=== PATIENT | female | born 1960 | race Two or more races ===

== ENCOUNTER 2018-04-05 12:13 | Inpatient (IN) | payer MEDICAID ==
[2018-04-05] VITALS (14 sets, daily range): BP systolic 141–160; BP diastolic 64–104
[~2018-04-05] VITALS: Ht 162.6 cm; Wt 79.4 kg
[2018-04-05] MEDS ORDERED: ATORVASTATIN CA40 MG ORAL (12:33)
[2018-04-05] MEDS ORDERED: COLACE100 MG ORAL (12:33)
[2018-04-05] MEDS ORDERED: BENADRYL25 MG ORAL (12:33)
[2018-04-05] MEDS ORDERED: ASPIRIN81 MG ORAL (12:33)
[2018-04-05] MEDS ORDERED: LOVENOX10 M4 SUBQ (12:33)
[2018-04-05] MEDS ORDERED: ASCORBIC ACID500 MG ORAL (12:33)
[2018-04-05] MEDS ORDERED: CARVEDILOL25 MG ORAL (12:33)
[2018-04-05] MEDS ORDERED: ACETAMINOPHEN325 M1 ORAL (12:33)
[2018-04-05] MEDS ORDERED: EPOGEN10000 UNIT SUBQ (12:33)
[2018-04-05] MEDS ORDERED: BISACODYL10 M1 RC (12:33)
[2018-04-05] MEDS ORDERED: FERROUS SULFAT325 MG ORAL (12:35)
[2018-04-05] MEDS ORDERED: METRONIDAZOLE500 MG ORAL (12:35)
[2018-04-05] MEDS ORDERED: FLUCONAZOLE100 MG ORAL (12:35)
[2018-04-05] MEDS ORDERED: NORCO 5-325 TA1 EACH ORAL ×2 (12:35→18:07)
[2018-04-05] MEDS ORDERED: NOVOLOG100 UNITS1 (12:36)
[2018-04-05] MEDS ORDERED: SIMETHICONE80 MG ORAL (12:36)
[2018-04-05] MEDS ORDERED: SENNA8.6 M2 PO (12:36)
[2018-04-05] MEDS ORDERED: VITAMIN B COMP1 EAC7 PO (12:36)
[2018-04-05] MEDS ORDERED: ZINC SULFATE220 M1 ORAL (12:36)
[2018-04-05 13:04] LABS: HEMATOCRIT 24.2 % (37.0-47.0); HEMOGLOBIN 7.9 G/DL (12.0-16.0); MEAN CORPUSCULAR VOLUME 86 FL (80-99); PLATELET COUNT 306 K/UL (150-450); RED BLOOD COUNT 2.81 M/UL (4.20-5.40); RED CELL DISTRIBUTION WIDTH 15.1 % (11.6-14.8); WHITE BLOOD COUNT 11.3 K/UL (4.8-10.8)
[2018-04-05 13:06] LABS: APPEARANCE,URINE CLEAR; BILIRUBIN, URINE NEGATIVE (NEGATIVE); GLUCOSE, URINE (UA) NEGATIVE (NEGATIVE); KETONES,URINE NEGATIVE (NEGATIVE); LEUKOCYTE ESTERASE ,URINE 3+ (NEGATIVE); NITRITE,URINE POSITIVE (NEGATIVE); PH,URINE 6.5 (4.5-8.0); PROTEIN,URINE 2+ (NEGATIVE); UROBILINOGEN,URINE NORMAL MG/DL (0.0-1.0)
[2018-04-05 13:13] LABS: ANION GAP 7 mmol/L (5-15); BLOOD UREA NITROGEN 8 mg/dL (7-18); CALCIUM 9.5 MG/DL (8.5-10.1); CARBON DIOXIDE 29 MMOL/L (21-32); CHLORIDE 105 MMOL/L (98-107); CREATININE 0.7 MG/DL (0.55-1.30); POTASSIUM 3.4 MMOL/L (3.5-5.1); SODIUM 141 MMOL/L (136-145)
--- NOTE | 2018-04-05 13:23 | Emergency Room Report ---
History of Present Illness General Chief Complaint: Abnormal Labs Source: Medical Record, EMS Present Illness HPI Patient presents from nursing facility with reports of low blood count Patient herself appears confused and not able to provide full history Unknown regarding previous transfusions There was no reports of any blood in the vomit or stool Patient herself complain of some shortness of breath Also cough denies any focal weakness Allergies: Coded Allergies: MAGNESIUM SULFATE (Verified Allergy, Unknown, 04/05/18) Patient History Limited by: medical condition Past Medical History: see triage record Pertinent Family History: unable to obtain Reviewed Nursing Documentation: PMH: Agreed; PSxH: Agreed Nursing Documentation-PMH Past Medical History: No History, Except For Hx Hypertension: Yes Hx Diabetes: Yes Hx Neurological Problems: Yes - spinal meningitis, Paraplegia, spinal cord infarction Review of Systems All Other Systems: limited - Other than the ones mentioned in the history of present illness all others are reviewed however they do stay limited due to the patient's mental status Physical Exam Vital Signs Date Time Temp Pulse Resp B/P (MAP) Pulse Ox O2 Delivery O2 Flow Rate FiO2 04/05/18 12:14 98.4 77 18 147/78 98 Nasal Cannula 3.0 Sp02 EP Interpretation: reviewed, normal General Appearance: no apparent distress Head: normocephalic, atraumatic Eyes: bilateral eye PERRL ENT: normal pharynx, no angioedema, dry mucus membranes Neck: supple, thyroid normal Respiratory: no respiratory distress, no retraction, crackles Cardiovascular #1: regular rate, rhythm Gastrointestinal: non tender, soft Musculoskeletal: other - Patient appears chronically debilitated moves both upper extremities without focal deficit however Neurologic: responsive - And minimally verbal Skin: normal color, no rash Lymphatic: no adenopathy Procedures Critical Care Time Critical Care Time 40 minutes for multiple re-evaluations initial critical presentation critical findings with opacity of the entire left lung, concerning for cardiopulmonary arrest, not including any procedural time, Medical Decision Making Diagnostic Impression: Primary Impression: Pleural effusion Additional Impressions: UTI (urinary tract infection) Anemia ER Course Patient is a fairly complex patient with multiple differential to consideration including but not limited to cardiac cardiopulmonary and vascular emergencies Patient's x-ray shows a large left sided effusion/atelectasis The etiology of this is not clear potential mucous plug Patient also shows significant UTI Antibodies are initiated patient requires further inpatient evaluation and care Labs Test 04/05/18 12:50 04/05/18 13:15 White Blood Count 11.3 K/UL (4.8-10.8) Red Blood Count 2.81 M/UL (4.20-5.40) Hemoglobin 7.9 G/DL (12.0-16.0) Hematocrit 24.2 % (37.0-47.0) Mean Corpuscular Volume 86 FL (80-99) Mean Corpuscular Hemoglobin 28.1 PG (27.0-31.0) Mean Corpuscular Hemoglobin Concent 32.5 G/DL (32.0-36.0) Red Cell Distribution Width 15.1 % (11.6-14.8) Platelet Count 306 K/UL (150-450) Mean Platelet Volume 8.1 FL (6.5-10.1) Neutrophils (%) (Auto) % (45.0-75.0) Lymphocytes (%) (Auto) % (20.0-45.0) Monocytes (%) (Auto) % (1.0-10.0) Eosinophils (%) (Auto) % (0.0-3.0) Basophils (%) (Auto) % (0.0-2.0) Differential Total Cells Counted 100 Neutrophils % (Manual) 55 % (45-75) Lymphocytes % (Manual) 24 % (20-45) Monocytes % (Manual) 16 % (1-10) Eosinophils % (Manual) 5 % (0-3) Basophils % (Manual) 0 % (0-2) Band Neutrophils 0 % (0-8) Platelet Estimate Adequate Platelet Morphology Normal Polychromasia 1+ Hypochromasia 1+ Anisocytosis 1+ Urine Color Yellow Urine Appearance Clear Urine pH 6.5 (4.5-8.0) Urine Specific [place] 1.005 (1.005-1.035) Urine Protein 2+ (NEGATIVE) Urine Glucose (UA) Negative (NEGATIVE) Urine Ketones Negative (NEGATIVE) Urine Blood 2+ (NEGATIVE) Urine Nitrite Positive (NEGATIVE) Urine Bilirubin Negative (NEGATIVE) Urine Urobilinogen Normal MG/DL (0.0-1.0) Urine Leukocyte Esterase 3+ (NEGATIVE) Urine RBC 2-4 /HPF (0 - 2) Urine WBC 5-10 /HPF (0 - 2) Urine Squamous Epithelial Cells Few /LPF (NONE/OCC) Urine Bacteria Few /HPF (NONE) Urine Mucus Few /LPF (NONE/OCC) Urine Yeast Occasional /HPF (NONE) Sodium Level 141 MMOL/L (136-145) Potassium Level 3.4 MMOL/L (3.5-5.1) Chloride Level 105 MMOL/L (98-107) Carbon Dioxide Level 29 MMOL/L (21-32) Anion Gap 7 mmol/L (5-15) Blood Urea Nitrogen 8 mg/dL (7-18) Creatinine 0.7 MG/DL (0.55-1.30) Estimat Glomerular Filtration Rate > 60 mL/min (>60) Glucose Level 136 MG/DL (74-106) Calcium Level 9.5 MG/DL (8.5-10.1) Total Bilirubin 0.4 MG/DL (0.2-1.0) Aspartate Amino Transf (AST/SGOT) 36 U/L (15-37) Alanine Aminotransferase (ALT/SGPT) 42 U/L (12-78) Alkaline Phosphatase 125 U/L (46-116) Total Creatine Kinase 30 U/L (26-308) Creatine Kinase MB 0.9 NG/ML (0.0-3.6) Creatine Kinase MB Relative Index 3.0 Troponin I 0.085 ng/mL (0.000-0.056) Total Protein 6.7 G/DL (6.4-8.2) Albumin 1.6 G/DL (3.4-5.0) Globulin 5.1 g/dL Albumin/Globulin Ratio 0.3 (1.0-2.7) Lipase 350 U/L (73-393) Prothrombin Time 12.2 SEC (9.30-11.50) Prothromb Time International Ratio 1.2 (0.9-1.1) Activated Partial Thromboplast Time 29 SEC (23-33) Rhythm Strip Diag. Results EP Interpretation: yes Rate: 80 Rhythm: NSR, no PVC's, no ectopy Chest X-Ray Diagnostic Results Chest X-Ray Diagnostic Results : Chest X-Ray Ordered: Yes # of Views/Limited/Complete: 1 View Indication: Chest Pain EP Interpretation: Yes Interpretation: no pneumothorax, other - Large left-sided effusion, no acute bony abnormalities Impression: Other - Large left effusion Electronically Signed by: Margaux Conner DO Last Vital Signs Date Time Temp Pulse Resp B/P (MAP) Pulse Ox O2 Delivery O2 Flow Rate FiO2 04/05/18 12:14 98.4 77 18 147/78 98 Nasal Cannula 3.0 Status: improved Disposition: ADMITTED INPATIENT Condition: Serious Referrals: Abel Black MD (PCP) Margaux Conner DO Apr 05, 2018 13:23
[2018-04-05 13:25] LABS: ALANINE AMINOTRANSFERASE 42 U/L (12-78); ALBUMIN 1.6 G/DL (3.4-5.0); ALBUMIN/GLOBULIN RATIO 0.3 (1.0-2.7); ALKALINE PHOSPHATASE 125 U/L (46-116); ASPARTATE AMINO TRANSFERASE 36 U/L (15-37); BILIRUBIN,TOTAL 0.4 MG/DL (0.2-1.0); CKMB 0.9 NG/ML (0.0-3.6); CREATINE KINASE 30 U/L (26-308)
[2018-04-05 13:26] LABS: COLOR,URINE YELLOW
[2018-04-05 13:39] LABS: INR 1.2 (0.9-1.1)
--- NOTE | 2018-04-05 14:22 | Diagnostic Imaging Report ---
Indication: Chest pain Technique: One view of the chest Comparison: none Findings: There is near complete opacification of the left hemithorax with only a small amount of residual aerated lung, most likely due to a large left pleural effusion. The heart is enlarged. The right lung and pleural space are clear. Impression: Near complete opacification left hemithorax. Most likely due to a large pleural effusion. There may be a significant component of atelectasis as well.
[2018-04-05] MEDS ORDERED: DIFLUCAN200 MG ORAL (18:07)
[2018-04-05] MEDS ORDERED: Docusate 100mg cap ORAL PRN (20:45)
[2018-04-05] MEDS ORDERED: Simethicone 80mg tab ORAL PRN (20:45)
[2018-04-05] MEDS ORDERED: Norco 5mg/325mg tab ORAL PRN (20:45)
[2018-04-05] MEDS: NovoLOG Insulin Flexpen SUBQ SCH (21:00)
[2018-04-05] MEDS: Atorvastatin 20mg tab ORAL SCH (21:47)
[2018-04-05] MEDS: metroNIDAZOLE 500mg tab ORAL SCH (21:47)
[2018-04-05] MEDS: Sennosides 8.6mg tab ORAL SCH (21:47)
[2018-04-05] MEDS: Carvedilol 25mg Tab ORAL SCH (21:47)
[2018-04-06] VITALS: BP 148/91
[2018-04-06 04:00] VITALS: BP 144/91
[2018-04-06] MEDS: metroNIDAZOLE 500mg tab ORAL SCH ×3 (05:49→21:44)
[2018-04-06] MEDS: NovoLOG Insulin Flexpen SUBQ SCH ×4 (05:50→21:42)
[2018-04-06 07:42] LABS: ANION GAP 8 mmol/L (5-15); BLOOD UREA NITROGEN 9 mg/dL (7-18); CALCIUM 9.6 MG/DL (8.5-10.1); CARBON DIOXIDE 29 MMOL/L (21-32); CHLORIDE 106 MMOL/L (98-107); CREATININE 0.7 MG/DL (0.55-1.30); POTASSIUM 3.1 MMOL/L (3.5-5.1); SODIUM 142 MMOL/L (136-145)
[2018-04-06 07:43] LABS: BASOPHILS % (AUTO) 1.5 % (0.0-2.0); EOSINOPHILS % (AUTO) 3.6 % (0.0-3.0); HEMATOCRIT 30.9 % (37.0-47.0); HEMOGLOBIN 10.3 G/DL (12.0-16.0); LYMPHOCYTES % (AUTO) 18.6 % (20.0-45.0); MEAN CORPUSCULAR VOLUME 86 FL (80-99); MONOCYTES % (AUTO) 12.8 % (1.0-10.0); NEUTROPHILS % (AUTO) 63.6 % (45.0-75.0); PLATELET COUNT 308 K/UL (150-450); RED CELL DISTRIBUTION WIDTH 14.2 % (11.6-14.8); WHITE BLOOD COUNT 12.5 K/UL (4.8-10.8)
[2018-04-06 08:00] VITALS: BP 144/90
[2018-04-06] MEDS: Carvedilol 25mg Tab ORAL SCH ×2 (08:18→21:40)
[2018-04-06] MEDS: Aspirin Baby 81mg ORAL SCH (08:21)
[2018-04-06] MEDS: Zinc Sulfate 220mg cap ORAL SCH (08:21)
[2018-04-06] MEDS: Ascorbic Acid 500mg tab ORAL SCH (08:21)
[2018-04-06] MEDS: Norco 5mg/325mg tab ORAL SCH (08:23)
[2018-04-06] MEDS: Enoxaparin 40mg Inj SUBQ SCH (08:24)
[2018-04-06 09:46] LABS: BASOPHILS % (AUTO) 1.5 % (0.0-2.0); EOSINOPHILS % (AUTO) 2.5 % (0.0-3.0); HEMATOCRIT 30.9 % (37.0-47.0); HEMOGLOBIN 10.4 G/DL (12.0-16.0); LYMPHOCYTES % (AUTO) 19.7 % (20.0-45.0); MEAN CORPUSCULAR VOLUME 86 FL (80-99); MONOCYTES % (AUTO) 11.2 % (1.0-10.0); PLATELET COUNT 331 K/UL (150-450); RED BLOOD COUNT 3.58 M/UL (4.20-5.40); RED CELL DISTRIBUTION WIDTH 14.4 % (11.6-14.8); WHITE BLOOD COUNT 12.7 K/UL (4.8-10.8)
[2018-04-06] MEDS: Fluconazole 100mg tab ORAL SCH (11:33)
[2018-04-06 12:00] VITALS: BP 112/72
[2018-04-06] MEDS: Vancomycin 750mg/NS 250ml IVPB SCH ×2 (12:55→22:45)
--- NOTE | 2018-04-06 14:54 | Diagnostic Imaging Report ---
Indication: Shortness of breath Technique: One view of the chest Comparison: 04/05/2018 Findings: Left pleural effusion is again demonstrated. The heart is border line enlarged. Right lung hand pleural space are clear. Impression: Unchanged, over one day, findings as above.
[2018-04-06 16:00] VITALS: BP 137/83
--- NOTE | 2018-04-06 18:30 | History and Physical Report ---
DATE OF ADMISSION: 04/05/2018 REASON FOR ADMISSION: Anemia, fever. HISTORY: This is a 58-year-old female admitted through the emergency room. The patient with noted anemia and also now with fevers. The patient with low blood count. The patient has chronic collapse of the lung. The patient is a fairly debilitated paraplegic and has noted chronic infection. The patient was seen and evaluated, and admitted for ongoing care and management. The patient did undergo transfusion. PAST MEDICAL HISTORY: Reviewed. Spinal meningitis, paraplegia, spinal cord infarction, hypertension, chronic lung collapse, diabetes, chronic fungal infection. MEDICATIONS: Reviewed. ALLERGIES: Reviewed. SOCIAL HISTORY: The patient now in a [facility]. PHYSICAL EXAMINATION: GENERAL: An ill-appearing female. VITAL SIGNS: Blood pressure 144/90, T-max is 102.6, pulse 99, respiratory rate 22, saturations 98%. HEENT: Negative. NECK: Supple. LUNGS: With reduced breath sounds in the left lung. CARDIAC: S1, S2. Regular rate and rhythm. ABDOMEN: Soft. EXTREMITIES: No cyanosis or clubbing. There is some edema. NEUROLOGIC: Paraplegic, overall alert, but overall weak. LABORATORY DATA: Reviewed in detail. IMPRESSION: Leukocytosis, anemia, fever, possible sepsis, status post transfusion, elevated troponin, possible demand ischemia, severe protein-calorie malnutrition. RECOMMENDATIONS: Supportive care. We will attempt to obtain thoracentesis if any. In the past, one had been chronically collapsed. We will follow clinically. The patient has been seen by Thoracic Surgery. No intervention planned. We will continue with empiric antibiotic, artis-culture, and reassess and recommend further for further changes in intervention and ongoing recommendations. Abel Black M.D. DR: Teresa JOB#: [id number] CC:
[2018-04-06 20:00] VITALS: BP 151/91
--- NOTE | 2018-04-06 21:00 | Consultation ---
DATE OF CONSULTATION: 04/06/2018 INFECTIOUS DISEASE CONSULT This consult is for coverage of Dr. Rutledge. CONSULTING PHYSICIAN: Reno Samaniego M.D. PRIMARY ATTENDING PHYSICIAN: Abel Black M.D. REASON FOR CONSULT: UTI and fever. HISTORY OF PRESENT ILLNESS: This is a 58-year-old female, who is a longterm resident admitted yesterday because of anemia. The patient had hemoglobin of 7.9 in hospital. She had blood transfusion last night and started to have fever this morning. The maximum temperature was 102.6 degrees. 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 The patient had a recent hospitalization in [facility] in [place]. ALLERGIES: Allergic to magnesium so far. MEDICATIONS: Vancomycin, cefepime, vitamin C, aspirin, [place], fluconazole, and metronidazole. SOCIAL HISTORY: care home resident. Single. No other history obtainable. PHYSICAL EXAMINATION: VITAL SIGNS: Temperature 99.1 degrees, pulse 83, and blood pressure 112/72. GENERAL APPEARANCE: Seems to be overweight. HEAD AND NECK: Parachute conjunctivae. HEART: Regular. LUNGS: Decreased sound in the left side. ABDOMEN: Soft, nontender, and obese. EXTREMITIES: No edema. LABORATORY AND DIAGNOSTIC DATA: WBC 12.7, hemoglobin 10.4, hematocrit 30.9, and platelets 331,000. Sodium 142, potassium 3.1, chloride 106, bicarbonate 29, BUN 9, creatinine 0.7, and glucose was 114. Urine culture growing gram-negative. There were blood cultures sent today that are pending. Chest x-ray showed near complete opacification of left hemithorax, most likely due to a large pleural effusion. IMPRESSION: Sepsis, systemic inflammatory response syndrome with leukocytosis, and fever. The patient seems to have gram-negative UTI. Left-sided pleural effusion that was present in the previous admission in [facility]. The patient is diabetic, has hypertension, has anemia and develops fever after blood transfusion, and getting high-dose fluconazole for cryptococcal meningitis. RECOMMENDATIONS: We will continue with current antibiotics, cefepime, vancomycin, Flagyl, and fluconazole. We will try to obtain more further information regarding previous history of cryptococcal meningitis. We will follow up the culture at the end of my exam. I thank, Dr. Black, for involving me in the care of this patient. Reno Samaniego M.D. DR: VALENTINE JOB#: [id number] CC:
[2018-04-06] MEDS: Atorvastatin 20mg tab ORAL SCH (21:39)
[2018-04-06] MEDS: Sennosides 8.6mg tab ORAL SCH (21:40)
[2018-04-07] VITALS: BP 146/80
[2018-04-07 04:00] VITALS: BP 127/78
[2018-04-07] MEDS: metroNIDAZOLE 500mg tab ORAL SCH (06:12)
[2018-04-07] MEDS: NovoLOG Insulin Flexpen SUBQ SCH ×4 (06:13→20:25)
[2018-04-07 06:43] LABS: BASOPHILS % (AUTO) 1.2 % (0.0-2.0); EOSINOPHILS % (AUTO) 4.2 % (0.0-3.0); HEMOGLOBIN 9.8 G/DL (12.0-16.0); LYMPHOCYTES % (AUTO) 15.8 % (20.0-45.0); MEAN CORPUSCULAR VOLUME 87 FL (80-99); MONOCYTES % (AUTO) 11.7 % (1.0-10.0); NEUTROPHILS % (AUTO) 67.2 % (45.0-75.0); PLATELET COUNT 312 K/UL (150-450); RED BLOOD COUNT 3.45 M/UL (4.20-5.40); WHITE BLOOD COUNT 13.1 K/UL (4.8-10.8)
[2018-04-07 06:52] LABS: ANION GAP 7 mmol/L (5-15); BLOOD UREA NITROGEN 8 mg/dL (7-18); CALCIUM 9.7 MG/DL (8.5-10.1); CARBON DIOXIDE 27 MMOL/L (21-32); CHLORIDE 107 MMOL/L (98-107); CREATININE 0.7 MG/DL (0.55-1.30); POTASSIUM 3.4 MMOL/L (3.5-5.1); SODIUM 141 MMOL/L (136-145)
[2018-04-07 08:00] VITALS: BP 140/89
[2018-04-07] MEDS: Aspirin Baby 81mg ORAL SCH (08:50)
[2018-04-07] MEDS: Carvedilol 25mg Tab ORAL SCH ×2 (08:50→20:20)
[2018-04-07] MEDS: Zinc Sulfate 220mg cap ORAL SCH (08:50)
[2018-04-07] MEDS: Fluconazole 100mg tab ORAL SCH (08:51)
[2018-04-07] MEDS: Norco 5mg/325mg tab ORAL SCH (08:51)
[2018-04-07] MEDS: Ascorbic Acid 500mg tab ORAL SCH (08:51)
[2018-04-07] MEDS: Enoxaparin 40mg Inj SUBQ SCH (09:00)
--- NOTE | 2018-04-07 09:58 | General Progress Note ---
Assessment/Plan Assessment/Plan IMPRESSION: Leukocytosis, anemia, fever, possible sepsis, status post transfusion, elevated troponin, possible demand ischemia, severe protein-calorie malnutrition. PLAN cipro? dc to snf continue same tap effusion update family Subjective Allergies: Coded Allergies: MAGNESIUM SULFATE (Verified Allergy, Unknown, 04/05/18) Subjective weak in bed Objective Last 24 Hour Vital Signs Date Time Temp Pulse Resp B/P (MAP) Pulse Ox O2 Delivery O2 Flow Rate FiO2 04/07/18 08:50 93 140/89 04/07/18 08:00 99.4 93 19 140/89 (106) 99 04/07/18 04:00 99.5 96 19 127/78 (94) 99 04/07/18 00:00 98.7 88 20 146/80 (102) 98 04/06/18 21:40 78 151/91 04/06/18 21:00 Nasal Cannula 2.0 04/06/18 20:00 97.0 78 20 151/91 (111) 99 04/06/18 16:00 97.7 77 20 137/83 (101) 98 04/06/18 12:00 99.1 83 21 112/72 (85) 98 04/06/18 10:03 98.2 Intake and Output 04/06/18 04/07/18 18:59 06:59 Intake Total 480 ml 533.334 ml Output Total 600 ml 300 ml Balance -120 ml 233.334 ml Intake Oral 480 ml 100 ml IV Total 433.334 ml Output Urine Total 600 ml 300 ml Laboratory Tests 04/07/18 06:10: White Blood Count 13.1H, Red Blood Count 3.45L, Hemoglobin 9.8L, Hematocrit 30.0L, Mean Corpuscular Volume 87, Mean Corpuscular Hemoglobin 28.4, Mean Corpuscular Hemoglobin Concent 32.6, Red Cell Distribution Width 15.0H, Platelet Count 312, Mean Platelet Volume 7.1, Neutrophils (%) (Auto) 67.2, Lymphocytes (%) (Auto) 15.8L, Monocytes (%) (Auto) 11.7H, Eosinophils (%) (Auto ) 4.2H, Basophils (%) (Auto) 1.2, Sodium Level 141, Potassium Level 3.4L, Chloride Level 107, Carbon Dioxide Level 27, Anion Gap 7, Blood Urea Nitrogen 8 , Creatinine 0.7, Estimat Glomerular Filtration Rate > 60, Glucose Level 131H, Calcium Level 9.7 Height (Feet): 5 Height (Inches): 4.00 Weight (Pounds): 175 Objective GENERAL: An ill-appearing female. HEENT: Negative. NECK: Supple. LUNGS: With reduced breath sounds in the left lung. CARDIAC: S1, S2. Regular rate and rhythm. ABDOMEN: Soft. EXTREMITIES: No cyanosis or clubbing. There is some edema. NEUROLOGIC: Paraplegic, overall alert, but overall weak. Abel Black MD Apr 07, 2018 09:58
--- NOTE | 2018-04-07 11:11 | Infectious Diseases Prog Note ---
Assessment/Plan Assessment/Plan antibiotics : vancomycin iv, cefepime, fluconazole, flagyl A 1. pseudomonas UTI 2. cryptococcal meningitis 3. leucocytosis 4. pleural effusion 5. diabetes mellitus 6. hypertension P 1. continue cefepime 2. continue fluconazole 3. d/c iv vancomycin, flagyl 4. will follow up cultures Subjective Constitutional: Denies: fever, chills Respiratory: Reports: shortness of breath, dry cough Gastrointestinal/Abdominal: Denies: nausea, vomiting, diarrhea Musculoskeletal: Denies: pain Allergies: Coded Allergies: MAGNESIUM SULFATE (Verified Allergy, Unknown, 04/05/18) Objective Vital Signs Last 24 Hour Vital Signs Date Time Temp Pulse Resp B/P (MAP) Pulse Ox O2 Delivery O2 Flow Rate FiO2 04/07/18 09:00 Nasal Cannula 2.0 04/07/18 08:50 93 140/89 04/07/18 08:00 99.4 93 19 140/89 (106) 99 04/07/18 04:00 99.5 96 19 127/78 (94) 99 04/07/18 00:00 98.7 88 20 146/80 (102) 98 04/06/18 21:40 78 151/91 04/06/18 21:00 Nasal Cannula 2.0 04/06/18 20:00 97.0 78 20 151/91 (111) 99 04/06/18 16:00 97.7 77 20 137/83 (101) 98 04/06/18 12:00 99.1 83 21 112/72 (85) 98 Height (Feet): 5 Height (Inches): 4.00 Weight (Pounds): 175 Respiratory/Chest: lungs clear Cardiovascular: normal rate, regular rhythm, no gallop/murmur Abdomen: soft, non tender Extremities: other - + edema Microbiology Date/Time Source Procedure Growth Status 04/05/18 17:33 Nasal Nares MRSA Culture - Final Staphylococcus Aureus - Mrsa Complete 04/06/18 15:20 Indwelling Cath Urine Culture - Preliminary NO GROWTH Resulted 04/06/18 09:15 Indwelling Cath Urine Culture - Preliminary NO GROWTH Resulted 04/05/18 12:50 Urine,Clean Catch Urine Culture - Final Pseudomonas Aeruginosa Complete 04/05/18 17:33 Rectum VRE Culture - Final NO VANCOMYCIN RESISTANT ENTEROCOCCUS ... Complete 04/05/18 17:33 Rectum - Final NO CARBAPENEM-RESISTANT ENTEROBACTERI... Complete Laboratory Tests Test 04/07/18 06:10 White Blood Count 13.1 K/UL (4.8-10.8) H Red Blood Count 3.45 M/UL (4.20-5.40) L Hemoglobin 9.8 G/DL (12.0-16.0) L Hematocrit 30.0 % (37.0-47.0) L Mean Corpuscular Volume 87 FL (80-99) Mean Corpuscular Hemoglobin 28.4 PG (27.0-31.0) Mean Corpuscular Hemoglobin Concent 32.6 G/DL (32.0-36.0) Red Cell Distribution Width 15.0 % (11.6-14.8) H Platelet Count 312 K/UL (150-450) Mean Platelet Volume 7.1 FL (6.5-10.1) Neutrophils (%) (Auto) 67.2 % (45.0-75.0) Lymphocytes (%) (Auto) 15.8 % (20.0-45.0) L Monocytes (%) (Auto) 11.7 % (1.0-10.0) H Eosinophils (%) (Auto) 4.2 % (0.0-3.0) H Basophils (%) (Auto) 1.2 % (0.0-2.0) Sodium Level 141 MMOL/L (136-145) Potassium Level 3.4 MMOL/L (3.5-5.1) L Chloride Level 107 MMOL/L (98-107) Carbon Dioxide Level 27 MMOL/L (21-32) Anion Gap 7 mmol/L (5-15) Blood Urea Nitrogen 8 mg/dL (7-18) Creatinine 0.7 MG/DL (0.55-1.30) Estimat Glomerular Filtration Rate > 60 mL/min (>60) Glucose Level 131 MG/DL (74-106) H Calcium Level 9.7 MG/DL (8.5-10.1) Current Medications Medications (Trade) Dose Ordered Sig/Nya Route PRN Reason Start Time Stop Time Status Last Admin Dose Admin Acetaminophen (Tylenol) 650 mg Q6H PRN ORAL Mild Pain/Temp > 100.5 04/05/18 20:45 05/05/18 20:44 04/06/18 08:19 Acetaminophen/ Hydrocodone Bitart ([place] 5/325) 1 tab DAILY ORAL 04/06/18 09:00 04/13/18 08:59 04/07/18 08:51 Acetaminophen/ Hydrocodone Bitart ([place] 5/325) 1 tab Q4H PRN ORAL Severe Pain (Pain Scale 7-10) 04/05/18 20:45 04/12/18 20:44 Ascorbic Acid (Vitamin C) 500 mg DAILY ORAL 04/06/18 09:00 05/06/18 08:59 04/07/18 08:51 Aspirin (ASA) 81 mg DAILY ORAL 04/06/18 09:00 05/06/18 08:59 04/06/18 08:21 Atorvastatin Calcium (Lipitor) 40 mg BEDTIME ORAL 04/05/18 21:00 05/05/18 20:59 04/06/18 21:39 Bisacodyl (Dulcolax) 10 mg DAILYPRN PRN RECTAL Constipation 04/05/18 20:45 05/05/18 20:44 Carvedilol (Coreg) 25 mg EVERY 12 HOURS ORAL 04/05/18 21:00 05/05/18 20:59 04/07/18 08:50 Cefepime HCl 1 gm/ Dextrose 50 ml @ 100 mls/hr Q12H IVPB 04/06/18 10:00 04/13/18 09:59 04/07/18 09:02 Dextrose (Dextrose 50%) 25 ml Q30M PRN IV Hypoglycemia 04/05/18 20:45 05/05/18 20:44 Dextrose (Dextrose 50%) 50 ml Q30M PRN IV Hypoglycemia 04/05/18 20:45 05/05/18 20:44 Diphenhydramine HCl (Benadryl) 25 mg DAILYPRN PRN ORAL Itching 04/05/18 20:45 05/05/18 20:44 Docusate Sodium (Colace) 200 mg TWICE A DAY PRN ORAL Constipation 04/05/18 20:45 05/05/18 20:44 Enoxaparin Sodium (Lovenox) 40 mg DAILY SUBQ 04/06/18 09:00 05/06/18 08:59 04/06/18 08:24 Ferrous Sulfate (Feosol) 325 mg THREE TIMES A DAY ORAL 04/06/18 09:00 05/06/18 08:59 04/07/18 08:50 Fluconazole (Diflucan) 600 mg DAILY ORAL 04/06/18 09:00 04/13/18 08:59 04/07/18 08:51 Insulin Aspart (NovoLOG) BEFORE MEALS AND HS SUBQ 04/05/18 21:00 05/05/18 20:59 04/07/18 06:13 Metronidazole (Flagyl) 500 mg EVERY 8 HOURS ORAL 04/05/18 22:00 04/12/18 21:59 04/07/18 06:12 Potassium Chloride (K-Dur) 40 meq ONCE ORAL 04/07/18 10:30 04/07/18 11:30 04/07/18 10:57 Sennosides (Senokot) 8.6 mg BEDTIME ORAL 04/05/18 21:00 05/05/18 20:59 04/06/18 21:40 Simethicone (Mylicon) 80 mg DAILYPRN PRN ORAL GAS PAIN 04/05/18 20:45 05/05/18 20:44 Vancomycin HCl (Vanco rx to dose) 1 ea DAILY PRN MISC Per rx protocol 04/06/18 08:45 05/06/18 08:44 Vancomycin/Sodium Chloride 250 ml @ 166.667 mls/hr Q12H IVPB 04/06/18 11:00 04/11/18 10:59 04/06/18 22:45 Zinc Sulfate (Zinc Sulfate) 220 mg DAILY ORAL 04/06/18 09:00 05/06/18 08:59 04/07/18 08:50 Blaine Rutledge MD Apr 07, 2018 11:11
[2018-04-07 12:00] VITALS: BP 132/89
--- NOTE | 2018-04-07 13:10 | Consultation ---
History of Present Illness General Date patient seen: Apr 07, 2018 Chief Complaint: Abnormal Labs Reason for Consultation: sacral wound Present Illness HPI 58F with multiple medical comorbidities currently admitted for medical care and management. On admission noted to have sacral decubitus ulcer requiring care. Surgery called to evaluate and assist with management. patient seen, chart reviewed, patient examined. Allergies: Coded Allergies: MAGNESIUM SULFATE (Verified Allergy, Unknown, 04/05/18) Medication History Scheduled Ascorbic Acid* (Ascorbic Acid*), 500 MG ORAL DAILY, (Reported) Aspirin* (Aspirin*), 81 MG ORAL DAILY, (Reported) Atorvastatin Calcium* (Atorvastatin Calcium*), 40 MG ORAL BEDTIME, (Reported) Carvedilol* (Carvedilol*), 25 MG ORAL EVERY 12 HOURS, (Reported) Enoxaparin* (Lovenox*), 40 MG SUBQ DAILY, (Reported) Epoetin Sumeet (Epogen), 10,000 UNIT SUBQ 3XW, (Reported) Ferrous Sulfate* (Ferrous Sulfate*), 325 MG ORAL THREE TIMES A DAY, (Reported) Fluconazole* (Diflucan*), 200 MG ORAL DAILY, (Reported) Hydrocodone Bit/Acetaminophen 5-325* ([place] 5-325*), 1 TAB ORAL DAILY, (Reported ) Metronidazole* (Flagyl*), 500 MG ORAL EVERY 8 HOURS, (Reported) Sennosides (Senna), 8.6 MG PO BEDTIME, (Reported) Vit B Comp/C/Fa/Iron/Vit E (Vitamin B Complex Tablet), 1 EACH PO DAILY, ( Reported) Zinc Sulfate (Zinc Sulfate*), 220 MG ORAL DAILY, (Reported) Scheduled PRN Acetaminophen* (Acetaminophen 325MG Tablet*), 650 MG ORAL Q6H PRN for Mild Pain/ Temp > 100.5, (Reported) Bisacodyl (Bisacodyl), 10 MG RC EVERY 24 HOURS PRN for Constipation, (Reported) Diphenhydramine Hcl* (Benadryl*), 25 MG ORAL DAILY PRN for Itching, (Reported) Docusate Sodium* (Colace*), 200 MG ORAL TWICE A DAY PRN for Constipation, ( Reported) Hydrocodone Bit/Acetaminophen 5-325* ([place] 5-325*), 1 TAB ORAL Q4H PRN for Severe Pain (Pain Scale 7-10), (Reported) Simethicone* (Simethicone*), 80 MG ORAL DAILY PRN for GAS PAIN, (Reported) Miscellaneous Medications Insulin Aspart (Novolog Flexpen), (Reported) Discontinued Medications Fluconazole (Fluconazole), 600 MG ORAL DAILY, (Reported) Discontinued Reason: Prescription changed Patient History Limited by: medical condition History Provided By: Medical Record, PMD Healthcare decision maker Resuscitation status Full Code Advanced Directive on File No Past Medical/Surgical History Past Medical/Surgical History: (1) Anemia (2) Pleural effusion (3) UTI (urinary tract infection) Review of Systems All Other Systems: negative except mentioned in HPI Physical Exam General Appearance: no apparent distress Lines, tubes and drains: other HEENT: mucous membranes moist Neck: normal inspection Respiratory/Chest: normal breath sounds, no respiratory distress, no accessory muscle use Cardiovascular/Chest: regular rhythm Abdomen: soft, no organomegaly, no mass Extremities: other Skin Exam: warm/dry, other Neurologic: alert Last 24 Hour Vital Signs Date Time Temp Pulse Resp B/P (MAP) Pulse Ox O2 Delivery O2 Flow Rate FiO2 04/07/18 12:00 99.0 92 19 132/89 (103) 99 04/07/18 09:00 Nasal Cannula 2.0 04/07/18 08:50 93 140/89 04/07/18 08:00 99.4 93 19 140/89 (106) 99 04/07/18 04:00 99.5 96 19 127/78 (94) 99 04/07/18 00:00 98.7 88 20 146/80 (102) 98 04/06/18 21:40 78 151/91 04/06/18 21:00 Nasal Cannula 2.0 04/06/18 20:00 97.0 78 20 151/91 (111) 99 04/06/18 16:00 97.7 77 20 137/83 (101) 98 Intake and Output 04/06/18 04/07/18 19:00 07:00 Intake Total 480 ml 533.334 ml Output Total 600 ml 300 ml Balance -120 ml 233.334 ml Intake Oral 480 ml 100 ml IV Total 433.334 ml Output Urine Total 600 ml 300 ml Laboratory Tests Test 04/07/18 06:10 White Blood Count 13.1 K/UL (4.8-10.8) H Red Blood Count 3.45 M/UL (4.20-5.40) L Hemoglobin 9.8 G/DL (12.0-16.0) L Hematocrit 30.0 % (37.0-47.0) L Mean Corpuscular Volume 87 FL (80-99) Mean Corpuscular Hemoglobin 28.4 PG (27.0-31.0) Mean Corpuscular Hemoglobin Concent 32.6 G/DL (32.0-36.0) Red Cell Distribution Width 15.0 % (11.6-14.8) H Platelet Count 312 K/UL (150-450) Mean Platelet Volume 7.1 FL (6.5-10.1) Neutrophils (%) (Auto) 67.2 % (45.0-75.0) Lymphocytes (%) (Auto) 15.8 % (20.0-45.0) L Monocytes (%) (Auto) 11.7 % (1.0-10.0) H Eosinophils (%) (Auto) 4.2 % (0.0-3.0) H Basophils (%) (Auto) 1.2 % (0.0-2.0) Sodium Level 141 MMOL/L (136-145) Potassium Level 3.4 MMOL/L (3.5-5.1) L Chloride Level 107 MMOL/L (98-107) Carbon Dioxide Level 27 MMOL/L (21-32) Anion Gap 7 mmol/L (5-15) Blood Urea Nitrogen 8 mg/dL (7-18) Creatinine 0.7 MG/DL (0.55-1.30) Estimat Glomerular Filtration Rate > 60 mL/min (>60) Glucose Level 131 MG/DL (74-106) H Calcium Level 9.7 MG/DL (8.5-10.1) Microbiology Date/Time Source Procedure Growth Status 04/06/18 15:20 Indwelling Cath Urine Culture - Preliminary NO GROWTH Resulted Height (Feet): 5 Height (Inches): 4.00 Weight (Pounds): 175 Medications Current Medications Medications (Trade) Dose Ordered Sig/Nya Route PRN Reason Start Time Stop Time Status Last Admin Dose Admin Acetaminophen (Tylenol) 650 mg Q6H PRN ORAL Mild Pain/Temp > 100.5 04/05/18 20:45 05/05/18 20:44 12/13/18 08:19 Acetaminophen/ Hydrocodone Bitart ([place] 5/325) 1 tab DAILY ORAL 04/06/18 09:00 04/13/18 08:59 04/07/18 08:51 Acetaminophen/ Hydrocodone Bitart ([place] 5/325) 1 tab Q4H PRN ORAL Severe Pain (Pain Scale 7-10) 04/05/18 20:45 04/12/18 20:44 Ascorbic Acid (Vitamin C) 500 mg DAILY ORAL 04/06/18 09:00 05/06/18 08:59 04/07/18 08:51 Aspirin (ASA) 81 mg DAILY ORAL 04/06/18 09:00 05/06/18 08:59 04/06/18 08:21 Atorvastatin Calcium (Lipitor) 40 mg BEDTIME ORAL 04/05/18 21:00 05/05/18 20:59 04/06/18 21:39 Bisacodyl (Dulcolax) 10 mg DAILYPRN PRN RECTAL Constipation 04/05/18 20:45 05/05/18 20:44 Carvedilol (Coreg) 25 mg EVERY 12 HOURS ORAL 04/05/18 21:00 05/05/18 20:59 04/07/18 08:50 Cefepime HCl 1 gm/ Dextrose 50 ml @ 100 mls/hr Q12H IVPB 04/06/18 10:00 04/13/18 09:59 04/07/18 09:02 Dextrose (Dextrose 50%) 25 ml Q30M PRN IV Hypoglycemia 04/05/18 20:45 05/05/18 20:44 Dextrose (Dextrose 50%) 50 ml Q30M PRN IV Hypoglycemia 04/05/18 20:45 05/05/18 20:44 Diphenhydramine HCl (Benadryl) 25 mg DAILYPRN PRN ORAL Itching 04/05/18 20:45 05/05/18 20:44 Docusate Sodium (Colace) 200 mg TWICE A DAY PRN ORAL Constipation 04/05/18 20:45 05/05/18 20:44 Enoxaparin Sodium (Lovenox) 40 mg DAILY SUBQ 04/06/18 09:00 05/06/18 08:59 04/06/18 08:24 Ferrous Sulfate (Feosol) 325 mg THREE TIMES A DAY ORAL 04/06/18 09:00 05/06/18 08:59 04/07/18 08:50 Fluconazole (Diflucan) 600 mg DAILY ORAL 04/06/18 09:00 04/13/18 08:59 04/07/18 08:51 Insulin Aspart (NovoLOG) BEFORE MEALS AND HS SUBQ 04/05/18 21:00 05/05/18 20:59 04/07/18 11:42 Sennosides (Senokot) 8.6 mg BEDTIME ORAL 04/05/18 21:00 05/05/18 20:59 04/06/18 21:40 Simethicone (Mylicon) 80 mg DAILYPRN PRN ORAL GAS PAIN 04/05/18 20:45 05/05/18 20:44 Zinc Sulfate (Zinc Sulfate) 220 mg DAILY ORAL 04/06/18 09:00 05/06/18 08:59 04/07/18 08:50 Assessment/Plan Problem List: (1) Decubitus ulcer of sacral region, stage 3 Assessment & Plan: Pt presents with full thickness pressure injury to sacrum (L )5.7cm x (W)5.5 x(D)0.1cm, 5% slough noted otherwise wound is beefy red and moist. Edges dark but adherent to base of wound. Dark skin tone without induration periwound. Partial thickness pressure injury upper /medial L thigh(L)1.2cm x (W)1cm. Wound bed moist /viable,edges adherent and flat. Periwound without erythema. Both heels boggy but blanchable. All wounds present upon admission and will be cared for during hospital stay Tx.Plan: Cleanse sacral wound with Saline.Apply TheraHoney.Cavilon to borders .Cover with Optifoam drsg daily and prn. Cleanse wound medial L thigh with Saline .Cover with Optifoam drsg .Change every 7 days and prn. Air fluidized mattress. Reposition at least every 2hours or as tolerated. Cavilon to heels daily and off-load with pillows. ICD Codes: L89.153 - Pressure ulcer of sacral region, stage 3 SNOMED: [id number], [id number] [email or web address] Apr 07, 2018 13:10
--- NOTE | 2018-04-07 14:36 | Diagnostic Imaging Report ---
Indication: Status post thoracentesis Comparison: 04/06/2018 A single view chest radiograph was obtained. Findings: No pneumothorax is identified. Abnormal fairly extensive pleural based density on the left presumably pleural effusion noted. Heart is enlarged. IMPRESSION: No pneumothorax following left thoracentesis.
--- NOTE | 2018-04-07 14:40 | Diagnostic Imaging Report ---
Indications: Pleural effusion. Asked to perform thoracentesis Technique: Ultrasound used to localize optimal puncture site. Sterile prepping and draping of the left lower chest performed. Local anesthesia with 1% lidocaine. Dermatotomy made. Puncture of the pleural space using thoracentesis needle. Stylet removed. Fluid aspiration was attempted. Only a small amount of bloody serosanguineous fluid was obtained totaling 10 cc. Patient tolerated procedure well, without immediate complication. Intraprocedural imaging: A thoracentesis catheter was advanced into a large hypoechoic collection collection at the posterior left lung base. Despite most of the catheter being within the collection as clearly evident on sonographic images, only 10 cc of fluid was obtained. Although hypoechoic and appearing fluidlike on ultrasound, the collection is probably solid and not drainable. Small amount of fluid obtained was sent for Gram stain, culture and sensitivities. Followup chest x-ray shows no pneumothorax. Impression: Attempted ultrasound-guided left thoracentesis, yielding 10 cc of fluid. The collection is largely solid or heavily organized and/or loculated and not drainable percutaneously.
[2018-04-07 16:00] VITALS: BP 140/91
[2018-04-07 20:00] VITALS: BP 136/88
[2018-04-07] MEDS: Sennosides 8.6mg tab ORAL SCH (20:19)
[2018-04-07] MEDS: Atorvastatin 20mg tab ORAL SCH (20:20)
[2018-04-08] VITALS: BP 137/84
[2018-04-08 04:00] VITALS: BP 128/81
[2018-04-08] MEDS: NovoLOG Insulin Flexpen SUBQ SCH ×4 (06:30→21:34)
[2018-04-08 08:00] VITALS: BP 125/79
[2018-04-08] MEDS: Zinc Sulfate 220mg cap ORAL SCH (08:57)
[2018-04-08] MEDS: Fluconazole 100mg tab ORAL SCH (08:57)
[2018-04-08] MEDS: Ascorbic Acid 500mg tab ORAL SCH (08:57)
[2018-04-08] MEDS: Carvedilol 25mg Tab ORAL SCH ×2 (08:57→21:21)
[2018-04-08] MEDS: Aspirin Baby 81mg ORAL SCH (08:57)
[2018-04-08] MEDS: Norco 5mg/325mg tab ORAL SCH (09:00)
[2018-04-08] MEDS: Enoxaparin 40mg Inj SUBQ SCH (09:01)
[2018-04-08 12:00] VITALS: BP 137/93
[2018-04-08 16:00] VITALS: BP 145/98
--- NOTE | 2018-04-08 16:23 | Pulmonology Progress Note ---
Assessment/Plan Assessment/Plan Pulmonary Progress Note Assessment/Plan IMPRESSION: Leukocytosis, anemia, fever, possible sepsis, status post transfusion, elevated troponin, possible demand ischemia, severe protein-calorie malnutrition. PLAN cipro dc to snf continue same tap effusion update family Subjective Allergies: Coded Allergies: MAGNESIUM SULFATE (Verified Allergy, Unknown, 04/05/18) Subjective weak in bed Objective Vital Signs Noted Laboratory Tests 04/07/18 06:10: White Blood Count 13.1H, Red Blood Count 3.45L, Hemoglobin 9.8L, Hematocrit 30.0L, Mean Corpuscular Volume 87, Mean Corpuscular Hemoglobin 28.4, Mean Corpuscular Hemoglobin Concent 32.6, Red Cell Distribution Width 15.0H, Platelet Count 312, Mean Platelet Volume 7.1, Neutrophils (%) (Auto) 67.2, Lymphocytes (%) (Auto) 15.8L, Monocytes (%) (Auto) 11.7H, Eosinophils (%) (Auto ) 4.2H, Basophils (%) (Auto) 1.2, Sodium Level 141, Potassium Level 3.4L, Chloride Level 107, Carbon Dioxide Level 27, Anion Gap 7, Blood Urea Nitrogen 8 , Creatinine 0.7, Estimat Glomerular Filtration Rate > 60, Glucose Level 131H, Calcium Level 9.7 Height (Feet): 5 Height (Inches): 4.00 Weight (Pounds): 175 Objective GENERAL: An ill-appearing female. HEENT: Negative. NECK: Supple. LUNGS: With reduced breath sounds in the left lung. CARDIAC: S1, S2. Regular rate and rhythm. ABDOMEN: Soft. EXTREMITIES: No cyanosis or clubbing. There is some edema. NEUROLOGIC: Paraplegic, overall alert, but overall weak. Subjective ROS Limited/Unobtainable: No Allergies: Coded Allergies: MAGNESIUM SULFATE (Verified Allergy, Unknown, 04/05/18) Objective Last 24 Hour Vital Signs Date Time Temp Pulse Resp B/P (MAP) Pulse Ox O2 Delivery O2 Flow Rate FiO2 04/08/18 12:00 99.3 90 19 137/93 (108) 99 04/08/18 09:00 Nasal Cannula 2.0 04/08/18 08:57 82 125/79 04/08/18 08:00 98.1 82 20 125/79 (94) 98 04/08/18 04:00 98.6 87 20 128/81 (97) 99 04/08/18 00:51 98.6 04/08/18 00:00 101.6 91 20 137/84 (101) 99 04/07/18 21:00 Nasal Cannula 2.0 04/07/18 20:20 92 136/88 04/07/18 20:00 99.4 92 20 136/88 (104) 98 Intake and Output 04/07/18 04/08/18 19:00 07:00 Intake Total 480 ml 60 ml Output Total 700 ml 650 ml Balance -220 ml -590 ml Intake Oral 480 ml 10 ml IV Total 50 ml Output Urine Total 700 ml 650 ml # Bowel Movements 1 1 Microbiology Date/Time Source Procedure Growth Status 04/06/18 09:20 Blood Blood Culture - Preliminary Resulted 04/06/18 09:10 Blood Blood Culture - Preliminary NO GROWTH AFTER 24 HOURS Resulted 04/05/18 17:33 Nasal Nares MRSA Culture - Final Staphylococcus Aureus - Mrsa Complete 04/06/18 15:20 Indwelling Cath Urine Culture - Final NO GROWTH AFTER 48 HOURS Complete 04/06/18 09:15 Indwelling Cath Urine Culture - Final NO GROWTH AFTER 48 HOURS Complete 04/05/18 17:33 Rectum VRE Culture - Final NO VANCOMYCIN RESISTANT ENTEROCOCCUS ... Complete 04/05/18 17:33 Rectum - Final NO CARBAPENEM-RESISTANT ENTEROBACTERI... Complete Laboratory Tests 04/07/18 21:30: Vancomycin Level Trough 17.7H Current Medications Medications (Trade) Dose Ordered Sig/Nya Route PRN Reason Start Time Stop Time Status Last Admin Dose Admin Acetaminophen (Tylenol) 650 mg Q6H PRN ORAL Mild Pain/Temp > 100.5 04/05/18 20:45 05/05/18 20:44 04/08/18 00:21 Acetaminophen/ Hydrocodone Bitart ([place] 5/325) 1 tab DAILY ORAL 04/06/18 09:00 04/13/18 08:59 04/07/18 08:51 Acetaminophen/ Hydrocodone Bitart ([place] 5/325) 1 tab Q4H PRN ORAL Severe Pain (Pain Scale 7-10) 04/05/18 20:45 04/12/18 20:44 Ascorbic Acid (Vitamin C) 500 mg DAILY ORAL 04/06/18 09:00 05/06/18 08:59 04/08/18 08:57 Aspirin (ASA) 81 mg DAILY ORAL 04/06/18 09:00 05/06/18 08:59 04/08/18 08:57 Atorvastatin Calcium (Lipitor) 40 mg BEDTIME ORAL 04/05/18 21:00 05/05/18 20:59 04/07/18 20:20 Bisacodyl (Dulcolax) 10 mg DAILYPRN PRN RECTAL Constipation 04/05/18 20:45 05/05/18 20:44 Carvedilol (Coreg) 25 mg EVERY 12 HOURS ORAL 04/05/18 21:00 05/05/18 20:59 04/07/18 20:20 Cefepime HCl 1 gm/ Dextrose 50 ml @ 100 mls/hr Q12H IVPB 04/06/18 10:00 04/13/18 09:59 04/08/18 09:01 Dextrose (Dextrose 50%) 25 ml Q30M PRN IV Hypoglycemia 04/05/18 20:45 05/05/18 20:44 Dextrose (Dextrose 50%) 50 ml Q30M PRN IV Hypoglycemia 04/05/18 20:45 05/05/18 20:44 Diphenhydramine HCl (Benadryl) 25 mg DAILYPRN PRN ORAL Itching 04/05/18 20:45 05/05/18 20:44 Docusate Sodium (Colace) 200 mg TWICE A DAY PRN ORAL Constipation 04/05/18 20:45 05/05/18 20:44 Enoxaparin Sodium (Lovenox) 40 mg DAILY SUBQ 04/06/18 09:00 05/06/18 08:59 04/08/18 09:01 Ferrous Sulfate (Feosol) 325 mg THREE TIMES A DAY ORAL 04/06/18 09:00 05/06/18 08:59 04/08/18 12:14 Fluconazole (Diflucan) 600 mg DAILY ORAL 04/06/18 09:00 04/13/18 08:59 04/08/18 08:57 Insulin Aspart (NovoLOG) BEFORE MEALS AND HS SUBQ 04/05/18 21:00 05/05/18 20:59 04/08/18 12:15 Sennosides (Senokot) 8.6 mg BEDTIME ORAL 04/05/18 21:00 05/05/18 20:59 04/07/18 20:19 Simethicone (Mylicon) 80 mg DAILYPRN PRN ORAL GAS PAIN 04/05/18 20:45 05/05/18 20:44 Zinc Sulfate (Zinc Sulfate) 220 mg DAILY ORAL 04/06/18 09:00 05/06/18 08:59 04/08/18 08:57 Nathen Luo MD Apr 08, 2018 16:23
[2018-04-08 20:00] VITALS: BP 137/83
[2018-04-08] MEDS: Atorvastatin 20mg tab ORAL SCH (21:21)
[2018-04-08] MEDS: Sennosides 8.6mg tab ORAL SCH (21:21)
[2018-04-09] VITALS: BP 123/83
[2018-04-09 04:00] VITALS: BP 130/84
[2018-04-09] MEDS: NovoLOG Insulin Flexpen SUBQ SCH ×4 (06:06→20:40)
[2018-04-09 07:57] LABS: ANION GAP 9 mmol/L (5-15); BLOOD UREA NITROGEN 11 mg/dL (7-18); CALCIUM 9.5 MG/DL (8.5-10.1); CARBON DIOXIDE 26 MMOL/L (21-32); CHLORIDE 106 MMOL/L (98-107); CREATININE 0.7 MG/DL (0.55-1.30); POTASSIUM 3.5 MMOL/L (3.5-5.1); SODIUM 141 MMOL/L (136-145)
[2018-04-09 08:00] VITALS: BP 147/93
[2018-04-09] MEDS: Carvedilol 25mg Tab ORAL SCH ×2 (09:10→20:34)
[2018-04-09] MEDS: Ascorbic Acid 500mg tab ORAL SCH (09:10)
[2018-04-09] MEDS: Zinc Sulfate 220mg cap ORAL SCH (09:10)
[2018-04-09] MEDS: Fluconazole 100mg tab ORAL SCH (09:10)
[2018-04-09] MEDS: Aspirin Baby 81mg ORAL SCH (09:10)
[2018-04-09] MEDS: Norco 5mg/325mg tab ORAL SCH (09:11)
[2018-04-09] MEDS: Enoxaparin 40mg Inj SUBQ SCH (09:13)
--- NOTE | 2018-04-09 10:16 | Infectious Diseases Prog Note ---
Assessment/Plan Assessment/Plan A 1. pseudomonas UTI 2. cryptococcal meningitis 3. leucocytosis 4. pleural effusion, organized 5. diabetes mellitus 6. hypertension P 1. Change cefepime to Cipro 2. continue fluconazole 3. will follow up cultures Subjective ROS Limited/Unobtainable: No Constitutional: Reports: no symptoms Respiratory: Reports: no symptoms Cardiovascular: Reports: no symptoms Gastrointestinal/Abdominal: Reports: no symptoms Genitourinary: Reports: no symptoms Allergies: Coded Allergies: MAGNESIUM SULFATE (Verified Allergy, Unknown, 04/05/18) Objective Vital Signs Last 24 Hour Vital Signs Date Time Temp Pulse Resp B/P (MAP) Pulse Ox O2 Delivery O2 Flow Rate FiO2 04/09/18 09:10 85 147/93 04/09/18 08:00 97.8 85 18 147/93 (111) 100 04/09/18 04:00 98.4 84 18 130/84 (99) 97 04/09/18 00:00 99.7 90 16 123/83 (96) 97 04/08/18 21:21 90 137/83 04/08/18 20:00 98.6 90 16 137/83 (101) 98 04/08/18 19:39 Nasal Cannula 2.0 04/08/18 16:00 99.3 93 18 145/98 (114) 100 04/08/18 12:00 99.3 90 19 137/93 (108) 99 Height (Feet): 5 Height (Inches): 4.00 Weight (Pounds): 175 General Appearance: no acute distress Respiratory/Chest: lungs clear Cardiovascular: normal rate Genitourinary: other - Deleon catheter Extremities: no edema Neurologic/Psychiatric: alert, responsive Microbiology Date/Time Source Procedure Growth Status 04/06/18 15:20 Indwelling Cath Urine Culture - Final NO GROWTH AFTER 48 HOURS Complete Laboratory Tests Test 04/09/18 05:55 Sodium Level 141 MMOL/L (136-145) Potassium Level 3.5 MMOL/L (3.5-5.1) Chloride Level 106 MMOL/L (98-107) Carbon Dioxide Level 26 MMOL/L (21-32) Anion Gap 9 mmol/L (5-15) Blood Urea Nitrogen 11 mg/dL (7-18) Creatinine 0.7 MG/DL (0.55-1.30) Estimat Glomerular Filtration Rate > 60 mL/min (>60) Glucose Level 109 MG/DL (74-106) H Calcium Level 9.5 MG/DL (8.5-10.1) Current Medications Medications (Trade) Dose Ordered Sig/Nya Route PRN Reason Start Time Stop Time Status Last Admin Dose Admin Acetaminophen (Tylenol) 650 mg Q6H PRN ORAL Mild Pain/Temp > 100.5 04/05/18 20:45 05/05/18 20:44 04/08/18 00:21 Acetaminophen/ Hydrocodone Bitart ([place] 5/325) 1 tab DAILY ORAL 04/06/18 09:00 04/13/18 08:59 04/09/18 09:11 Acetaminophen/ Hydrocodone Bitart ([place] 5/325) 1 tab Q4H PRN ORAL Severe Pain (Pain Scale 7-10) 04/05/18 20:45 04/12/18 20:44 Ascorbic Acid (Vitamin C) 500 mg DAILY ORAL 04/06/18 09:00 05/06/18 08:59 04/09/18 09:10 Aspirin (ASA) 81 mg DAILY ORAL 04/06/18 09:00 05/06/18 08:59 04/09/18 09:10 Atorvastatin Calcium (Lipitor) 40 mg BEDTIME ORAL 04/05/18 21:00 05/05/18 20:59 04/08/18 21:21 Bisacodyl (Dulcolax) 10 mg DAILYPRN PRN RECTAL Constipation 04/05/18 20:45 05/05/18 20:44 Carvedilol (Coreg) 25 mg EVERY 12 HOURS ORAL 04/05/18 21:00 05/05/18 20:59 04/09/18 09:10 Cefepime HCl 1 gm/ Dextrose 50 ml @ 100 mls/hr Q12H IVPB 04/06/18 10:00 04/13/18 09:59 04/09/18 09:12 Dextrose (Dextrose 50%) 25 ml Q30M PRN IV Hypoglycemia 04/05/18 20:45 05/05/18 20:44 Dextrose (Dextrose 50%) 50 ml Q30M PRN IV Hypoglycemia 04/05/18 20:45 05/05/18 20:44 Diphenhydramine HCl (Benadryl) 25 mg DAILYPRN PRN ORAL Itching 04/05/18 20:45 05/05/18 20:44 Docusate Sodium (Colace) 200 mg TWICE A DAY PRN ORAL Constipation 04/05/18 20:45 05/05/18 20:44 Enoxaparin Sodium (Lovenox) 40 mg DAILY SUBQ 04/06/18 09:00 05/06/18 08:59 04/09/18 09:13 Ferrous Sulfate (Feosol) 325 mg THREE TIMES A DAY ORAL 04/06/18 09:00 05/06/18 08:59 04/09/18 09:09 Fluconazole (Diflucan) 600 mg DAILY ORAL 04/06/18 09:00 04/13/18 08:59 04/09/18 09:10 Insulin Aspart (NovoLOG) BEFORE MEALS AND HS SUBQ 04/05/18 21:00 05/05/18 20:59 04/09/18 06:06 Ondansetron HCl (Zofran) 4 mg Q6H PRN IVP Nausea & Vomiting 04/08/18 18:00 05/08/18 17:59 04/08/18 18:07 Sennosides (Senokot) 8.6 mg BEDTIME ORAL 04/05/18 21:00 05/05/18 20:59 04/08/18 21:21 Simethicone (Mylicon) 80 mg DAILYPRN PRN ORAL GAS PAIN 04/05/18 20:45 05/05/18 20:44 04/08/18 18:07 Zinc Sulfate (Zinc Sulfate) 220 mg DAILY ORAL 04/06/18 09:00 05/06/18 08:59 04/09/18 09:10 Reno Samaniego MD Apr 09, 2018 10:16
[2018-04-09 12:00] VITALS: BP 140/89
[2018-04-09 16:00] VITALS: BP 140/88
[2018-04-09 20:00] VITALS: BP 151/93
[2018-04-09] MEDS: Sennosides 8.6mg tab ORAL SCH (20:34)
[2018-04-09] MEDS: Ciprofloxacin 500mg tab ORAL SCH (20:34)
[2018-04-09] MEDS: Atorvastatin 20mg tab ORAL SCH (20:35)
--- NOTE | 2018-04-09 21:27 | Pulmonology Progress Note ---
Assessment/Plan Assessment/Plan Pulmonary Progress Note Assessment/Plan IMPRESSION: Leukocytosis, anemia, fever, possible sepsis, status post transfusion, elevated troponin, possible demand ischemia, severe protein-calorie malnutrition. PLAN cipro dc to snf continue same tap effusion update family Subjective Allergies: Coded Allergies: MAGNESIUM SULFATE (Verified Allergy, Unknown, 04/05/18) Subjective weak in bed Objective Vital Signs Noted Laboratory Tests 04/07/18 06:10: White Blood Count 13.1H, Red Blood Count 3.45L, Hemoglobin 9.8L, Hematocrit 30.0L, Mean Corpuscular Volume 87, Mean Corpuscular Hemoglobin 28.4, Mean Corpuscular Hemoglobin Concent 32.6, Red Cell Distribution Width 15.0H, Platelet Count 312, Mean Platelet Volume 7.1, Neutrophils (%) (Auto) 67.2, Lymphocytes (%) (Auto) 15.8L, Monocytes (%) (Auto) 11.7H, Eosinophils (%) (Auto ) 4.2H, Basophils (%) (Auto) 1.2, Sodium Level 141, Potassium Level 3.4L, Chloride Level 107, Carbon Dioxide Level 27, Anion Gap 7, Blood Urea Nitrogen 8 , Creatinine 0.7, Estimat Glomerular Filtration Rate > 60, Glucose Level 131H, Calcium Level 9.7 Height (Feet): 5 Height (Inches): 4.00 Weight (Pounds): 175 Objective GENERAL: An ill-appearing female. HEENT: Negative. NECK: Supple. LUNGS: With reduced breath sounds in the left lung. CARDIAC: S1, S2. Regular rate and rhythm. ABDOMEN: Soft. EXTREMITIES: No cyanosis or clubbing. There is some edema. NEUROLOGIC: Paraplegic, overall alert, but overall weak. Subjective ROS Limited/Unobtainable: No Allergies: Coded Allergies: MAGNESIUM SULFATE (Verified Allergy, Unknown, 04/05/18) Objective Last 24 Hour Vital Signs Date Time Temp Pulse Resp B/P (MAP) Pulse Ox O2 Delivery O2 Flow Rate FiO2 04/09/18 20:34 86 151/93 04/09/18 20:18 Nasal Cannula 2.0 04/09/18 20:00 98.2 86 16 151/93 (112) 97 04/09/18 16:00 98.0 82 19 140/88 (105) 99 04/09/18 12:00 97.4 82 19 140/89 (106) 100 04/09/18 11:42 97.8 04/09/18 09:41 97.8 04/09/18 09:10 85 147/93 04/09/18 09:00 Nasal Cannula 2.0 04/09/18 08:00 97.8 85 18 147/93 (111) 100 04/09/18 04:00 98.4 84 18 130/84 (99) 97 04/09/18 00:00 99.7 90 16 123/83 (96) 97 Intake and Output 04/08/18 04/09/18 19:00 07:00 Intake Total 860 ml 50 ml Output Total 800 ml 650 ml Balance 60 ml -600 ml Intake Oral 810 ml IV Total 50 ml 50 ml Output Urine Total 800 ml 650 ml # Bowel Movements 1 Laboratory Tests 04/09/18 05:55: Sodium Level 141, Potassium Level 3.5, Chloride Level 106, Carbon Dioxide Level 26, Anion Gap 9, Blood Urea Nitrogen 11, Creatinine 0.7, Estimat Glomerular Filtration Rate > 60, Glucose Level 109H, Calcium Level 9.5 Current Medications Medications (Trade) Dose Ordered Sig/Nya Route PRN Reason Start Time Stop Time Status Last Admin Dose Admin Acetaminophen (Tylenol) 650 mg Q6H PRN ORAL Mild Pain/Temp > 100.5 04/05/18 20:45 05/05/18 20:44 04/09/18 11:12 Acetaminophen/ Hydrocodone Bitart ([place] 5/325) 1 tab DAILY ORAL 04/06/18 09:00 04/13/18 08:59 04/09/18 09:11 Acetaminophen/ Hydrocodone Bitart ([place] 5/325) 1 tab Q4H PRN ORAL Severe Pain (Pain Scale 7-10) 04/05/18 20:45 04/12/18 20:44 Ascorbic Acid (Vitamin C) 500 mg DAILY ORAL 04/06/18 09:00 05/06/18 08:59 04/09/18 09:10 Aspirin (ASA) 81 mg DAILY ORAL 04/06/18 09:00 05/06/18 08:59 04/09/18 09:10 Atorvastatin Calcium (Lipitor) 40 mg BEDTIME ORAL 04/05/18 21:00 05/05/18 20:59 04/09/18 20:35 Bisacodyl (Dulcolax) 10 mg DAILYPRN PRN RECTAL Constipation 04/05/18 20:45 05/05/18 20:44 Carvedilol (Coreg) 25 mg EVERY 12 HOURS ORAL 04/05/18 21:00 05/05/18 20:59 04/09/18 20:34 Ciprofloxacin (Cipro 500mg tab) 500 mg EVERY 12 HOURS ORAL 04/09/18 21:00 04/16/18 20:59 04/09/18 20:34 Dextrose (Dextrose 50%) 25 ml Q30M PRN IV Hypoglycemia 04/05/18 20:45 05/05/18 20:44 Dextrose (Dextrose 50%) 50 ml Q30M PRN IV Hypoglycemia 04/05/18 20:45 05/05/18 20:44 Diphenhydramine HCl (Benadryl) 25 mg DAILYPRN PRN ORAL Itching 04/05/18 20:45 05/05/18 20:44 Docusate Sodium (Colace) 200 mg TWICE A DAY PRN ORAL Constipation 04/05/18 20:45 05/05/18 20:44 Enoxaparin Sodium (Lovenox) 40 mg DAILY SUBQ 04/06/18 09:00 05/06/18 08:59 04/09/18 09:13 Ferrous Sulfate (Feosol) 325 mg THREE TIMES A DAY ORAL 04/06/18 09:00 05/06/18 08:59 04/09/18 17:27 Fluconazole (Diflucan) 600 mg DAILY ORAL 04/06/18 09:00 04/13/18 08:59 04/09/18 09:10 Insulin Aspart (NovoLOG) BEFORE MEALS AND HS SUBQ 04/05/18 21:00 05/05/18 20:59 04/09/18 20:40 Ondansetron HCl (Zofran) 4 mg Q6H PRN IVP Nausea & Vomiting 04/08/18 18:00 05/08/18 17:59 04/08/18 18:07 Sennosides (Senokot) 8.6 mg BEDTIME ORAL 04/05/18 21:00 05/05/18 20:59 04/09/18 20:34 Simethicone (Mylicon) 80 mg DAILYPRN PRN ORAL GAS PAIN 04/05/18 20:45 05/05/18 20:44 12/15/18 18:07 Zinc Sulfate (Zinc Sulfate) 220 mg DAILY ORAL 04/06/18 09:00 05/06/18 08:59 04/09/18 09:10 Nathen Luo MD Apr 09, 2018 21:27
[2018-04-10] VITALS: BP 134/89
[2018-04-10 04:00] VITALS: BP 112/89
[2018-04-10] MEDS: NovoLOG Insulin Flexpen SUBQ SCH ×3 (06:30→16:30)
[2018-04-10 08:00] VITALS: BP 140/88
[2018-04-10] MEDS: Aspirin Baby 81mg ORAL SCH (09:09)
[2018-04-10] MEDS: Zinc Sulfate 220mg cap ORAL SCH (09:10)
[2018-04-10] MEDS: Norco 5mg/325mg tab ORAL SCH (09:10)
[2018-04-10] MEDS: Ciprofloxacin 500mg tab ORAL SCH (09:10)
[2018-04-10] MEDS: Ascorbic Acid 500mg tab ORAL SCH (09:10)
[2018-04-10] MEDS: Carvedilol 25mg Tab ORAL SCH (09:10)
[2018-04-10] MEDS: Fluconazole 100mg tab ORAL SCH (09:11)
[2018-04-10] MEDS: Enoxaparin 40mg Inj SUBQ SCH (09:12)
--- NOTE | 2018-04-10 11:05 | General Progress Note ---
Assessment/Plan Assessment/Plan IMPRESSION: Leukocytosis, anemia, fever, negative cultures, status post transfusion, elevated troponin, possible demand ischemia, severe protein-calorie malnutrition. PLAN dc to snf continue same tap effusion not significant impression, plan, and exam edited and reviewed in detail care discussed with RN Subjective Allergies: Coded Allergies: MAGNESIUM SULFATE (Verified Allergy, Unknown, 04/05/18) Subjective weak in bed Objective Last 24 Hour Vital Signs Date Time Temp Pulse Resp B/P (MAP) Pulse Ox O2 Delivery O2 Flow Rate FiO2 04/10/18 09:10 85 140/88 04/10/18 09:00 Nasal Cannula 2.0 04/10/18 08:00 98.4 85 18 140/88 (105) 99 04/10/18 04:00 97.9 80 18 112/89 (97) 97 04/10/18 00:00 97.8 80 16 134/89 (104) 98 04/09/18 20:34 86 151/93 04/09/18 20:18 Nasal Cannula 2.0 04/09/18 20:00 98.2 86 16 151/93 (112) 97 04/09/18 16:00 98.0 82 19 140/88 (105) 99 04/09/18 12:00 97.4 82 19 140/89 (106) 100 04/09/18 11:42 97.8 Intake and Output 04/09/18 04/10/18 19:00 07:00 Intake Total 800 ml Output Total 600 ml 750 ml Balance 200 ml -750 ml Intake Oral 700 ml IV Total 100 ml Output Urine Total 600 ml 750 ml Labs Test 04/07/18 21:30 04/09/18 05:55 Vancomycin Level Trough 17.7 ug/mL (5.0-12.0) Sodium Level 141 MMOL/L (136-145) Potassium Level 3.5 MMOL/L (3.5-5.1) Chloride Level 106 MMOL/L (98-107) Carbon Dioxide Level 26 MMOL/L (21-32) Anion Gap 9 mmol/L (5-15) Blood Urea Nitrogen 11 mg/dL (7-18) Creatinine 0.7 MG/DL (0.55-1.30) Estimat Glomerular Filtration Rate > 60 mL/min (>60) Glucose Level 109 MG/DL (74-106) Calcium Level 9.5 MG/DL (8.5-10.1) Height (Feet): 5 Height (Inches): 4.00 Weight (Pounds): 175 Objective GENERAL: An ill-appearing female. HEENT: Negative. NECK: Supple. LUNGS: With reduced breath sounds in the left lung. CARDIAC: S1, S2. Regular rate and rhythm. ABDOMEN: Soft. EXTREMITIES: No cyanosis or clubbing. There is some edema. NEUROLOGIC: Paraplegic, overall alert, but overall weak. Abel Black MD Apr 10, 2018 11:05
--- NOTE | 2018-04-10 11:22 | Infectious Diseases Prog Note ---
Assessment/Plan Assessment/Plan antibiotics : ciprofloxacin, fluconazole A 1. pseudomonas UTI 2. cryptococcal meningitis 3. leucocytosis 4. pleural effusion s/p thoracentesis 5. diabetes mellitus 6. hypertension P 1. continue ciprofloxacin 2 more days 2. continue fluconazole fdc 3. will follow up cultures Subjective Constitutional: Denies: fever, chills Respiratory: Denies: shortness of breath, dry cough Gastrointestinal/Abdominal: Denies: nausea, vomiting, diarrhea Musculoskeletal: Denies: pain Allergies: Coded Allergies: MAGNESIUM SULFATE (Verified Allergy, Unknown, 04/05/18) Objective Vital Signs Last 24 Hour Vital Signs Date Time Temp Pulse Resp B/P (MAP) Pulse Ox O2 Delivery O2 Flow Rate FiO2 04/10/18 09:10 85 140/88 04/10/18 09:00 Nasal Cannula 2.0 04/10/18 08:00 98.4 85 18 140/88 (105) 99 04/10/18 04:00 97.9 80 18 112/89 (97) 97 04/10/18 00:00 97.8 80 16 134/89 (104) 98 04/09/18 20:34 86 151/93 04/09/18 20:18 Nasal Cannula 2.0 04/09/18 20:00 98.2 86 16 151/93 (112) 97 04/09/18 16:00 98.0 82 19 140/88 (105) 99 04/09/18 12:00 97.4 82 19 140/89 (106) 100 04/09/18 11:42 97.8 Height (Feet): 5 Height (Inches): 4.00 Weight (Pounds): 175 Respiratory/Chest: lungs clear Cardiovascular: normal rate, regular rhythm, no gallop/murmur Abdomen: soft, non tender Extremities: other - + edema Current Medications Medications (Trade) Dose Ordered Sig/Nya Route PRN Reason Start Time Stop Time Status Last Admin Dose Admin Acetaminophen (Tylenol) 650 mg Q6H PRN ORAL Mild Pain/Temp > 100.5 04/05/18 20:45 05/05/18 20:44 04/09/18 11:12 Acetaminophen/ Hydrocodone Bitart ([place] 5/325) 1 tab DAILY ORAL 04/06/18 09:00 04/13/18 08:59 04/10/18 09:10 Acetaminophen/ Hydrocodone Bitart ([place] 5/325) 1 tab Q4H PRN ORAL Severe Pain (Pain Scale 7-10) 04/05/18 20:45 04/12/18 20:44 Ascorbic Acid (Vitamin C) 500 mg DAILY ORAL 04/06/18 09:00 05/06/18 08:59 04/10/18 09:10 Aspirin (ASA) 81 mg DAILY ORAL 04/06/18 09:00 05/06/18 08:59 04/10/18 09:09 Atorvastatin Calcium (Lipitor) 40 mg BEDTIME ORAL 04/05/18 21:00 05/05/18 20:59 04/09/18 20:35 Bisacodyl (Dulcolax) 10 mg DAILYPRN PRN RECTAL Constipation 04/05/18 20:45 05/05/18 20:44 Carvedilol (Coreg) 25 mg EVERY 12 HOURS ORAL 04/05/18 21:00 05/05/18 20:59 04/10/18 09:10 Ciprofloxacin (Cipro 500mg tab) 500 mg EVERY 12 HOURS ORAL 04/09/18 21:00 04/16/18 20:59 04/10/18 09:10 Dextrose (Dextrose 50%) 25 ml Q30M PRN IV Hypoglycemia 04/05/18 20:45 05/05/18 20:44 Dextrose (Dextrose 50%) 50 ml Q30M PRN IV Hypoglycemia 04/05/18 20:45 05/05/18 20:44 Diphenhydramine HCl (Benadryl) 25 mg DAILYPRN PRN ORAL Itching 04/05/18 20:45 05/05/18 20:44 Docusate Sodium (Colace) 200 mg TWICE A DAY PRN ORAL Constipation 04/05/18 20:45 05/05/18 20:44 Enoxaparin Sodium (Lovenox) 40 mg DAILY SUBQ 04/06/18 09:00 05/06/18 08:59 04/10/18 09:12 Ferrous Sulfate (Feosol) 325 mg THREE TIMES A DAY ORAL 04/06/18 09:00 05/06/18 08:59 04/10/18 09:09 Fluconazole (Diflucan) 600 mg DAILY ORAL 04/06/18 09:00 04/13/18 08:59 04/10/18 09:11 Insulin Aspart (NovoLOG) BEFORE MEALS AND HS SUBQ 04/05/18 21:00 05/05/18 20:59 04/09/18 20:40 Ondansetron HCl (Zofran) 4 mg Q6H PRN IVP Nausea & Vomiting 04/08/18 18:00 05/08/18 17:59 04/08/18 18:07 Sennosides (Senokot) 8.6 mg BEDTIME ORAL 04/05/18 21:00 05/05/18 20:59 04/09/18 20:34 Simethicone (Mylicon) 80 mg DAILYPRN PRN ORAL GAS PAIN 04/05/18 20:45 05/05/18 20:44 04/08/18 18:07 Zinc Sulfate (Zinc Sulfate) 220 mg DAILY ORAL 04/06/18 09:00 05/06/18 08:59 04/10/18 09:10 Blaine Rutledge MD Apr 10, 2018 11:22
[2018-04-10 12:00] VITALS: BP 139/79
[2018-04-10] MEDS ORDERED: CIPROFLOXACIN500 M2 ORAL (14:38)
[2018-04-10 16:00] VITALS: BP 146/92
--- NOTE | 2018-04-12 10:27 | Discharge Summary ---
Discharge Summary Discharge Summary _ DATE OF ADMISSION: 04/05/2018 DATE OF DISCHARGE: 04/10/2018 DISCHARGED BY: Dr. Black REASON FOR ADMISSION: 58 years old female ,resident of prison facility, with past medical history of spinal cryptococcal meningitis, paraplegia, spinal cord infarction, hypertension, chronic left lung collapse, diabetes, presented to emergency department for evaluation. Patient by herself was unable to provide full history. Upon evaluation vital signs appeared stable. Patient was placed on supplemental oxygen 2 L via nasal cannula. Laboratory workup revealed mild leukocytosis. Hemoglobin 7.9 hematocrit 24.2. Troponin with mild elevation-0.085. ECG revealed sinus rhythm, elvira cute sichemic changes. Potassium 3.4 Urinalysis with evidence of probable UTI. Chest x-ray revealed near complete opacification of left hemithorax ,most likely due to left pleural effusion. Patient admitted with diagnoses of elevated troponin, possible demand ischemia, anemia, leukocytosis ,fever, possible sepsis, severe protein calorie malnutrition ,large pleural effusion. CONSULTANTS: ID specialist Dr. Rutledge surgery Dr. Gordillo HOSPITAL COURSE: Patient admitted and started on empiric antibiotic. Ultrasound-guided thoracentesis was attempted yielding only 10 cc of the fluid. The collection was loculated and not drainable percutaneously as per radiologist conclusion. Patient was seen by thoracic surgeon in the past for chronic collapse of left lung. No intervention was planned given multiple chronic comorbidities. Supplemental oxygen provided as needed to keep pulse oximetry above 92%. No signs of respiratory distress noted. Infectious disease specialist closely followed. Urine culture grew Pseudomonas aeruginosa. Blood cultures were negative. Antibiotic regimen was optimized as per ID specialist recommendations. Patient to continue ciprofloxacin for 2 more days. Patient on fluconazole for history of cryptococcal meningitis. Patient will be continued with fluconazole for a long time. Patient undergone transfusion of 2 units of packed red blood cells. Hemoglobin hematocrit were closely monitored with goal to keep hemoglobin above 7. Prior to discharge hemoglobin 9.8 hematocrit 30.0 , no evidence of bleeding. Wound care provided as per surgery recommendation for present on admission sacral decubitus ulcer stage III. Continue wound care at the facility. Blood pressure was managed with beta-ryan and remained stable. Elevated troponin was possibly due to demand ischemia. However patient not a candidate for invasive cardiac intervention. Continue with conservative/medical management. Aspirin and statin were continued. Blood sugar was managed with sliding scale of insulin as needed. DVT prophylaxis provided. Renal parameters and electrolytes were closely monitored, electrolytes corrected as needed. Pain management was addressed. Bowel regime instituted. Nutritional supplements provided. Supportive care provided. Patient stabilized and was ready for transfer back to the prison facility for continuation of care. FINAL DIAGNOSES: Pseudomonas urinary tract infection Cryptococcal meningitis Elevated troponin possible demand ischemia Anemia, status post blood transfusion Chronic lung collapse, status post attempted thoracentesis Severe protein calorie malnutrition Sacral decubitus ulcer stage III, present on admission Hypertension Diabetes mellitus DISCHARGE MEDICATIONS: See Medication Reconciliation list. DISCHARGE INSTRUCTIONS: Patient was discharged to the prison facility. Follow up with medical doctor at the facility. I have been assigned to dictate discharge summary for this account. I was not involved in the patient's management. Tabitha Cordova NP Apr 12, 2018 10:27
== END 2018-04-10 22:00 | DRG 50 ==
LOC: EDBD 12:13 → EMR 13:00 → 4E 15:02 → EDBEDREQ 16:10
PROC: 30233N1 Transfusion of Nonautologous Red Blood Cells into Peripheral Vein, Percutaneous Approach (ICD-10-PCS; principal; 2018-04-05)
PROC: 0W9B3ZZ Drainage of Left Pleural Cavity, Percutaneous Approach (ICD-10-PCS; 2018-04-06)
DX: B45.1 Cerebral cryptococcosis (principal); E43 Unspecified severe protein-calorie malnutrition; L89.153 Pressure ulcer of sacral region, stage 3; G82.20 Paraplegia, unspecified; I24.8 Other forms of acute ischemic heart disease; B96.5 Pseudomonas (aeruginosa) (mallei) (pseudomallei) as the cause of diseases classified elsewhere; E11.9 Type 2 diabetes mellitus without complications; N39.0 Urinary tract infection, site not specified; J98.19 Other pulmonary collapse; D64.9 Anemia, unspecified; I10 Essential (primary) hypertension; Z88.8 Allergy status to other drugs, medicaments and biological substances; Z68.30 Body mass index [BMI] 30.0-30.9, adult
CPT/HCPCS: 36415; 71045; 76942; 80048; 80053; 80202; 81003; 82550; 82553; 82962; 83690; 84484; 85007; 85025; 85610; 85730; 86850; 86900; 86901; 86920; 87040; 87070; 87081; 87086; 87181; 87205; 93005; 93970; 96365; 99291; J1815; J2405; J8499

== ENCOUNTER 2018-05-01 18:18 | Inpatient (IN) | payer MEDICAID ==
[~2018-05-01] VITALS: Ht 160 cm; Wt 68.0 kg
[2018-05-01 18:18] VITALS: BP 115/73
[~2018-05-01 18:18] MED LIST: ACETAMINOP160 MG/54 ORAL; ACETAMINOPHEN325 M1 ORAL; ASCORBIC ACID500 MG ORAL; ASPIRIN81 MG ORAL; ATORVASTATIN CA40 MG ORAL; BENADRYL25 MG ORAL; BISACODYL10 M1 RC; BISACODYL5 MG ORAL; CARVEDILOL25 MG ORAL; CIPROFLOXACIN500 M2 ORAL; COLACE100 MG ORAL; DIFLUCAN200 MG ORAL; DIPHENHYDRAMINE25 M1 ORAL; DOCUSATE SODIU100 MG ORAL; EPOGEN10000 UNIT SUBQ; FERROUS SULFAT325 MG ORAL; FERROUSUL325 M1 PO; FLUCONAZOLE100 MG ORAL; LOVENOX10 M4 SUBQ; METRONIDAZOLE500 MG ORAL; NORCO 5-325 TA1 EACH ORAL; NOVOLOG100 UNIT/4 SQ; NOVOLOG100 UNITS1; SENNA8.6 M2 PO; SENNOSIDES8.6 MG ORAL; SIMETHICONE80 MG ORAL; VITAMIN B COMP1 EAC7 PO; ZINC SULFATE220 M1 ORAL; ZINC50 MG ORAL
--- NOTE | 2018-05-01 18:21 | NUR ---
ED Nurse Note: [facility] SAT 80% at scene, pt SAT 90% on 3L NC upon arrival pt usually on 3L NC. Also c/o abdominal pain on medial area, 8/10 kyaw. AOx4, speaks Kuwaiti. HR 108 upon arrival. Monitor attached. Will cont to monitor.
[2018-05-01 18:43] LABS: HEMATOCRIT 32.6 % (37.0-47.0); HEMOGLOBIN 10.1 G/DL (12.0-16.0); MEAN CORPUSCULAR VOLUME 92 FL (80-99); PLATELET COUNT 242 K/UL (150-450); RED BLOOD COUNT 3.53 M/UL (4.20-5.40); RED CELL DISTRIBUTION WIDTH 17.1 % (11.6-14.8); WHITE BLOOD COUNT 4.8 K/UL (4.8-10.8)
[2018-05-01 18:54] LABS: INR 1.1 (0.9-1.1)
[2018-05-01 18:58] LABS: ANION GAP 14 mmol/L (5-15); BLOOD UREA NITROGEN 23 mg/dL (7-18); CALCIUM 9.6 MG/DL (8.5-10.1); CARBON DIOXIDE 24 MMOL/L (21-32); CHLORIDE 103 MMOL/L (98-107); CREATININE 1.2 MG/DL (0.55-1.30); POTASSIUM 4.5 MMOL/L (3.5-5.1); SODIUM 141 MMOL/L (136-145)
[2018-05-01 19:12] LABS: ALANINE AMINOTRANSFERASE 28 U/L (12-78); ALBUMIN 2.1 G/DL (3.4-5.0); ALBUMIN/GLOBULIN RATIO 0.4 (1.0-2.7); ALKALINE PHOSPHATASE 160 U/L (46-116); ASPARTATE AMINO TRANSFERASE 30 U/L (15-37); BILIRUBIN,TOTAL 0.6 MG/DL (0.2-1.0); CKMB 1.3 NG/ML (0.0-3.6); CREATINE KINASE 96 U/L (26-308); PHOSPHORUS 4.5 MG/DL (2.5-4.9)
--- NOTE | 2018-05-01 19:22 | NUR ---
HAND-OFF: Report given to Darnell Faulkner RN.
--- NOTE | 2018-05-01 19:27 | NUR ---
ED Nurse Note: VRE CRE MRSA swabs collected; sent down to lab.
--- NOTE | 2018-05-01 20:15 | NUR ---
ED Nurse Note: Urine collected; sent down to lab.
[2018-05-01 20:46] LABS: APPEARANCE,URINE VERY CLOUDY; BILIRUBIN, URINE NEGATIVE (NEGATIVE); COLOR,URINE AMBER; GLUCOSE, URINE (UA) NEGATIVE (NEGATIVE); KETONES,URINE NEGATIVE (NEGATIVE); LEUKOCYTE ESTERASE ,URINE 3+ (NEGATIVE); NITRITE,URINE POSITIVE (NEGATIVE); PH,URINE 8 (4.5-8.0); PROTEIN,URINE 3+ (NEGATIVE); UROBILINOGEN,URINE NORMAL MG/DL (0.0-1.0)
[2018-05-01] MEDS ORDERED: Lidocaine 1% Plain 30 ml INJ ONE (21:30)
[2018-05-01] MEDS ORDERED: Vancomycin 1.5gm/D5W 250ml 250 ML IVPB ONE (21:30)
[2018-05-01] MEDS ORDERED: Ampicillin/Sulbactam Sod 3 GM in NS 110 ML IVPB ONE (21:45)
[2018-05-01] MEDS ORDERED: Sodium Chloride 500ML 500 ML IV ONE (22:00)
--- NOTE | 2018-05-01 22:30 | Critical Care Progress Note ---
Assessment/Plan Assessment/Plan chronic effusion collapse left possible sepsis elevated lactic acid hypotension PLAN pressors antibiotics respiratory care oxygen resume snf med impression, plan, and exam edited and reviewed in detail care discussed with lockstitch lining maker - Subjective ROS Limited/Unobtainable: Yes Condition: critical Critical Care - Objective Last 24 Hour Vital Signs Date Time Temp Pulse Resp B/P (MAP) Pulse Ox O2 Delivery O2 Flow Rate FiO2 05/01/18 22:05 102 32 95 Facial 55 05/01/18 20:05 108 31 Bi-pap 55 05/01/18 19:59 108 31 95 Facial 55 05/01/18 18:19 108 18 Nasal Cannula 3.0 05/01/18 18:18 108 18 115/73 99 Nasal Cannula 3.0 05/01/18 18:08 108 18 136/72 99 Nasal Cannula 3.0 Labs: Labs Test 05/01/18 18:30 05/01/18 20:15 White Blood Count 4.8 K/UL (4.8-10.8) Red Blood Count 3.53 M/UL (4.20-5.40) Hemoglobin 10.1 G/DL (12.0-16.0) Hematocrit 32.6 % (37.0-47.0) Mean Corpuscular Volume 92 FL (80-99) Mean Corpuscular Hemoglobin 28.7 PG (27.0-31.0) Mean Corpuscular Hemoglobin Concent 31.0 G/DL (32.0-36.0) Red Cell Distribution Width 17.1 % (11.6-14.8) Platelet Count 242 K/UL (150-450) Mean Platelet Volume 6.6 FL (6.5-10.1) Neutrophils (%) (Auto) % (45.0-75.0) Lymphocytes (%) (Auto) % (20.0-45.0) Monocytes (%) (Auto) % (1.0-10.0) Eosinophils (%) (Auto) % (0.0-3.0) Basophils (%) (Auto) % (0.0-2.0) Prothrombin Time 11.9 SEC (9.30-11.50) Prothromb Time International Ratio 1.1 (0.9-1.1) Activated Partial Thromboplast Time 25 SEC (23-33) Sodium Level 141 MMOL/L (136-145) Potassium Level 4.5 MMOL/L (3.5-5.1) Chloride Level 103 MMOL/L (98-107) Carbon Dioxide Level 24 MMOL/L (21-32) Anion Gap 14 mmol/L (5-15) Blood Urea Nitrogen 23 mg/dL (7-18) Creatinine 1.2 MG/DL (0.55-1.30) Estimat Glomerular Filtration Rate 46.3 mL/min (>60) Glucose Level 198 MG/DL (74-106) Lactic Acid Level 6.50 mmol/L (0.4-2.0) Calcium Level 9.6 MG/DL (8.5-10.1) Phosphorus Level 4.5 MG/DL (2.5-4.9) Magnesium Level 1.7 MG/DL (1.8-2.4) Total Bilirubin 0.6 MG/DL (0.2-1.0) Aspartate Amino Transf (AST/SGOT) 30 U/L (15-37) Alanine Aminotransferase (ALT/SGPT) 28 U/L (12-78) Alkaline Phosphatase 160 U/L (46-116) Total Creatine Kinase 96 U/L (26-308) Creatine Kinase MB 1.3 NG/ML (0.0-3.6) Creatine Kinase MB Relative Index 1.3 Troponin I 0.066 ng/mL (0.000-0.056) Pro-B-Type Natriuretic Peptide 8189 pg/mL (0-125) Total Protein 7.3 G/DL (6.4-8.2) Albumin 2.1 G/DL (3.4-5.0) Globulin 5.2 g/dL Albumin/Globulin Ratio 0.4 (1.0-2.7) Urine Color Magalis Urine Appearance Very cloudy Urine pH 8 (4.5-8.0) Urine Specific [place] 1.020 (1.005-1.035) Urine Protein 3+ (NEGATIVE) Urine Glucose (UA) Negative (NEGATIVE) Urine Ketones Negative (NEGATIVE) Urine Blood 5+ (NEGATIVE) Urine Nitrite Positive (NEGATIVE) Urine Bilirubin Negative (NEGATIVE) Urine Ictotest Negative (NEGATIVE) Urine Urobilinogen Normal MG/DL (0.0-1.0) Urine Leukocyte Esterase 3+ (NEGATIVE) Urine RBC 15-20 /HPF (0 - 2) Urine WBC 20-30 /HPF (0 - 2) Urine Squamous Epithelial Cells Few /LPF (NONE/OCC) Urine Bacteria Many /HPF (NONE) Urine Mucus Many /LPF (NONE/OCC) Objective: WDWN latered clear breath sounds with reduced left [id number] without MRG NABS nontender no HSM no CC edema paraparesis nonfocal Micro: Microbiology Date/Time Source Procedure Growth Status 05/01/18 18:35 Nasal Nares Influenza Types A,B Antigen (ANNE) - Final Complete Abel Black MD May 01, 2018 22:30
--- NOTE | 2018-05-01 23:00 | NUR ---
ED Nurse Note: ERMD at bedside for central line insertion. Blood drawn; sent down to lab.
--- NOTE | 2018-05-01 23:17 | Emergency Room Report ---
History of Present Illness General Chief Complaint: Dyspnea/Respdistress Source: Patient, EMS Present Illness HPI Patient is a 58-year-old female presented after increased respiratory difficulty. Patient had prior history of diabetes as well as prior pleural effusion. Patient had not been having any fever. She was noted of increased respiratory distress from her nursing facility was sent to the hospital for further evaluation. Patient was noted to have primary care physician Dr. Abel Black. Patient was sent in for further evaluation respiratory difficulty. Allergies: Coded Allergies: MAGNESIUM SULFATE (Verified Allergy, Unknown, 04/05/18) Patient History Past Medical History: see triage record Reviewed Nursing Documentation: PMH: Agreed; PSxH: Agreed Nursing Documentation-PMH Past Medical History: No History, Except For Hx Hypertension: Yes Hx Diabetes: Yes Hx Cancer: No Hx Gastrointestinal Problems: No Hx Neurological Problems: Yes - paraplegia Review of Systems All Other Systems: negative except mentioned in HPI Physical Exam Vital Signs Date Time Temp Pulse Resp B/P (MAP) Pulse Ox O2 Delivery O2 Flow Rate FiO2 05/01/18 18:08 108 18 136/72 99 Nasal Cannula 3.0 05/01/18 19:59 55 Sp02 EP Interpretation: reviewed, normal General Appearance: alert, obese, Chronically Ill Head: atraumatic ENT: normal ENT inspection, hearing grossly normal Neck: normal inspection, supple, no bony tend, limited range of motion Respiratory: normal inspection, no retraction, respiratory distress, crackles Cardiovascular #1: regular rate, rhythm, no edema Gastrointestinal: normal inspection, normal bowel sounds, non tender, soft, no guarding, no hernia Genitourinary: no CVA tenderness Musculoskeletal: normal inspection, back normal, normal range of motion Neurologic: normal inspection, alert, responsive, speech normal, motor weakness - bilateral lower extremity Psychiatric: normal inspection, judgement/insight normal, mood/affect normal Skin: normal inspection, normal color, no rash Procedures Critical Care Time Critical Care Time Patient had a critical medical condition which untreated could potentially result in life or limb threatening injury. Total critical care time excluding procedures approximately 45 minutes. Central Line Central Line : Consent: Emergent Central Line Lumen: triple Maximal Sterile Barrier Tech: yes cap, yes mask, yes sterile gown, yes sterile gloves, yes large sterile sheet, yes hand hygiene, yes chlorhexidine prep No Max Barrier Tech Because: emergency insertion Central Line Postion: internal jugular (L) Anesthesia: Lidocaine cc's of anesthesia: 8 Complications: none Central Line Post Position: sutured, good blood return, position confirmed w / CXR Attempts: Other - two attempted left subclavian without success Patient Tolerated: Well Complications: None Medical Decision Making Diagnostic Impression: Primary Impression: Respiratory failure Additional Impressions: Pleural effusion Severe sepsis Urinary tract infection ER Course Patient presented for shortness of breath. Differential included but was not limited to anemia, pneumonia, pneumothorax, myocardial infarction, pericardial effusion, congestive heart failure, acidosis Because of complexity of patient' s case laboratory testing and imaging studies were ordered. Patient noted to have large left-sided pleural effusion.Patient's PMD this is a baseline. Patient was started on IV fluids due to hypotension. Patient was noted to have a markedly elevated lactic acid level. Urinalysis showed some evidence of urinary tract infection. Patient was given IV antibiotics. Blood cultures were obtained. Patient was noted to have some improvement after IV fluids however she continued to be hypotensive. A central venous catheter was placed. Per patient's son patient was noted to be weak due to prior history of meningitis. Patient had been receiving antibiotics.Patient was started on BiPAP for respiratory distress. Dr. Black was contacted for inpatient management Labs Test 05/01/18 18:30 05/01/18 20:15 White Blood Count 4.8 K/UL (4.8-10.8) Red Blood Count 3.53 M/UL (4.20-5.40) Hemoglobin 10.1 G/DL (12.0-16.0) Hematocrit 32.6 % (37.0-47.0) Mean Corpuscular Volume 92 FL (80-99) Mean Corpuscular Hemoglobin 28.7 PG (27.0-31.0) Mean Corpuscular Hemoglobin Concent 31.0 G/DL (32.0-36.0) Red Cell Distribution Width 17.1 % (11.6-14.8) Platelet Count 242 K/UL (150-450) Mean Platelet Volume 6.6 FL (6.5-10.1) Neutrophils (%) (Auto) % (45.0-75.0) Lymphocytes (%) (Auto) % (20.0-45.0) Monocytes (%) (Auto) % (1.0-10.0) Eosinophils (%) (Auto) % (0.0-3.0) Basophils (%) (Auto) % (0.0-2.0) Prothrombin Time 11.9 SEC (9.30-11.50) Prothromb Time International Ratio 1.1 (0.9-1.1) Activated Partial Thromboplast Time 25 SEC (23-33) Sodium Level 141 MMOL/L (136-145) Potassium Level 4.5 MMOL/L (3.5-5.1) Chloride Level 103 MMOL/L (98-107) Carbon Dioxide Level 24 MMOL/L (21-32) Anion Gap 14 mmol/L (5-15) Blood Urea Nitrogen 23 mg/dL (7-18) Creatinine 1.2 MG/DL (0.55-1.30) Estimat Glomerular Filtration Rate 46.3 mL/min (>60) Glucose Level 198 MG/DL (74-106) Lactic Acid Level 6.50 mmol/L (0.4-2.0) Calcium Level 9.6 MG/DL (8.5-10.1) Phosphorus Level 4.5 MG/DL (2.5-4.9) Magnesium Level 1.7 MG/DL (1.8-2.4) Total Bilirubin 0.6 MG/DL (0.2-1.0) Aspartate Amino Transf (AST/SGOT) 30 U/L (15-37) Alanine Aminotransferase (ALT/SGPT) 28 U/L (12-78) Alkaline Phosphatase 160 U/L (46-116) Total Creatine Kinase 96 U/L (26-308) Creatine Kinase MB 1.3 NG/ML (0.0-3.6) Creatine Kinase MB Relative Index 1.3 Troponin I 0.066 ng/mL (0.000-0.056) Pro-B-Type Natriuretic Peptide 8189 pg/mL (0-125) Total Protein 7.3 G/DL (6.4-8.2) Albumin 2.1 G/DL (3.4-5.0) Globulin 5.2 g/dL Albumin/Globulin Ratio 0.4 (1.0-2.7) Urine Color Magalis Urine Appearance Very cloudy Urine pH 8 (4.5-8.0) Urine Specific [place] 1.020 (1.005-1.035) Urine Protein 3+ (NEGATIVE) Urine Glucose (UA) Negative (NEGATIVE) Urine Ketones Negative (NEGATIVE) Urine Blood 5+ (NEGATIVE) Urine Nitrite Positive (NEGATIVE) Urine Bilirubin Negative (NEGATIVE) Urine Ictotest Negative (NEGATIVE) Urine Urobilinogen Normal MG/DL (0.0-1.0) Urine Leukocyte Esterase 3+ (NEGATIVE) Urine RBC 15-20 /HPF (0 - 2) Urine WBC 20-30 /HPF (0 - 2) Urine Squamous Epithelial Cells Few /LPF (NONE/OCC) Urine Bacteria Many /HPF (NONE) Urine Mucus Many /LPF (NONE/OCC) EKG Diagnostic Results Rate: tachycardiac Rhythm: NSR ST Segments: no acute changes Last Vital Signs Date Time Temp Pulse Resp B/P (MAP) Pulse Ox O2 Delivery O2 Flow Rate FiO2 05/01/18 22:05 102 32 95 Facial 55 05/01/18 18:19 3.0 05/01/18 18:18 115/73 Status: unchanged Disposition: ADMITTED INPATIENT Condition: Critical Referrals: Abel Black MD (PCP) Tristan Sunshine MD May 01, 2018 23:17
[2018-05-01 23:30] VITALS: BP 89/54
--- NOTE | 2018-05-01 23:45 | NUR ---
TRANSFER TO FLOOR: Patient transferred to ICU 246-G as ordered, per MD Jah. Report given to ADELINE Monson. Belongings list completed with receiving RN. Pt stable NAD
--- NOTE | 2018-05-01 23:45 | NUR ---
NURSE NOTES: Patient arrived on unit via ER Nurse. Patient is alert and oriented to place, purposes and time. Patient is of Mohawk speaker and understands Swedish too. Patient is on a BIPAP at 10/5 and at 55%. Patient BP is 80/39, HR is 109 ST, SpO2 is 100% temperature is 100.6F (axillary) and RR 30. Patient is warm to touch. Patient came in with Vanco 1.5G running along with bolus fluids of NS. Patient has R AC 18G, L hand 20G and a R IJ TLC newly inserted in the ER.
[2018-05-02] VITALS (52 sets, daily range): BP systolic 69–105; BP diastolic 38–70
[2018-05-02] MEDS ORDERED: Albuterol ud Inhalation HHN PRN
--- NOTE | 2018-05-02 | NUR ---
NURSE NOTES: Dr. Tyson here at bedside. Verbal Admission orders received from . See order list to see the orders.
[2018-05-02] MEDS ORDERED: Acetaminophen 650 MG SUPP RECTAL PRN (00:30)
--- NOTE | 2018-05-02 01:00 | NUR ---
NURSE NOTES: Patient becoming more hypotensive, Levophed initiated. Patient still remains alert. Cooling measures also is ongoing for low grade fever. Patient is to be NPO. Patient remains ST on the monitor.
--- NOTE | 2018-05-02 02:00 | NUR ---
NURSE NOTES: tylenol 650 given rectally for patients fever. Currently patient is on Levophed at 10mcg, cooling measure is still ongoing.
--- NOTE | 2018-05-02 02:00 | History and Physical Report ---
DATE OF ADMISSION: 05/01/2018 HISTORY: This is an elderly 58-year-old female who came to the emergency room with hypotension, sepsis, and dehydration. The patient is critically sick and unable to give any history. PAST MEDICAL HISTORY: Significant for hyperlipidemia, CHF, and diabetes. MEDICATIONS: See the list. ALLERGIES: NKA. FAMILY HISTORY: Noncontributory. PHYSICAL EXAMINATION: GENERAL: This is an elderly female, who is critically sick and she is on BiPAP and hypoxic. VITAL SIGNS: Blood pressure is 115/73, pulse 95, respirations 32, and temperature is 98.6. SKIN: Poor skin turgor. NECK: Supple. CHEST: Bilaterally few crackles. CARDIOVASCULARLY: Regular rhythm. Tachycardia. ABDOMEN: Soft. Positive bowel sounds. EXTREMITIES: Sacral decubitus,stage III. GENITOURINARY: Deferred. LABORATORY DATA: White count 4.8, hemoglobin 10, hematocrit 33, and platelets are 242,000. Chemistry panel,sodium 141, potassium 4.5, BUN 23, and creatinine 1.2. Lactic acid 6.50. Troponin 0.066. BNP 8189. Urine drug screen is 3+ leukocyte esterase, wbc's 20 to 30, and urine nitrites are positive. Coagulation, INR is 1.1. ASSESSMENT: 1. Sepsis. 2. Hypotension. 3. Dehydration. 4. Sacral decubitus. PLAN: 1. We will admit on medical floor. 2. Restart IV fluid intravenous fluid and intravenous antibiotics. 3. Chest x-ray is showing no pneumothorax and no thoracentesis. I will currently start IV antibiotic, bronchodilator treatment, BiPAP, and consider Pulmonary consult, and lets keep her NPO and intravenous fluids. Monroe Tyson M.D. DR: LOUISE JOB#: [id number] CC:
--- NOTE | 2018-05-02 04:00 | NUR ---
NURSE NOTES: Patient repositioned and pillows adjusted. Patient on Levophed at 14mcg. Patients Temperature is 99.8F, cooling measures ongoing
[2018-05-02] MEDS ORDERED: Zosyn 3.375gm inj ONE (04:57)
[2018-05-02] MEDS: Piperacillin/Tazobactam 3.375 GM in D5W 110 ML IVPB SCH ×3 (05:52→21:34)
[2018-05-02] MEDS: NovoLOG Insulin Flexpen SUBQ SCH ×4 (05:52→21:16)
--- NOTE | 2018-05-02 06:00 | NUR ---
NURSE NOTES: Patient reposition, no acute distress at this time, remains on Levophed, new bag hung. MAP remaining above 60.
[2018-05-02 07:04] LABS: HEMATOCRIT 24.2 % (37.0-47.0); HEMOGLOBIN 7.7 G/DL (12.0-16.0); MEAN CORPUSCULAR VOLUME 90 FL (80-99); PLATELET COUNT 204 K/UL (150-450); RED BLOOD COUNT 2.68 M/UL (4.20-5.40); RED CELL DISTRIBUTION WIDTH 17.3 % (11.6-14.8)
[2018-05-02 07:07] LABS: WHITE BLOOD COUNT 30.5 K/UL (4.8-10.8)
[2018-05-02 07:22] LABS: ALANINE AMINOTRANSFERASE 25 U/L (12-78); ALBUMIN 1.5 G/DL (3.4-5.0); ALBUMIN/GLOBULIN RATIO 0.4 (1.0-2.7); ALKALINE PHOSPHATASE 122 U/L (46-116); ANION GAP 14 mmol/L (5-15); ASPARTATE AMINO TRANSFERASE 26 U/L (15-37); BILIRUBIN,TOTAL 0.4 MG/DL (0.2-1.0); BLOOD UREA NITROGEN 24 mg/dL (7-18); CALCIUM 7.7 MG/DL (8.5-10.1); CARBON DIOXIDE 21 MMOL/L (21-32); CHLORIDE 108 MMOL/L (98-107); CREATININE 1.1 MG/DL (0.55-1.30); SODIUM 142 MMOL/L (136-145)
[2018-05-02 07:25] LABS: POTASSIUM 2.5 MMOL/L (3.5-5.1)
--- NOTE | 2018-05-02 07:31 | NUR ---
RESPIRATORY NOTE: pt taken off bipap. placed on 3L NC. no rest distress noted at this time. current spo2 99%. will cont to monitor. Addendum: 05/02/18 at 0734 by ELIE RUTLEDGE RT no redness or skin tears visible
--- NOTE | 2018-05-02 07:45 | NUR ---
NURSE NOTES: Patient received from ADELINE Monson. Patient is alert, awake and oriented. Patient primarily speaks Dominican and is able to make her needs known, opens eyes spontaneously however has minimal strength 1/5 BUE and 0/5 BLE. Patient has jumbled speech at times and is difficult to understand. Patient is being monitored on the applied science and technologies dean. VS 83/58, HR 101, RR 33 SP02 101. Upon auscultation, patient has diminished sounds BL. Patient has copious secretions that she is able to produce by herself via cough. Patient is on a BIPAP at 10/5 and at 50%. Patient is slightly febrile at 99.9. Patient has RAC 18G, LH 20G LFA 22 and a R IJ TLC running 14 mcgs of Levo to sustain her BP due to hypotension. Patient also has NS running at 100 mls/hr. All lines are patent and asymptomatic. Patient has a Lactic Acid of 4.50, K+ of 2.5 which will be followed up with the MD. Plan for today is an ST Eval. Safety measures are in place with the bed locked in the lowest position, call light within reach. Will continue to monitor and follow plan of care.
--- NOTE | 2018-05-02 09:21 | NUR ---
ST NOTE: BEDSIDE SWALLOW EVAL/CONSULT RECEIVED BEDSIDE SWALLOW EVAL ORDER CHART REVIEWED PRIOR THE EVALUATION COMPLETED SWALLOW CONSULT PT IS A 58-YEAR-OLD FEMALE WHO WAS ADMITTED DUE TO SEVERE SEPSIS. DYSPHAGIA RISK FACTORS: RESP FAILURE, CHF, CHRONIC COLLAPSE OF THE LUNG, SPINAL MENINGITIS, PARAPLEGIA, HTN, DM, PLOF: PT RESIDES AT [facility]. NO PREVIOUS DIET WAS NOTED IN THE CHART. LAST ADMISSION IN 03/2018, PT WAS REGULAR WITH THIN LIQUIDS DIET. PER PT'S POLST: FULL CODE, FULL TREATMENT, OKAY TO TRIAL PERIOD OF ARTIFICIAL NUTRITION, INCLUDING FEEDING TUBES. CURRENT STATUS: PT SEEN AT BEDSIDE IN AM. ALERT, COOPERATIVE, ABLE TO FOLLOW SIMPLE DIRECTIONS WITH CUES, VERBAL, CLEAR VOICE BUT WEAK AND SOFT ADJUST PT AT 60 DEGREE. PT WAS JUST OFF THE BIPAP, CURRENTLY WITH NASAL CANNULA(3L). COMPLETED ORAL CARE, DRY PHLEGM WAS NOTED. QUESTIONABLE DEGREE OF OROPHARYNGEAL DYSPHAGIA GOOD DENTITION, SLOW LINGUAL MOVEMENT WAS NOTED PROBABLY DUE TO DRY MOUTH. UNABLE TO GIVE PO TRIALS AT THIS TIME, PT'S BP WAS LOW 86/52, RESP RATE IS HIGH: 38-42, SHALLOW BREATHING WAS NOTED. DUE TO PT'S CURRENT RESP RATE AND OVERALL WEAKNESS, PT IS AT HIGH RISK FOR ASPIRATION. RECOMMENDATIONS: 1. KEEP PT NPO FOR NOW. 2. WILL RE-ASSESS PT'S SWALLOWING FUNCTION. 3. VIDEOSWALLOW STUDY IF NEEDED. POSTED NPO SIGN. D/W PT AND RNSMITA.
--- NOTE | 2018-05-02 09:31 | NUR ---
RADIOLOGY DEPT CHEST X-RAY DONE.-P.DYE
--- NOTE | 2018-05-02 09:48 | NUR ---
CASE MANAGEMENT: REVIEW 58/F BIBA FROM [facility] CC: DYSPNEA . RESP DISTRESS SI: SEVERE SEPSIS . LACTIC ACIDOSIS T 100.5 HR 106 RR 33 BP 69/51 SAT 95% BIPAP FIO2 55 H/H 10.1/32.6 LACTIC ACID 6.50 IS: NS IVF BOLUS X1 VANCO IV X1 UNASYN IV X1 INTERQUAL CRITERIA MET: PATIENT ADMITTED TO ICU 05/01/2018 DCP: PATIENT IS FROM [facility] CASE MANAGEMENT: REVIEW SI: SEVERE SEPSIS . LACTIC ACIDOSIS T 99.8 HR 106 RR 30 BP 85/52 SAT 100% BIPAP FIO2 55 WBC 30.5 H/H 7.7/24.2 K 2.5 LACTIC ACID 4.50 IS: VANCO IV Q24HR ZOSYN IV Q8HR NS IVF @ 100ML/HR LEVOPHED IV Q24HR ICU STATUS DCP: PATIENT IS FROM [facility]
--- NOTE | 2018-05-02 10:00 | NUR ---
NURSE NOTES: Patient was repositioned for comfort. Patient does not appear in any acute distress. VSS. Will continue to monitor.
--- NOTE | 2018-05-02 10:30 | NUR ---
NURSE NOTES: Called Dr Black re: clarification of orders. Patient is on BIPAP 10/5, Levo 14 mcgs and has a K+ 2.5. Gave MD all labs and ABG results. Per MD no need for BIPAP, ordered 60 mEq of K+ over 6 hours for patient. Venti mask for desat'ing. Orders placed. Will continue to monitor and follow MD orders.
--- NOTE | 2018-05-02 11:53 | NUR ---
NO INS INFORMATION TO SEND CLINICALS.
--- NOTE | 2018-05-02 12:14 | NUR ---
NURSE NOTES: Called Dr. Alex Samaniego to report the WBC of 30.5, Lactic Acid of 4.50 and the (+) result of Gram (-) Rods in all four bottles of blood cultures. LM. Will await for return phone call for orders from the MD.
--- NOTE | 2018-05-02 12:45 | NUR ---
NURSE NOTES: Patient is observed bedside to resting comfortably. Patient makes her needs known and opens eyes spontaneously. Patient is being monitored on the nuclear monitoring technician. VSS. Patient has copious secretions that she is able to produce by herself via cough. Patient is now on Venti mask 12L at 50% and tolerating well. Patient is slightly febrile at 99.9. Patient has RAC 18G, LH 20G LFA 22 and a R IJ TLC running 14 mcgs of Levo to sustain her BP due to hypotension. Patient also has NS running at 100 mls/hr. Patient is NPO. Safety measures are in place with the bed locked in the lowest position, call light within reach. Will continue to monitor and follow plan of care.
--- NOTE | 2018-05-02 12:57 | Diagnostic Imaging Report ---
Indication: Dyspnea Comparison: 05/01/2018 A single view chest radiograph was obtained. Findings: There is slightly better aeration of the left upper lobe with considerable opacification involving the left hemithorax presumably due to a large effusion. Heart is enlarged. Left central venous line again noted. IMPRESSION: Slightly improved aeration of the left upper lobe noted. Marginal difference compared to yesterday.
--- NOTE | 2018-05-02 13:13 | Diagnostic Imaging Report ---
Indication: Dyspnea Comparison: 04/07/2018 A single view chest radiograph was obtained. Findings: Pleural-based density noted over the left upper lobe and left lung base. Parenchymal opacity at the left lower lobe noted. Findings appear similar previously. Right lung is clear. The heart may be mildly enlarged. IMPRESSION: Left pleural effusion probably loculated versus pleural thickening. Parenchymal disease may be atelectasis or pneumonia at the left lung base. No significant radiographic change
--- NOTE | 2018-05-02 14:38 | Cardiology Report ---
APPROVED REPORT EKG Measurement Heart [id number] Sinus tachycardia Nonspecific T wave abnormality Abnormal ECG
--- NOTE | 2018-05-02 14:58 | Diagnostic Imaging Report ---
Indication: Dyspnea Comparison: 05/01/2018 A single view chest radiograph was obtained. Findings: The left hemithorax is almost completely opacified. There is further increasing opacification of the left upper lobe compared to the prior study. The left jugular central line is been placed and is in good position with the tip projected over the SVC. IMPRESSION: Central line in good position. Increasing opacification of the left hemithorax
--- NOTE | 2018-05-02 16:11 | NUR ---
NURSE NOTES: Patient is observed bedside awake and alert. Patient has a very weak cough and tries very hard to clear secretions however it is very difficult for her to clear. RT has done deep suctioning as well. Patient is tachypneic however is saturating at 96-100% on 10L of 45% FIO2. Patient makes her needs known and requests to be suctioned orally very often. Patient is being monitored on the residential monitor. VSS. Patient continues to be febrile at 100.0. Cooling measures have been instituted. Patient has RAC 18G, LH 20G LFA 22 and a R IJ TLC running 14 mcgs of Levo due to hypotension. Patient also has NS running at 100 mls/hr. Patient is NPO. Safety measures are in place with the bed locked in the lowest position, call light within reach. Will continue to monitor and follow plan of care.
--- NOTE | 2018-05-02 16:30 | NUR ---
NURSE NOTES: Patient was cleaned, repositioned for comfort and orally suctioned. VSS. Will continue to monitor.
--- NOTE | 2018-05-02 16:45 | NUR ---
NURSE NOTES: Dr Tyson assessed the patient bedside. Reported Abn labs, as well as 2D echo results and especially WBC. MD gave orders for SCDs, labs for the next am as well as CXR for am and ABG. Will continue to monitor and follow MD plan of care.
--- NOTE | 2018-05-02 18:30 | Consultation ---
DATE OF CONSULTATION: 05/02/2018 INFECTIOUS DISEASES CONSULTATION CONSULTING PHYSICIAN: Reno Samaniego M.D. PRIMARY ATTENDING PHYSICIAN: Monroe Tyson M.D. REASON FOR CONSULTATION: Septic shock and gram-negative sepsis. HISTORY OF PRESENT ILLNESS: The patient is a 58-year-old female who is a [facility] resident admitted yesterday because of shortness of breath, hypertension, was found to have lactic acidosis, developed leukocytosis today, tachycardic, and at the time of admission had a temperature of 100.5. The patient had a recent history of admission to [facility] in March of 2018. At the that time, she had urinary tract infection with Pseudomonas. 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 SOCIAL HISTORY: senior living resident. No history of alcohol, drug abuse, or smoking. ALLERGIES: Allergic to magnesium sulfate. MEDICATIONS: Vancomycin, potassium chloride, insulin, Zosyn, norepinephrine, Tylenol, albuterol. REVIEW OF SYSTEMS: As per history of present illness, PHYSICAL EXAMINATION: VITAL SIGNS: Temperature 99, pulse 102, breathing fast , blood pressure 86/56. HEAD AND NECK: The patient has left IJ line that was put in hospital yesterday. HEART: Tachycardic. LUNGS: Clear, Oxygen by mask ABDOMEN: Soft and nontender GENITOURINARY: Has Deleon catheter, cloudy urine. EXTREMITIES: No edema. NEUROLOGIC: Awake and alert. LABORATORY AND DIAGNOSTIC DATA: WBC today 30.5, hemoglobin 7.7, hematocrit 24.2, platelets 204. Sodium 142, chloride 108, bicarb 24, creatinine 1.1. Lactic acid 2.7 at the time of admission was 4.3. Troponin is modestly elevated. Blood culture x2 growing gram-negative. Influenza test was negative. Chest x-ray showed left pleural effusion likely loculated atelectasis or pneumonia in the left lung base. UA showed wbc's 20 to 30, rbc's 15 to 20, leukocyte esterase 3+, nitrite positive. IMPRESSION: 1. Septic shock. 2. Gram-negative sepsis, likely secondary to urinary tract infection. 3. Lactic acidosis 4. Anemia. 5. Diabetes mellitus. 6. Loculated pleural effusion. 7. Paraplegia. 8. MRSA colonization RECOMMENDATION: 1. We will continue with vancomycin and Zosyn. 2. Give a dose of Levaquin. 3. We will follow up the cultures. At the end of my exam, I thank Dr. Tyson, for involving me in the care of this patient. Reno Samaniego M.D. DR: Xiomy JOB#: [id number] CC: AMMY
--- NOTE | 2018-05-02 19:30 | NUR ---
NURSE NOTES:Received pt restless and incomprehensible, lower extremities flaccid, upper extremities, weak, and obese. SR-ST on the monitor bp labile, on Levophed drip at 14mcg/min as well as NS at 100ml/hr. All IVF been infusing to STEPHANIE TLC. Site drsg dry and intact.NPO at this time. Oral care done. Pt has unstageable sacral area with drsg dry and intact. Pt on sPR bed at this time. Deleon to gravity with low urine output, Dr Tyson was aware per ADELINE Potter. Will continue to monitor.
--- NOTE | 2018-05-02 19:49 | Critical Care Progress Note ---
Assessment/Plan Assessment/Plan chronic effusion collapse left possible sepsis elevated lactic acid hypotension possible gib hypoxemia PLAN pressors antibiotics respiratory care oxygen resume [facility] med d/w Dr. Tyson impression, plan, and exam edited and reviewed in detail care discussed with customer engineering specialist - Subjective ROS Limited/Unobtainable: Yes Condition: critical I&O: Intake and Output 05/01/18 05/02/18 19:00 07:00 Intake Total 1043.7333 ml Output Total 1150 ml Balance -106.2667 ml Intake IV Total 1043.7333 ml Output Urine Total 1150 ml # Voids 1 # Bowel Movements 1 Critical Care - Objective Last 24 Hour Vital Signs Date Time Temp Pulse Resp B/P (MAP) Pulse Ox O2 Delivery O2 Flow Rate FiO2 05/02/18 19:29 Venturi Mask 12.0 45 05/02/18 19:29 98 Venturi Mask 12.0 45 05/02/18 18:00 99 43 88/53 (65) 100 05/02/18 17:30 101 40 91/53 (66) 100 05/02/18 17:00 102 40 82/49 (60) 100 05/02/18 16:30 100.0 105 30 86/53 (64) 100 05/02/18 16:12 96/67 05/02/18 16:00 106 40 96/67 (77) 100 05/02/18 16:00 105 05/02/18 16:00 10.0 45 05/02/18 16:00 Venturi Mask 45.0 05/02/18 15:30 106 36 92/56 (68) 100 05/02/18 15:00 106 27 91/61 (71) 100 05/02/18 14:30 108 27 93/62 (72) 100 05/02/18 14:00 104 36 90/56 (67) 100 05/02/18 13:30 102 40 86/56 (66) 100 05/02/18 13:00 102 40 89/59 (69) 94 05/02/18 12:30 102 40 89/58 (68) 99 05/02/18 12:00 99.0 104 39 93/59 (70) 100 05/02/18 12:00 104 05/02/18 12:00 Venturi Mask 50.0 05/02/18 11:30 103 41 92/60 (71) 100 05/02/18 11:18 87/57 05/02/18 11:03 102 41 100 Facial 50 05/02/18 11:00 12.0 50 05/02/18 11:00 103 40 89/57 (68) 100 05/02/18 10:30 103 40 89/59 (69) 100 05/02/18 10:00 55 05/02/18 10:00 103 39 89/59 (69) 97 05/02/18 09:30 101 40 91/56 (68) 96 05/02/18 09:00 101 42 82/58 (66) 97 05/02/18 09:00 3.0 05/02/18 08:30 101 38 87/55 (66) 98 05/02/18 08:00 100 05/02/18 08:00 Bi-pap 05/02/18 08:00 55 05/02/18 08:00 99.0 100 39 84/56 (65) 98 05/02/18 07:30 101 33 83/58 (66) 97 05/02/18 07:00 97 32 84/56 (65) 99 05/02/18 06:30 98 26 86/50 (62) 100 05/02/18 06:00 97 30 85/57 (66) 99 05/02/18 06:00 86/50 05/02/18 05:30 98 34 87/53 (64) 98 05/02/18 05:00 98 34 87/53 (64) 98 05/02/18 04:46 99 32 100 Facial 35 05/02/18 04:30 99 36 78/52 (61) 99 05/02/18 04:00 Bi-pap 05/02/18 04:00 98 05/02/18 04:00 99.8 97 29 80/55 (63) 99 05/02/18 03:15 101 32 85/53 (64) 99 05/02/18 03:11 99 30 100 Facial 45 05/02/18 03:00 103 32 85/52 (63) 99 05/02/18 02:45 103 30 88/52 (64) 99 05/02/18 02:30 106 32 84/52 (63) 99 05/02/18 02:30 104 30 88/52 (64) 99 05/02/18 02:15 103 28 85/52 (63) 99 05/02/18 02:00 106 30 88/52 (64) 99 05/02/18 01:45 106 30 86/40 (55) 99 05/02/18 01:30 106 30 86/40 (55) 99 05/02/18 01:19 105 33 100 Facial 55 05/02/18 01:15 105 32 89/40 (56) 99 05/02/18 01:00 106 30 86/40 (55) 99 05/02/18 00:49 77/29 05/02/18 00:45 104 30 89/54 (66) 99 05/02/18 00:30 104 33 84/38 (53) 99 05/02/18 00:23 Bi-pap 05/02/18 00:15 106 30 89/54 (66) 99 05/02/18 00:00 109 05/02/18 00:00 105 33 69/51 (57) 99 05/02/18 00:00 55 05/01/18 23:45 97.8 105 32 90/51 95 3.0 55 05/01/18 23:30 100.5 106 30 89/54 (66) 99 05/01/18 23:28 102 32 95 Facial 55 05/01/18 22:05 102 32 95 Facial 55 05/01/18 20:05 108 31 Bi-pap 55 05/01/18 19:59 108 31 95 Facial 55 Labs: Labs Test 05/01/18 18:30 05/01/18 20:15 05/01/18 23:00 05/02/18 01:14 White Blood Count 4.8 K/UL (4.8-10.8) Red Blood Count 3.53 M/UL (4.20-5.40) Hemoglobin 10.1 G/DL (12.0-16.0) Hematocrit 32.6 % (37.0-47.0) Mean Corpuscular Volume 92 FL (80-99) Mean Corpuscular Hemoglobin 28.7 PG (27.0-31.0) Mean Corpuscular Hemoglobin Concent 31.0 G/DL (32.0-36.0) Red Cell Distribution Width 17.1 % (11.6-14.8) Platelet Count 242 K/UL (150-450) Mean Platelet Volume 6.6 FL (6.5-10.1) Neutrophils (%) (Auto) % (45.0-75.0) Lymphocytes (%) (Auto) % (20.0-45.0) Monocytes (%) (Auto) % (1.0-10.0) Eosinophils (%) (Auto) % (0.0-3.0) Basophils (%) (Auto) % (0.0-2.0) Prothrombin Time 11.9 SEC (9.30-11.50) Prothromb Time International Ratio 1.1 (0.9-1.1) Activated Partial Thromboplast Time 25 SEC (23-33) Sodium Level 141 MMOL/L (136-145) Potassium Level 4.5 MMOL/L (3.5-5.1) Chloride Level 103 MMOL/L (98-107) Carbon Dioxide Level 24 MMOL/L (21-32) Anion Gap 14 mmol/L (5-15) Blood Urea Nitrogen 23 mg/dL (7-18) Creatinine 1.2 MG/DL (0.55-1.30) Estimat Glomerular Filtration Rate 46.3 mL/min (>60) Glucose Level 198 MG/DL (74-106) Lactic Acid Level 6.50 mmol/L (0.4-2.0) 4.30 mmol/L (0.66-2.22) Calcium Level 9.6 MG/DL (8.5-10.1) Phosphorus Level 4.5 MG/DL (2.5-4.9) Magnesium Level 1.7 MG/DL (1.8-2.4) Total Bilirubin 0.6 MG/DL (0.2-1.0) Aspartate Amino Transf (AST/SGOT) 30 U/L (15-37) Alanine Aminotransferase (ALT/SGPT) 28 U/L (12-78) Alkaline Phosphatase 160 U/L (46-116) Total Creatine Kinase 96 U/L (26-308) Creatine Kinase MB 1.3 NG/ML (0.0-3.6) Creatine Kinase MB Relative Index 1.3 Troponin I 0.066 ng/mL (0.000-0.056) Pro-B-Type Natriuretic Peptide 8189 pg/mL (0-125) Total Protein 7.3 G/DL (6.4-8.2) Albumin 2.1 G/DL (3.4-5.0) Globulin 5.2 g/dL Albumin/Globulin Ratio 0.4 (1.0-2.7) Urine Color Magalis Urine Appearance Very cloudy Urine pH 8 (4.5-8.0) Urine Specific Tenino 1.020 (1.005-1.035) Urine Protein 3+ (NEGATIVE) Urine Glucose (UA) Negative (NEGATIVE) Urine Ketones Negative (NEGATIVE) Urine Blood 5+ (NEGATIVE) Urine Nitrite Positive (NEGATIVE) Urine Bilirubin Negative (NEGATIVE) Urine Ictotest Negative (NEGATIVE) Urine Urobilinogen Normal MG/DL (0.0-1.0) Urine Leukocyte Esterase 3+ (NEGATIVE) Urine RBC 15-20 /HPF (0 - 2) Urine WBC 20-30 /HPF (0 - 2) Urine Squamous Epithelial Cells Few /LPF (NONE/OCC) Urine Bacteria Many /HPF (NONE) Urine Mucus Many /LPF (NONE/OCC) Arterial Blood pH 7.408 (7.350-7.450) Arterial Blood Partial Pressure CO2 29.9 mmHg (35.0-45.0) Arterial Blood Partial Pressure O2 76.4 mmHg (75.0-100.0) Arterial Blood HCO3 18.4 mmol/L (22.0-26.0) Arterial Blood Oxygen Saturation 93.6 % (95-100) Arterial Blood Base Excess -5.5 (-2-2) Pablo Test Positive Test 05/02/18 06:05 05/02/18 07:55 05/02/18 10:10 05/02/18 12:20 White Blood Count 30.5 K/UL (4.8-10.8) Red Blood Count 2.68 M/UL (4.20-5.40) Hemoglobin 7.7 G/DL (12.0-16.0) Hematocrit 24.2 % (37.0-47.0) Mean Corpuscular Volume 90 FL (80-99) Mean Corpuscular Hemoglobin 28.8 PG (27.0-31.0) Mean Corpuscular Hemoglobin Concent 31.9 G/DL (32.0-36.0) Red Cell Distribution Width 17.3 % (11.6-14.8) Platelet Count 204 K/UL (150-450) Mean Platelet Volume 8.2 FL (6.5-10.1) Neutrophils (%) (Auto) % (45.0-75.0) Lymphocytes (%) (Auto) % (20.0-45.0) Monocytes (%) (Auto) % (1.0-10.0) Eosinophils (%) (Auto) % (0.0-3.0) Basophils (%) (Auto) % (0.0-2.0) Differential Total Cells Counted 100 Neutrophils % (Manual) 87 % (45-75) Lymphocytes % (Manual) 2 % (20-45) Monocytes % (Manual) 1 % (1-10) Eosinophils % (Manual) 1 % (0-3) Basophils % (Manual) 0 % (0-2) Band Neutrophils 9 % (0-8) Platelet Estimate Adequate Platelet Morphology Normal Hypochromasia 3+ Anisocytosis 1+ Sodium Level 142 MMOL/L (136-145) Potassium Level 2.5 MMOL/L (3.5-5.1) Chloride Level 108 MMOL/L (98-107) Carbon Dioxide Level 21 MMOL/L (21-32) Anion Gap 14 mmol/L (5-15) Blood Urea Nitrogen 24 mg/dL (7-18) Creatinine 1.1 MG/DL (0.55-1.30) Estimat Glomerular Filtration Rate 51.2 mL/min (>60) Glucose Level 170 MG/DL (74-106) Hemoglobin A1c 6.0 % (4.3-6.0) Calcium Level 7.7 MG/DL (8.5-10.1) Total Bilirubin 0.4 MG/DL (0.2-1.0) Aspartate Amino Transf (AST/SGOT) 26 U/L (15-37) Alanine Aminotransferase (ALT/SGPT) 25 U/L (12-78) Alkaline Phosphatase 122 U/L (46-116) Troponin I 0.094 ng/mL (0.000-0.056) Total Protein 5.7 G/DL (6.4-8.2) Albumin 1.5 G/DL (3.4-5.0) Globulin 4.2 g/dL Albumin/Globulin Ratio 0.4 (1.0-2.7) Lactic Acid Level 4.50 mmol/L (0.4-2.0) 2.70 mmol/L (0.4-2.0) Arterial Blood pH 7.438 (7.350-7.450) Arterial Blood Partial Pressure CO2 27.1 mmHg (35.0-45.0) Arterial Blood Partial Pressure O2 60.2 mmHg (75.0-100.0) Arterial Blood HCO3 17.9 mmol/L (22.0-26.0) Arterial Blood Oxygen Saturation 90.7 % (95-100) Arterial Blood Base Excess -5.4 (-2-2) Pablo Test Positive Test 05/02/18 18:05 Lactic Acid Level 2.00 mmol/L (0.4-2.0) Troponin I 0.136 ng/mL (0.000-0.056) Objective: WDWN latered clear breath sounds with reduced left [id number] without MRG NABS nontender no HSM no CC edema paraparesis nonfocal Micro: Microbiology Date/Time Source Procedure Growth Status 05/01/18 18:40 Blood Blood Culture - Preliminary Resulted 05/01/18 18:30 Blood Blood Culture - Preliminary Resulted 05/01/18 18:35 Nasal Nares Influenza Types A,B Antigen (ANNE) - Final Complete Accucheck: 138 Abel Black MD May 02, 2018 19:49
[2018-05-02] MEDS: Dyna-Hex 2% Top Sol 2oz TOPIC SCH (21:08)
[2018-05-02] MEDS: Pantoprazole Inj IVP SCH (21:15)
--- NOTE | 2018-05-02 21:15 | Progress Note ---
DATE: 05/02/2018 SUBJECTIVE: The patient is still mild to moderate short of breath and a hypotension on Levophed drip. She is just off BiPAP. OBJECTIVE: VITAL SIGNS: Blood pressure 86/53, pulse 105, T-max 100. CHEST: Bilaterally decreased breath sounds. Scattered crackles and wheezing. CARDIOVASCULARLY: Regular rhythm. Tachycardia. ABDOMEN: Soft. Positive bowel sounds. EXTREMITIES: CCE. NEUROLOGICALLY: Generalized weakness. LABORATORY AND DIAGNOSTIC DATA: Her white counts are 31,000, hemoglobin 7.7, hematocrit 24. Chemistry panel, lactic acid . Potassium 2.75 was given potassium 40 mEq IV. Troponin 0.94. ASSESSMENT: 1. Acute respiratory failure. 2. Hypokalemia. 3. Sepsis. 4. 5. Generalized weakness. PLAN: 1. We will currently continue vancomycin. 2. Continue PPIs. 3. Continue Levaquin. 4. Continue insulin and Zosyn. 5. Consider GI consult. 6. We will put SCDs and the patient is critically sick. 7. Pulmonary consult. 8. Consider GI consult. Monroe Tyson M.D. DR: Margaret JOB#: [id number] CC:
[2018-05-02] MEDS ORDERED: Vancomycin 1500mg IVPB SCH (21:30)
--- NOTE | 2018-05-02 21:30 | NUR ---
NURSE NOTES:Accucheck 152mg/dl with coverage. Will continue to monitor.
--- NOTE | 2018-05-02 23:30 | NUR ---
NURSE NOTES:Pt had mucoid yellowish stools. Cleaned up pt.
[2018-05-03] VITALS (40 sets, daily range): BP systolic 99–139; BP diastolic 58–92
--- NOTE | 2018-05-03 02:00 | NUR ---
NURSE NOTES:Sacral drsg was changed. Wound remained unchanged. Pt tolerating 45% venturi mask 02 sat 100% Frequent suctioning was done with blood tinged secretions
[2018-05-03] MEDS: Piperacillin/Tazobactam 3.375 GM in D5W 110 ML IVPB SCH ×3 (05:53→22:22)
[2018-05-03] MEDS: NovoLOG Insulin Flexpen SUBQ SCH ×4 (06:07→21:00)
--- NOTE | 2018-05-03 07:18 | NUR ---
HAND-OFF: Report given to Jael Troy using SBAR,walking rounds was done..
[2018-05-03 07:43] LABS: HEMATOCRIT 23.3 % (37.0-47.0); HEMOGLOBIN 7.5 G/DL (12.0-16.0); MEAN CORPUSCULAR VOLUME 91 FL (80-99); PLATELET COUNT 192 K/UL (150-450); RED BLOOD COUNT 2.58 M/UL (4.20-5.40)
[2018-05-03 07:55] LABS: WHITE BLOOD COUNT 37.4 K/UL (4.8-10.8)
--- NOTE | 2018-05-03 08:00 | NUR ---
NURSE NOTES: Received patient alert & oriented x3. Kyrgyz speaker. Reserved, dependent, confused at times. turf sales person showing SR. Patient on venturi 45% saturating 100%. Blood tinged sputum noted during suction per slot shift supervisor RN. Patient is NPO due to inability to pass swallow eval test. Raza catheter intact. Sacral unstagable wound - see WCP, dressing dry intact. L subclavian TLC, L hand 20, R AC 20. Patient on NS at 100 cc/hr. Levophed at 10 mcg/min. Patient stable at this time. Lung sounds diminished bilaterally. Non-tender, round, soft abdomen. Hypoactive sounds on all 4 quadrants present. WBC count of 37.[address] Parekh. No new orders at this time. Bed on lowest position, hob elevated, call light within reach, bed alarm on for safety. Will continue plan of care.
[2018-05-03 08:04] LABS: ALANINE AMINOTRANSFERASE 25 U/L (12-78); ALBUMIN 1.5 G/DL (3.4-5.0); ALBUMIN/GLOBULIN RATIO 0.3 (1.0-2.7); ALKALINE PHOSPHATASE 158 U/L (46-116); ANION GAP 15 mmol/L (5-15); ASPARTATE AMINO TRANSFERASE 26 U/L (15-37); BILIRUBIN,TOTAL 0.5 MG/DL (0.2-1.0); BLOOD UREA NITROGEN 26 mg/dL (7-18); CALCIUM 7.9 MG/DL (8.5-10.1); CARBON DIOXIDE 18 MMOL/L (21-32); CHLORIDE 105 MMOL/L (98-107); CREATININE 1.3 MG/DL (0.55-1.30); POTASSIUM 3.7 MMOL/L (3.5-5.1); SODIUM 138 MMOL/L (136-145)
[2018-05-03] MEDS: Pantoprazole Inj IVP SCH ×2 (09:23→21:24)
--- NOTE | 2018-05-03 09:39 | NUR ---
RADIOLOGY DEPT CHEST X-RAY DONE.-P.DYE
--- NOTE | 2018-05-03 10:00 | NUR ---
NURSE NOTES: Patient turned and repositioned. VSS. Levophed titrated to 5 mcg/min from 10. Patient tolerating well. BP stable. No distress noted other than constant state of tachypnea. Dr. Vanessa at bedside. WBC reported again. Dr. Tyson also saw patient. No new orders at this time. Will continue to monitor patient.
--- NOTE | 2018-05-03 10:38 | Infectious Diseases Prog Note ---
Assessment/Plan Assessment/Plan A; Septic shock Gram negative sepsis Gram negative UTI Pleural effusion, Fungal hypha in cytology DM Anemia Paraplegia P: Abdominal US Continue Zosyn Discontinue Vancomycin Start on Micafungin Will f/u cultures Case was D/W pathology & pharmacy Subjective ROS Limited/Unobtainable: Yes Constitutional: Reports: other - afebrile in last 24hrs Respiratory: Reports: no symptoms Gastrointestinal/Abdominal: Reports: no symptoms Genitourinary: Reports: no symptoms Allergies: Coded Allergies: MAGNESIUM SULFATE (Verified Allergy, Unknown, 04/05/18) Objective Vital Signs Last 24 Hour Vital Signs Date Time Temp Pulse Resp B/P (MAP) Pulse Ox O2 Delivery O2 Flow Rate FiO2 05/03/18 09:09 111/54 05/03/18 07:30 90 34 111/62 (78) 100 05/03/18 07:20 Venturi Mask 12.0 45 05/03/18 07:20 99 Venturi Mask 10.0 45 05/03/18 07:00 91 38 121/79 (93) 100 05/03/18 06:30 90 38 117/74 (88) 100 05/03/18 06:10 121/70 05/03/18 06:00 90 38 110/80 (90) 100 05/03/18 05:30 91 40 109/76 (87) 100 05/03/18 05:00 92 38 124/81 (95) 100 05/03/18 05:00 124/81 05/03/18 04:30 92 38 114/78 (90) 100 05/03/18 04:00 Venturi Mask 45.0 05/03/18 04:00 116/70 05/03/18 04:00 90 05/03/18 04:00 98.6 91 40 110/72 (85) 100 05/03/18 03:30 91 40 116/72 (87) 100 05/03/18 03:00 92 39 106/67 (80) 100 05/03/18 03:00 100/73 05/03/18 03:00 106/73 05/03/18 02:30 92 39 106/67 (80) 100 05/03/18 02:00 104/65 05/03/18 02:00 91 39 104/62 (76) 100 05/03/18 01:30 90 39 106/67 (80) 100 05/03/18 01:00 92 39 105/66 (79) 100 05/03/18 01:00 99/72 05/03/18 00:30 93 39 109/66 (80) 100 05/03/18 00:19 92 05/03/18 00:00 99 05/03/18 00:00 100/72 05/03/18 00:00 99.0 90 41 99/64 (76) 100 05/03/18 00:00 Venturi Mask 45.0 05/02/18 23:30 90 41 99/64 (76) 100 05/02/18 23:00 100/60 05/02/18 23:00 90 41 99/64 (76) 100 05/02/18 22:30 91 41 99/66 (77) 100 05/02/18 22:00 105/69 05/02/18 22:00 92 42 105/69 (81) 98 05/02/18 21:30 92 43 105/70 (82) 98 05/02/18 21:26 99/63 05/02/18 21:00 99/63 05/02/18 21:00 91 46 99/63 (75) 96 05/02/18 20:30 99 45 81/49 (60) 98 05/02/18 20:00 99.0 99 37 87/56 (66) 98 05/02/18 20:00 87/56 05/02/18 20:00 Venturi Mask 45.0 05/02/18 20:00 99 05/02/18 19:30 101 37 83/46 (58) 98 05/02/18 19:29 Venturi Mask 12.0 45 05/02/18 19:29 98 Venturi Mask 12.0 45 05/02/18 18:00 99 43 88/53 (65) 100 05/02/18 17:30 101 40 91/53 (66) 100 05/02/18 17:00 102 40 82/49 (60) 100 05/02/18 16:30 100.0 105 30 86/53 (64) 100 05/02/18 16:12 96/67 05/02/18 16:00 106 40 96/67 (77) 100 05/02/18 16:00 105 05/02/18 16:00 10.0 45 05/02/18 16:00 Venturi Mask 45.0 05/02/18 15:30 106 36 92/56 (68) 100 05/02/18 15:00 106 27 91/61 (71) 100 05/02/18 14:30 108 27 93/62 (72) 100 05/02/18 14:00 104 36 90/56 (67) 100 05/02/18 13:30 102 40 86/56 (66) 100 05/02/18 13:00 102 40 89/59 (69) 94 05/02/18 12:30 102 40 89/58 (68) 99 05/02/18 12:00 99.0 104 39 93/59 (70) 100 05/02/18 12:00 104 05/02/18 12:00 Venturi Mask 50.0 05/02/18 11:30 103 41 92/60 (71) 100 05/02/18 11:18 87/57 05/02/18 11:03 102 41 100 Facial 50 05/02/18 11:00 12.0 50 05/02/18 11:00 103 40 89/57 (68) 100 Height (Feet): 5 Height (Inches): 3.00 Weight (Pounds): 150 HEENT: mucous membranes moist Respiratory/Chest: lungs clear Cardiovascular: normal rate, other - left IJ central line Abdomen: soft, non tender Extremities: other - pedal edema Neurologic/Psychiatric: alert, responsive Microbiology Date/Time Source Procedure Growth Status 05/01/18 18:40 Blood Blood Culture - Preliminary Gram Negative Bacillus 1 Resulted 05/01/18 18:30 Blood Blood Culture - Preliminary Gram Negative Bacillus 1 Resulted 05/01/18 18:35 Nasal Nares Influenza Types A,B Antigen (ANNE) - Final Complete 05/01/18 20:15 Urine,Clean Catch Urine Culture - Preliminary Gram Negative Bacillus 1 Resulted Laboratory Tests Test 05/02/18 12:20 05/02/18 18:05 05/03/18 05:00 05/03/18 08:25 Lactic Acid Level 2.70 mmol/L (0.4-2.0) H 2.00 mmol/L (0.4-2.0) 2.00 mmol/L (0.4-2.0) Troponin I 0.136 ng/mL (0.000-0.056) White Blood Count 37.4 K/UL (4.8-10.8) *H Red Blood Count 2.58 M/UL (4.20-5.40) L Hemoglobin 7.5 G/DL (12.0-16.0) L Hematocrit 23.3 % (37.0-47.0) L Mean Corpuscular Volume 91 FL (80-99) Mean Corpuscular Hemoglobin 29.0 PG (27.0-31.0) Mean Corpuscular Hemoglobin Concent 32.0 G/DL (32.0-36.0) Red Cell Distribution Width 17.0 % (11.6-14.8) H Platelet Count 192 K/UL (150-450) Mean Platelet Volume 9.6 FL (6.5-10.1) Neutrophils (%) (Auto) % (45.0-75.0) Lymphocytes (%) (Auto) % (20.0-45.0) Monocytes (%) (Auto) % (1.0-10.0) Eosinophils (%) (Auto) % (0.0-3.0) Basophils (%) (Auto) % (0.0-2.0) Neutrophils % (Manual) Pending Lymphocytes % (Manual) Pending Platelet Estimate Pending Platelet Morphology Pending Sodium Level 138 MMOL/L (136-145) Potassium Level 3.7 MMOL/L (3.5-5.1) Chloride Level 105 MMOL/L (98-107) Carbon Dioxide Level 18 MMOL/L (21-32) L Anion Gap 15 mmol/L (5-15) Blood Urea Nitrogen 26 mg/dL (7-18) H Creatinine 1.3 MG/DL (0.55-1.30) Estimat Glomerular Filtration Rate 42.2 mL/min (>60) Glucose Level 113 MG/DL (74-106) H Calcium Level 7.9 MG/DL (8.5-10.1) L Total Bilirubin 0.5 MG/DL (0.2-1.0) Aspartate Amino Transf (AST/SGOT) 26 U/L (15-37) Alanine Aminotransferase (ALT/SGPT) 25 U/L (12-78) Alkaline Phosphatase 158 U/L (46-116) H Total Protein 6.1 G/DL (6.4-8.2) L Albumin 1.5 G/DL (3.4-5.0) L Globulin 4.6 g/dL Albumin/Globulin Ratio 0.3 (1.0-2.7) L Arterial Blood pH 7.466 (7.350-7.450) Arterial Blood Partial Pressure CO2 26.0 mmHg (35.0-45.0) L Arterial Blood Partial Pressure O2 96.8 mmHg (75.0-100.0) Arterial Blood HCO3 18.3 mmol/L (22.0-26.0) L Arterial Blood Oxygen Saturation 96.9 % (95-100) Arterial Blood Base Excess -4.6 (-2-2) L Pablo Test Positive Current Medications Medications (Trade) Dose Ordered Sig/Nya Route PRN Reason Start Time Stop Time Status Last Admin Dose Admin Acetaminophen (Tylenol) 650 mg Q4H PRN RECTAL Mild Pain (Pain Scale 1-3) 05/02/18 00:30 06/01/18 00:29 Albuterol Sulfate (Proventil) 2.5 mg Q6HRT PRN HHN Shortness of Breath 05/02/18 00:00 05/07/18 00:00 Chlorhexidine Gluconate (Leticia-Hex 2%) 1 applic DAILY@2000 TOPIC 05/02/18 20:00 06/01/18 19:59 05/02/18 21:08 Dextrose (Dextrose 50%) 25 ml Q30M PRN IV Hypoglycemia 05/02/18 00:00 06/01/18 00:00 Dextrose (Dextrose 50%) 50 ml Q30M PRN IV Hypoglycemia 05/02/18 00:00 06/01/18 00:00 Insulin Aspart (NovoLOG) BEFORE MEALS AND HS SUBQ 05/02/18 06:30 06/01/18 06:29 05/03/18 06:07 Norepinephrine Bitartrate 4 mg/ Dextrose 250 ml @ 0 mls/hr Q24H IV 05/02/18 00:30 06/01/18 00:29 05/03/18 09:09 Pantoprazole (Protonix) 40 mg EVERY 12 HOURS IVP 05/02/18 21:00 06/01/18 20:59 05/03/18 09:23 Piperacillin Sod/ Tazobactam Sod 3.375 gm/Dextrose 110 ml @ 27.5 mls/hr EVERY 8 HOURS IVPB 05/02/18 06:00 05/07/18 05:59 05/03/18 05:53 Sodium Chloride 1,000 ml @ 100 mls/hr Q10H IV 05/02/18 01:00 06/01/18 00:59 05/03/18 06:10 Vancomycin HCl (Vanco rx to dose) 1 ea DAILY PRN MISC Per rx protocol 05/01/18 23:45 05/31/18 23:44 Vancomycin HCl/ Dextrose 250 ml @ 125 mls/hr Q24H IVPB 05/02/18 21:30 05/07/18 21:29 05/02/18 21:28 Reno Samaniego MD May 03, 2018 10:38
--- NOTE | 2018-05-03 10:49 | NUR ---
NURSE NOTES: ABG results reported to Dr. Black. Doctor stated he does not want any changes for the patient at this time. Will continue to monitor patient.
--- NOTE | 2018-05-03 11:56 | NUR ---
NURSE NOTES: Rajesh [employer]OD[employer] CLERK at bedside. Patient BS 118. Patient is receiving NS as fluids and is NPO. No coverage will be given at this time. will continue plan of care.
--- NOTE | 2018-05-03 12:07 | GI Initial Consult Note ---
History of Present Illness General Date patient seen: May 03, 2018 Time patient seen: 12:03 Reason for Hospitalization: Dyspnea/Respdistress Referring physician: NAJMA ZAMBRANO Reason for Consultation: ANEMIA Present Illness HPI Patient is a 58-year-old female presented after increased respiratory difficulty. Patient had prior history of diabetes as well as prior pleural effusion. Patient had not been having any fever. She was noted of increased respiratory distress from her nursing facility was sent to the hospital for further evaluation. Patient was noted to have primary care physician Dr. Abel Black. Patient was sent in for further evaluation respiratory difficulty. GI consulted for anemia. ROS limited, the patient seen noted on oxygen in ICU. Noted with sepsis with white count of 36K, anemia, elevated alk phos and elevated troponin levels. Unknown history of endoscopy / colonoscopy. Pending abdominal US. Home Meds Reported Medications Zinc Gluconate (ZINC) 50 Mg Tablet, 220 MG ORAL, TAB 05/01/18 Simethicone* (SIMETHICONE*) 80 Mg Tab.chew, 80 MG ORAL Q8H PRN for GAS PAIN, # 20 TAB 0 Refills 05/01/18 Sennosides* (SENNOSIDES*) 8.6 Mg Tablet, 8.6 MG ORAL DAILY, TAB 05/01/18 Hydrocodone Bit/Acetaminophen 5-325* (NORCO 5-325*) 1 Each Tablet, 1 TAB ORAL Q4H PRN for For Pain, TAB 0 Refills 05/01/18 Insulin Aspart (NOVOLOG) 100 Unit/1 Ml Cartridge, 100 UNIT SQ 05/01/18 Ferrous Sulfate (FERROUSUL) 325 Mg Tablet, 325 MG PO, TAB 05/01/18 Epoetin Sumeet (Epogen) 10,000 Unit/1 Ml Vial, 02380 UNIT SUBQ 3XW, VIAL 05/01/18 Enoxaparin* (LOVENOX*) 40 Mg/0.4 Ml Inj, 40 MG SUBQ DAILY 05/01/18 Docusate Sodium* (DOCUSATE SODIUM*) 100 Mg Capsule, 100 MG ORAL TWICE A DAY, CAP 05/01/18 Diphenhydramine Hcl* (DIPHENHYDRAMINE HCL*) 25 Mg Capsule, 25 MG ORAL Q8H PRN for Itching, #30 CAP 0 Refills 05/01/18 Carvedilol* (CARVEDILOL*) 25 Mg Tablet, 25 MG ORAL EVERY 12 HOURS, TAB 05/01/18 Bisacodyl* (DULCOLAX*) 5 Mg Tablet.dr, 10 MG ORAL DAILY, #10 TAB 0 Refills 05/01/18 Atorvastatin Calcium* (ATORVASTATIN CALCIUM*) 40 Mg Tablet, 40 MG ORAL BEDTIME, TAB 05/01/18 Ascorbic Acid* (ASCORBIC ACID*) 500 Mg Tablet, 500 MG ORAL DAILY, TAB 05/01/18 Acetaminophen* (ACETAMINOPHEN*) 160 Mg/5 Ml Solution, 650 MG ORAL Q6H PRN for Mild Pain/Temp > 100.5, ML 05/01/18 Ciprofloxacin Hcl* (CIPROFLOXACIN HCL*) 500 Mg Tablet, 500 MG ORAL Q12HR for 2 Days, TAB 0 Refills 04/10/18 Hydrocodone Bit/Acetaminophen 5-325* (NORCO 5-325*) 1 Each Tablet, 1 TAB ORAL Q4H PRN for Severe Pain (Pain Scale 7-10) 04/05/18 Fluconazole* (DIFLUCAN*) 200 Mg Tablet, 200 MG ORAL DAILY for WOUND MANAGEMENT 04/05/18 Zinc Sulfate (ZINC SULFATE*) 220 Mg Capsule, 220 MG ORAL DAILY 04/05/18 Vit B Comp/C/Fa/Iron/Vit E (VITAMIN B COMPLEX TABLET) 1 Each Tablet, 1 EACH PO DAILY, TAB 04/05/18 Simethicone* (SIMETHICONE*) 80 Mg Tab.chew, 80 MG ORAL DAILY PRN for GAS PAIN 04/05/18 Sennosides (SENNA) 8.6 Mg Tablet, 8.6 MG PO BEDTIME, TAB 04/05/18 Insulin Aspart (Novolog Flexpen) 100 Unit/1 Ml Insuln.pen 04/05/18 Hydrocodone Bit/Acetaminophen 5-325* (NORCO 5-325*) 1 Each Tablet, 1 TAB ORAL DAILY for 30-45 MIN PRIOR TO WOUND CARE 04/05/18 Metronidazole* (FLAGYL*) 500 Mg Tablet, 500 MG ORAL EVERY 8 HOURS for ENDS ON , TAB 04/05/18 Ferrous Sulfate* (FERROUS SULFATE*) 325 Mg Tablet, 325 MG ORAL THREE TIMES A DAY 04/05/18 Epoetin Sumeet (Epogen) 10,000 Unit/1 Ml Vial, 93485 UNIT SUBQ 3XW for GIVE ON MON , WED, FRI 04/05/18 Enoxaparin* (LOVENOX*) 40 Mg/0.4 Ml Inj, 40 MG SUBQ DAILY 04/05/18 Diphenhydramine Hcl* (BENADRYL*) 25 Mg Capsule, 25 MG ORAL DAILY PRN for Itching 04/05/18 Docusate Sodium* (COLACE*) 100 Mg Capsule, 200 MG ORAL TWICE A DAY PRN for Constipation, CAP 04/05/18 Carvedilol* (CARVEDILOL*) 25 Mg Tablet, 25 MG ORAL EVERY 12 HOURS for HOLD IF SBP < 100 OR HR < 60 04/05/18 Bisacodyl (BISACODYL) 10 Mg Supp.rect, 10 MG RC EVERY 24 HOURS PRN for Constipation, SUPP 04/05/18 Atorvastatin Calcium* (ATORVASTATIN CALCIUM*) 40 Mg Tablet, 40 MG ORAL BEDTIME, TAB 04/05/18 Aspirin* (ASPIRIN*) 81 Mg Tab.chew, 81 MG ORAL DAILY, TAB 04/05/18 Ascorbic Acid* (ASCORBIC ACID*) 500 Mg Tablet, 500 MG ORAL DAILY, TAB 04/05/18 Acetaminophen* (ACETAMINOPHEN 325MG TABLET*) 325 Mg Tablet, 650 MG ORAL Q6H PRN for Mild Pain/Temp > 100.5 04/05/18 Med list reviewed/reconciled: Yes Allergies: Coded Allergies: MAGNESIUM SULFATE (Verified Allergy, Unknown, 04/05/18) Patient History Limited by: medical condition History Provided By: Medical Record PMH Narrative Past Medical History: see triage record Reviewed Nursing Documentation: PMH: Agreed; PSxH: Agreed Nursing Documentation-PM Past Medical History: No History, Except For Hx Hypertension: Yes Hx Diabetes: Yes Hx Cancer: No Hx Gastrointestinal Problems: No Hx Neurological Problems: Yes - paraplegia Social History: Denies: smoking, alcohol use, drug use, other Review of Systems All Other Systems: limited Physical Exam Vital Signs Date Time Temp Pulse Resp B/P (MAP) Pulse Ox O2 Delivery O2 Flow Rate FiO2 05/01/18 18:08 108 18 136/72 99 Nasal Cannula 3.0 05/01/18 19:59 55 05/01/18 23:30 100.5 Sp02 EP Interpretation: reviewed, normal Labs Laboratory Tests Test 05/02/18 12:20 05/02/18 18:05 05/03/18 05:00 05/03/18 08:25 Lactic Acid Level 2.70 mmol/L (0.4-2.0) H 2.00 mmol/L (0.4-2.0) 2.00 mmol/L (0.4-2.0) Troponin I 0.136 ng/mL (0.000-0.056) White Blood Count 37.4 K/UL (4.8-10.8) *H Red Blood Count 2.58 M/UL (4.20-5.40) L Hemoglobin 7.5 G/DL (12.0-16.0) L Hematocrit 23.3 % (37.0-47.0) L Mean Corpuscular Volume 91 FL (80-99) Mean Corpuscular Hemoglobin 29.0 PG (27.0-31.0) Mean Corpuscular Hemoglobin Concent 32.0 G/DL (32.0-36.0) Red Cell Distribution Width 17.0 % (11.6-14.8) H Platelet Count 192 K/UL (150-450) Mean Platelet Volume 9.6 FL (6.5-10.1) Neutrophils (%) (Auto) % (45.0-75.0) Lymphocytes (%) (Auto) % (20.0-45.0) Monocytes (%) (Auto) % (1.0-10.0) Eosinophils (%) (Auto) % (0.0-3.0) Basophils (%) (Auto) % (0.0-2.0) Differential Total Cells Counted 100 Neutrophils % (Manual) 83 % (45-75) H Lymphocytes % (Manual) 4 % (20-45) L Monocytes % (Manual) 2 % (1-10) Eosinophils % (Manual) 0 % (0-3) Basophils % (Manual) 0 % (0-2) Band Neutrophils 11 % (0-8) H Platelet Estimate Adequate Platelet Morphology Normal Red Blood Cell Morphology Normal Anisocytosis 1+ Sodium Level 138 MMOL/L (136-145) Potassium Level 3.7 MMOL/L (3.5-5.1) Chloride Level 105 MMOL/L (98-107) Carbon Dioxide Level 18 MMOL/L (21-32) L Anion Gap 15 mmol/L (5-15) Blood Urea Nitrogen 26 mg/dL (7-18) H Creatinine 1.3 MG/DL (0.55-1.30) Estimat Glomerular Filtration Rate 42.2 mL/min (>60) Glucose Level 113 MG/DL (74-106) H Calcium Level 7.9 MG/DL (8.5-10.1) L Total Bilirubin 0.5 MG/DL (0.2-1.0) Aspartate Amino Transf (AST/SGOT) 26 U/L (15-37) Alanine Aminotransferase (ALT/SGPT) 25 U/L (12-78) Alkaline Phosphatase 158 U/L (46-116) H Total Protein 6.1 G/DL (6.4-8.2) L Albumin 1.5 G/DL (3.4-5.0) L Globulin 4.6 g/dL Albumin/Globulin Ratio 0.3 (1.0-2.7) L Arterial Blood pH 7.466 (7.350-7.450) Arterial Blood Partial Pressure CO2 26.0 mmHg (35.0-45.0) L Arterial Blood Partial Pressure O2 96.8 mmHg (75.0-100.0) Arterial Blood HCO3 18.3 mmol/L (22.0-26.0) L Arterial Blood Oxygen Saturation 96.9 % (95-100) Arterial Blood Base Excess -4.6 (-2-2) L Pablo Test Positive General Appearance: well appearing, no apparent distress, alert, obese Head: normocephalic EENT: PERRL/EOMI, normal ENT inspection Neck: supple Respiratory: normal breath sounds, no respiratory distress Cardiovascular: normal rate Gastrointestinal: normal inspection, non tender, soft, normal bowel sounds, non -distended Rectal: deferred Genitourinary: no CVA tenderness Musculoskeletal: normal inspection, back normal Neurologic: normal inspection, alert, oriented x3, responsive Psychiatric: normal inspection, judgement/insight normal, memory normal Skin: normal inspection, normal color, no rash, warm/dry, palpation normal, well hydrated Lymphatic: normal inspection, no adenopathy Current Medications Current Medications Medications (Trade) Dose Ordered Sig/Nya Route PRN Reason Start Time Stop Time Status Last Admin Dose Admin Acetaminophen (Tylenol) 650 mg Q4H PRN RECTAL Mild Pain (Pain Scale 1-3) 05/02/18 00:30 06/01/18 00:29 Albuterol Sulfate (Proventil) 2.5 mg Q6HRT PRN HHN Shortness of Breath 05/02/18 00:00 05/07/18 00:00 Chlorhexidine Gluconate (Leticia-Hex 2%) 1 applic DAILY@2000 TOPIC 05/02/18 20:00 06/01/18 19:59 05/02/18 21:08 Dextrose (Dextrose 50%) 25 ml Q30M PRN IV Hypoglycemia 05/02/18 00:00 06/01/18 00:00 Dextrose (Dextrose 50%) 50 ml Q30M PRN IV Hypoglycemia 05/02/18 00:00 06/01/18 00:00 Insulin Aspart (NovoLOG) BEFORE MEALS AND HS SUBQ 05/02/18 06:30 06/01/18 06:29 05/03/18 06:07 Levofloxacin 150 ml @ 100 mls/hr Q48H IVPB 05/03/18 12:00 05/10/18 11:59 05/03/18 11:56 Micafungin Sodium 100 mg/Sodium Chloride 110 ml @ 110 mls/hr Q24H IVPB 05/03/18 13:00 05/10/18 12:59 Norepinephrine Bitartrate 4 mg/ Dextrose 250 ml @ 0 mls/hr Q24H IV 05/02/18 00:30 06/01/18 00:29 05/03/18 09:09 Pantoprazole (Protonix) 40 mg EVERY 12 HOURS IVP 05/02/18 21:00 06/01/18 20:59 05/03/18 09:23 Piperacillin Sod/ Tazobactam Sod 3.375 gm/Dextrose 110 ml @ 27.5 mls/hr EVERY 8 HOURS IVPB 05/02/18 06:00 05/07/18 05:59 05/03/18 05:53 Sodium Chloride 1,000 ml @ 100 mls/hr Q10H IV 05/02/18 01:00 06/01/18 00:59 05/03/18 06:10 GI: Plan Problems: (1) Anemia (2) Alkaline phosphatase elevation (3) Severe sepsis Plan defer GI procedures until respiratory status more stable and cleared by cardiac maintain NPO + IVFs anemia work up OB stool r/o GI bleed collect stool studies, cdiff if patient has persistent diarrhea monitor H&H, prn transfusions bowel regime ppi abx fu labs Discussed with Dr. Quiñones. Thank you for this patient referral, we will follow. The patient was seen and examined at bedside and all new and available data was reviewed in the patients chart. I agree with the above findings, impression and plan. (Patient seen earlier today. Signature stamp does not reflect patient encounter time.). - MD Marylou BirchLizzeth-Rajesh JUSTUS May 03, 2018 12:07
--- NOTE | 2018-05-03 12:42 | Diagnostic Imaging Report ---
APPROVED REPORT CPT Code: 58331 Present Symptoms Shortness of breath BILATERAL: Imaging reveals a patent deep venous system bilaterally. There is no evidence of thrombus within the femoral, popliteal or tibial segments. Doppler indicates normal spontaneous flow within these segments. Greater Saphenous veins: Imaging of the left greater saphenous vein reaveals an acute thrombus. The tip of the thrombus is seen in the proximal-thigh distal to left common femoral- saphenous junction. The left greater saphenous vein is within normal limits.
[2018-05-03] MEDS: Micafungin 100 MG in NS 110 ML IVPB SCH (13:00)
--- NOTE | 2018-05-03 13:11 | Diagnostic Imaging Report ---
Indication: Dyspnea Technique: One view of the chest Comparison: 05/02/2018 Findings: Interim decreased volume of minimally aerated left lung. Near-complete opacification the left hemithorax, progressed slightly since prior exam. Right lung pleural spaces remain clear. Left chest port catheter remains. Impression: Increasing opacification of the left hemithorax, over one. This may be due to increased pleural fluid or mass, increasing atelectasis, or both
--- NOTE | 2018-05-03 14:00 | NUR ---
NURSE NOTES: Patient asleep. VSS. No new orders at this time.
--- NOTE | 2018-05-03 14:06 | NUR ---
RD ASSESSMENT & RECOMMENDATIONS SEE CARE ACTIVITY FOR COMPLETE ASSESSMENT DAILY ESTIMATED NEEDS: Needs based on Pulmonary, wound/ 56kg abw 25-30 kcals/kg 7810-4328 total kcals 1.25-1.5 g protein/kg 70-84 g total protein 25-30 mL/kg 1552-1881 total fluid mLs NUTRITION DIAGNOSIS: * Swallowing difficulty R/T unstable respiratory status and weakness as evidenced by PATTERN ILLUSTRATOR recommends NPO at this time. * Altered nutrition related lab values R/T diabetes, sepsis as evidenced by A1C=6.0, critically elev wbc (37.4) trending up, elev BNP (8189), low BP, on pressor. CURRENT DIET:NPO PO DIET RECOMMENDATIONS: WHEN SAFE FOR PO -> CCHO MED/texture per PATTERN ILLUSTRATOR ENTERAL NUTRITION RECOMMENDATIONS: Consult RD if pt not safe for PO, TF indicated ADDITIONAL RECOMMENDATIONS: * Monitor NPO status- PO vs NGT? * Wound healing: when able to take PO meds -> MVI x 1, Vit C 500mg QD, Sean 1pkt BID * Sacral wound evaluation * Monitor lytes, replete as needed * Calibrated bedscale wt for accurate CBW
--- NOTE | 2018-05-03 15:35 | Diagnostic Imaging Report ---
Indication: . Urinary tract infection, abnormal liver function tests, leukocytosis Technique: Graves-scale and duplex images of the upper abdomen were obtained Comparison: none Findings: Exam is limited due to patient body habitus and limited patient mobility Gallbladder there is trace gallstones. Wall is borderline thickened, measuring 3 mm thick, but the gallbladder is underdistended. There is some pericholecystic fluid. Sonographic Lazcano's sign could not be assessed as patient could not respond. Common bile duct measures 5 mm in diameter. No intrahepatic biliary ductal dilatation. There is questionably mildly enlarged. No focal abnormality. Normal echogenicity. Portal vein and hepatic veins are patent. Pancreas is incompletely visualized due to overlying bowel gas, visualized portions are unremarkable. Spleen is unremarkable. Left kidney measures 10.9 cm in length. Right kidney measures 11.4 cm length. Both kidneys demonstrate normal echogenicity. There is no hydronephrosis. Right kidney demonstrates a lower pole cyst. . Abdominal aorta is partially obscured by bowel gas, visualized portions are non-aneurysmal . Impression: Cholelithiasis. There is borderline wall thickening, probably artifact of under distention. There is also some pericholecystic fluid. These findings raise possibility of acute cholecystitis. If there is high clinical concern, consider nuclear medicine hepatobiliary scan for further evaluation Limited exam, as described, with suboptimal visualization of the abdominal aorta and pancreas Borderline hepatomegaly Incidental finding right lower pole renal cyst
--- NOTE | 2018-05-03 15:43 | Pulmonolgy Critical Care Note ---
Critical Care - Asmt/Plan Assessment/Plan: Pulmonary Progress Note Assessment/Plan Assessment/Plan chronic effusion collapse left possible sepsis elevated lactic acid hypotension possible gib hypoxemia PLAN pressors antibiotics respiratory care oxygen resume [facility] med d/w Dr. Tyson impression, plan, and exam edited and reviewed in detail care discussed with car seat maker - Subjective ROS Limited/Unobtainable: Yes Condition: critical VSS noted Labs: Test 05/01/18 18:30 05/01/18 20:15 05/01/18 23:00 05/02/18 01:14 White Blood Count 4.8 K/UL (4.8-10.8) Red Blood Count 3.53 M/UL (4.20-5.40) Hemoglobin 10.1 G/DL (12.0-16.0) Hematocrit 32.6 % (37.0-47.0) Mean Corpuscular Volume 92 FL (80-99) Mean Corpuscular Hemoglobin 28.7 PG (27.0-31.0) Mean Corpuscular Hemoglobin Concent 31.0 G/DL (32.0-36.0) Red Cell Distribution Width 17.1 % (11.6-14.8) Platelet Count 242 K/UL (150-450) Mean Platelet Volume 6.6 FL (6.5-10.1) Neutrophils (%) (Auto) % (45.0-75.0) Lymphocytes (%) (Auto) % (20.0-45.0) Monocytes (%) (Auto) % (1.0-10.0) Eosinophils (%) (Auto) % (0.0-3.0) Basophils (%) (Auto) % (0.0-2.0) Prothrombin Time 11.9 SEC (9.30-11.50) Prothromb Time International Ratio 1.1 (0.9-1.1) Activated Partial Thromboplast Time 25 SEC (23-33) Sodium Level 141 MMOL/L (136-145) Potassium Level 4.5 MMOL/L (3.5-5.1) Chloride Level 103 MMOL/L (98-107) Carbon Dioxide Level 24 MMOL/L (21-32) Anion Gap 14 mmol/L (5-15) Blood Urea Nitrogen 23 mg/dL (7-18) Creatinine 1.2 MG/DL (0.55-1.30) Estimat Glomerular Filtration Rate 46.3 mL/min (>60) Glucose Level 198 MG/DL (74-106) Lactic Acid Level 6.50 mmol/L (0.4-2.0) 4.30 mmol/L (0.66-2.22) Calcium Level 9.6 MG/DL (8.5-10.1) Phosphorus Level 4.5 MG/DL (2.5-4.9) Magnesium Level 1.7 MG/DL (1.8-2.4) Total Bilirubin 0.6 MG/DL (0.2-1.0) Aspartate Amino Transf (AST/SGOT) 30 U/L (15-37) Alanine Aminotransferase (ALT/SGPT) 28 U/L (12-78) Alkaline Phosphatase 160 U/L (46-116) Total Creatine Kinase 96 U/L (26-308) Creatine Kinase MB 1.3 NG/ML (0.0-3.6) Creatine Kinase MB Relative Index 1.3 Troponin I 0.066 ng/mL (0.000-0.056) Pro-B-Type Natriuretic Peptide 8189 pg/mL (0-125) Total Protein 7.3 G/DL (6.4-8.2) Albumin 2.1 G/DL (3.4-5.0) Globulin 5.2 g/dL Albumin/Globulin Ratio 0.4 (1.0-2.7) Urine Color Magalis Urine Appearance Very cloudy Urine pH 8 (4.5-8.0) Urine Specific [place] 1.020 (1.005-1.035) Urine Protein 3+ (NEGATIVE) Urine Glucose (UA) Negative (NEGATIVE) Urine Ketones Negative (NEGATIVE) Urine Blood 5+ (NEGATIVE) Urine Nitrite Positive (NEGATIVE) Urine Bilirubin Negative (NEGATIVE) Urine Ictotest Negative (NEGATIVE) Urine Urobilinogen Normal MG/DL (0.0-1.0) Urine Leukocyte Esterase 3+ (NEGATIVE) Urine RBC 15-20 /HPF (0 - 2) Urine WBC 20-30 /HPF (0 - 2) Urine Squamous Epithelial Cells Few /LPF (NONE/OCC) Urine Bacteria Many /HPF (NONE) Urine Mucus Many /LPF (NONE/OCC) Arterial Blood pH 7.408 (7.350-7.450) Arterial Blood Partial Pressure CO2 29.9 mmHg (35.0-45.0) Arterial Blood Partial Pressure O2 76.4 mmHg (75.0-100.0) Arterial Blood HCO3 18.4 mmol/L (22.0-26.0) Arterial Blood Oxygen Saturation 93.6 % (95-100) Arterial Blood Base Excess -5.5 (-2-2) Pablo Test Positive Test 05/02/18 06:05 05/02/18 07:55 05/02/18 10:10 05/02/18 12:20 White Blood Count 30.5 K/UL (4.8-10.8) Red Blood Count 2.68 M/UL (4.20-5.40) Hemoglobin 7.7 G/DL (12.0-16.0) Hematocrit 24.2 % (37.0-47.0) Mean Corpuscular Volume 90 FL (80-99) Mean Corpuscular Hemoglobin 28.8 PG (27.0-31.0) Mean Corpuscular Hemoglobin Concent 31.9 G/DL (32.0-36.0) Red Cell Distribution Width 17.3 % (11.6-14.8) Platelet Count 204 K/UL (150-450) Mean Platelet Volume 8.2 FL (6.5-10.1) Neutrophils (%) (Auto) % (45.0-75.0) Lymphocytes (%) (Auto) % (20.0-45.0) Monocytes (%) (Auto) % (1.0-10.0) Eosinophils (%) (Auto) % (0.0-3.0) Basophils (%) (Auto) % (0.0-2.0) Differential Total Cells Counted 100 Neutrophils % (Manual) 87 % (45-75) Lymphocytes % (Manual) 2 % (20-45) Monocytes % (Manual) 1 % (1-10) Eosinophils % (Manual) 1 % (0-3) Basophils % (Manual) 0 % (0-2) Band Neutrophils 9 % (0-8) Platelet Estimate Adequate Platelet Morphology Normal Hypochromasia 3+ Anisocytosis 1+ Sodium Level 142 MMOL/L (136-145) Potassium Level 2.5 MMOL/L (3.5-5.1) Chloride Level 108 MMOL/L (98-107) Carbon Dioxide Level 21 MMOL/L (21-32) Anion Gap 14 mmol/L (5-15) Blood Urea Nitrogen 24 mg/dL (7-18) Creatinine 1.1 MG/DL (0.55-1.30) Estimat Glomerular Filtration Rate 51.2 mL/min (>60) Glucose Level 170 MG/DL (74-106) Hemoglobin A1c 6.0 % (4.3-6.0) Calcium Level 7.7 MG/DL (8.5-10.1) Total Bilirubin 0.4 MG/DL (0.2-1.0) Aspartate Amino Transf (AST/SGOT) 26 U/L (15-37) Alanine Aminotransferase (ALT/SGPT) 25 U/L (12-78) Alkaline Phosphatase 122 U/L (46-116) Troponin I 0.094 ng/mL (0.000-0.056) Total Protein 5.7 G/DL (6.4-8.2) Albumin 1.5 G/DL (3.4-5.0) Globulin 4.2 g/dL Albumin/Globulin Ratio 0.4 (1.0-2.7) Lactic Acid Level 4.50 mmol/L (0.4-2.0) 2.70 mmol/L (0.4-2.0) Arterial Blood pH 7.438 (7.350-7.450) Arterial Blood Partial Pressure CO2 27.1 mmHg (35.0-45.0) Arterial Blood Partial Pressure O2 60.2 mmHg (75.0-100.0) Arterial Blood HCO3 17.9 mmol/L (22.0-26.0) Arterial Blood Oxygen Saturation 90.7 % (95-100) Arterial Blood Base Excess -5.4 (-2-2) Pablo Test Positive Test 05/02/18 18:05 Lactic Acid Level 2.00 mmol/L (0.4-2.0) Troponin I 0.136 ng/mL (0.000-0.056) Objective: WDWN latered clear breath sounds with reduced left [id number] without MRG NABS nontender no HSM no CC edema paraparesis nonfocal Micro: Microbiology Date/Time Source Procedure Growth Status 05/01/18 18:40 Blood Blood Culture - Preliminary Resulted 05/01/18 18:30 Blood Blood Culture - Preliminary Resulted 05/01/18 18:35 Nasal Nares Influenza Types A,B Antigen (ANNE) - Final Complete Critical Care - Objective Last 24 Hour Vital Signs Date Time Temp Pulse Resp B/P (MAP) Pulse Ox O2 Delivery O2 Flow Rate FiO2 05/03/18 12:00 106 30 116/65 (82) 98 05/03/18 12:00 90 05/03/18 12:00 Venturi Mask 45.0 05/03/18 11:30 110 32 110/60 (77) 98 05/03/18 11:00 108 32 115/65 (82) 98 05/03/18 10:30 103 33 118/66 (83) 98 05/03/18 10:00 104 35 111/63 (79) 96 05/03/18 09:30 106 30 102/58 (73) 96 05/03/18 09:09 111/54 05/03/18 09:00 110 30 118/70 (86) 96 05/03/18 08:30 120 34 119/62 (81) 95 05/03/18 08:00 98.8 110 32 123/73 (90) 100 05/03/18 08:00 Venturi Mask 45.0 05/03/18 08:00 90 05/03/18 07:30 90 34 111/62 (78) 100 05/03/18 07:20 Venturi Mask 12.0 45 05/03/18 07:20 99 Venturi Mask 10.0 45 05/03/18 07:00 91 38 121/79 (93) 100 05/03/18 06:30 90 38 117/74 (88) 100 05/03/18 06:10 121/70 05/03/18 06:00 90 38 110/80 (90) 100 05/03/18 05:30 91 40 109/76 (87) 100 05/03/18 05:00 92 38 124/81 (95) 100 05/03/18 05:00 124/81 05/03/18 04:30 92 38 114/78 (90) 100 05/03/18 04:00 Venturi Mask 45.0 05/03/18 04:00 116/70 05/03/18 04:00 90 05/03/18 04:00 98.6 91 40 110/72 (85) 100 05/03/18 03:30 91 40 116/72 (87) 100 05/03/18 03:00 92 39 106/67 (80) 100 05/03/18 03:00 100/73 05/03/18 03:00 106/73 05/03/18 02:30 92 39 106/67 (80) 100 05/03/18 02:00 104/65 05/03/18 02:00 91 39 104/62 (76) 100 05/03/18 01:30 90 39 106/67 (80) 100 05/03/18 01:00 92 39 105/66 (79) 100 05/03/18 01:00 99/72 05/03/18 00:30 93 39 109/66 (80) 100 05/03/18 00:19 92 05/03/18 00:00 99 05/03/18 00:00 100/72 05/03/18 00:00 99.0 90 41 99/64 (76) 100 05/03/18 00:00 Venturi Mask 45.0 05/02/18 23:30 90 41 99/64 (76) 100 05/02/18 23:00 100/60 05/02/18 23:00 90 41 99/64 (76) 100 05/02/18 22:30 91 41 99/66 (77) 100 05/02/18 22:00 105/69 05/02/18 22:00 92 42 105/69 (81) 98 05/02/18 21:30 92 43 105/70 (82) 98 05/02/18 21:26 99/63 05/02/18 21:00 99/63 05/02/18 21:00 91 46 99/63 (75) 96 05/02/18 20:30 99 45 81/49 (60) 98 05/02/18 20:00 99.0 99 37 87/56 (66) 98 05/02/18 20:00 87/56 05/02/18 20:00 Venturi Mask 45.0 05/02/18 20:00 99 05/02/18 19:30 101 37 83/46 (58) 98 05/02/18 19:29 Venturi Mask 12.0 45 05/02/18 19:29 98 Venturi Mask 12.0 45 05/02/18 18:00 99 43 88/53 (65) 100 05/02/18 17:30 101 40 91/53 (66) 100 05/02/18 17:00 102 40 82/49 (60) 100 05/02/18 16:30 100.0 105 30 86/53 (64) 100 05/02/18 16:12 96/67 05/02/18 16:00 106 40 96/67 (77) 100 05/02/18 16:00 105 05/02/18 16:00 10.0 45 05/02/18 16:00 Venturi Mask 45.0 Micro: Microbiology Date/Time Source Procedure Growth Status 05/01/18 18:40 Blood Blood Culture - Preliminary Gram Negative Bacillus 1 Resulted 05/01/18 18:30 Blood Blood Culture - Preliminary Gram Negative Bacillus 1 Resulted 05/02/18 14:55 Sputum Induced Gram Stain - Final Resulted 05/02/18 14:55 Sputum Induced Sputum Culture - Preliminary Resulted 05/01/18 18:35 Nasal Nares Influenza Types A,B Antigen (ANNE) - Final Complete 05/01/18 20:15 Urine,Clean Catch Urine Culture - Preliminary Gram Negative Bacillus 1 Resulted Accucheck: 118 Critical Care - Subjective ROS Limited/Unobtainable: No FI02: 45 Vent Support Mode: BiLevel Sputum Amount: None I&O: Intake and Output 05/02/18 05/03/18 19:00 07:00 Intake Total 1012.3652 ml 1432.5 ml Output Total 212 ml 410 ml Balance 800.3652 ml 1022.5 ml Intake IV Total 1012.3652 ml 1432.5 ml Output Urine Total 212 ml 410 ml # Bowel Movements 1 Nathen Luo MD May 03, 2018 15:43
--- NOTE | 2018-05-03 16:00 | NUR ---
NURSE NOTES: Levophed titrated off. VSS. Patient tolerated well. BP stable. Will continue plan of care.
--- NOTE | 2018-05-03 17:40 | NUR ---
CASE MANAGEMENT: REVIEW SI: SEVERE SEPSIS . LACTIC ACIDOSIS T 98.7 HR 95 RR 25 BP 131/91 SAT VENTURI MASK FIO2 45. WBC 37.4 H/H 7.5/23.3 IS: VANCO IV Q24HR ZOSYN IV Q8HR NS IVF @ 100ML/HR LEVOPHED IV Q24HR MICAFUNGIN IV Q24HR ICU STATUS DCP: PATIENT IS FROM [facility]
--- NOTE | 2018-05-03 18:00 | NUR ---
NURSE NOTES: Patient turned and repositioned. Bowel movement x1. No new orders at this time. Patient is more alert and talkative. Will continue to monitor patient.
--- NOTE | 2018-05-03 18:01 | Progress Note ---
DATE: 05/03/2018 SUBJECTIVE: This is a 58-year-old female, currently in ICU on high oxygen. She is off BiPAP, feeling little better. She failed swallow evaluation. We are waiting for repeat swallow evaluation to continue. OBJECTIVE: VITAL SIGNS: Blood pressure 110/70, pulse 74, and respirations 18. HEENT: NAD. CHEST: Bilateral crackles. CARDIOVASCULAR: Regular rhythm. No gallop. No murmur. ABDOMEN: Soft. EXTREMITIES: No CCE. NEUROLOGICAL: The patient has generalized weakness. ASSESSMENT: 1. Acute respiratory failure. 2. Sepsis. 3. Dehydration. 4. Dysphagia. PLAN: We will admit on ICU. Continue high oxygen and bronchodilator treatments. Continue IV steroid. Continue antibiotics. Pulmonary is on the case. The patient is also on Levophed drip. Monroe Tyson M.D. DR: Niya JOB#: [id number] CC:
--- NOTE | 2018-05-03 19:12 | NUR ---
NURSE NOTES: Abd tg report was notified to dr. Stone and Dr. Tyson.
--- NOTE | 2018-05-03 19:18 | NUR ---
HAND-OFF: Report given to ADELINE Teran using SBAR. VSS. no distress noted.
--- NOTE | 2018-05-03 19:30 | NUR ---
NURSE NOTES:Received pt more awake and alert speaks Turkmen only lower extremities flaccid , upper extremities moderately weak, SR on the monitor, BP stable, afebrile. Off Pressors, IVF NS at 100ml/hr been infusing to Left subclavian SVC, site with drsg dry and intact. Pts NPO oral care done. Frequent suctioning orally was done romero to weak cough and lots of beige mucous secretions in the mouth. HOB kept elevated. Watch for any resp. distress.
[2018-05-03] MEDS: Dyna-Hex 2% Top Sol 2oz TOPIC SCH (20:07)
--- NOTE | 2018-05-03 21:00 | NUR ---
NURSE NOTES:Accucheck 108mg/dl- No coverage. Suctioned tk beige secretions moderate in amt.
--- NOTE | 2018-05-03 23:00 | NUR ---
NURSE NOTES:Bp remained stable, Still awake at this time. Turned q 2hrs prn with good skin care done.
[2018-05-04] VITALS (21 sets, daily range): BP systolic 134–156; BP diastolic 60–100
--- NOTE | 2018-05-04 01:00 | NUR ---
NURSE NOTES:Complete bed bath with bed changed done, sacral drsg was changed, wound looks the same. Pt on p200 mattress.
--- NOTE | 2018-05-04 03:00 | NUR ---
NURSE NOTES:Asleep at this time vss.
--- NOTE | 2018-05-04 05:36 | NUR ---
NURSE NOTES:Pt had another mucoid greenish stool. complete bath with bed changed done.
--- NOTE | 2018-05-04 06:00 | NUR ---
NURSE NOTES:Accucheck 105mg/dl no coverage.
[2018-05-04] MEDS: Piperacillin/Tazobactam 3.375 GM in D5W 110 ML IVPB SCH (06:07)
[2018-05-04] MEDS: NovoLOG Insulin Flexpen SUBQ SCH ×4 (06:30→21:00)
--- NOTE | 2018-05-04 07:13 | NUR ---
HAND-OFF: Report given to Jael Troy using SBAR. walking rounds done.
[2018-05-04 07:34] LABS: HEMOGLOBIN 7.8 G/DL (12.0-16.0); MEAN CORPUSCULAR VOLUME 91 FL (80-99); PLATELET COUNT 192 K/UL (150-450); RED BLOOD COUNT 2.65 M/UL (4.20-5.40); RED CELL DISTRIBUTION WIDTH 17.6 % (11.6-14.8)
[2018-05-04 07:46] LABS: WHITE BLOOD COUNT 25.8 K/UL (4.8-10.8)
[2018-05-04 07:54] LABS: ANION GAP 15 mmol/L (5-15); BLOOD UREA NITROGEN 17 mg/dL (7-18); CALCIUM 8.6 MG/DL (8.5-10.1); CARBON DIOXIDE 19 MMOL/L (21-32); CHLORIDE 118 MMOL/L (98-107); CREATININE 0.9 MG/DL (0.55-1.30); SODIUM 152 MMOL/L (136-145)
[2018-05-04 07:57] LABS: POTASSIUM 2.1 MMOL/L (3.5-5.1)
--- NOTE | 2018-05-04 08:00 | NUR ---
NURSE NOTES: Received patient alert & oriented x3. Korean speaker. Reserved, dependent, talkative. cardiac monitor technician showing SR. Patient on venturi 45% saturating 100%. Patient is NPO due to recent cholysistitis finding in ABD Ultrasound. Dr. Stone notified. Deleon catheter intact. Sacral unstagable wound - see WCP, dressing dry intact. L subclavian TLC, L hand 20, R AC 20. Patient stable at this time. Lung sounds diminished bilaterally. Tender, round, soft abdomen. Hypoactive sounds on all 4 quadrants present. WBC count trending down reported to Dr. Parekh. new orders obtained from Dr. Aparicio. Bed on lowest position, hob elevated, call light within reach, bed alarm on for safety. Will continue plan of care.
[2018-05-04] MEDS: Pantoprazole Inj IVP SCH ×2 (08:34→21:46)
--- NOTE | 2018-05-04 09:13 | Infectious Diseases Prog Note ---
Assessment/Plan Assessment/Plan A; Septic shock off pressor Proteus sepsis Proteus UTI Pleural effusion, Fungal hypha in cytology DM Anemia Paraplegia Cholelithiasis P: Abdominal US Discontinue Zosyn & Levaquin continue Micafungin Will f/u cultures Case was D/W hand sizer Subjective ROS Limited/Unobtainable: Yes Constitutional: Reports: other Respiratory: Reports: productive cough Gastrointestinal/Abdominal: Reports: no symptoms Allergies: Coded Allergies: MAGNESIUM SULFATE (Verified Allergy, Unknown, 04/05/18) Objective Vital Signs Last 24 Hour Vital Signs Date Time Temp Pulse Resp B/P (MAP) Pulse Ox O2 Delivery O2 Flow Rate FiO2 05/04/18 08:00 98.2 97 30 135/75 (95) 99 05/04/18 08:00 Venturi Mask 45.0 05/04/18 08:00 97 05/04/18 07:35 Venturi Mask 12.0 45 05/04/18 07:34 96 Venturi Mask 10.0 45 05/04/18 07:00 96 30 149/90 (109) 99 05/04/18 06:00 95 30 140/83 (102) 99 05/04/18 05:00 98 30 137/83 (101) 99 05/04/18 04:00 Venturi Mask 45.0 05/04/18 04:00 99 05/04/18 04:00 98.2 97 30 152/81 (104) 99 05/04/18 03:00 95 30 148/81 (103) 99 05/04/18 02:00 98 29 150/80 (103) 99 05/04/18 01:00 96 33 156/82 (106) 99 05/04/18 00:00 96 05/04/18 00:00 Venturi Mask 45.0 05/04/18 00:00 98.6 96 34 144/82 (102) 99 05/03/18 23:00 98 34 139/89 (106) 99 05/03/18 22:00 102 29 130/82 (98) 99 05/03/18 21:00 102 29 136/82 (100) 99 05/03/18 20:11 Venturi Mask 12.0 45 05/03/18 20:11 97 Venturi Mask 10.0 45 05/03/18 20:00 97 05/03/18 20:00 98.2 90 32 134/89 (104) 97 05/03/18 20:00 Venturi Mask 45.0 05/03/18 19:00 90 28 122/64 (83) 100 05/03/18 18:00 92 25 128/65 (86) 100 05/03/18 17:00 90 25 130/68 (88) 98 05/03/18 16:00 Venturi Mask 45.0 05/03/18 16:00 98.7 95 25 131/91 (104) 98 05/03/18 16:00 95 05/03/18 15:30 92 25 125/70 (88) 98 05/03/18 15:00 95 33 118/77 (91) 100 05/03/18 14:30 93 33 120/75 (90) 100 05/03/18 14:00 91 33 128/80 (96) 100 05/03/18 13:30 90 30 133/82 (99) 100 05/03/18 13:00 90 30 133/82 (99) 100 05/03/18 12:30 98.9 90 30 138/92 (107) 98 05/03/18 12:00 106 30 116/65 (82) 98 05/03/18 12:00 90 05/03/18 12:00 Venturi Mask 45.0 05/03/18 11:30 110 32 110/60 (77) 98 05/03/18 11:00 108 32 115/65 (82) 98 05/03/18 10:30 103 33 118/66 (83) 98 05/03/18 10:00 104 35 111/63 (79) 96 05/03/18 09:30 106 30 102/58 (73) 96 05/03/18 09:09 111/54 Height (Feet): 5 Height (Inches): 3.00 Weight (Pounds): 149 HEENT: mucous membranes moist Respiratory/Chest: lungs clear, other - oxygen by mask Cardiovascular: normal rate, other - left IJ central line Abdomen: soft, non tender Extremities: other - pedal edema Neurologic/Psychiatric: alert, responsive Microbiology Date/Time Source Procedure Growth Status 05/01/18 18:40 Blood Blood Culture - Final Proteus Mirabilis Complete 05/01/18 18:30 Blood Blood Culture - Final Proteus Mirabilis Complete 05/02/18 14:55 Sputum Induced Gram Stain - Final Resulted 05/02/18 14:55 Sputum Culture - Preliminary Staphylococcus Aureus Usual Respiratory Dionna Resulted 05/01/18 18:35 Nasal Nares Influenza Types A,B Antigen (ANNE) - Final Complete 05/01/18 20:15 Urine,Clean Catch Urine Culture - Final Proteus Mirabilis Complete Laboratory Tests Test 05/04/18 04:20 White Blood Count 25.8 K/UL (4.8-10.8) *H Red Blood Count 2.65 M/UL (4.20-5.40) L Hemoglobin 7.8 G/DL (12.0-16.0) L Hematocrit 24.0 % (37.0-47.0) L Mean Corpuscular Volume 91 FL (80-99) Mean Corpuscular Hemoglobin 29.3 PG (27.0-31.0) Mean Corpuscular Hemoglobin Concent 32.3 G/DL (32.0-36.0) Red Cell Distribution Width 17.6 % (11.6-14.8) H Platelet Count 192 K/UL (150-450) Mean Platelet Volume 9.2 FL (6.5-10.1) Neutrophils (%) (Auto) % (45.0-75.0) Lymphocytes (%) (Auto) % (20.0-45.0) Monocytes (%) (Auto) % (1.0-10.0) Eosinophils (%) (Auto) % (0.0-3.0) Basophils (%) (Auto) % (0.0-2.0) Neutrophils % (Manual) Pending Lymphocytes % (Manual) Pending Platelet Estimate Pending Platelet Morphology Pending Sodium Level 152 MMOL/L (136-145) #H Potassium Level 2.1 MMOL/L (3.5-5.1) *L Chloride Level 118 MMOL/L (98-107) H Carbon Dioxide Level 19 MMOL/L (21-32) L Anion Gap 15 mmol/L (5-15) Blood Urea Nitrogen 17 mg/dL (7-18) Creatinine 0.9 MG/DL (0.55-1.30) Estimat Glomerular Filtration Rate > 60 mL/min (>60) Glucose Level 78 MG/DL (74-106) Calcium Level 8.6 MG/DL (8.5-10.1) Current Medications Medications (Trade) Dose Ordered Sig/Nya Route PRN Reason Start Time Stop Time Status Last Admin Dose Admin Acetaminophen (Tylenol) 650 mg Q4H PRN RECTAL Mild Pain (Pain Scale 1-3) 05/02/18 00:30 06/01/18 00:29 Albuterol Sulfate (Proventil) 2.5 mg Q6HRT PRN HHN Shortness of Breath 05/02/18 00:00 05/07/18 00:00 Chlorhexidine Gluconate (Leticia-Hex 2%) 1 applic DAILY@2000 TOPIC 05/02/18 20:00 06/01/18 19:59 05/03/18 20:07 Dextrose (Dextrose 50%) 25 ml Q30M PRN IV Hypoglycemia 05/02/18 00:00 06/01/18 00:00 Dextrose (Dextrose 50%) 50 ml Q30M PRN IV Hypoglycemia 05/02/18 00:00 06/01/18 00:00 Insulin Aspart (NovoLOG) BEFORE MEALS AND HS SUBQ 05/02/18 06:30 06/01/18 06:29 05/03/18 06:07 Levofloxacin 150 ml @ 100 mls/hr Q24H IVPB 05/04/18 12:00 05/09/18 11:59 Micafungin Sodium 100 mg/Sodium Chloride 110 ml @ 110 mls/hr Q24H IVPB 05/03/18 13:00 05/10/18 12:59 05/03/18 13:00 Norepinephrine Bitartrate 4 mg/ Dextrose 250 ml @ 0 mls/hr Q24H IV 05/02/18 00:30 06/01/18 00:29 05/03/18 09:09 Pantoprazole (Protonix) 40 mg EVERY 12 HOURS IVP 05/02/18 21:00 06/01/18 20:59 05/04/18 08:34 Piperacillin Sod/ Tazobactam Sod 3.375 gm/Dextrose 110 ml @ 27.5 mls/hr EVERY 8 HOURS IVPB 05/02/18 06:00 05/07/18 05:59 05/04/18 06:07 Potassium Chloride 100 ml @ 50 mls/hr DAILY IVPB 05/04/18 09:00 06/03/18 08:59 Sodium Chloride 1,000 ml @ 100 mls/hr Q10H IV 05/02/18 01:00 06/01/18 00:59 05/03/18 22:23 Reno Samaniego MD May 04, 2018 09:13
--- NOTE | 2018-05-04 09:21 | NUR ---
ST NOTE: FOLLOWED UP PT'S CONDITIONS. PER RN, ANI, PT IS MORE ALERT AND RESPONSIVE. AND PT HAS CHOLELITHIASIS, KEEP NPO FOR NOW UNTIL PT IS SEEN BY MD. WILL FOLLOW.
[2018-05-04 09:42] LABS: ALANINE AMINOTRANSFERASE 23 U/L (12-78); ALBUMIN 1.5 G/DL (3.4-5.0); ALKALINE PHOSPHATASE 151 U/L (46-116); ASPARTATE AMINO TRANSFERASE 21 U/L (15-37); BILIRUBIN,DIRECT 0.3 MG/DL (0.0-0.3); BILIRUBIN,TOTAL 0.4 MG/DL (0.2-1.0); PHOSPHORUS 3.2 MG/DL (2.5-4.9)
[2018-05-04] MEDS ORDERED: cefTRIAXone 2 GM in D5W 55 ML IVPB SCH (10:00)
[2018-05-04] MEDS ORDERED: D5 1/2NS w/KCl 40meq 1000ml 1,000 ML IV SCH (10:00)
--- NOTE | 2018-05-04 10:00 | NUR ---
NURSE NOTES: MD aware of patient allergy. Confirmed that it is ok to administer as monitoring the patient for any allergic reactions. Patient turned and repositioned. Will continue to monitor patient.
--- NOTE | 2018-05-04 10:17 | Consultation ---
Consult Note Consult Note asked to eval for electrolyte and fluid management seen in ICU examined discussed with RN Patient is a 58-year-old female presented after increased respiratory difficulty. Patient had prior history of diabetes as well as prior pleural effusion. Patient had not been having any fever. She was noted of increased respiratory distress from her nursing facility was sent to the hospital for further evaluation. Patient was noted to have primary care physician Dr. Abel Black. Patient was sent in for further evaluation respiratory difficulty. MAGNESIUM SULFATE (Verified Allergy, Unknown, 04/05/18) Past Medical History: No History, Except For Hx Hypertension: Yes Hx Diabetes: Yes Hx Neurological Problems: Yes - paraplegia Assessment/Plan Presented with septic Shock, now hemodynamically stable Low K and Low mag HypoAlbuminemia and Proteinuria r/o Nephrotic syndrom UTI Anemia severe left lung effusion / opacity obesity ? DMII HTN Paraplegia Anemia walker K and Mag supplement avoid nephrotoxics pulmonary support discussed with RN per orders Richardson Aparicio MD May 04, 2018 10:17
--- NOTE | 2018-05-04 10:31 | Consultation ---
History of Present Illness General Date patient seen: May 04, 2018 Chief Complaint: Dyspnea/Respdistress Referring physician: NAJMA ZAMBRANO Reason for Consultation: ANEMIA Present Illness Allergies: Coded Allergies: MAGNESIUM SULFATE (Verified Allergy, Unknown, 04/05/18) Medication History Scheduled Ascorbic Acid* (Ascorbic Acid*), 500 MG ORAL DAILY, (Reported) Ascorbic Acid* (Ascorbic Acid*), 500 MG ORAL DAILY, (Reported) Aspirin* (Aspirin*), 81 MG ORAL DAILY, (Reported) Atorvastatin Calcium* (Atorvastatin Calcium*), 40 MG ORAL BEDTIME, (Reported) Atorvastatin Calcium* (Atorvastatin Calcium*), 40 MG ORAL BEDTIME, (Reported) Bisacodyl* (Dulcolax*), 10 MG ORAL DAILY, (Reported) Carvedilol* (Carvedilol*), 25 MG ORAL EVERY 12 HOURS, (Reported) Carvedilol* (Carvedilol*), 25 MG ORAL EVERY 12 HOURS, (Reported) Ciprofloxacin Hcl* (Ciprofloxacin Hcl*), 500 MG ORAL Q12HR, (Reported) Docusate Sodium* (Docusate Sodium*), 100 MG ORAL TWICE A DAY, (Reported) Enoxaparin* (Lovenox*), 40 MG SUBQ DAILY, (Reported) Enoxaparin* (Lovenox*), 40 MG SUBQ DAILY, (Reported) Epoetin Sumeet (Epogen), 10,000 UNIT SUBQ 3XW, (Reported) Epoetin Sumeet (Epogen), 10,000 UNIT SUBQ 3XW, (Reported) Ferrous Sulfate* (Ferrous Sulfate*), 325 MG ORAL THREE TIMES A DAY, (Reported) Fluconazole* (Diflucan*), 200 MG ORAL DAILY, (Reported) Hydrocodone Bit/Acetaminophen 5-325* ([place] 5-325*), 1 TAB ORAL DAILY, (Reported ) Metronidazole* (Flagyl*), 500 MG ORAL EVERY 8 HOURS, (Reported) Sennosides (Senna), 8.6 MG PO BEDTIME, (Reported) Sennosides* (Sennosides*), 8.6 MG ORAL DAILY, (Reported) Vit B Comp/C/Fa/Iron/Vit E (Vitamin B Complex Tablet), 1 EACH PO DAILY, ( Reported) Zinc Sulfate (Zinc Sulfate*), 220 MG ORAL DAILY, (Reported) Scheduled PRN Acetaminophen* (Acetaminophen 325MG Tablet*), 650 MG ORAL Q6H PRN for Mild Pain/ Temp > 100.5, (Reported) Acetaminophen* (Acetaminophen*), 650 MG ORAL Q6H PRN for Mild Pain/Temp > 100.5, (Reported) Bisacodyl (Bisacodyl), 10 MG RC EVERY 24 HOURS PRN for Constipation, (Reported) Diphenhydramine Hcl* (Benadryl*), 25 MG ORAL DAILY PRN for Itching, (Reported) Diphenhydramine Hcl* (Diphenhydramine Hcl*), 25 MG ORAL Q8H PRN for Itching, ( Reported) Docusate Sodium* (Colace*), 200 MG ORAL TWICE A DAY PRN for Constipation, ( Reported) Hydrocodone Bit/Acetaminophen 5-325* ([place] 5-325*), 1 TAB ORAL Q4H PRN for Severe Pain (Pain Scale 7-10), (Reported) Hydrocodone Bit/Acetaminophen 5-325* ([place] 5-325*), 1 TAB ORAL Q4H PRN for For Pain, (Reported) Simethicone* (Simethicone*), 80 MG ORAL DAILY PRN for GAS PAIN, (Reported) Simethicone* (Simethicone*), 80 MG ORAL Q8H PRN for GAS PAIN, (Reported) Miscellaneous Medications Ferrous Sulfate (Ferrousul), 325 MG PO, (Reported) Insulin Aspart (Novolog Flexpen), (Reported) Insulin Aspart (Novolog), 100 UNIT SQ, (Reported) Zinc Gluconate (Zinc), 220 MG ORAL, (Reported) Patient History Healthcare decision maker Resuscitation status Full Code Advanced Directive on File No Physical Exam Last 24 Hour Vital Signs Date Time Temp Pulse Resp B/P (MAP) Pulse Ox O2 Delivery O2 Flow Rate FiO2 05/04/18 10:00 80 30 140/75 (96) 99 05/04/18 09:00 88 30 144/80 (101) 99 05/04/18 08:00 98.2 97 30 135/75 (95) 99 05/04/18 08:00 Venturi Mask 45.0 05/04/18 08:00 97 05/04/18 07:35 Venturi Mask 12.0 45 05/04/18 07:34 96 Venturi Mask 10.0 45 05/04/18 07:00 96 30 149/90 (109) 99 05/04/18 06:00 95 30 140/83 (102) 99 05/04/18 05:00 98 30 137/83 (101) 99 05/04/18 04:00 Venturi Mask 45.0 05/04/18 04:00 99 05/04/18 04:00 98.2 97 30 152/81 (104) 99 05/04/18 03:00 95 30 148/81 (103) 99 05/04/18 02:00 98 29 150/80 (103) 99 05/04/18 01:00 96 33 156/82 (106) 99 05/04/18 00:00 96 05/04/18 00:00 Venturi Mask 45.0 05/04/18 00:00 98.6 96 34 144/82 (102) 99 05/03/18 23:00 98 34 139/89 (106) 99 05/03/18 22:00 102 29 130/82 (98) 99 05/03/18 21:00 102 29 136/82 (100) 99 05/03/18 20:11 Venturi Mask 12.0 45 05/03/18 20:11 97 Venturi Mask 10.0 45 05/03/18 20:00 97 05/03/18 20:00 98.2 90 32 134/89 (104) 97 05/03/18 20:00 Venturi Mask 45.0 05/03/18 19:00 90 28 122/64 (83) 100 05/03/18 18:00 92 25 128/65 (86) 100 05/03/18 17:00 90 25 130/68 (88) 98 05/03/18 16:00 Venturi Mask 45.0 05/03/18 16:00 98.7 95 25 131/91 (104) 98 05/03/18 16:00 95 05/03/18 15:30 92 25 125/70 (88) 98 05/03/18 15:00 95 33 118/77 (91) 100 05/03/18 14:30 93 33 120/75 (90) 100 05/03/18 14:00 91 33 128/80 (96) 100 05/03/18 13:30 90 30 133/82 (99) 100 05/03/18 13:00 90 30 133/82 (99) 100 05/03/18 12:30 98.9 90 30 138/92 (107) 98 05/03/18 12:00 106 30 116/65 (82) 98 05/03/18 12:00 90 05/03/18 12:00 Venturi Mask 45.0 05/03/18 11:30 110 32 110/60 (77) 98 05/03/18 11:00 108 32 115/65 (82) 98 05/03/18 10:30 103 33 118/66 (83) 98 Intake and Output 05/03/18 05/04/18 19:00 07:00 Intake Total 1636.24 ml 1282.5 ml Output Total 750 ml 820 ml Balance 886.24 ml 462.5 ml Intake IV Total 1636.24 ml 1282.5 ml Output Urine Total 750 ml 820 ml # Bowel Movements 6 Laboratory Tests Test 05/04/18 04:20 White Blood Count 25.8 K/UL (4.8-10.8) *H Red Blood Count 2.65 M/UL (4.20-5.40) L Hemoglobin 7.8 G/DL (12.0-16.0) L Hematocrit 24.0 % (37.0-47.0) L Mean Corpuscular Volume 91 FL (80-99) Mean Corpuscular Hemoglobin 29.3 PG (27.0-31.0) Mean Corpuscular Hemoglobin Concent 32.3 G/DL (32.0-36.0) Red Cell Distribution Width 17.6 % (11.6-14.8) H Platelet Count 192 K/UL (150-450) Mean Platelet Volume 9.2 FL (6.5-10.1) Neutrophils (%) (Auto) % (45.0-75.0) Lymphocytes (%) (Auto) % (20.0-45.0) Monocytes (%) (Auto) % (1.0-10.0) Eosinophils (%) (Auto) % (0.0-3.0) Basophils (%) (Auto) % (0.0-2.0) Neutrophils % (Manual) Pending Lymphocytes % (Manual) Pending Platelet Estimate Pending Platelet Morphology Pending Reticulocyte Count Pending Sodium Level 152 MMOL/L (136-145) #H Potassium Level 2.1 MMOL/L (3.5-5.1) *L Chloride Level 118 MMOL/L (98-107) H Carbon Dioxide Level 19 MMOL/L (21-32) L Anion Gap 15 mmol/L (5-15) Blood Urea Nitrogen 17 mg/dL (7-18) Creatinine 0.9 MG/DL (0.55-1.30) Estimat Glomerular Filtration Rate > 60 mL/min (>60) Glucose Level 78 MG/DL (74-106) Uric Acid 6.0 MG/DL (2.6-7.2) Calcium Level 8.6 MG/DL (8.5-10.1) Phosphorus Level 3.2 MG/DL (2.5-4.9) Magnesium Level 1.4 MG/DL (1.8-2.4) L Total Bilirubin 0.4 MG/DL (0.2-1.0) Direct Bilirubin 0.3 MG/DL (0.0-0.3) Aspartate Amino Transf (AST/SGOT) 21 U/L (15-37) Alanine Aminotransferase (ALT/SGPT) 23 U/L (12-78) Alkaline Phosphatase 151 U/L (46-116) H Total Protein 5.9 G/DL (6.4-8.2) L Albumin 1.5 G/DL (3.4-5.0) L Height (Feet): 5 Height (Inches): 3.00 Weight (Pounds): 149 Medications Current Medications Medications (Trade) Dose Ordered Sig/Nya Route PRN Reason Start Time Stop Time Status Last Admin Dose Admin Acetaminophen (Tylenol) 650 mg Q4H PRN RECTAL Mild Pain (Pain Scale 1-3) 05/02/18 00:30 06/01/18 00:29 Albuterol Sulfate (Proventil) 2.5 mg Q6HRT PRN HHN Shortness of Breath 05/02/18 00:00 05/07/18 00:00 Ceftriaxone Sodium 2 gm/ Dextrose 55 ml @ 110 mls/hr Q24H IVPB 05/04/18 10:00 05/11/18 09:59 Chlorhexidine Gluconate (Leticia-Hex 2%) 1 applic DAILY@2000 TOPIC 05/02/18 20:00 06/01/18 19:59 05/03/18 20:07 Dextrose (Dextrose 50%) 25 ml Q30M PRN IV Hypoglycemia 05/02/18 00:00 06/01/18 00:00 Dextrose (Dextrose 50%) 50 ml Q30M PRN IV Hypoglycemia 05/02/18 00:00 06/01/18 00:00 Dextrose/ Electrolytes 1,000 ml @ 50 mls/hr Q20H IV 05/04/18 10:00 06/03/18 09:59 Insulin Aspart (NovoLOG) BEFORE MEALS AND HS SUBQ 05/02/18 06:30 06/01/18 06:29 05/03/18 06:07 Magnesium Sulfate 100 ml @ 100 mls/hr Q1H IVPB 05/04/18 10:15 05/04/18 14:14 UNV Micafungin Sodium 100 mg/Sodium Chloride 110 ml @ 110 mls/hr Q24H IVPB 05/03/18 13:00 05/10/18 12:59 05/03/18 13:00 Norepinephrine Bitartrate 4 mg/ Dextrose 250 ml @ 0 mls/hr Q24H IV 05/02/18 00:30 06/01/18 00:29 05/03/18 09:09 Pantoprazole (Protonix) 40 mg EVERY 12 HOURS IVP 05/02/18 21:00 06/01/18 20:59 05/04/18 08:34 Potassium Chloride 100 ml @ 100 mls/hr Q1HR IVPB 05/04/18 10:00 05/04/18 15:59 05/04/18 10:11 Assessment/Plan Assessment/Plan Hematology Consultation DOS: 05/04/18 REShima MD: Kapil Zambrnao Reason for Hospitalization: Dyspnea/Resp distress Reason for Consultation: Anemia ID 58-year-old female presented after increased respiratory difficulty. Patient had prior history of diabetes as well as prior pleural effusion. Patient had not been having any fever. She was noted of increased respiratory distress from her nursing facility was sent to the hospital for further evaluation. Patient was noted to have primary care physician Dr. Abel Black. Patient was sent in for further evaluation respiratory difficulty. GI consulted for anemia. ROS limited, the patient seen noted on oxygen in ICU. Noted with sepsis with white count of 36K, anemia, elevated alk phos and elevated troponin levels. Unknown history of endoscopy / colonoscopy. H/H now downtrending and heme was consulted. Home Medications Zinc Gluconate (ZINC) 50 Mg Tablet, 220 MG ORAL, TAB 05/01/18 Simethicone* (SIMETHICONE*) 80 Mg Tab.chew, 80 MG ORAL Q8H PRN for GAS PAIN, # 20 TAB 0 Refills 05/01/18 Sennosides* (SENNOSIDES*) 8.6 Mg Tablet, 8.6 MG ORAL DAILY, TAB 05/01/18 Hydrocodone Bit/Acetaminophen 5-325* ([place] 5-325*) 1 Each Tablet, 1 TAB ORAL Q4H PRN for For Pain, TAB 0 Refills 05/01/18 Insulin Aspart (NOVOLOG) 100 Unit/1 Ml Cartridge, 100 UNIT SQ 05/01/18 Ferrous Sulfate (FERROUSUL) 325 Mg Tablet, 325 MG PO, TAB 05/01/18 Epoetin Sumeet (Epogen) 10,000 Unit/1 Ml Vial, 58239 UNIT SUBQ 3XW, VIAL 05/01/18 Enoxaparin* (LOVENOX*) 40 Mg/0.4 Ml Inj, 40 MG SUBQ DAILY 05/01/18 Docusate Sodium* (DOCUSATE SODIUM*) 100 Mg Capsule, 100 MG ORAL TWICE A DAY, CAP 05/01/18 Diphenhydramine Hcl* (DIPHENHYDRAMINE HCL*) 25 Mg Capsule, 25 MG ORAL Q8H PRN for Itching, #30 CAP 0 Refills 05/01/18 Carvedilol* (CARVEDILOL*) 25 Mg Tablet, 25 MG ORAL EVERY 12 HOURS, TAB 05/01/18 Bisacodyl* (DULCOLAX*) 5 Mg Tablet.dr, 10 MG ORAL DAILY, #10 TAB 0 Refills 05/01/18 Atorvastatin Calcium* (ATORVASTATIN CALCIUM*) 40 Mg Tablet, 40 MG ORAL BEDTIME, TAB 05/01/18 Ascorbic Acid* (ASCORBIC ACID*) 500 Mg Tablet, 500 MG ORAL DAILY, TAB 05/01/18 Acetaminophen* (ACETAMINOPHEN*) 160 Mg/5 Ml Solution, 650 MG ORAL Q6H PRN for Mild Pain/Temp > 100.5, ML 05/01/18 Ciprofloxacin Hcl* (CIPROFLOXACIN HCL*) 500 Mg Tablet, 500 MG ORAL Q12HR for 2 Days, TAB 0 Refills 04/10/18 Hydrocodone Bit/Acetaminophen 5-325* ([place] 5-325*) 1 Each Tablet, 1 TAB ORAL Q4H PRN for Severe Pain (Pain Scale 7-10) 04/05/18 Fluconazole* (DIFLUCAN*) 200 Mg Tablet, 200 MG ORAL DAILY for WOUND MANAGEMENT 04/05/18 Zinc Sulfate (ZINC SULFATE*) 220 Mg Capsule, 220 MG ORAL DAILY 04/05/18 Vit B Comp/C/Fa/Iron/Vit E (VITAMIN B COMPLEX TABLET) 1 Each Tablet, 1 EACH PO DAILY, TAB 04/05/18 Simethicone* (SIMETHICONE*) 80 Mg Tab.chew, 80 MG ORAL DAILY PRN for GAS PAIN 04/05/18 Sennosides (SENNA) 8.6 Mg Tablet, 8.6 MG PO BEDTIME, TAB 04/05/18 Insulin Aspart (Novolog Flexpen) 100 Unit/1 Ml Insuln.pen 04/05/18 Hydrocodone Bit/Acetaminophen 5-325* ([place] 5-325*) 1 Each Tablet, 1 TAB ORAL DAILY for 30-45 MIN PRIOR TO WOUND CARE 04/05/18 Metronidazole* (FLAGYL*) 500 Mg Tablet, 500 MG ORAL EVERY 8 HOURS for ENDS ON , TAB 04/05/18 Ferrous Sulfate* (FERROUS SULFATE*) 325 Mg Tablet, 325 MG ORAL THREE TIMES A DAY 04/05/18 Epoetin Sumeet (Epogen) 10,000 Unit/1 Ml Vial, 41295 UNIT SUBQ 3XW for GIVE ON MON , WED, Tue04/05/18 Enoxaparin* (LOVENOX*) 40 Mg/0.4 Ml Inj, 40 MG SUBQ DAILY 04/05/18 Diphenhydramine Hcl* (BENADRYL*) 25 Mg Capsule, 25 MG ORAL DAILY PRN for Itching 04/05/18 Docusate Sodium* (COLACE*) 100 Mg Capsule, 200 MG ORAL TWICE A DAY PRN for Constipation, CAP 04/05/18 Carvedilol* (CARVEDILOL*) 25 Mg Tablet, 25 MG ORAL EVERY 12 HOURS for HOLD IF SBP < 100 OR HR < 60 04/05/18 Bisacodyl (BISACODYL) 10 Mg Supp.rect, 10 MG RC EVERY 24 HOURS PRN for Constipation, SUPP 12/12/18 Atorvastatin Calcium* (ATORVASTATIN CALCIUM*) 40 Mg Tablet, 40 MG ORAL BEDTIME, TAB 04/05/18 Aspirin* (ASPIRIN*) 81 Mg Tab.chew, 81 MG ORAL DAILY, TAB 04/05/18 Ascorbic Acid* (ASCORBIC ACID*) 500 Mg Tablet, 500 MG ORAL DAILY, TAB 04/05/18 Acetaminophen* (ACETAMINOPHEN 325MG TABLET*) 325 Mg Tablet, 650 MG ORAL Q6H PRN for Mild Pain/Temp > 100.5 04/05/18 Med list reviewed/reconciled: Yes Coded Allergies: MAGNESIUM SULFATE (Verified Allergy, Unknown, 04/05/18) Limited by: medical condition History Provided By: Medical Record PMH Narrative Past Medical History: see triage record Reviewed Nursing Documentation: PMH: Agreed; PSxH: Agreed Past Medical History: No History, Except For Hx Hypertension: Yes Hx Diabetes: Yes Hx Cancer: No Hx Gastrointestinal Problems: No Hx Neurological Problems: Yes - paraplegia Social History: Denies: smoking, alcohol use, drug use, other Review of Systems All Other Systems: limited GI Physical Exam Physical Exam Last 24 Hour Vital Signs Date Time Temp Pulse Resp B/P (MAP) Pulse Ox O2 Delivery O2 Flow Rate FiO2 05/04/18 10:00 80 30 140/75 (96) 99 05/04/18 09:00 88 30 144/80 (101) 99 05/04/18 08:00 98.2 97 30 135/75 (95) 99 05/04/18 08:00 Venturi Mask 45.0 05/04/18 08:00 97 05/04/18 07:35 Venturi Mask 12.0 45 05/04/18 07:34 96 Venturi Mask 10.0 45 05/04/18 07:00 96 30 149/90 (109) 99 05/04/18 06:00 95 30 140/83 (102) 99 05/04/18 05:00 98 30 137/83 (101) 99 05/04/18 04:00 Venturi Mask 45.0 05/04/18 04:00 99 05/04/18 04:00 98.2 97 30 152/81 (104) 99 05/04/18 03:00 95 30 148/81 (103) 99 05/04/18 02:00 98 29 150/80 (103) 99 05/04/18 01:00 96 33 156/82 (106) 99 05/04/18 00:00 96 05/04/18 00:00 Venturi Mask 45.0 05/04/18 00:00 98.6 96 34 144/82 (102) 99 05/03/18 23:00 98 34 139/89 (106) 99 05/03/18 22:00 102 29 130/82 (98) 99 05/03/18 21:00 102 29 136/82 (100) 99 05/03/18 20:11 Venturi Mask 12.0 45 05/03/18 20:11 97 Venturi Mask 10.0 45 05/03/18 20:00 97 05/03/18 20:00 98.2 90 32 134/89 (104) 97 05/03/18 20:00 Venturi Mask 45.0 05/03/18 19:00 90 28 122/64 (83) 100 05/03/18 18:00 92 25 128/65 (86) 100 05/03/18 17:00 90 25 130/68 (88) 98 05/03/18 16:00 Venturi Mask 45.0 05/03/18 16:00 98.7 95 25 131/91 (104) 98 05/03/18 16:00 95 05/03/18 15:30 92 25 125/70 (88) 98 05/03/18 15:00 95 33 118/77 (91) 100 05/03/18 14:30 93 33 120/75 (90) 100 05/03/18 14:00 91 33 128/80 (96) 100 05/03/18 13:30 90 30 133/82 (99) 100 05/03/18 13:00 90 30 133/82 (99) 100 05/03/18 12:30 98.9 90 30 138/92 (107) 98 05/03/18 12:00 106 30 116/65 (82) 98 05/03/18 12:00 90 05/03/18 12:00 Venturi Mask 45.0 05/03/18 11:30 110 32 110/60 (77) 98 05/03/18 11:00 108 32 115/65 (82) 98 05/03/18 10:30 103 33 118/66 (83) 98 Laboratory Tests Test 05/02/18 12:20 05/02/18 18:05 05/03/18 05:00 1/9/19 08:25 Lactic Acid Level 2.70 mmol/L (0.4-2.0) H 2.00 mmol/L (0.4-2.0) 2.00 mmol/L (0.4-2.0) Troponin I 0.136 ng/mL (0.000-0.056) White Blood Count 37.4 K/UL (4.8-10.8) *H Red Blood Count 2.58 M/UL (4.20-5.40) L Hemoglobin 7.5 G/DL (12.0-16.0) L Hematocrit 23.3 % (37.0-47.0) L Mean Corpuscular Volume 91 FL (80-99) Mean Corpuscular Hemoglobin 29.0 PG (27.0-31.0) Mean Corpuscular Hemoglobin Concent 32.0 G/DL (32.0-36.0) Red Cell Distribution Width 17.0 % (11.6-14.8) H Platelet Count 192 K/UL (150-450) Mean Platelet Volume 9.6 FL (6.5-10.1) Neutrophils (%) (Auto) % (45.0-75.0) Lymphocytes (%) (Auto) % (20.0-45.0) Monocytes (%) (Auto) % (1.0-10.0) Eosinophils (%) (Auto) % (0.0-3.0) Basophils (%) (Auto) % (0.0-2.0) Differential Total Cells Counted 100 Neutrophils % (Manual) 83 % (45-75) H Lymphocytes % (Manual) 4 % (20-45) L Monocytes % (Manual) 2 % (1-10) Eosinophils % (Manual) 0 % (0-3) Basophils % (Manual) 0 % (0-2) Band Neutrophils 11 % (0-8) H Platelet Estimate Adequate Platelet Morphology Normal Red Blood Cell Morphology Normal Anisocytosis 1+ Sodium Level 138 MMOL/L (136-145) Potassium Level 3.7 MMOL/L (3.5-5.1) Chloride Level 105 MMOL/L (98-107) Carbon Dioxide Level 18 MMOL/L (21-32) L Anion Gap 15 mmol/L (5-15) Blood Urea Nitrogen 26 mg/dL (7-18) H Creatinine 1.3 MG/DL (0.55-1.30) Estimat Glomerular Filtration Rate 42.2 mL/min (>60) Glucose Level 113 MG/DL (74-106) H Calcium Level 7.9 MG/DL (8.5-10.1) L Total Bilirubin 0.5 MG/DL (0.2-1.0) Aspartate Amino Transf (AST/SGOT) 26 U/L (15-37) Alanine Aminotransferase (ALT/SGPT) 25 U/L (12-78) Alkaline Phosphatase 158 U/L (46-116) H Total Protein 6.1 G/DL (6.4-8.2) L Albumin 1.5 G/DL (3.4-5.0) L Globulin 4.6 g/dL Albumin/Globulin Ratio 0.3 (1.0-2.7) L Arterial Blood pH 7.466 (7.350-7.450) Arterial Blood Partial Pressure CO2 26.0 mmHg (35.0-45.0) L Arterial Blood Partial Pressure O2 96.8 mmHg (75.0-100.0) Arterial Blood HCO3 18.3 mmol/L (22.0-26.0) L Arterial Blood Oxygen Saturation 96.9 % (95-100) Arterial Blood Base Excess -4.6 (-2-2) L Pablo Test Positive General Appearance: well appearing, obese HEENT: PERRL/EOMI, normal ENT inspection, supple Respiratory: normal breath sounds, no respiratory distress CV: normal rate Gi: normal inspection, non tender, soft, normal bowel sounds, nd Rectal: deferred Genitourinary: no CVA tenderness Musculoskeletal: normal inspection, back normal Neurologic: normal inspection, alert, oriented x3, responsive Psychiatric: normal inspection, judgement/insight normal, memory normal Skin: normal inspection, normal color, no rash, warm/dry, well hydrated Lymphatic: normal inspection, no adenopathy Current Medications Medications (Trade) Dose Ordered Sig/Nya Route PRN Reason Start Time Stop Time Status Last Admin Dose Admin Acetaminophen (Tylenol) 650 mg Q4H PRN RECTAL Mild Pain (Pain Scale 1-3) 05/02/18 00:30 06/01/18 00:29 Albuterol Sulfate (Proventil) 2.5 mg Q6HRT PRN HHN Shortness of Breath 05/02/18 00:00 05/07/18 00:00 Chlorhexidine Gluconate (Leticia-Hex 2%) 1 applic DAILY@2000 TOPIC 05/02/18 20:00 06/01/18 19:59 05/02/18 21:08 Dextrose (Dextrose 50%) 25 ml Q30M PRN IV Hypoglycemia 05/02/18 00:00 06/01/18 00:00 Dextrose (Dextrose 50%) 50 ml Q30M PRN IV Hypoglycemia 05/02/18 00:00 06/01/18 00:00 Insulin Aspart (NovoLOG) BEFORE MEALS AND HS SUBQ 05/02/18 06:30 06/01/18 06:29 05/03/18 06:07 Levofloxacin 150 ml @ 100 mls/hr Q48H IVPB 05/03/18 12:00 05/10/18 11:59 05/03/18 11:56 Micafungin Sodium 100 mg/Sodium Chloride 110 ml @ 110 mls/hr Q24H IVPB 05/03/18 13:00 05/10/18 12:59 Norepinephrine Bitartrate 4 mg/ Dextrose 250 ml @ 0 mls/hr Q24H IV 05/02/18 00:30 06/01/18 00:29 05/03/18 09:09 Pantoprazole (Protonix) 40 mg EVERY 12 HOURS IVP 05/02/18 21:00 06/01/18 20:59 05/03/18 09:23 Piperacillin Sod/ Tazobactam Sod 3.375 gm/Dextrose 110 ml @ 27.5 mls/hr EVERY 8 HOURS IVPB 05/02/18 06:00 05/07/18 05:59 05/03/18 05:53 Sodium Chloride 1,000 ml @ 100 mls/hr Q10H IV 05/02/18 01:00 06/01/18 00:59 05/03/18 06:10 Assessment and recs: # Anemia of chronic disease - multifactorial etiology, potentially related to hemodilution as well --> trending down hgb 10.1-->7.5-->7.8 --> anemia panel has been ordered --> peripheral smear to be reviewed --> defer GI procedures until respiratory status more stable and cleared by cardiac # Leukocytosis due to severe sepsis, currently downtrending --> on abx and antifungals as per ID --> cultures are pending # Alkaline phosphatase elevation --> as per gi eval # Septic shock off pressor # Proteus sepsis # Proteus UTI # Paraplegia # Cholelithiasis Greatly appreciate consultation! Rahat Villa MD May 04, 2018 10:31
[2018-05-04 11:25] LABS: LACTATE DEHYDROGENASE 357 U/L (81-234)
--- NOTE | 2018-05-04 12:00 | NUR ---
NURSE NOTES: Patient turned and repositioned. Bowel movement x1. Would care assessed patient and wound. Update measures were taken. No new orders at this time. Will continue to monitor patient. No adverse reactions noted regarding magnesium transfusion per MD order.
--- NOTE | 2018-05-04 12:47 | GI Progress Note ---
Assessment/Plan Problems: (1) Cholelithiasis ICD Codes: K80.20 - Calculus of gallbladder without cholecystitis without obstruction SNOMED: 238069859 (2) Anemia ICD Codes: D64.9 - Anemia, unspecified SNOMED: 809765235 (3) Pleural effusion ICD Codes: J90 - Pleural effusion, not elsewhere classified SNOMED: 80210271 (4) Severe sepsis ICD Codes: A41.9 - Sepsis, unspecified organism; R65.20 - Severe sepsis without septic shock SNOMED: 30109200 (5) Alkaline phosphatase elevation ICD Codes: R74.8 - Abnormal levels of other serum enzymes SNOMED: 751973015 (6) Respiratory failure ICD Codes: J96.90 - Respiratory failure, unspecified, unspecified whether with hypoxia or hypercapnia SNOMED: 975202280 Status: unchanged Status Narrative Discussed with Dr. Quiñones. Assessment/Plan abdominal US reviewed noted with cholelithiasis defer GI procedures until respiratory status more stable and cleared by cardiac HIDA when respiratory status more stable maintain NPO + IVFs anemia work up OB stool r/o GI bleed collect stool studies, cdiff if patient has persistent diarrhea monitor H&H, prn transfusions bowel regime ppi abx fu labs The patient was seen and examined at bedside and all new and available data was reviewed in the patients chart. I agree with the above findings, impression and plan. (Patient seen earlier today. Signature stamp does not reflect patient encounter time.). - Abe Quiñones MD Subjective Subjective limited Objective Last 24 Hour Vital Signs Date Time Temp Pulse Resp B/P (MAP) Pulse Ox O2 Delivery O2 Flow Rate FiO2 05/04/18 11:00 89 30 143/77 (99) 99 05/04/18 10:00 80 30 140/75 (96) 99 05/04/18 09:00 88 30 144/80 (101) 99 05/04/18 08:00 98.2 97 30 135/75 (95) 99 05/04/18 08:00 Venturi Mask 45.0 05/04/18 08:00 97 05/04/18 07:35 Venturi Mask 12.0 45 05/04/18 07:34 96 Venturi Mask 10.0 45 05/04/18 07:00 96 30 149/90 (109) 99 05/04/18 06:00 95 30 140/83 (102) 99 05/04/18 05:00 98 30 137/83 (101) 99 05/04/18 04:00 Venturi Mask 45.0 05/04/18 04:00 99 05/04/18 04:00 98.2 97 30 152/81 (104) 99 05/04/18 03:00 95 30 148/81 (103) 99 05/04/18 02:00 98 29 150/80 (103) 99 05/04/18 01:00 96 33 156/82 (106) 99 05/04/18 00:00 96 05/04/18 00:00 Venturi Mask 45.0 05/04/18 00:00 98.6 96 34 144/82 (102) 99 05/03/18 23:00 98 34 139/89 (106) 99 05/03/18 22:00 102 29 130/82 (98) 99 05/03/18 21:00 102 29 136/82 (100) 99 05/03/18 20:11 Venturi Mask 12.0 45 05/03/18 20:11 97 Venturi Mask 10.0 45 05/03/18 20:00 97 05/03/18 20:00 98.2 90 32 134/89 (104) 97 05/03/18 20:00 Venturi Mask 45.0 05/03/18 19:00 90 28 122/64 (83) 100 05/03/18 18:00 92 25 128/65 (86) 100 05/03/18 17:00 90 25 130/68 (88) 98 05/03/18 16:00 Venturi Mask 45.0 05/03/18 16:00 98.7 95 25 131/91 (104) 98 05/03/18 16:00 95 05/03/18 15:30 92 25 125/70 (88) 98 05/03/18 15:00 95 33 118/77 (91) 100 05/03/18 14:30 93 33 120/75 (90) 100 05/03/18 14:00 91 33 128/80 (96) 100 05/03/18 13:30 90 30 133/82 (99) 100 05/03/18 13:00 90 30 133/82 (99) 100 Intake and Output 05/03/18 05/04/18 18:59 06:59 Intake Total 1636.24 ml 1182.5 ml Output Total 710 ml 800 ml Balance 926.24 ml 382.5 ml Intake IV Total 1636.24 ml 1182.5 ml Output Urine Total 710 ml 800 ml # Bowel Movements 6 Laboratory Tests Test 05/04/18 04:20 05/04/18 10:00 White Blood Count 25.8 K/UL (4.8-10.8) *H Red Blood Count 2.65 M/UL (4.20-5.40) L Hemoglobin 7.8 G/DL (12.0-16.0) L Hematocrit 24.0 % (37.0-47.0) L Mean Corpuscular Volume 91 FL (80-99) Mean Corpuscular Hemoglobin 29.3 PG (27.0-31.0) Mean Corpuscular Hemoglobin Concent 32.3 G/DL (32.0-36.0) Red Cell Distribution Width 17.6 % (11.6-14.8) H Platelet Count 192 K/UL (150-450) Mean Platelet Volume 9.2 FL (6.5-10.1) Neutrophils (%) (Auto) % (45.0-75.0) Lymphocytes (%) (Auto) % (20.0-45.0) Monocytes (%) (Auto) % (1.0-10.0) Eosinophils (%) (Auto) % (0.0-3.0) Basophils (%) (Auto) % (0.0-2.0) Differential Total Cells Counted 100 Neutrophils % (Manual) 78 % (45-75) H Lymphocytes % (Manual) 8 % (20-45) L Monocytes % (Manual) 4 % (1-10) Eosinophils % (Manual) 1 % (0-3) Basophils % (Manual) 0 % (0-2) Band Neutrophils 9 % (0-8) H Platelet Estimate Adequate Platelet Morphology Normal Anisocytosis 1+ Reticulocyte Count 1.7 % (0.0-2.0) Sodium Level 152 MMOL/L (136-145) #H Potassium Level 2.1 MMOL/L (3.5-5.1) *L Chloride Level 118 MMOL/L (98-107) H Carbon Dioxide Level 19 MMOL/L (21-32) L Anion Gap 15 mmol/L (5-15) Blood Urea Nitrogen 17 mg/dL (7-18) Creatinine 0.9 MG/DL (0.55-1.30) Estimat Glomerular Filtration Rate > 60 mL/min (>60) Glucose Level 78 MG/DL (74-106) Hemoglobin A1c 6.0 % (4.3-6.0) Uric Acid 6.0 MG/DL (2.6-7.2) Calcium Level 8.6 MG/DL (8.5-10.1) Phosphorus Level 3.2 MG/DL (2.5-4.9) Magnesium Level 1.4 MG/DL (1.8-2.4) L Total Bilirubin 0.4 MG/DL (0.2-1.0) Direct Bilirubin 0.3 MG/DL (0.0-0.3) Aspartate Amino Transf (AST/SGOT) 21 U/L (15-37) Alanine Aminotransferase (ALT/SGPT) 23 U/L (12-78) Alkaline Phosphatase 151 U/L (46-116) H Total Protein 5.9 G/DL (6.4-8.2) L Albumin 1.5 G/DL (3.4-5.0) L Thyroid Stimulating Hormone (TSH) 2.214 uiU/mL (0.358-3.740) Sickle Cell Screen Pending Hemoglobin A Pending Hemoglobin A2 Pending Hemoglobin C Pending Hemoglobin F () Pending Hemoglobin S Pending Variant Hemoglobin Pending Hemoglobin Electrophoresis Interp Pending Hemoglobin Interpretation Pending Hemoglobin Solubility Pending Lactate Dehydrogenase 357 U/L (81-234) H Carcinoembryonic Antigen Pending Vitamin B12 Level 1916 PG/ML (193-986) H Methylmalonic Acid Pending Height (Feet): 5 Height (Inches): 3.00 Weight (Pounds): 149 General Appearance: WD/WN, no apparent distress, alert Cardiovascular: normal rate Respiratory/Chest: normal breath sounds, no respiratory distress, other - venturi mask Abdominal Exam: normal bowel sounds, non tender, soft Extremities: non-tender Amalia Hickman NP May 04, 2018 12:47
[2018-05-04] MEDS: Micafungin 100 MG in NS 110 ML IVPB SCH (13:00)
--- NOTE | 2018-05-04 14:00 | NUR ---
NURSE NOTES: Turned and repositioned. VSS. No adverse reaction noted when giving magnesium per MD order.
--- NOTE | 2018-05-04 15:49 | NUR ---
Social Service Note Patient is a resident of [facility] 03/27/18. Patient with previous admission to [facility] and [facility]. POLST signed by patient's son Anthony Kurtz [phone], indicates Full Code, Full treatment, a trial period of artificial nutrition. Patient doesn't have an advance directive. 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 Anticipated return to [facility] or to contracted facility. Will continue to monitor and be available as needed.
--- NOTE | 2018-05-04 16:00 | NUR ---
NURSE NOTES: Patient turned and repositioned. No distress noted. VSS. Denies pain at this time. Will continue to monitor patient.
--- NOTE | 2018-05-04 16:59 | Critical Care Progress Note ---
Assessment/Plan Assessment/Plan chronic effusion and collapse left possible sepsis elevated lactic acid hypotension possible gib hypoxemia PLAN has been seen by thoracic surgery and attempted tap in the past patient also evaluated in the past at other outside hospitals with poor results not surgical candidate antibiotics respiratory care oxygen resume [facility] d/w Dr. Tyson impression, plan, and exam edited and reviewed in detail care discussed with glove examiner - Subjective ROS Limited/Unobtainable: Yes Condition: critical EKG Rhythm: Sinus Rhythm I&O: Intake and Output 05/03/18 05/04/18 18:59 06:59 Intake Total 1636.24 ml 1182.5 ml Output Total 710 ml 800 ml Balance 926.24 ml 382.5 ml Intake IV Total 1636.24 ml 1182.5 ml Output Urine Total 710 ml 800 ml # Bowel Movements 6 Critical Care - Objective Last 24 Hour Vital Signs Date Time Temp Pulse Resp B/P (MAP) Pulse Ox O2 Delivery O2 Flow Rate FiO2 05/04/18 16:00 98.5 85 28 135/66 (89) 99 05/04/18 16:00 Venturi Mask 45.0 05/04/18 16:00 90 05/04/18 15:00 80 30 148/74 (98) 99 05/04/18 14:00 84 30 142/70 (94) 99 05/04/18 13:00 80 30 135/60 (85) 99 05/04/18 12:00 98.8 87 30 138/65 (89) 99 05/04/18 12:00 Venturi Mask 45.0 05/04/18 12:00 93 05/04/18 11:00 89 30 143/77 (99) 99 05/04/18 10:00 80 30 140/75 (96) 99 05/04/18 09:00 88 30 144/80 (101) 99 05/04/18 08:00 98.2 97 30 135/75 (95) 99 05/04/18 08:00 Venturi Mask 45.0 05/04/18 08:00 97 05/04/18 07:35 Venturi Mask 12.0 45 05/04/18 07:34 96 Venturi Mask 10.0 45 05/04/18 07:00 96 30 149/90 (109) 99 05/04/18 06:00 95 30 140/83 (102) 99 05/04/18 05:00 98 30 137/83 (101) 99 05/04/18 04:00 Venturi Mask 45.0 05/04/18 04:00 99 05/04/18 04:00 98.2 97 30 152/81 (104) 99 05/04/18 03:00 95 30 148/81 (103) 99 05/04/18 02:00 98 29 150/80 (103) 99 05/04/18 01:00 96 33 156/82 (106) 99 05/04/18 00:00 96 05/04/18 00:00 Venturi Mask 45.0 05/04/18 00:00 98.6 96 34 144/82 (102) 99 05/03/18 23:00 98 34 139/89 (106) 99 05/03/18 22:00 102 29 130/82 (98) 99 05/03/18 21:00 102 29 136/82 (100) 99 05/03/18 20:11 Venturi Mask 12.0 45 05/03/18 20:11 97 Venturi Mask 10.0 45 05/03/18 20:00 97 05/03/18 20:00 98.2 90 32 134/89 (104) 97 05/03/18 20:00 Venturi Mask 45.0 05/03/18 19:00 90 28 122/64 (83) 100 05/03/18 18:00 92 25 128/65 (86) 100 05/03/18 17:00 90 25 130/68 (88) 98 Labs: Labs Test 05/01/18 18:30 05/01/18 20:15 05/01/18 23:00 05/02/18 01:14 White Blood Count 4.8 K/UL (4.8-10.8) Red Blood Count 3.53 M/UL (4.20-5.40) Hemoglobin 10.1 G/DL (12.0-16.0) Hematocrit 32.6 % (37.0-47.0) Mean Corpuscular Volume 92 FL (80-99) Mean Corpuscular Hemoglobin 28.7 PG (27.0-31.0) Mean Corpuscular Hemoglobin Concent 31.0 G/DL (32.0-36.0) Red Cell Distribution Width 17.1 % (11.6-14.8) Platelet Count 242 K/UL (150-450) Mean Platelet Volume 6.6 FL (6.5-10.1) Neutrophils (%) (Auto) % (45.0-75.0) Lymphocytes (%) (Auto) % (20.0-45.0) Monocytes (%) (Auto) % (1.0-10.0) Eosinophils (%) (Auto) % (0.0-3.0) Basophils (%) (Auto) % (0.0-2.0) Prothrombin Time 11.9 SEC (9.30-11.50) Prothromb Time International Ratio 1.1 (0.9-1.1) Activated Partial Thromboplast Time 25 SEC (23-33) Sodium Level 141 MMOL/L (136-145) Potassium Level 4.5 MMOL/L (3.5-5.1) Chloride Level 103 MMOL/L (98-107) Carbon Dioxide Level 24 MMOL/L (21-32) Anion Gap 14 mmol/L (5-15) Blood Urea Nitrogen 23 mg/dL (7-18) Creatinine 1.2 MG/DL (0.55-1.30) Estimat Glomerular Filtration Rate 46.3 mL/min (>60) Glucose Level 198 MG/DL (74-106) Lactic Acid Level 6.50 mmol/L (0.4-2.0) 4.30 mmol/L (0.66-2.22) Calcium Level 9.6 MG/DL (8.5-10.1) Phosphorus Level 4.5 MG/DL (2.5-4.9) Magnesium Level 1.7 MG/DL (1.8-2.4) Total Bilirubin 0.6 MG/DL (0.2-1.0) Aspartate Amino Transf (AST/SGOT) 30 U/L (15-37) Alanine Aminotransferase (ALT/SGPT) 28 U/L (12-78) Alkaline Phosphatase 160 U/L (46-116) Total Creatine Kinase 96 U/L (26-308) Creatine Kinase MB 1.3 NG/ML (0.0-3.6) Creatine Kinase MB Relative Index 1.3 Troponin I 0.066 ng/mL (0.000-0.056) Pro-B-Type Natriuretic Peptide 8189 pg/mL (0-125) Total Protein 7.3 G/DL (6.4-8.2) Albumin 2.1 G/DL (3.4-5.0) Globulin 5.2 g/dL Albumin/Globulin Ratio 0.4 (1.0-2.7) Urine Color Magalis Urine Appearance Very cloudy Urine pH 8 (4.5-8.0) Urine Specific [place] 1.020 (1.005-1.035) Urine Protein 3+ (NEGATIVE) Urine Glucose (UA) Negative (NEGATIVE) Urine Ketones Negative (NEGATIVE) Urine Blood 5+ (NEGATIVE) Urine Nitrite Positive (NEGATIVE) Urine Bilirubin Negative (NEGATIVE) Urine Ictotest Negative (NEGATIVE) Urine Urobilinogen Normal MG/DL (0.0-1.0) Urine Leukocyte Esterase 3+ (NEGATIVE) Urine RBC 15-20 /HPF (0 - 2) Urine WBC 20-30 /HPF (0 - 2) Urine Squamous Epithelial Cells Few /LPF (NONE/OCC) Urine Bacteria Many /HPF (NONE) Urine Mucus Many /LPF (NONE/OCC) Arterial Blood pH 7.408 (7.350-7.450) Arterial Blood Partial Pressure CO2 29.9 mmHg (35.0-45.0) Arterial Blood Partial Pressure O2 76.4 mmHg (75.0-100.0) Arterial Blood HCO3 18.4 mmol/L (22.0-26.0) Arterial Blood Oxygen Saturation 93.6 % (95-100) Arterial Blood Base Excess -5.5 (-2-2) Pablo Test Positive Test 05/02/18 06:05 05/02/18 07:55 05/02/18 10:10 05/02/18 12:20 White Blood Count 30.5 K/UL (4.8-10.8) Red Blood Count 2.68 M/UL (4.20-5.40) Hemoglobin 7.7 G/DL (12.0-16.0) Hematocrit 24.2 % (37.0-47.0) Mean Corpuscular Volume 90 FL (80-99) Mean Corpuscular Hemoglobin 28.8 PG (27.0-31.0) Mean Corpuscular Hemoglobin Concent 31.9 G/DL (32.0-36.0) Red Cell Distribution Width 17.3 % (11.6-14.8) Platelet Count 204 K/UL (150-450) Mean Platelet Volume 8.2 FL (6.5-10.1) Neutrophils (%) (Auto) % (45.0-75.0) Lymphocytes (%) (Auto) % (20.0-45.0) Monocytes (%) (Auto) % (1.0-10.0) Eosinophils (%) (Auto) % (0.0-3.0) Basophils (%) (Auto) % (0.0-2.0) Differential Total Cells Counted 100 Neutrophils % (Manual) 87 % (45-75) Lymphocytes % (Manual) 2 % (20-45) Monocytes % (Manual) 1 % (1-10) Eosinophils % (Manual) 1 % (0-3) Basophils % (Manual) 0 % (0-2) Band Neutrophils 9 % (0-8) Platelet Estimate Adequate Platelet Morphology Normal Hypochromasia 3+ Anisocytosis 1+ Sodium Level 142 MMOL/L (136-145) Potassium Level 2.5 MMOL/L (3.5-5.1) Chloride Level 108 MMOL/L (98-107) Carbon Dioxide Level 21 MMOL/L (21-32) Anion Gap 14 mmol/L (5-15) Blood Urea Nitrogen 24 mg/dL (7-18) Creatinine 1.1 MG/DL (0.55-1.30) Estimat Glomerular Filtration Rate 51.2 mL/min (>60) Glucose Level 170 MG/DL (74-106) Hemoglobin A1c 6.0 % (4.3-6.0) Calcium Level 7.7 MG/DL (8.5-10.1) Total Bilirubin 0.4 MG/DL (0.2-1.0) Aspartate Amino Transf (AST/SGOT) 26 U/L (15-37) Alanine Aminotransferase (ALT/SGPT) 25 U/L (12-78) Alkaline Phosphatase 122 U/L (46-116) Troponin I 0.094 ng/mL (0.000-0.056) Total Protein 5.7 G/DL (6.4-8.2) Albumin 1.5 G/DL (3.4-5.0) Globulin 4.2 g/dL Albumin/Globulin Ratio 0.4 (1.0-2.7) Lactic Acid Level 4.50 mmol/L (0.4-2.0) 2.70 mmol/L (0.4-2.0) Arterial Blood pH 7.438 (7.350-7.450) Arterial Blood Partial Pressure CO2 27.1 mmHg (35.0-45.0) Arterial Blood Partial Pressure O2 60.2 mmHg (75.0-100.0) Arterial Blood HCO3 17.9 mmol/L (22.0-26.0) Arterial Blood Oxygen Saturation 90.7 % (95-100) Arterial Blood Base Excess -5.4 (-2-2) Pablo Test Positive Test 05/02/18 18:05 05/03/18 05:00 05/03/18 08:25 05/04/18 04:20 Lactic Acid Level 2.00 mmol/L (0.4-2.0) 2.00 mmol/L (0.4-2.0) Troponin I 0.136 ng/mL (0.000-0.056) White Blood Count 37.4 K/UL (4.8-10.8) 25.8 K/UL (4.8-10.8) Red Blood Count 2.58 M/UL (4.20-5.40) 2.65 M/UL (4.20-5.40) Hemoglobin 7.5 G/DL (12.0-16.0) 7.8 G/DL (12.0-16.0) Hematocrit 23.3 % (37.0-47.0) 24.0 % (37.0-47.0) Mean Corpuscular Volume 91 FL (80-99) 91 FL (80-99) Mean Corpuscular Hemoglobin 29.0 PG (27.0-31.0) 29.3 PG (27.0-31.0) Mean Corpuscular Hemoglobin Concent 32.0 G/DL (32.0-36.0) 32.3 G/DL (32.0-36.0) Red Cell Distribution Width 17.0 % (11.6-14.8) 17.6 % (11.6-14.8) Platelet Count 192 K/UL (150-450) 192 K/UL (150-450) Mean Platelet Volume 9.6 FL (6.5-10.1) 9.2 FL (6.5-10.1) Neutrophils (%) (Auto) % (45.0-75.0) % (45.0-75.0) Lymphocytes (%) (Auto) % (20.0-45.0) % (20.0-45.0) Monocytes (%) (Auto) % (1.0-10.0) % (1.0-10.0) Eosinophils (%) (Auto) % (0.0-3.0) % (0.0-3.0) Basophils (%) (Auto) % (0.0-2.0) % (0.0-2.0) Differential Total Cells Counted 100 100 Neutrophils % (Manual) 83 % (45-75) 78 % (45-75) Lymphocytes % (Manual) 4 % (20-45) 8 % (20-45) Monocytes % (Manual) 2 % (1-10) 4 % (1-10) Eosinophils % (Manual) 0 % (0-3) 1 % (0-3) Basophils % (Manual) 0 % (0-2) 0 % (0-2) Band Neutrophils 11 % (0-8) 9 % (0-8) Platelet Estimate Adequate Adequate Platelet Morphology Normal Normal Red Blood Cell Morphology Normal Anisocytosis 1+ 1+ Sodium Level 138 MMOL/L (136-145) 152 MMOL/L (136-145) Potassium Level 3.7 MMOL/L (3.5-5.1) 2.1 MMOL/L (3.5-5.1) Chloride Level 105 MMOL/L (98-107) 118 MMOL/L (98-107) Carbon Dioxide Level 18 MMOL/L (21-32) 19 MMOL/L (21-32) Anion Gap 15 mmol/L (5-15) 15 mmol/L (5-15) Blood Urea Nitrogen 26 mg/dL (7-18) 17 mg/dL (7-18) Creatinine 1.3 MG/DL (0.55-1.30) 0.9 MG/DL (0.55-1.30) Estimat Glomerular Filtration Rate 42.2 mL/min (>60) > 60 mL/min (>60) Glucose Level 113 MG/DL (74-106) 78 MG/DL (74-106) Calcium Level 7.9 MG/DL (8.5-10.1) 8.6 MG/DL (8.5-10.1) Total Bilirubin 0.5 MG/DL (0.2-1.0) 0.4 MG/DL (0.2-1.0) Aspartate Amino Transf (AST/SGOT) 26 U/L (15-37) 21 U/L (15-37) Alanine Aminotransferase (ALT/SGPT) 25 U/L (12-78) 23 U/L (12-78) Alkaline Phosphatase 158 U/L (46-116) 151 U/L (46-116) Total Protein 6.1 G/DL (6.4-8.2) 5.9 G/DL (6.4-8.2) Albumin 1.5 G/DL (3.4-5.0) 1.5 G/DL (3.4-5.0) Globulin 4.6 g/dL Albumin/Globulin Ratio 0.3 (1.0-2.7) Arterial Blood pH 7.466 (7.350-7.450) Arterial Blood Partial Pressure CO2 26.0 mmHg (35.0-45.0) Arterial Blood Partial Pressure O2 96.8 mmHg (75.0-100.0) Arterial Blood HCO3 18.3 mmol/L (22.0-26.0) Arterial Blood Oxygen Saturation 96.9 % (95-100) Arterial Blood Base Excess -4.6 (-2-2) Pablo Test Positive Reticulocyte Count 1.7 % (0.0-2.0) Hemoglobin A1c 6.0 % (4.3-6.0) Uric Acid 6.0 MG/DL (2.6-7.2) Phosphorus Level 3.2 MG/DL (2.5-4.9) Magnesium Level 1.4 MG/DL (1.8-2.4) Direct Bilirubin 0.3 MG/DL (0.0-0.3) Thyroid Stimulating Hormone (TSH) 2.214 uiU/mL (0.358-3.740) Test 05/04/18 10:00 Lactate Dehydrogenase 357 U/L (81-234) Vitamin B12 Level 1916 PG/ML (193-986) Objective: WDWN latered clear breath sounds with reduced left [id number] without MRG NABS nontender no HSM no CC edema paraparesis nonfocal Micro: Microbiology Date/Time Source Procedure Growth Status 05/01/18 18:40 Blood Blood Culture - Final Proteus Mirabilis Complete 05/01/18 18:30 Blood Blood Culture - Final Proteus Mirabilis Complete 05/02/18 14:55 Sputum Induced Gram Stain - Final Resulted 05/02/18 14:55 Sputum Culture - Preliminary Staphylococcus Aureus Usual Respiratory Dionna Resulted 05/01/18 19:00 Nasal Nares MRSA Culture - Final Staphylococcus Aureus - Mrsa Complete 05/01/18 18:35 Nasal Nares Influenza Types A,B Antigen (ANNE) - Final Complete 05/01/18 20:15 Urine,Clean Catch Urine Culture - Final Proteus Mirabilis Complete 05/01/18 19:00 Rectum VRE Culture - Final Enterococcus Faecium - Vre Complete 05/01/18 19:00 Rectum - Final NO CARBAPENEM-RESISTANT ENTEROBACTERI... Complete Accucheck: 113 Abel Black MD May 04, 2018 16:59
--- NOTE | 2018-05-04 18:00 | NUR ---
NURSE NOTES: Patient prepare for transfer per MD order. Patient will be transferred to AIDE. Patient aware. No new orders. Will continue to monitor patient.
--- NOTE | 2018-05-04 18:52 | General Progress Note ---
Assessment/Plan Assessment/Plan GI Second Opinion Assessment - Sepsis - improved - Leukocytosis - RUQ TTP - abnormal ultrasound - Presentation suggestive of acute cholecystitis Recommendations - NPO - IVF - Abx - follow lab and exam - Surgical consultation Thank you Ashish Stone MD Subjective Allergies: Coded Allergies: MAGNESIUM SULFATE (Verified Allergy, Unknown, 04/05/18) Objective Last 24 Hour Vital Signs Date Time Temp Pulse Resp B/P (MAP) Pulse Ox O2 Delivery O2 Flow Rate FiO2 05/04/18 18:00 90 30 144/75 (98) 99 05/04/18 17:00 95 30 134/70 (91) 99 05/04/18 16:00 98.5 85 28 135/66 (89) 99 05/04/18 16:00 Venturi Mask 45.0 05/04/18 16:00 90 05/04/18 15:00 80 30 148/74 (98) 99 05/04/18 14:00 84 30 142/70 (94) 99 05/04/18 13:00 80 30 135/60 (85) 99 05/04/18 12:00 98.8 87 30 138/65 (89) 99 05/04/18 12:00 Venturi Mask 45.0 05/04/18 12:00 93 05/04/18 11:00 89 30 143/77 (99) 99 05/04/18 10:00 80 30 140/75 (96) 99 05/04/18 09:00 88 30 144/80 (101) 99 05/04/18 08:00 98.2 97 30 135/75 (95) 99 05/04/18 08:00 Venturi Mask 45.0 05/04/18 08:00 97 05/04/18 07:35 Venturi Mask 12.0 45 05/04/18 07:34 96 Venturi Mask 10.0 45 05/04/18 07:00 96 30 149/90 (109) 99 05/04/18 06:00 95 30 140/83 (102) 99 05/04/18 05:00 98 30 137/83 (101) 99 05/04/18 04:00 Venturi Mask 45.0 05/04/18 04:00 99 05/04/18 04:00 98.2 97 30 152/81 (104) 99 05/04/18 03:00 95 30 148/81 (103) 99 05/04/18 02:00 98 29 150/80 (103) 99 05/04/18 01:00 96 33 156/82 (106) 99 05/04/18 00:00 96 05/04/18 00:00 Venturi Mask 45.0 05/04/18 00:00 98.6 96 34 144/82 (102) 99 05/03/18 23:00 98 34 139/89 (106) 99 05/03/18 22:00 102 29 130/82 (98) 99 05/03/18 21:00 102 29 136/82 (100) 99 05/03/18 20:11 Venturi Mask 12.0 45 05/03/18 20:11 97 Venturi Mask 10.0 45 05/03/18 20:00 97 05/03/18 20:00 98.2 90 32 134/89 (104) 97 05/03/18 20:00 Venturi Mask 45.0 05/03/18 19:00 90 28 122/64 (83) 100 Intake and Output 05/03/18 05/04/18 19:00 07:00 Intake Total 1636.24 ml 1282.5 ml Output Total 750 ml 820 ml Balance 886.24 ml 462.5 ml Intake IV Total 1636.24 ml 1282.5 ml Output Urine Total 750 ml 820 ml # Bowel Movements 6 Laboratory Tests 05/04/18 04:20: White Blood Count 25.8*H, Red Blood Count 2.65L, Hemoglobin 7.8L, Hematocrit 24.0L, Mean Corpuscular Volume 91, Mean Corpuscular Hemoglobin 29.3, Mean Corpuscular Hemoglobin Concent 32.3, Red Cell Distribution Width 17.6H, Platelet Count 192, Mean Platelet Volume 9.2, Neutrophils (%) (Auto) , Lymphocytes (%) (Auto) , Monocytes (%) (Auto) , Eosinophils (%) (Auto) , Basophils (%) (Auto) , Differential Total Cells Counted 100, Neutrophils % ( Manual) 78H, Lymphocytes % (Manual) 8L, Monocytes % (Manual) 4, Eosinophils % ( Manual) 1, Basophils % (Manual) 0, Band Neutrophils 9H, Platelet Estimate Adequate, Platelet Morphology Normal, Anisocytosis 1+, Reticulocyte Count 1.7, Sodium Level 152#H, Potassium Level 2.1*L, Chloride Level 118H, Carbon Dioxide Level 19L, Anion Gap 15, Blood Urea Nitrogen 17, Creatinine 0.9, Estimat Glomerular Filtration Rate > 60, Glucose Level 78, Hemoglobin A1c 6.0, Uric Acid 6.0, Calcium Level 8.6, Phosphorus Level 3.2, Magnesium Level 1.4L, Total Bilirubin 0.4, Direct Bilirubin 0.3, Aspartate Amino Transf (AST/SGOT) 21, Alanine Aminotransferase (ALT/SGPT) 23, Alkaline Phosphatase 151H, Total Protein 5.9L, Albumin 1.5L, Thyroid Stimulating Hormone (TSH) 2.214 05/04/18 10:00: Sickle Cell Screen [Pending], Hemoglobin A [Pending], Hemoglobin A2 [Pending], Hemoglobin C [Pending], Hemoglobin F () [Pending], Hemoglobin S [Pending], Variant Hemoglobin [Pending], Hemoglobin Electrophoresis Interp [Pending], Hemoglobin Interpretation [Pending], Hemoglobin Solubility [Pending], Lactate Dehydrogenase 357H, Carcinoembryonic Antigen [Pending], Vitamin B12 Level 1916H , Methylmalonic Acid [Pending] Height (Feet): 5 Height (Inches): 3.00 Weight (Pounds): 149 Ashish Stone MD May 04, 2018 18:52
--- NOTE | 2018-05-04 19:00 | Progress Note ---
DATE: 05/04/2018 SUBJECTIVE: This is an elderly female. Blood cultures are positive. She is in bed, high oxygen, but clinically improving, off Levophed drip. OBJECTIVE: VITAL SIGNS: Blood pressure 144/80, pulse 88, respirations 30, temperature is 99. NECK: Supple. CHEST: Bilateral decreased breath sounds. CARDIOVASCULAR: Regular rhythm. Tachycardia. ABDOMEN: Soft. EXTREMITIES: No CCE. NEUROLOGIC: Generalized weakness. LABORATORY DATA: White counts are 25,000, hemoglobin 7.8, hematocrit 24, platelets are . ASSESSMENT AND PLAN: 1. Sepsis. 2. Thrombocytopenia. 3. Dementia. 4. Aspiration pneumonia. 5. Generalized weakness. 6. Decubiti. PLAN: 1. We will Consider Hematology/Oncology consult. 2. Gastrointestinal and ID on case. 3. Continue antibiotics. 4. The patient is currently on ceftriaxone, Levaquin, . 5. Also patient has acute cholecystitis. We are monitoring her as outpatient. GI is already on case. Monroe Tyson M.D. DR: Margaret JOB#: [id number] CC:
--- NOTE | 2018-05-04 19:11 | NUR ---
TRANSFER TO FLOOR: Patient transferred to AIDE, per Hospital Bed. Report given to Alyssa LR using sbar. No Belongings / medications given to RN. Family and or S/O informed of transfer.
--- NOTE | 2018-05-04 19:15 | NUR ---
NURSE NOTES: Received patient from ANI RN in ICU.patient is alert & oriented x3. Urdu speaker. special shopper showing SR. Patient on venturi mask 45% saturating 100%. Patient is NPO . Deleon catheter intact. Sacral unstagable wound - see WCP, dressing dry intact.on SPR mattress for skin management. Lt subclavian TLC, L hand 20, R AC 20. D51/2NS w/ kcl 40meq at 50cc/hr running. Patient stable at this time. Denies any pain . Bed on lowest position, HOB elevated, call light within reach, bed alarm on for safety. Will continue plan of care.
[2018-05-04] MEDS ORDERED: Albuterol ud Inhalation HHN PRN (19:30)
[2018-05-04] MEDS ORDERED: Acetaminophen 650 MG SUPP RECTAL PRN (20:30)
[2018-05-04] MEDS: Dyna-Hex 2% Top Sol 2oz TOPIC SCH (21:45)
[2018-05-04] MEDS: D5 1/2NS w/KCl 40meq 1000ml 1,000 ML IV SCH (21:46)
--- NOTE | 2018-05-04 23:15 | Consultation ---
DATE OF CONSULTATION: 05/04/2018 GASTROENTEROLOGY CONSULTATION CHIEF COMPLAINT: I was asked to see this patient by Dr. Vj Tyson for evaluation of possible cholecystitis. HISTORY OF PRESENT ILLNESS: The patient is a 58-year-old woman, from a [facility], who was brought in with sepsis and septic shock. The patient has developed gram-negative sepsis versus leukocytosis and has been admitted to the intensive care unit. She has improved her septic picture with the help of pressors and looks better today. However, an ultrasound of the abdomen showed changes, which were suggestive of acute cholecystitis and therefore, this consultation was generated. The patient herself is minimally interactive, but does answer some questions. She complains of abdominal pain. 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 Therefore, she is quite bed-bound and quite debilitated. PAST MEDICAL HISTORY: History of paraplegia, anemia, hypertension, diabetes mellitus, and cholelithiasis. MEDICATIONS: See the chart list for details. ALLERGIES: Magnesium sulfate. FAMILY HISTORY: Noncontributory. SOCIAL HISTORY: The patient resides in a [facility] with no history of smoking or drinking or drug use. REVIEW OF SYSTEMS: Otherwise negative. PHYSICAL EXAMINATION: GENERAL: A debilitated woman seen in her room. HEENT: Normocephalic and atraumatic. The dentition is poor. NECK: Supple. CHEST: Clear to auscultation. CARDIOVASCULAR: Revealed a regular rhythm. ABDOMEN: Soft and obese with good bowel sounds. There is right upper quadrant tenderness to palpation and guarding. EXTREMITIES: Revealed trace edema. LABORATORY AND DIAGNOSTIC DATA: Laboratory data and imaging studies were noted. ASSESSMENT: This patient has a septic picture with gram-negative bacteremia with leukocytosis and lactic acidosis, which is improving with supportive care and antibiotics. The right upper quadrant abdominal discomfort is concerning for acute cholecystitis as is her ultrasound imaging study, which shows cholelithiasis as well as wall thickening and pericholecystic fluid. Again, the right upper quadrant tenderness, I will obtain a surgical consultation for possible treatment. If concerned than the HIDA scan can be done to further evaluate for cholecystitis. RECOMMENDATIONS: 1. Keep the patient NPO. 2. Broad-spectrum antibiotics. 3. Surgical consultation. 4. Possible HIDA scan. 5. Follow laboratory parameters and exam. Thank you for asking me to participate in the care of this patient. Ashish Stone M.D. DR: CHRISTY JOB#: [id number] CC: AMMY
[2018-05-05] VITALS: BP 155/97
[2018-05-05 04:00] VITALS: BP 154/103
[2018-05-05] MEDS: NovoLOG Insulin Flexpen SUBQ SCH ×4 (06:01→21:27)
[2018-05-05 06:10] LABS: BASOPHILS % (AUTO) 0.6 % (0.0-2.0); EOSINOPHILS % (AUTO) 0.7 % (0.0-3.0); HEMATOCRIT 27.3 % (37.0-47.0); HEMOGLOBIN 8.7 G/DL (12.0-16.0); MEAN CORPUSCULAR VOLUME 90 FL (80-99); MONOCYTES % (AUTO) 5.6 % (1.0-10.0); NEUTROPHILS % (AUTO) 80.1 % (45.0-75.0); PLATELET COUNT 196 K/UL (150-450); RED BLOOD COUNT 3.04 M/UL (4.20-5.40); RED CELL DISTRIBUTION WIDTH 17.3 % (11.6-14.8); WHITE BLOOD COUNT 13.1 K/UL (4.8-10.8)
[2018-05-05 07:00] LABS: ALANINE AMINOTRANSFERASE 17 U/L (12-78); ALBUMIN 1.6 G/DL (3.4-5.0); ALBUMIN/GLOBULIN RATIO 0.3 (1.0-2.7); ALKALINE PHOSPHATASE 146 U/L (46-116); ANION GAP 12 mmol/L (5-15); ASPARTATE AMINO TRANSFERASE 15 U/L (15-37); BILIRUBIN,TOTAL 0.4 MG/DL (0.2-1.0); BLOOD UREA NITROGEN 11 mg/dL (7-18); CARBON DIOXIDE 22 MMOL/L (21-32); CHLORIDE 117 MMOL/L (98-107); CREATININE 0.8 MG/DL (0.55-1.30); PHOSPHORUS 2.7 MG/DL (2.5-4.9); SODIUM 151 MMOL/L (136-145)
[2018-05-05 07:03] LABS: POTASSIUM 2.3 MMOL/L (3.5-5.1)
--- NOTE | 2018-05-05 07:20 | NUR ---
NURSE NOTES: RECEIVED BED SIDE REPORT FROM [facility].RECEIVED PT WITH HOB ELEVATED 45 DEGREE AWAKE AND ALERT ORIENTED X2,MALAY SPEAKING ONLY.PT ABLE TO FALLOW SIMPLE COMMANDS.PT DENIES CP AT THIS TIME.PT USING VENTI MASK @ 45%.PT SATURATION IS 98%.PT IS NPO PER M.D ORDERS.PT REPOSITIONED IN BED TO PROVIDE COMFORT AND TO PREVENT FURTHER SKIN BREAK DOWN.DR MIKE WAS NOTIFIED BY PREVIOUS NOC SHIFT RN REGARDING K+ 2.3.Sandy JENKINS CAME TO SEE THE PT AND NEW ORDERS NOTED REGARDING TO GIVE KCL 60MEQ IVPB.ALL NEW ORDERS NOTED AND CARRIED OUT.WILL CONT TO MONITOR.
[2018-05-05 08:00] VITALS: BP 147/108
--- NOTE | 2018-05-05 08:14 | NUR ---
HAND-OFF: Report given to [facility] RN using SBAR.no s/s of acute distress noted.
[2018-05-05] MEDS: Pantoprazole Inj IVP SCH ×2 (09:26→21:25)
[2018-05-05] MEDS: cefTRIAXone 2 GM in D5W 55 ML IVPB SCH (09:38)
[2018-05-05] MEDS ORDERED: NS 275ml ONE ×3 (10:58→16:52)
[2018-05-05 12:00] VITALS: BP 150/106
--- NOTE | 2018-05-05 12:30 | NUR ---
NURSE NOTES: [facility] CAME TO SEE THE PT AND MADE AWARE AND NOTIFIED REGARDING PT HAS FEVER 100.9.AND MEDICATED WITH TYLENOL SUPPOSITORY 650MG VIA [place].WILL CONT TO MONITOR.
--- NOTE | 2018-05-05 12:39 | Infectious Diseases Prog Note ---
Assessment/Plan Assessment/Plan A; Septic shock off pressor Proteus sepsis Proteus UTI Pleural effusion, Fungal hypha in cytology DM Anemia Paraplegia Hypokalemia Cholelithiasis, ? cholecystitis P: continue Micafungin & Rocephin, add Flagyl Surgical evaluation Subjective ROS Limited/Unobtainable: Yes Constitutional: Reports: fever, other - T=100.9 Gastrointestinal/Abdominal: Reports: other - epigastric pain Allergies: Coded Allergies: MAGNESIUM SULFATE (Verified Allergy, Unknown, 04/05/18) Objective Vital Signs Last 24 Hour Vital Signs Date Time Temp Pulse Resp B/P (MAP) Pulse Ox O2 Delivery O2 Flow Rate FiO2 05/05/18 08:00 Venturi Mask 45.0 05/05/18 08:00 98.0 104 25 147/108 (121) 98 05/05/18 08:00 96 05/05/18 04:00 Venturi Mask 45.0 05/05/18 04:00 89 05/05/18 04:00 99.0 92 24 154/103 (120) 98 05/05/18 00:00 Venturi Mask 45.0 05/05/18 00:00 97.9 93 24 155/97 (116) 99 05/04/18 20:00 97.9 91 24 150/100 (117) 100 05/04/18 20:00 Venturi Mask 45.0 05/04/18 20:00 91 05/04/18 19:50 Venturi Mask 12.0 45 05/04/18 19:50 99 Venturi Mask 10.0 45 05/04/18 19:00 89 30 148/80 (102) 99 05/04/18 18:00 90 30 144/75 (98) 99 05/04/18 17:00 95 30 134/70 (91) 99 05/04/18 16:00 98.5 85 28 135/66 (89) 99 05/04/18 16:00 Venturi Mask 45.0 05/04/18 16:00 90 05/04/18 15:00 80 30 148/74 (98) 99 05/04/18 14:00 84 30 142/70 (94) 99 05/04/18 13:00 80 30 135/60 (85) 99 Height (Feet): 5 Height (Inches): 3.00 Weight (Pounds): 148 HEENT: mucous membranes moist Respiratory/Chest: lungs clear, other - Oxygen by venturi yelitza Cardiovascular: tachycardia Abdomen: soft, non tender Extremities: other - dependent edema of feet, Neurologic/Psychiatric: alert, responsive, other - feet drop Microbiology Date/Time Source Procedure Growth Status 05/02/18 14:55 Sputum Induced Gram Stain - Final Complete 05/02/18 14:55 Sputum Culture - Final Staphylococcus Aureus - Mrsa Usual Respiratory Dionna Complete Laboratory Tests Test 05/05/18 04:15 05/05/18 04:30 Stool Occult Blood Negative (NEGATIVE) White Blood Count 13.1 K/UL (4.8-10.8) H Red Blood Count 3.04 M/UL (4.20-5.40) L Hemoglobin 8.7 G/DL (12.0-16.0) L Hematocrit 27.3 % (37.0-47.0) L Mean Corpuscular Volume 90 FL (80-99) Mean Corpuscular Hemoglobin 28.7 PG (27.0-31.0) Mean Corpuscular Hemoglobin Concent 32.0 G/DL (32.0-36.0) Red Cell Distribution Width 17.3 % (11.6-14.8) H Platelet Count 196 K/UL (150-450) Mean Platelet Volume 8.5 FL (6.5-10.1) Neutrophils (%) (Auto) 80.1 % (45.0-75.0) H Lymphocytes (%) (Auto) 13.0 % (20.0-45.0) L Monocytes (%) (Auto) 5.6 % (1.0-10.0) Eosinophils (%) (Auto) 0.7 % (0.0-3.0) Basophils (%) (Auto) 0.6 % (0.0-2.0) Sodium Level 151 MMOL/L (136-145) H Potassium Level 2.3 MMOL/L (3.5-5.1) *L Chloride Level 117 MMOL/L (98-107) H Carbon Dioxide Level 22 MMOL/L (21-32) Anion Gap 12 mmol/L (5-15) Blood Urea Nitrogen 11 mg/dL (7-18) Creatinine 0.8 MG/DL (0.55-1.30) Estimat Glomerular Filtration Rate > 60 mL/min (>60) Glucose Level 155 MG/DL (74-106) H Uric Acid 5.2 MG/DL (2.6-7.2) Calcium Level 9.0 MG/DL (8.5-10.1) Phosphorus Level 2.7 MG/DL (2.5-4.9) Magnesium Level 2.0 MG/DL (1.8-2.4) Total Bilirubin 0.4 MG/DL (0.2-1.0) Aspartate Amino Transf (AST/SGOT) 15 U/L (15-37) Alanine Aminotransferase (ALT/SGPT) 17 U/L (12-78) Alkaline Phosphatase 146 U/L (46-116) H C-Reactive Protein, Quantitative 22.1 mg/dL (0.00-0.90) H Pro-B-Type Natriuretic Peptide > 17914 pg/mL (0-125) H Total Protein 6.3 G/DL (6.4-8.2) L Albumin 1.6 G/DL (3.4-5.0) L Globulin 4.7 g/dL Albumin/Globulin Ratio 0.3 (1.0-2.7) L Current Medications Medications (Trade) Dose Ordered Sig/Nya Route PRN Reason Start Time Stop Time Status Last Admin Dose Admin Acetaminophen (Tylenol) 650 mg Q4H PRN RECTAL Mild Pain (Pain Scale 1-3) 05/04/18 20:30 06/01/18 00:29 Albuterol Sulfate (Proventil) 2.5 mg Q6H PRN HHN Shortness of Breath 05/04/18 19:30 05/09/18 19:29 Ceftriaxone Sodium 2 gm/ Dextrose 55 ml @ 110 mls/hr Q24H IVPB 05/05/18 10:00 05/11/18 09:59 05/05/18 09:38 Chlorhexidine Gluconate (Leticia-Hex 2%) 1 applic DAILY@2000 TOPIC 05/04/18 20:00 06/01/18 19:59 05/04/18 21:45 Dextrose (Dextrose 50%) 25 ml Q30M PRN IV Hypoglycemia 05/04/18 19:30 06/01/18 00:00 Dextrose (Dextrose 50%) 50 ml Q30M PRN IV Hypoglycemia 05/04/18 19:30 06/01/18 00:00 Dextrose/ Electrolytes 1,000 ml @ 50 mls/hr Q20H IV 05/04/18 19:15 06/03/18 09:59 05/04/18 21:46 Insulin Aspart (NovoLOG) BEFORE MEALS AND HS SUBQ 05/04/18 21:00 06/01/18 06:29 05/05/18 06:01 Micafungin Sodium 100 mg/Sodium Chloride 110 ml @ 110 mls/hr Q24H IVPB 05/05/18 13:00 05/10/18 12:59 Pantoprazole (Protonix) 40 mg EVERY 12 HOURS IVP 05/04/18 21:00 06/01/18 20:59 05/05/18 09:26 Potassium Chloride 100 ml @ 100 mls/hr Q1HR IVPB 05/05/18 09:00 05/05/18 14:59 05/05/18 11:28 Reno Samaniego MD May 05, 2018 12:39
--- NOTE | 2018-05-05 12:51 | General Progress Note ---
Assessment/Plan Assessment/Plan Assessment and recs: # Anemia of chronic disease - multifactorial etiology, potentially related to hemodilution as well --> trending down hgb 10.1-->7.5-->7.8-->8.7 --> anemia panel has been ordered/reviewed, and inflammatory markers are elevated --> peripheral smear to be reviewed --> defer GI procedures until respiratory status more stable and cleared by cardiac, surg consulted, hida pending # Leukocytosis due to severe sepsis, currently downtrending --> on abx and antifungals as per ID --> cultures are pending # Alkaline phosphatase elevation --> as per gi eval # Septic shock off pressor # Respiratory failure on vm --> as per pulm # Proteus sepsis # Proteus UTI # Paraplegia # Cholelithiasis Greatly appreciate consultation! Subjective Constitutional: Denies: no symptoms, chills, diaphoresis, fever, malaise, weakness, other HEENT: Denies: no symptoms, eye pain, blurred vision, tearing, double vision, ear pain, ear discharge, nose pain, nose congestion, throat pain, throat swelling, mouth pain, mouth swelling, other Respiratory: Denies: no symptoms, cough, orthopnea, shortness of breath, SOB with excertion, SOB at rest, sputum, stridor, wheezing, other Gastrointestinal/Abdominal: Denies: no symptoms, abdomen distended, abdominal pain, black stools, tarry stools, blood in stool, constipated, diarrhea, difficulty swallowing, nausea, poor appetite, poor fluid intake, rectal bleeding , vomiting, other Genitourinary: Denies: no symptoms, burning, discharge, frequency, flank pain, hematuria, incontinence, pain, urgency, other Neurologic/Psychiatric: Denies: no symptoms, anxiety, depressed, emotional problems, headache, numbness, paresthesia, pre-existing deficit, seizure, tingling, tremors, weakness, other Endocrine: Denies: no symptoms, excessive sweating, flushing, intolerance to cold, intolerance to heat, increased hunger, increased thirst, increased urine, unexplained weight gain, unexplained weight loss, other Hematologic/Lymphatic: Denies: no symptoms, anemia, easy bleeding, easy bruising, other Allergies: Coded Allergies: MAGNESIUM SULFATE (Verified Allergy, Unknown, 12/12/18) Subjective 05/05: transferred oyt of the icu, feeling better, on vventuri mask, spansih speaking Objective Last 24 Hour Vital Signs Date Time Temp Pulse Resp B/P (MAP) Pulse Ox O2 Delivery O2 Flow Rate FiO2 05/05/18 12:37 Venturi Mask 10.0 45 05/05/18 12:37 98 Venturi Mask 10.0 45 05/05/18 12:00 100.9 116 33 150/106 (121) 100 05/05/18 12:00 Venturi Mask 45.0 05/05/18 08:00 Venturi Mask 45.0 05/05/18 08:00 98.0 104 25 147/108 (121) 98 05/05/18 08:00 96 05/05/18 04:00 Venturi Mask 45.0 05/05/18 04:00 89 05/05/18 04:00 99.0 92 24 154/103 (120) 98 05/05/18 00:00 Venturi Mask 45.0 05/05/18 00:00 97.9 93 24 155/97 (116) 99 05/04/18 20:00 97.9 91 24 150/100 (117) 100 05/04/18 20:00 Venturi Mask 45.0 05/04/18 20:00 91 05/04/18 19:50 Venturi Mask 12.0 45 05/04/18 19:50 99 Venturi Mask 10.0 45 05/04/18 19:00 89 30 148/80 (102) 99 05/04/18 18:00 90 30 144/75 (98) 99 05/04/18 17:00 95 30 134/70 (91) 99 05/04/18 16:00 98.5 85 28 135/66 (89) 99 05/04/18 16:00 Venturi Mask 45.0 05/04/18 16:00 90 05/04/18 15:00 80 30 148/74 (98) 99 05/04/18 14:00 84 30 142/70 (94) 99 05/04/18 13:00 80 30 135/60 (85) 99 Intake and Output 05/04/18 05/05/18 19:00 07:00 Intake Total 1010 ml 450 ml Output Total 1055 ml 1500 ml Balance -45 ml -1050 ml Intake IV Total 1010 ml 450 ml Output Urine Total 1055 ml 1500 ml # Bowel Movements 3 2 Laboratory Tests 05/05/18 04:15: Stool Occult Blood Negative 05/05/18 04:30: White Blood Count 13.1H, Red Blood Count 3.04L, Hemoglobin 8.7L, Hematocrit 27.3L, Mean Corpuscular Volume 90, Mean Corpuscular Hemoglobin 28.7, Mean Corpuscular Hemoglobin Concent 32.0, Red Cell Distribution Width 17.3H, Platelet Count 196, Mean Platelet Volume 8.5, Neutrophils (%) (Auto) 80.1H, Lymphocytes (%) (Auto) 13.0L, Monocytes (%) (Auto) 5.6, Eosinophils (%) (Auto) 0.7, Basophils (%) (Auto) 0.6, Sodium Level 151H, Potassium Level 2.3*L, Chloride Level 117H, Carbon Dioxide Level 22, Anion Gap 12, Blood Urea Nitrogen 11, Creatinine 0.8, Estimat Glomerular Filtration Rate > 60, Glucose Level 155H , Uric Acid 5.2, Calcium Level 9.0, Phosphorus Level 2.7, Magnesium Level 2.0, Total Bilirubin 0.4, Aspartate Amino Transf (AST/SGOT) 15, Alanine Aminotransferase (ALT/SGPT) 17, Alkaline Phosphatase 146H, C-Reactive Protein, Quantitative 22.1H, Pro-B-Type Natriuretic Peptide > 02557G, Total Protein 6.3L , Albumin 1.6L, Globulin 4.7, Albumin/Globulin Ratio 0.3L Height (Feet): 5 Height (Inches): 3.00 Weight (Pounds): 148 General Appearance: alert Neck: non-tender Cardiovascular: normal rate Respiratory/Chest: lungs clear Abdomen: soft Extremities: non-tender Edema: 1+ Leg (L), 1+ Leg (R) Edema: trace edema Skin: cyanotic Objective General Appearance: well appearing, obese HEENT: PERRL/EOMI, normal ENT inspection, supple Respiratory: normal breath sounds, no respiratory distress CV: normal rate Gi: normal inspection, non tender, soft, normal bowel sounds, nd Rectal: deferred Genitourinary: no CVA tenderness Musculoskeletal: normal inspection, back normal Neurologic: normal inspection, alert, oriented x3, responsive Psychiatric: normal inspection, judgement/insight normal, memory normal Skin: normal inspection, normal color, no rash, warm/dry, well hydrated Lymphatic: normal inspection, no adenopathy Rahat Villa MD May 05, 2018 12:51
[2018-05-05] MEDS: Micafungin 100 MG in NS 110 ML IVPB SCH (13:00)
[2018-05-05 13:28] LABS: % IRON SATURATION 57 % (15-50); IRON 62 ug/dL (50-175); TOTAL IRON BINDING CAPACITY 109 ug/dL (250-450)
[2018-05-05 14:05] LABS: FERRITIN > 2000 NG/ML (8-388)
--- NOTE | 2018-05-05 14:41 | GI Progress Note ---
Assessment/Plan Problems: (1) Cholelithiasis ICD Codes: K80.20 - Calculus of gallbladder without cholecystitis without obstruction SNOMED: 546883697 (2) Anemia ICD Codes: D64.9 - Anemia, unspecified SNOMED: 303701727 (3) Pleural effusion ICD Codes: J90 - Pleural effusion, not elsewhere classified SNOMED: 99229101 (4) Severe sepsis ICD Codes: A41.9 - Sepsis, unspecified organism; R65.20 - Severe sepsis without septic shock SNOMED: 74669775 (5) Alkaline phosphatase elevation ICD Codes: R74.8 - Abnormal levels of other serum enzymes SNOMED: 252041553 (6) Respiratory failure ICD Codes: J96.90 - Respiratory failure, unspecified, unspecified whether with hypoxia or hypercapnia SNOMED: 378566974 Status: unchanged Status Narrative Discussed with Dr. Quiñones Assessment/Plan abdominal US reviewed noted with cholelithiasis defer GI procedures until respiratory status more stable and cleared by cardiac HIDA when respiratory status more stable maintain NPO + IVFs anemia work up OB stool r/o GI bleed collect stool studies, cdiff if patient has persistent diarrhea monitor H&H, prn transfusions bowel regime ppi abx fu labs The patient was seen and examined at bedside and all new and available data was reviewed in the patients chart. I agree with the above findings, impression and plan. (Patient seen earlier today. Signature stamp does not reflect patient encounter time.). - Abe Quiñones MD Subjective Subjective limited Objective Last 24 Hour Vital Signs Date Time Temp Pulse Resp B/P (MAP) Pulse Ox O2 Delivery O2 Flow Rate FiO2 05/05/18 13:32 100.9 05/05/18 12:37 Venturi Mask 10.0 45 05/05/18 12:37 98 Venturi Mask 10.0 45 05/05/18 12:00 100.9 116 33 150/106 (121) 100 05/05/18 12:00 Venturi Mask 45.0 05/05/18 08:00 Venturi Mask 45.0 05/05/18 08:00 98.0 104 25 147/108 (121) 98 05/05/18 08:00 96 05/05/18 04:00 Venturi Mask 45.0 05/05/18 04:00 89 05/05/18 04:00 99.0 92 24 154/103 (120) 98 05/05/18 00:00 Venturi Mask 45.0 05/05/18 00:00 97.9 93 24 155/97 (116) 99 05/04/18 20:00 97.9 91 24 150/100 (117) 100 05/04/18 20:00 Venturi Mask 45.0 05/04/18 20:00 91 05/04/18 19:50 Venturi Mask 12.0 45 05/04/18 19:50 99 Venturi Mask 10.0 45 05/04/18 19:00 89 30 148/80 (102) 99 05/04/18 18:00 90 30 144/75 (98) 99 05/04/18 17:00 95 30 134/70 (91) 99 05/04/18 16:00 98.5 85 28 135/66 (89) 99 05/04/18 16:00 Venturi Mask 45.0 05/04/18 16:00 90 05/04/18 15:00 80 30 148/74 (98) 99 Intake and Output 05/04/18 05/05/18 19:00 07:00 Intake Total 1010 ml 450 ml Output Total 1055 ml 1500 ml Balance -45 ml -1050 ml Intake IV Total 1010 ml 450 ml Output Urine Total 1055 ml 1500 ml # Bowel Movements 3 2 Laboratory Tests Test 05/05/18 04:15 05/05/18 04:30 Stool Occult Blood Negative (NEGATIVE) White Blood Count 13.1 K/UL (4.8-10.8) H Red Blood Count 3.04 M/UL (4.20-5.40) L Hemoglobin 8.7 G/DL (12.0-16.0) L Hematocrit 27.3 % (37.0-47.0) L Mean Corpuscular Volume 90 FL (80-99) Mean Corpuscular Hemoglobin 28.7 PG (27.0-31.0) Mean Corpuscular Hemoglobin Concent 32.0 G/DL (32.0-36.0) Red Cell Distribution Width 17.3 % (11.6-14.8) H Platelet Count 196 K/UL (150-450) Mean Platelet Volume 8.5 FL (6.5-10.1) Neutrophils (%) (Auto) 80.1 % (45.0-75.0) H Lymphocytes (%) (Auto) 13.0 % (20.0-45.0) L Monocytes (%) (Auto) 5.6 % (1.0-10.0) Eosinophils (%) (Auto) 0.7 % (0.0-3.0) Basophils (%) (Auto) 0.6 % (0.0-2.0) Sodium Level 151 MMOL/L (136-145) H Potassium Level 2.3 MMOL/L (3.5-5.1) *L Chloride Level 117 MMOL/L (98-107) H Carbon Dioxide Level 22 MMOL/L (21-32) Anion Gap 12 mmol/L (5-15) Blood Urea Nitrogen 11 mg/dL (7-18) Creatinine 0.8 MG/DL (0.55-1.30) Estimat Glomerular Filtration Rate > 60 mL/min (>60) Glucose Level 155 MG/DL (74-106) H Uric Acid 5.2 MG/DL (2.6-7.2) Calcium Level 9.0 MG/DL (8.5-10.1) Phosphorus Level 2.7 MG/DL (2.5-4.9) Magnesium Level 2.0 MG/DL (1.8-2.4) Iron Level 62 ug/dL (50-175) Total Iron Binding Capacity 109 ug/dL (250-450) L Percent Iron Saturation 57 % (15-50) H Unsaturated Iron Binding 47 ug/dL (112-346) L Ferritin > 2000 NG/ML (8-388) H Total Bilirubin 0.4 MG/DL (0.2-1.0) Aspartate Amino Transf (AST/SGOT) 15 U/L (15-37) Alanine Aminotransferase (ALT/SGPT) 17 U/L (12-78) Alkaline Phosphatase 146 U/L (46-116) H C-Reactive Protein, Quantitative 22.1 mg/dL (0.00-0.90) H Pro-B-Type Natriuretic Peptide > 15014 pg/mL (0-125) H Total Protein 6.3 G/DL (6.4-8.2) L Albumin 1.6 G/DL (3.4-5.0) L Globulin 4.7 g/dL Albumin/Globulin Ratio 0.3 (1.0-2.7) L Height (Feet): 5 Height (Inches): 3.00 Weight (Pounds): 148 General Appearance: no apparent distress Cardiovascular: normal rate Respiratory/Chest: other - Venturi mask Amalia Hickman NP May 05, 2018 14:41
--- NOTE | 2018-05-05 15:15 | Nephrology Progress Note ---
Assessment/Plan Problem List: (1) Septic shock (2) Hypokalemia (3) Anemia (4) Urinary tract infection (5) Paraplegia Assessment Presented with septic Shock, now hemodynamically stable Low K and Low mag HypoAlbuminemia and Proteinuria r/o Nephrotic syndrom UTI Anemia severe left lung effusion / opacity obesity ? DMII HTN Paraplegia Plan Anemia walker K and Mag supplement avoid nephrotoxics pulmonary support discussed with RN per orders Subjective ROS Limited/Unobtainable: No Constitutional: Reports: malaise, weakness Objective Objective Last 24 Hour Vital Signs Date Time Temp Pulse Resp B/P (MAP) Pulse Ox O2 Delivery O2 Flow Rate FiO2 05/05/18 13:32 100.9 05/05/18 12:37 Venturi Mask 10.0 45 05/05/18 12:37 98 Venturi Mask 10.0 45 05/05/18 12:00 116 05/05/18 12:00 100.9 116 33 150/106 (121) 100 05/05/18 12:00 Venturi Mask 45.0 05/05/18 08:00 Venturi Mask 45.0 05/05/18 08:00 98.0 104 25 147/108 (121) 98 05/05/18 08:00 96 05/05/18 04:00 Venturi Mask 45.0 05/05/18 04:00 89 05/05/18 04:00 99.0 92 24 154/103 (120) 98 05/05/18 00:00 Venturi Mask 45.0 05/05/18 00:00 97.9 93 24 155/97 (116) 99 05/04/18 20:00 97.9 91 24 150/100 (117) 100 05/04/18 20:00 Venturi Mask 45.0 05/04/18 20:00 91 05/04/18 19:50 Venturi Mask 12.0 45 05/04/18 19:50 99 Venturi Mask 10.0 45 05/04/18 19:00 89 30 148/80 (102) 99 05/04/18 18:00 90 30 144/75 (98) 99 05/04/18 17:00 95 30 134/70 (91) 99 05/04/18 16:00 98.5 85 28 135/66 (89) 99 05/04/18 16:00 Venturi Mask 45.0 05/04/18 16:00 90 Intake and Output 05/04/18 05/05/18 18:59 06:59 Intake Total 1110 ml 400 ml Output Total 1075 ml 1580 ml Balance 35 ml -1180 ml Intake IV Total 1110 ml 400 ml Output Urine Total 1075 ml 1580 ml # Bowel Movements 3 2 Laboratory Tests 05/05/18 04:15: Stool Occult Blood Negative 05/05/18 04:30: White Blood Count 13.1H, Red Blood Count 3.04L, Hemoglobin 8.7L, Hematocrit 27.3L, Mean Corpuscular Volume 90, Mean Corpuscular Hemoglobin 28.7, Mean Corpuscular Hemoglobin Concent 32.0, Red Cell Distribution Width 17.3H, Platelet Count 196, Mean Platelet Volume 8.5, Neutrophils (%) (Auto) 80.1H, Lymphocytes (%) (Auto) 13.0L, Monocytes (%) (Auto) 5.6, Eosinophils (%) (Auto) 0.7, Basophils (%) (Auto) 0.6, Sodium Level 151H, Potassium Level 2.3*L, Chloride Level 117H, Carbon Dioxide Level 22, Anion Gap 12, Blood Urea Nitrogen 11, Creatinine 0.8, Estimat Glomerular Filtration Rate > 60, Glucose Level 155H , Uric Acid 5.2, Calcium Level 9.0, Phosphorus Level 2.7, Magnesium Level 2.0, Iron Level 62, Total Iron Binding Capacity 109L, Percent Iron Saturation 57H, Unsaturated Iron Binding 47L, Ferritin > 2000H, Total Bilirubin 0.4, Aspartate Amino Transf (AST/SGOT) 15, Alanine Aminotransferase (ALT/SGPT) 17, Alkaline Phosphatase 146H, C-Reactive Protein, Quantitative 22.1H, Pro-B-Type Natriuretic Peptide > 58579L, Total Protein 6.3L, Albumin 1.6L, Globulin 4.7, Albumin/Globulin Ratio 0.3L Height (Feet): 5 Height (Inches): 3.00 Weight (Pounds): 148 General Appearance: no apparent distress, lethargic Cardiovascular: tachycardia Respiratory/Chest: decreased breath sounds Abdomen: soft Richardson Aparicio MD May 05, 2018 15:15
[2018-05-05 16:00] VITALS: BP 147/99
--- NOTE | 2018-05-05 16:00 | NUR ---
NURSE NOTES:RE-ASSESSED TEMP 98.6 AX, TYLENOL EFFECTIVE FOR FEVER .WILL CONT TO MONITOR.
[2018-05-05] MEDS ORDERED: Tubing IV Secondary IV ONE ×2 (16:11→16:52)
--- NOTE | 2018-05-05 16:13 | NUR ---
CASE MANAGEMENT: REVIEW SI: SEVERE SEPSIS . LACTIC ACIDOSIS T 100.0 HR 116 RR 33 BP 155/97 SAT 98% VENTURI MASK FIO2 45 WBC 13.1 H/H 8.7/27.3 NA 151 K 2.3 IS: FLAGYL IV Q8HR MYCAMINE IV Q24HR CEFTRIAXONE IV Q24HR D5 1/2 w/KCl IVF @ 50ML/HR STEP DOWN UNIT STATUS DCP: PATIENT IS FROM [facility]
[2018-05-05] MEDS: D5 1/2NS w/KCl 40meq 1000ml 1,000 ML IV SCH (16:56)
--- NOTE | 2018-05-05 17:15 | Progress Note ---
DATE: 05/05/2018 SUBJECTIVE: This is an elderly lady currently sitting in the bed, comfortable, improving. OBJECTIVE: VITAL SIGNS: Blood pressure 116/33. The patient is off Levophed drip. Her heart rate is still 116 and saturation 98%. CHEST: Bilaterally scattered crackles and wheezing. CARDIOVASCULAR: Regular rhythm. No gallop. No murmur. Tachycardia. ABDOMEN: Soft. EXTREMITIES: CCE. Sacral decubitus stage III. LABORATORY DATA: White counts are 13,000 and hemoglobin is 8.1. Sodium 151, potassium 2.3, BUN 11, and creatinine 0.8. BNP was 35,000. ASSESSMENT: 1. Acute sepsis. 2. Aspiration pneumonia. 3. Congestive heart failure. 4. Hypokalemia. 5. Hypernatremia. 6. Infected sacral decubitus. PLAN: 1. Continue IV fluid and IV antibiotics. 2. Continue bronchodilator treatments. 3. Continue PT and OT. 4. Potassium replacement. Monroe Tyson M.D. DR: LOUISE JOB#: [id number] CC:
--- NOTE | 2018-05-05 19:20 | NUR ---
HAND-OFF: Report given to .VIRGINIE LR.
--- NOTE | 2018-05-05 19:25 | NUR ---
NURSE NOTES: Received patient from [facility].patient is awake , alert. Breathing via Venturi mask 45% with no SOB. o2 saturation 100%. No fever at this time. Temp 98.8F. ST with HR of 116. on NPO. Denies any pain at this time.IV to left IJ intact, with running D5 1/2 NS w/ kcl 40meq at 50cc/hr.Deleon cath in placed with yellow urine.keep skin clean and dry. will resume plan of care.
[2018-05-05 20:00] VITALS: BP 145/95
--- NOTE | 2018-05-05 20:16 | Pulmonolgy Critical Care Note ---
Critical Care - Asmt/Plan Assessment/Plan: Pulmonary Progress Note Assessment/Plan Assessment/Plan chronic effusion collapse left possible sepsis elevated lactic acid hypotension possible gib hypoxemia PLAN pressors antibiotics respiratory care oxygen resume [facility] med d/w Dr. Tyson impression, plan, and exam edited and reviewed in detail care discussed with drawer in stitch bonding machine - Subjective ROS Limited/Unobtainable: Yes Condition: critical VSS noted Labs: Test 05/01/18 18:30 05/01/18 20:15 05/01/18 23:00 05/02/18 01:14 White Blood Count 4.8 K/UL (4.8-10.8) Red Blood Count 3.53 M/UL (4.20-5.40) Hemoglobin 10.1 G/DL (12.0-16.0) Hematocrit 32.6 % (37.0-47.0) Mean Corpuscular Volume 92 FL (80-99) Mean Corpuscular Hemoglobin 28.7 PG (27.0-31.0) Mean Corpuscular Hemoglobin Concent 31.0 G/DL (32.0-36.0) Red Cell Distribution Width 17.1 % (11.6-14.8) Platelet Count 242 K/UL (150-450) Mean Platelet Volume 6.6 FL (6.5-10.1) Neutrophils (%) (Auto) % (45.0-75.0) Lymphocytes (%) (Auto) % (20.0-45.0) Monocytes (%) (Auto) % (1.0-10.0) Eosinophils (%) (Auto) % (0.0-3.0) Basophils (%) (Auto) % (0.0-2.0) Prothrombin Time 11.9 SEC (9.30-11.50) Prothromb Time International Ratio 1.1 (0.9-1.1) Activated Partial Thromboplast Time 25 SEC (23-33) Sodium Level 141 MMOL/L (136-145) Potassium Level 4.5 MMOL/L (3.5-5.1) Chloride Level 103 MMOL/L (98-107) Carbon Dioxide Level 24 MMOL/L (21-32) Anion Gap 14 mmol/L (5-15) Blood Urea Nitrogen 23 mg/dL (7-18) Creatinine 1.2 MG/DL (0.55-1.30) Estimat Glomerular Filtration Rate 46.3 mL/min (>60) Glucose Level 198 MG/DL (74-106) Lactic Acid Level 6.50 mmol/L (0.4-2.0) 4.30 mmol/L (0.66-2.22) Calcium Level 9.6 MG/DL (8.5-10.1) Phosphorus Level 4.5 MG/DL (2.5-4.9) Magnesium Level 1.7 MG/DL (1.8-2.4) Total Bilirubin 0.6 MG/DL (0.2-1.0) Aspartate Amino Transf (AST/SGOT) 30 U/L (15-37) Alanine Aminotransferase (ALT/SGPT) 28 U/L (12-78) Alkaline Phosphatase 160 U/L (46-116) Total Creatine Kinase 96 U/L (26-308) Creatine Kinase MB 1.3 NG/ML (0.0-3.6) Creatine Kinase MB Relative Index 1.3 Troponin I 0.066 ng/mL (0.000-0.056) Pro-B-Type Natriuretic Peptide 8189 pg/mL (0-125) Total Protein 7.3 G/DL (6.4-8.2) Albumin 2.1 G/DL (3.4-5.0) Globulin 5.2 g/dL Albumin/Globulin Ratio 0.4 (1.0-2.7) Urine Color Magalis Urine Appearance Very cloudy Urine pH 8 (4.5-8.0) Urine Specific Buhl 1.020 (1.005-1.035) Urine Protein 3+ (NEGATIVE) Urine Glucose (UA) Negative (NEGATIVE) Urine Ketones Negative (NEGATIVE) Urine Blood 5+ (NEGATIVE) Urine Nitrite Positive (NEGATIVE) Urine Bilirubin Negative (NEGATIVE) Urine Ictotest Negative (NEGATIVE) Urine Urobilinogen Normal MG/DL (0.0-1.0) Urine Leukocyte Esterase 3+ (NEGATIVE) Urine RBC 15-20 /HPF (0 - 2) Urine WBC 20-30 /HPF (0 - 2) Urine Squamous Epithelial Cells Few /LPF (NONE/OCC) Urine Bacteria Many /HPF (NONE) Urine Mucus Many /LPF (NONE/OCC) Arterial Blood pH 7.408 (7.350-7.450) Arterial Blood Partial Pressure CO2 29.9 mmHg (35.0-45.0) Arterial Blood Partial Pressure O2 76.4 mmHg (75.0-100.0) Arterial Blood HCO3 18.4 mmol/L (22.0-26.0) Arterial Blood Oxygen Saturation 93.6 % (95-100) Arterial Blood Base Excess -5.5 (-2-2) Pablo Test Positive Test 05/02/18 06:05 05/02/18 07:55 05/02/18 10:10 05/02/18 12:20 White Blood Count 30.5 K/UL (4.8-10.8) Red Blood Count 2.68 M/UL (4.20-5.40) Hemoglobin 7.7 G/DL (12.0-16.0) Hematocrit 24.2 % (37.0-47.0) Mean Corpuscular Volume 90 FL (80-99) Mean Corpuscular Hemoglobin 28.8 PG (27.0-31.0) Mean Corpuscular Hemoglobin Concent 31.9 G/DL (32.0-36.0) Red Cell Distribution Width 17.3 % (11.6-14.8) Platelet Count 204 K/UL (150-450) Mean Platelet Volume 8.2 FL (6.5-10.1) Neutrophils (%) (Auto) % (45.0-75.0) Lymphocytes (%) (Auto) % (20.0-45.0) Monocytes (%) (Auto) % (1.0-10.0) Eosinophils (%) (Auto) % (0.0-3.0) Basophils (%) (Auto) % (0.0-2.0) Differential Total Cells Counted 100 Neutrophils % (Manual) 87 % (45-75) Lymphocytes % (Manual) 2 % (20-45) Monocytes % (Manual) 1 % (1-10) Eosinophils % (Manual) 1 % (0-3) Basophils % (Manual) 0 % (0-2) Band Neutrophils 9 % (0-8) Platelet Estimate Adequate Platelet Morphology Normal Hypochromasia 3+ Anisocytosis 1+ Sodium Level 142 MMOL/L (136-145) Potassium Level 2.5 MMOL/L (3.5-5.1) Chloride Level 108 MMOL/L (98-107) Carbon Dioxide Level 21 MMOL/L (21-32) Anion Gap 14 mmol/L (5-15) Blood Urea Nitrogen 24 mg/dL (7-18) Creatinine 1.1 MG/DL (0.55-1.30) Estimat Glomerular Filtration Rate 51.2 mL/min (>60) Glucose Level 170 MG/DL (74-106) Hemoglobin A1c 6.0 % (4.3-6.0) Calcium Level 7.7 MG/DL (8.5-10.1) Total Bilirubin 0.4 MG/DL (0.2-1.0) Aspartate Amino Transf (AST/SGOT) 26 U/L (15-37) Alanine Aminotransferase (ALT/SGPT) 25 U/L (12-78) Alkaline Phosphatase 122 U/L (46-116) Troponin I 0.094 ng/mL (0.000-0.056) Total Protein 5.7 G/DL (6.4-8.2) Albumin 1.5 G/DL (3.4-5.0) Globulin 4.2 g/dL Albumin/Globulin Ratio 0.4 (1.0-2.7) Lactic Acid Level 4.50 mmol/L (0.4-2.0) 2.70 mmol/L (0.4-2.0) Arterial Blood pH 7.438 (7.350-7.450) Arterial Blood Partial Pressure CO2 27.1 mmHg (35.0-45.0) Arterial Blood Partial Pressure O2 60.2 mmHg (75.0-100.0) Arterial Blood HCO3 17.9 mmol/L (22.0-26.0) Arterial Blood Oxygen Saturation 90.7 % (95-100) Arterial Blood Base Excess -5.4 (-2-2) Pablo Test Positive Test 05/02/18 18:05 Lactic Acid Level 2.00 mmol/L (0.4-2.0) Troponin I 0.136 ng/mL (0.000-0.056) Objective: WDWN latered clear breath sounds with reduced left [id number] without MRG NABS nontender no HSM no CC edema paraparesis nonfocal Micro: Microbiology Date/Time Source Procedure Growth Status 05/01/18 18:40 Blood Blood Culture - Preliminary Resulted 05/01/18 18:30 Blood Blood Culture - Preliminary Resulted 05/01/18 18:35 Nasal Nares Influenza Types A,B Antigen (ANNE) - Final Complete Critical Care - Objective Last 24 Hour Vital Signs Date Time Temp Pulse Resp B/P (MAP) Pulse Ox O2 Delivery O2 Flow Rate FiO2 05/05/18 18:31 Venturi Mask 10.0 45 05/05/18 18:31 99 Venturi Mask 10.0 45 05/05/18 16:00 98.6 104 32 147/99 (115) 100 05/05/18 16:00 108 05/05/18 16:00 Venturi Mask 45.0 05/05/18 13:32 100.9 05/05/18 12:37 Venturi Mask 10.0 45 05/05/18 12:37 98 Venturi Mask 10.0 45 05/05/18 12:00 116 05/05/18 12:00 100.9 116 33 150/106 (121) 100 05/05/18 12:00 Venturi Mask 45.0 05/05/18 08:00 Venturi Mask 45.0 05/05/18 08:00 98.0 104 25 147/108 (121) 98 05/05/18 08:00 96 05/05/18 04:00 Venturi Mask 45.0 05/05/18 04:00 89 05/05/18 04:00 99.0 92 24 154/103 (120) 98 05/05/18 00:00 Venturi Mask 45.0 05/05/18 00:00 97.9 93 24 155/97 (116) 99 Accucheck: 132 Critical Care - Subjective ROS Limited/Unobtainable: No FI02: 45 Vent Support Mode: BiLevel Sputum Amount: None I&O: Intake and Output 05/04/18 05/05/18 18:59 06:59 Intake Total 1110 ml 400 ml Output Total 1075 ml 1580 ml Balance 35 ml -1180 ml Intake IV Total 1110 ml 400 ml Output Urine Total 1075 ml 1580 ml # Bowel Movements 3 2 Nathen Luo MD May 05, 2018 20:16
[2018-05-05] MEDS: Dyna-Hex 2% Top Sol 2oz TOPIC SCH (21:25)
[2018-05-06] VITALS: BP 132/92
--- NOTE | 2018-05-06 03:00 | NUR ---
NURSE NOTES: patient asleep in bed . on venturi mask 45% with no respiratory distress noted.o2 saturation 100%.SR on monitor. Temp 99.8F. vs stable. Turned and repositioned.performed sponge bath with CHG. skin remains clean and dry.
[2018-05-06 04:00] VITALS: BP 134/85
[2018-05-06 06:20] LABS: BASOPHILS % (AUTO) 1.2 % (0.0-2.0); HEMOGLOBIN 8.9 G/DL (12.0-16.0); LYMPHOCYTES % (AUTO) 20.4 % (20.0-45.0); MEAN CORPUSCULAR VOLUME 91 FL (80-99); MONOCYTES % (AUTO) 8.4 % (1.0-10.0); PLATELET COUNT 180 K/UL (150-450); RED BLOOD COUNT 3.07 M/UL (4.20-5.40); RED CELL DISTRIBUTION WIDTH 17.2 % (11.6-14.8); WHITE BLOOD COUNT 9.2 K/UL (4.8-10.8)
[2018-05-06] MEDS: NovoLOG Insulin Flexpen SUBQ SCH ×4 (06:22→21:47)
[2018-05-06 06:35] LABS: ALANINE AMINOTRANSFERASE 16 U/L (12-78); ALBUMIN 1.8 G/DL (3.4-5.0); ALBUMIN/GLOBULIN RATIO 0.4 (1.0-2.7); ALKALINE PHOSPHATASE 123 U/L (46-116); ANION GAP 13 mmol/L (5-15); ASPARTATE AMINO TRANSFERASE 16 U/L (15-37); BILIRUBIN,TOTAL 0.4 MG/DL (0.2-1.0); BLOOD UREA NITROGEN 13 mg/dL (7-18); CARBON DIOXIDE 22 MMOL/L (21-32); CHLORIDE 118 MMOL/L (98-107); CREATININE 0.9 MG/DL (0.55-1.30); PHOSPHORUS 3.2 MG/DL (2.5-4.9); POTASSIUM 2.8 MMOL/L (3.5-5.1); SODIUM 153 MMOL/L (136-145)
--- NOTE | 2018-05-06 07:30 | NUR ---
HAND-OFF: Report given to JOSE DAVID LR using SBAR. No sign of acute distress noted.
--- NOTE | 2018-05-06 07:30 | NUR ---
NURSE NOTES: Received report from Alyssa LR. Pt is asleep in bed, head of bed elevated to 45%. Awakens to name/voice, Surinamese speaking, oriented x2. On venturi mask 45%, with 98% saturation. Denies pain. IV access left IJ triple lumen, infusing D5 0.45% NS KCL 40meq at 50mL/hour, also right AC #20G, saline lock, patent/intact. Skin has sacral dressing, dry/intact, will assess during my shift, and change dressing as needed, pt on P200 mattress. Deleon catheter in place, draining yellow/clear urine. Call light is within easy reach, bed in lowest position, three side rails up, brakes engaged, alarm on.
[2018-05-06 08:00] VITALS: BP 149/99
[2018-05-06] MEDS: Pantoprazole Inj IVP SCH ×2 (08:34→21:45)
[2018-05-06] MEDS: cefTRIAXone 2 GM in D5W 55 ML IVPB SCH (08:56)
--- NOTE | 2018-05-06 11:04 | NUR ---
RD ASSESSMENT & RECOMMENDATIONS SEE CARE ACTIVITY FOR COMPLETE ASSESSMENT DAILY ESTIMATED NEEDS: Needs based on Pulmonary, wound/ 56kg abw 25-30 kcals/kg 0218-2240 total kcals 1.25-1.5 g protein/kg 70-84 g total protein 25-30 mL/kg 2951-0597 total fluid mLs NUTRITION DIAGNOSIS: * Swallowing difficulty R/T unstable respiratory status and weakness as evidenced by INFORMATICS ANALYST recommends NPO upon adm, pt remains NPO due to cholelithiasis w/ possible cholecystitis. * Altered nutrition related lab values R/T diabetes, clinical condition, sepsis as evidenced by A1C=6.0, critically elev wbc (37.4 -> now wnl), elev BNP (8189 -> >54921), BP now improved, off pressor, elev Na (153). CURRENT DIET:NPO PO DIET RECOMMENDATIONS: INITIATE DIET PER MD-> CCHO MED, LOW NA, LOW FAT/texture per INFORMATICS ANALYST PARENTERAL NUTRITION RECOMMENDATIONS: MONITOR NEED FOR TPN: NPO DAY 5 TODAY (w/ possible cholecystitis. Per GI, defer GI procedures until respiratory status more stable and cleared by cardiac) ADDITIONAL RECOMMENDATIONS: * Monitor NPO status - day 5 today * Wound healing: when able to take PO meds -> MVI x 1, Vit C 500mg QD, Sean 1pkt BID * Sacral wound evaluation * Monitor lytes, replete as needed * Calibrated bedscale wt for accurate CBW * Consider DC 1/2NS in IVF- Na trend up
[2018-05-06 12:00] VITALS: BP 144/101
[2018-05-06] MEDS: Micafungin 100 MG in NS 110 ML IVPB SCH (12:37)
--- NOTE | 2018-05-06 14:08 | Nephrology Progress Note ---
Assessment/Plan Problem List: (1) Septic shock (2) Hypokalemia (3) Anemia (4) Urinary tract infection (5) Paraplegia Assessment Presented with septic Shock, now hemodynamically stable Low K and Low mag HypoAlbuminemia and Proteinuria r/o Nephrotic syndrom UTI Anemia severe left lung effusion / opacity obesity ? DMII HTN Paraplegia Plan Anemia walker K and Mag supplement avoid nephrotoxics pulmonary support discussed with RN per orders Subjective ROS Limited/Unobtainable: No Objective Objective Last 24 Hour Vital Signs Date Time Temp Pulse Resp B/P (MAP) Pulse Ox O2 Delivery O2 Flow Rate FiO2 05/06/18 11:24 94 05/06/18 11:03 Nasal Cannula 10.0 45 05/06/18 11:03 100 Nasal Cannula 10.0 45 05/06/18 08:00 Venturi Mask 45.0 05/06/18 08:00 98.6 91 32 149/99 (116) 100 05/06/18 08:00 89 05/06/18 04:00 91 05/06/18 04:00 99.8 94 24 134/85 (101) 100 05/06/18 04:00 Venturi Mask 45.0 05/06/18 00:00 98 05/06/18 00:00 97.9 96 24 132/92 (105) 100 05/06/18 00:00 Venturi Mask 45.0 05/05/18 20:00 Venturi Mask 45.0 05/05/18 20:00 98.8 106 26 145/95 (112) 100 05/05/18 20:00 116 05/05/18 18:31 Venturi Mask 10.0 45 05/05/18 18:31 99 Venturi Mask 10.0 45 05/05/18 16:00 98.6 104 32 147/99 (115) 100 05/05/18 16:00 108 05/05/18 16:00 Venturi Mask 45.0 Intake and Output 05/05/18 05/06/18 19:00 07:00 Intake Total 965 ml 600 ml Output Total 1251 ml 1000 ml Balance -286 ml -400 ml Intake IV Total 965 ml 600 ml Output Urine Total 1250 ml 1000 ml Stool Total 1 ml # Bowel Movements 3 2 Laboratory Tests 05/06/18 04:30: White Blood Count 9.2, Red Blood Count 3.07L, Hemoglobin 8.9L, Hematocrit 28.0L , Mean Corpuscular Volume 91, Mean Corpuscular Hemoglobin 28.9, Mean Corpuscular Hemoglobin Concent 31.7L, Red Cell Distribution Width 17.2H, Platelet Count 180, Mean Platelet Volume 8.0, Neutrophils (%) (Auto) 69.0, Lymphocytes (%) (Auto) 20.4, Monocytes (%) (Auto) 8.4, Eosinophils (%) (Auto) 1.0, Basophils (%) (Auto) 1.2, Sodium Level 153H, Potassium Level 2.8L, Chloride Level 118H, Carbon Dioxide Level 22, Anion Gap 13, Blood Urea Nitrogen 13, Creatinine 0.9, Estimat Glomerular Filtration Rate > 60, Glucose Level 137H , Uric Acid 6.1, Calcium Level 9.0, Phosphorus Level 3.2, Magnesium Level 1.7L, Total Bilirubin 0.4, Aspartate Amino Transf (AST/SGOT) 16, Alanine Aminotransferase (ALT/SGPT) 16, Alkaline Phosphatase 123H, Total Protein 6.4, Albumin 1.8L, Globulin 4.6, Albumin/Globulin Ratio 0.4L Height (Feet): 5 Height (Inches): 3.00 Weight (Pounds): 147 General Appearance: no apparent distress Cardiovascular: tachycardia Respiratory/Chest: decreased breath sounds Abdomen: soft Richardson Aparicio MD May 06, 2018 14:07
[2018-05-06] MEDS ORDERED: Metoprolol Tartrate 12.5mg TAB ORAL SCH (14:30)
--- NOTE | 2018-05-06 14:43 | Infectious Diseases Prog Note ---
Assessment/Plan Assessment/Plan antibiotics : ceftriaxone, flagyl, micafungin A 1. MRSA pneumonia 2. proteus sepsis secondary to proteus UTI 3. proteus UTI 4. leucocytosis improving 5. cholecystitis 6. diabetes mellitus 7. paraplegia P 1. continue ceftriaxone, flagyl, micafungin 2. start iv vancomycin 3. will follow up cultures Subjective Constitutional: Denies: fever, chills Respiratory: Reports: shortness of breath, dry cough Gastrointestinal/Abdominal: Denies: nausea, vomiting, diarrhea Musculoskeletal: Reports: pain - in abdomen Allergies: Coded Allergies: MAGNESIUM SULFATE (Verified Allergy, Unknown, 04/05/18) Objective Vital Signs Last 24 Hour Vital Signs Date Time Temp Pulse Resp B/P (MAP) Pulse Ox O2 Delivery O2 Flow Rate FiO2 05/06/18 11:24 94 05/06/18 11:03 Nasal Cannula 10.0 45 05/06/18 11:03 100 Nasal Cannula 10.0 45 05/06/18 08:00 Venturi Mask 45.0 05/06/18 08:00 98.6 91 32 149/99 (116) 100 05/06/18 08:00 89 05/06/18 04:00 91 05/06/18 04:00 99.8 94 24 134/85 (101) 100 05/06/18 04:00 Venturi Mask 45.0 05/06/18 00:00 98 05/06/18 00:00 97.9 96 24 132/92 (105) 100 05/06/18 00:00 Venturi Mask 45.0 05/05/18 20:00 Venturi Mask 45.0 05/05/18 20:00 98.8 106 26 145/95 (112) 100 05/05/18 20:00 116 05/05/18 18:31 Venturi Mask 10.0 45 05/05/18 18:31 99 Venturi Mask 10.0 45 05/05/18 16:00 98.6 104 32 147/99 (115) 100 05/05/18 16:00 108 05/05/18 16:00 Venturi Mask 45.0 Height (Feet): 5 Height (Inches): 3.00 Weight (Pounds): 147 Laboratory Tests Test 05/06/18 04:30 White Blood Count 9.2 K/UL (4.8-10.8) Red Blood Count 3.07 M/UL (4.20-5.40) L Hemoglobin 8.9 G/DL (12.0-16.0) L Hematocrit 28.0 % (37.0-47.0) L Mean Corpuscular Volume 91 FL (80-99) Mean Corpuscular Hemoglobin 28.9 PG (27.0-31.0) Mean Corpuscular Hemoglobin Concent 31.7 G/DL (32.0-36.0) L Red Cell Distribution Width 17.2 % (11.6-14.8) H Platelet Count 180 K/UL (150-450) Mean Platelet Volume 8.0 FL (6.5-10.1) Neutrophils (%) (Auto) 69.0 % (45.0-75.0) Lymphocytes (%) (Auto) 20.4 % (20.0-45.0) Monocytes (%) (Auto) 8.4 % (1.0-10.0) Eosinophils (%) (Auto) 1.0 % (0.0-3.0) Basophils (%) (Auto) 1.2 % (0.0-2.0) Sodium Level 153 MMOL/L (136-145) H Potassium Level 2.8 MMOL/L (3.5-5.1) L Chloride Level 118 MMOL/L (98-107) H Carbon Dioxide Level 22 MMOL/L (21-32) Anion Gap 13 mmol/L (5-15) Blood Urea Nitrogen 13 mg/dL (7-18) Creatinine 0.9 MG/DL (0.55-1.30) Estimat Glomerular Filtration Rate > 60 mL/min (>60) Glucose Level 137 MG/DL (74-106) H Uric Acid 6.1 MG/DL (2.6-7.2) Calcium Level 9.0 MG/DL (8.5-10.1) Phosphorus Level 3.2 MG/DL (2.5-4.9) Magnesium Level 1.7 MG/DL (1.8-2.4) L Total Bilirubin 0.4 MG/DL (0.2-1.0) Aspartate Amino Transf (AST/SGOT) 16 U/L (15-37) Alanine Aminotransferase (ALT/SGPT) 16 U/L (12-78) Alkaline Phosphatase 123 U/L (46-116) H C-Reactive Protein, Quantitative Pending Total Protein 6.4 G/DL (6.4-8.2) Albumin 1.8 G/DL (3.4-5.0) L Globulin 4.6 g/dL Albumin/Globulin Ratio 0.4 (1.0-2.7) L Current Medications Medications (Trade) Dose Ordered Sig/Nya Route PRN Reason Start Time Stop Time Status Last Admin Dose Admin Acetaminophen (Tylenol) 650 mg Q4H PRN RECTAL Mild Pain (Pain Scale 1-3) 05/04/18 20:30 06/01/18 00:29 05/05/18 13:02 Albuterol Sulfate (Proventil) 2.5 mg Q6H PRN HHN Shortness of Breath 05/04/18 19:30 05/09/18 19:29 Ceftriaxone Sodium 2 gm/ Dextrose 55 ml @ 110 mls/hr Q24H IVPB 05/05/18 10:00 05/11/18 09:59 05/06/18 08:56 Chlorhexidine Gluconate (Leticia-Hex 2%) 1 applic DAILY@2000 TOPIC 05/04/18 20:00 06/01/18 19:59 05/05/18 21:25 Dextrose (Dextrose 50%) 25 ml Q30M PRN IV Hypoglycemia 05/04/18 19:30 06/01/18 00:00 Dextrose (Dextrose 50%) 50 ml Q30M PRN IV Hypoglycemia 05/04/18 19:30 06/01/18 00:00 Insulin Aspart (NovoLOG) BEFORE MEALS AND HS SUBQ 05/04/18 21:00 06/01/18 06:29 05/06/18 11:18 Metoprolol Tartrate (Lopressor) 12.5 mg ONCE ORAL 05/06/18 14:30 05/06/18 15:30 Metoprolol Tartrate (Lopressor) 12.5 mg Q12HR ORAL 05/06/18 21:00 06/05/18 20:59 Metronidazole 100 ml @ 100 mls/hr Q8HR IVPB 05/05/18 14:00 05/12/18 13:59 05/06/18 12:53 Micafungin Sodium 100 mg/Sodium Chloride 110 ml @ 110 mls/hr Q24H IVPB 05/05/18 13:00 05/10/18 12:59 05/06/18 12:37 Pantoprazole (Protonix) 40 mg EVERY 12 HOURS IVP 05/04/18 21:00 06/01/18 20:59 05/06/18 08:34 Potassium Chloride 40 meq/ Dextrose 1,020 ml @ 75 mls/hr [id number] IV 05/06/18 10:00 06/05/18 09:59 05/06/18 09:43 Potassium Chloride 100 ml @ 100 mls/hr Q1H IVPB 05/06/18 09:00 05/06/18 14:59 05/06/18 14:07 Blaine Rutledge MD May 06, 2018 14:43
--- NOTE | 2018-05-06 15:31 | General Progress Note ---
Assessment/Plan Assessment/Plan Assessment and recs: # Anemia of chronic disease - multifactorial etiology, potentially related to hemodilution as well --> trending down hgb 10.1-->7.5-->7.8-->8.7 --> anemia panel has been ordered/reviewed, and inflammatory markers are elevated --> peripheral smear to be reviewed --> defer GI procedures until respiratory status more stable and cleared by cardiac, surg consulted, hida pending # Leukocytosis due to severe sepsis, currently downtrending --> on abx and antifungals as per ID --> cultures are pending # Alkaline phosphatase elevation --> as per gi eval # Septic shock off pressor # Respiratory failure on vm --> as per pulm --> with pleural effusions noted # Proteus sepsis # Proteus UTI # Paraplegia # Cholelithiasis Greatly appreciate consultation! Subjective Constitutional: Reports: no symptoms HEENT: Reports: no symptoms Cardiovascular: Reports: no symptoms Respiratory: Reports: no symptoms Gastrointestinal/Abdominal: Reports: no symptoms Genitourinary: Reports: no symptoms Neurologic/Psychiatric: Reports: no symptoms Endocrine: Reports: no symptoms Hematologic/Lymphatic: Reports: no symptoms Allergies: Coded Allergies: MAGNESIUM SULFATE (Verified Allergy, Unknown, 04/05/18) Subjective 05/05: transferred oyt of the icu, feeling better, on vventuri mask, spansih speaking 05/06: no events, A-O x2, Deleon catheter in place, draining yellow/clear urin Objective Last 24 Hour Vital Signs Date Time Temp Pulse Resp B/P (MAP) Pulse Ox O2 Delivery O2 Flow Rate FiO2 05/06/18 15:12 94 149/99 05/06/18 12:00 Venturi Mask 45.0 05/06/18 11:24 94 05/06/18 11:03 Nasal Cannula 10.0 45 05/06/18 11:03 100 Nasal Cannula 10.0 45 05/06/18 08:00 Venturi Mask 45.0 05/06/18 08:00 98.6 91 32 149/99 (116) 100 05/06/18 08:00 89 05/06/18 04:00 91 05/06/18 04:00 99.8 94 24 134/85 (101) 100 05/06/18 04:00 Venturi Mask 45.0 05/06/18 00:00 98 05/06/18 00:00 97.9 96 24 132/92 (105) 100 05/06/18 00:00 Venturi Mask 45.0 05/05/18 20:00 Venturi Mask 45.0 05/05/18 20:00 98.8 106 26 145/95 (112) 100 05/05/18 20:00 116 05/05/18 18:31 Venturi Mask 10.0 45 05/05/18 18:31 99 Venturi Mask 10.0 45 05/05/18 16:00 98.6 104 32 147/99 (115) 100 05/05/18 16:00 108 05/05/18 16:00 Venturi Mask 45.0 Intake and Output 05/05/18 05/06/18 19:00 07:00 Intake Total 965 ml 600 ml Output Total 1251 ml 1000 ml Balance -286 ml -400 ml Intake IV Total 965 ml 600 ml Output Urine Total 1250 ml 1000 ml Stool Total 1 ml # Bowel Movements 3 2 Laboratory Tests 05/06/18 04:30: White Blood Count 9.2, Red Blood Count 3.07L, Hemoglobin 8.9L, Hematocrit 28.0L , Mean Corpuscular Volume 91, Mean Corpuscular Hemoglobin 28.9, Mean Corpuscular Hemoglobin Concent 31.7L, Red Cell Distribution Width 17.2H, Platelet Count 180, Mean Platelet Volume 8.0, Neutrophils (%) (Auto) 69.0, Lymphocytes (%) (Auto) 20.4, Monocytes (%) (Auto) 8.4, Eosinophils (%) (Auto) 1.0, Basophils (%) (Auto) 1.2, Sodium Level 153H, Potassium Level 2.8L, Chloride Level 118H, Carbon Dioxide Level 22, Anion Gap 13, Blood Urea Nitrogen 13, Creatinine 0.9, Estimat Glomerular Filtration Rate > 60, Glucose Level 137H , Uric Acid 6.1, Calcium Level 9.0, Phosphorus Level 3.2, Magnesium Level 1.7L, Total Bilirubin 0.4, Aspartate Amino Transf (AST/SGOT) 16, Alanine Aminotransferase (ALT/SGPT) 16, Alkaline Phosphatase 123H, C-Reactive Protein, Quantitative 11.9H, Total Protein 6.4, Albumin 1.8L, Globulin 4.6, Albumin/ Globulin Ratio 0.4L Height (Feet): 5 Height (Inches): 3.00 Weight (Pounds): 147 Objective General Appearance: well appearing, obese HEENT: PERRL/EOMI, normal ENT inspection, supple Respiratory: normal breath sounds, no respiratory distress CV: normal rate Gi: normal inspection, non tender, soft, normal bowel sounds, nd Rectal: deferred Genitourinary: no CVA tenderness Musculoskeletal: normal inspection, back normal Neurologic: normal inspection, alert, oriented x3, responsive Psychiatric: normal inspection, judgement/insight normal, memory normal Skin: normal inspection, normal color, no rash, warm/dry, well hydrated Lymphatic: normal inspection, no adenopathy Rahat Villa MD May 06, 2018 15:31
--- NOTE | 2018-05-06 15:38 | Pulmonolgy Critical Care Note ---
Critical Care - Asmt/Plan Assessment/Plan: Pulmonary Progress Note Assessment/Plan Assessment/Plan chronic effusion collapse left possible sepsis elevated lactic acid hypotension possible gib hypoxemia PLAN pressors antibiotics respiratory care oxygen resume [facility] med d/w Dr. 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 - Subjective ROS Limited/Unobtainable: Yes Condition: critical VSS noted Labs: Test 05/01/18 18:30 05/01/18 20:15 05/01/18 23:00 05/02/18 01:14 White Blood Count 4.8 K/UL (4.8-10.8) Red Blood Count 3.53 M/UL (4.20-5.40) Hemoglobin 10.1 G/DL (12.0-16.0) Hematocrit 32.6 % (37.0-47.0) Mean Corpuscular Volume 92 FL (80-99) Mean Corpuscular Hemoglobin 28.7 PG (27.0-31.0) Mean Corpuscular Hemoglobin Concent 31.0 G/DL (32.0-36.0) Red Cell Distribution Width 17.1 % (11.6-14.8) Platelet Count 242 K/UL (150-450) Mean Platelet Volume 6.6 FL (6.5-10.1) Neutrophils (%) (Auto) % (45.0-75.0) Lymphocytes (%) (Auto) % (20.0-45.0) Monocytes (%) (Auto) % (1.0-10.0) Eosinophils (%) (Auto) % (0.0-3.0) Basophils (%) (Auto) % (0.0-2.0) Prothrombin Time 11.9 SEC (9.30-11.50) Prothromb Time International Ratio 1.1 (0.9-1.1) Activated Partial Thromboplast Time 25 SEC (23-33) Sodium Level 141 MMOL/L (136-145) Potassium Level 4.5 MMOL/L (3.5-5.1) Chloride Level 103 MMOL/L (98-107) Carbon Dioxide Level 24 MMOL/L (21-32) Anion Gap 14 mmol/L (5-15) Blood Urea Nitrogen 23 mg/dL (7-18) Creatinine 1.2 MG/DL (0.55-1.30) Estimat Glomerular Filtration Rate 46.3 mL/min (>60) Glucose Level 198 MG/DL (74-106) Lactic Acid Level 6.50 mmol/L (0.4-2.0) 4.30 mmol/L (0.66-2.22) Calcium Level 9.6 MG/DL (8.5-10.1) Phosphorus Level 4.5 MG/DL (2.5-4.9) Magnesium Level 1.7 MG/DL (1.8-2.4) Total Bilirubin 0.6 MG/DL (0.2-1.0) Aspartate Amino Transf (AST/SGOT) 30 U/L (15-37) Alanine Aminotransferase (ALT/SGPT) 28 U/L (12-78) Alkaline Phosphatase 160 U/L (46-116) Total Creatine Kinase 96 U/L (26-308) Creatine Kinase MB 1.3 NG/ML (0.0-3.6) Creatine Kinase MB Relative Index 1.3 Troponin I 0.066 ng/mL (0.000-0.056) Pro-B-Type Natriuretic Peptide 8189 pg/mL (0-125) Total Protein 7.3 G/DL (6.4-8.2) Albumin 2.1 G/DL (3.4-5.0) Globulin 5.2 g/dL Albumin/Globulin Ratio 0.4 (1.0-2.7) Urine Color [place] Urine Appearance Very cloudy Urine pH 8 (4.5-8.0) Urine Specific [place] 1.020 (1.005-1.035) Urine Protein 3+ (NEGATIVE) Urine Glucose (UA) Negative (NEGATIVE) Urine Ketones Negative (NEGATIVE) Urine Blood 5+ (NEGATIVE) Urine Nitrite Positive (NEGATIVE) Urine Bilirubin Negative (NEGATIVE) Urine Ictotest Negative (NEGATIVE) Urine Urobilinogen Normal MG/DL (0.0-1.0) Urine Leukocyte Esterase 3+ (NEGATIVE) Urine RBC 15-20 /HPF (0 - 2) Urine WBC 20-30 /HPF (0 - 2) Urine Squamous Epithelial Cells Few /LPF (NONE/OCC) Urine Bacteria Many /HPF (NONE) Urine Mucus Many /LPF (NONE/OCC) Arterial Blood pH 7.408 (7.350-7.450) Arterial Blood Partial Pressure CO2 29.9 mmHg (35.0-45.0) Arterial Blood Partial Pressure O2 76.4 mmHg (75.0-100.0) Arterial Blood HCO3 18.4 mmol/L (22.0-26.0) Arterial Blood Oxygen Saturation 93.6 % (95-100) Arterial Blood Base Excess -5.5 (-2-2) Pablo Test Positive Test 05/02/18 06:05 05/02/18 07:55 05/02/18 10:10 05/02/18 12:20 White Blood Count 30.5 K/UL (4.8-10.8) Red Blood Count 2.68 M/UL (4.20-5.40) Hemoglobin 7.7 G/DL (12.0-16.0) Hematocrit 24.2 % (37.0-47.0) Mean Corpuscular Volume 90 FL (80-99) Mean Corpuscular Hemoglobin 28.8 PG (27.0-31.0) Mean Corpuscular Hemoglobin Concent 31.9 G/DL (32.0-36.0) Red Cell Distribution Width 17.3 % (11.6-14.8) Platelet Count 204 K/UL (150-450) Mean Platelet Volume 8.2 FL (6.5-10.1) Neutrophils (%) (Auto) % (45.0-75.0) Lymphocytes (%) (Auto) % (20.0-45.0) Monocytes (%) (Auto) % (1.0-10.0) Eosinophils (%) (Auto) % (0.0-3.0) Basophils (%) (Auto) % (0.0-2.0) Differential Total Cells Counted 100 Neutrophils % (Manual) 87 % (45-75) Lymphocytes % (Manual) 2 % (20-45) Monocytes % (Manual) 1 % (1-10) Eosinophils % (Manual) 1 % (0-3) Basophils % (Manual) 0 % (0-2) Band Neutrophils 9 % (0-8) Platelet Estimate Adequate Platelet Morphology Normal Hypochromasia 3+ Anisocytosis 1+ Sodium Level 142 MMOL/L (136-145) Potassium Level 2.5 MMOL/L (3.5-5.1) Chloride Level 108 MMOL/L (98-107) Carbon Dioxide Level 21 MMOL/L (21-32) Anion Gap 14 mmol/L (5-15) Blood Urea Nitrogen 24 mg/dL (7-18) Creatinine 1.1 MG/DL (0.55-1.30) Estimat Glomerular Filtration Rate 51.2 mL/min (>60) Glucose Level 170 MG/DL (74-106) Hemoglobin A1c 6.0 % (4.3-6.0) Calcium Level 7.7 MG/DL (8.5-10.1) Total Bilirubin 0.4 MG/DL (0.2-1.0) Aspartate Amino Transf (AST/SGOT) 26 U/L (15-37) Alanine Aminotransferase (ALT/SGPT) 25 U/L (12-78) Alkaline Phosphatase 122 U/L (46-116) Troponin I 0.094 ng/mL (0.000-0.056) Total Protein 5.7 G/DL (6.4-8.2) Albumin 1.5 G/DL (3.4-5.0) Globulin 4.2 g/dL Albumin/Globulin Ratio 0.4 (1.0-2.7) Lactic Acid Level 4.50 mmol/L (0.4-2.0) 2.70 mmol/L (0.4-2.0) Arterial Blood pH 7.438 (7.350-7.450) Arterial Blood Partial Pressure CO2 27.1 mmHg (35.0-45.0) Arterial Blood Partial Pressure O2 60.2 mmHg (75.0-100.0) Arterial Blood HCO3 17.9 mmol/L (22.0-26.0) Arterial Blood Oxygen Saturation 90.7 % (95-100) Arterial Blood Base Excess -5.4 (-2-2) Pablo Test Positive Test 05/02/18 18:05 Lactic Acid Level 2.00 mmol/L (0.4-2.0) Troponin I 0.136 ng/mL (0.000-0.056) Objective: WDWN latered clear breath sounds with reduced left [id number] without MRG NABS nontender no HSM no CC edema paraparesis nonfocal Micro: Microbiology Date/Time Source Procedure Growth Status 05/01/18 18:40 Blood Blood Culture - Preliminary Resulted 05/01/18 18:30 Blood Blood Culture - Preliminary Resulted 05/01/18 18:35 Nasal Nares Influenza Types A,B Antigen (ANNE) - Final Complete Critical Care - Objective Last 24 Hour Vital Signs Date Time Temp Pulse Resp B/P (MAP) Pulse Ox O2 Delivery O2 Flow Rate FiO2 05/06/18 15:12 94 149/99 05/06/18 12:00 99.1 90 26 144/101 (115) 100 05/06/18 12:00 Venturi Mask 45.0 05/06/18 11:24 94 05/06/18 11:03 Nasal Cannula 10.0 45 05/06/18 11:03 100 Nasal Cannula 10.0 45 05/06/18 08:00 Venturi Mask 45.0 05/06/18 08:00 98.6 91 32 149/99 (116) 100 05/06/18 08:00 89 05/06/18 04:00 91 05/06/18 04:00 99.8 94 24 134/85 (101) 100 05/06/18 04:00 Venturi Mask 45.0 05/06/18 00:00 98 05/06/18 00:00 97.9 96 24 132/92 (105) 100 05/06/18 00:00 Venturi Mask 45.0 05/05/18 20:00 Venturi Mask 45.0 05/05/18 20:00 98.8 106 26 145/95 (112) 100 05/05/18 20:00 116 05/05/18 18:31 Venturi Mask 10.0 45 05/05/18 18:31 99 Venturi Mask 10.0 45 05/05/18 16:00 98.6 104 32 147/99 (115) 100 05/05/18 16:00 108 05/05/18 16:00 Venturi Mask 45.0 Accucheck: 132 Critical Care - Subjective ROS Limited/Unobtainable: No FI02: 45 Vent Support Mode: BiLevel Sputum Amount: None I&O: Intake and Output 05/05/18 05/06/18 19:00 07:00 Intake Total 965 ml 600 ml Output Total 1251 ml 1000 ml Balance -286 ml -400 ml Intake IV Total 965 ml 600 ml Output Urine Total 1250 ml 1000 ml Stool Total 1 ml # Bowel Movements 3 2 Nathen Luo MD May 06, 2018 15:38
[2018-05-06 16:00] VITALS: BP 132/94
[2018-05-06] MEDS ORDERED: Vancomycin 1.5 GM/D5W 250ML IVPB SCH (17:00)
--- NOTE | 2018-05-06 17:00 | NUR ---
NURSE NOTES: Pt's diet was advanced to clear liquid as ordered. Pt tolerated diet well, with no swallowing difficulty, consumed 100% of lunch and dinner. No episodes of nausea/vomiting.
--- NOTE | 2018-05-06 19:09 | NUR ---
HAND-OFF: Report given to Alyssa LR. Pt is resting in bed in stable condition. Endorsed plan of care.
--- NOTE | 2018-05-06 19:10 | NUR ---
NURSE NOTES: Received patient from [facility].patient is awake , alert. Breathing via Venturi mask 45% with no SOB. o2 saturation 100%. No fever at this time. Temp 98.4F. SR. Denies any pain at this time.IV to left IJ intact, with running D5W w/ kcl 40meq at 75cc/hr.Deleon cath in placed with yellow urine.keep skin clean and dry. will resume plan of care.
[2018-05-06 20:00] VITALS: BP 126/83
[2018-05-06] MEDS: Dyna-Hex 2% Top Sol 2oz TOPIC SCH (21:45)
[2018-05-06] MEDS: Metoprolol Tartrate 12.5mg TAB ORAL SCH (21:46)
[2018-05-07] VITALS: BP 127/85
--- NOTE | 2018-05-07 02:47 | NUR ---
NURSE NOTES: patient asleep with no respiratory distress noted. no sign of pain. SR on monitor. vs stable. afebrile.currently on venturi mask at 45%. performed sponge bath using CHG.skin remains clean and dry.keep patient comfortable.
[2018-05-07 04:00] VITALS: BP 140/87
[2018-05-07] MEDS: Vancomycin 750mg/NS 250ml IVPB SCH ×2 (05:00→17:52)
[2018-05-07 05:41] LABS: BASOPHILS % (AUTO) 1.4 % (0.0-2.0); EOSINOPHILS % (AUTO) 2.5 % (0.0-3.0); HEMATOCRIT 27.9 % (37.0-47.0); HEMOGLOBIN 8.7 G/DL (12.0-16.0); LYMPHOCYTES % (AUTO) 28.4 % (20.0-45.0); MEAN CORPUSCULAR VOLUME 91 FL (80-99); MONOCYTES % (AUTO) 10.5 % (1.0-10.0); NEUTROPHILS % (AUTO) 57.2 % (45.0-75.0); PLATELET COUNT 188 K/UL (150-450); RED BLOOD COUNT 3.08 M/UL (4.20-5.40); RED CELL DISTRIBUTION WIDTH 17.4 % (11.6-14.8); WHITE BLOOD COUNT 7.6 K/UL (4.8-10.8)
[2018-05-07] MEDS: NovoLOG Insulin Flexpen SUBQ SCH ×4 (06:12→20:59)
[2018-05-07 06:20] LABS: ALANINE AMINOTRANSFERASE 14 U/L (12-78); ALBUMIN 1.8 G/DL (3.4-5.0); ALBUMIN/GLOBULIN RATIO 0.4 (1.0-2.7); ALKALINE PHOSPHATASE 105 U/L (46-116); ANION GAP 10 mmol/L (5-15); ASPARTATE AMINO TRANSFERASE 12 U/L (15-37); BILIRUBIN,TOTAL 0.4 MG/DL (0.2-1.0); BLOOD UREA NITROGEN 15 mg/dL (7-18); CALCIUM 8.3 MG/DL (8.5-10.1); CARBON DIOXIDE 21 MMOL/L (21-32); CHLORIDE 114 MMOL/L (98-107); CREATININE 0.8 MG/DL (0.55-1.30); PHOSPHORUS 2.8 MG/DL (2.5-4.9); POTASSIUM 3.5 MMOL/L (3.5-5.1); SODIUM 145 MMOL/L (136-145)
--- NOTE | 2018-05-07 07:23 | NUR ---
HAND-OFF: Report given to REESE LR using SBAR.patient remais stable.
[2018-05-07 08:00] VITALS: BP 132/84
[2018-05-07] MEDS: cefTRIAXone 2 GM in D5W 55 ML IVPB SCH (09:19)
[2018-05-07] MEDS: Pantoprazole Inj IVP SCH ×2 (09:19→20:55)
[2018-05-07] MEDS: Metoprolol Tartrate 12.5mg TAB ORAL SCH ×2 (09:20→20:56)
--- NOTE | 2018-05-07 09:55 | Infectious Diseases Prog Note ---
Assessment/Plan Assessment/Plan A; Septic shock resolved Proteus sepsis Proteus UTI Pleural effusion, Fungal hypha in cytology DM Anemia Paraplegia Hypokalemia Cholelithiasis, ? cholecystitis P: continue Micafungin & Rocephin, Vancomycin & Flagyl Subjective ROS Limited/Unobtainable: Yes Constitutional: Reports: no symptoms Gastrointestinal/Abdominal: Reports: other - tolerating clear liquid diet Allergies: Coded Allergies: MAGNESIUM SULFATE (Verified Allergy, Unknown, 04/05/18) Objective Vital Signs Last 24 Hour Vital Signs Date Time Temp Pulse Resp B/P (MAP) Pulse Ox O2 Delivery O2 Flow Rate FiO2 05/07/18 09:20 85 132/84 05/07/18 08:00 85 05/07/18 08:00 Venturi Mask 45.0 05/07/18 08:00 98.1 89 24 132/84 (100) 100 05/07/18 04:00 Venturi Mask 45.0 05/07/18 04:00 98.4 87 24 140/87 (104) 100 05/07/18 04:00 88 05/07/18 00:00 91 05/07/18 00:00 97.8 88 24 127/85 (99) 100 05/07/18 00:00 Venturi Mask 45.0 05/06/18 21:46 103 126/83 05/06/18 20:00 98.4 92 20 126/83 (97) 100 05/06/18 20:00 Venturi Mask 45.0 05/06/18 20:00 92 05/06/18 16:00 Venturi Mask 45.0 05/06/18 16:00 99.5 101 26 132/94 (107) 100 05/06/18 16:00 97 05/06/18 15:12 94 149/99 05/06/18 12:00 99.1 90 26 144/101 (115) 100 05/06/18 12:00 Venturi Mask 45.0 05/06/18 11:24 94 05/06/18 11:03 Nasal Cannula 10.0 45 05/06/18 11:03 100 Nasal Cannula 10.0 45 Height (Feet): 5 Height (Inches): 3.00 Weight (Pounds): 150 General Appearance: no acute distress HEENT: mucous membranes moist Respiratory/Chest: lungs clear Cardiovascular: normal rate, other - left IJ central line Abdomen: soft, non tender Extremities: other - pedeal edema Neurologic/Psychiatric: alert, responsive, other - paraplegia Laboratory Tests Test 05/07/18 04:30 White Blood Count 7.6 K/UL (4.8-10.8) Red Blood Count 3.08 M/UL (4.20-5.40) L Hemoglobin 8.7 G/DL (12.0-16.0) L Hematocrit 27.9 % (37.0-47.0) L Mean Corpuscular Volume 91 FL (80-99) Mean Corpuscular Hemoglobin 28.2 PG (27.0-31.0) Mean Corpuscular Hemoglobin Concent 31.1 G/DL (32.0-36.0) L Red Cell Distribution Width 17.4 % (11.6-14.8) H Platelet Count 188 K/UL (150-450) Mean Platelet Volume 7.5 FL (6.5-10.1) Neutrophils (%) (Auto) 57.2 % (45.0-75.0) Lymphocytes (%) (Auto) 28.4 % (20.0-45.0) Monocytes (%) (Auto) 10.5 % (1.0-10.0) H Eosinophils (%) (Auto) 2.5 % (0.0-3.0) Basophils (%) (Auto) 1.4 % (0.0-2.0) Sodium Level 145 MMOL/L (136-145) Potassium Level 3.5 MMOL/L (3.5-5.1) Chloride Level 114 MMOL/L (98-107) H Carbon Dioxide Level 21 MMOL/L (21-32) Anion Gap 10 mmol/L (5-15) Blood Urea Nitrogen 15 mg/dL (7-18) Creatinine 0.8 MG/DL (0.55-1.30) Estimat Glomerular Filtration Rate > 60 mL/min (>60) Glucose Level 148 MG/DL (74-106) H Uric Acid 6.2 MG/DL (2.6-7.2) Calcium Level 8.3 MG/DL (8.5-10.1) L Phosphorus Level 2.8 MG/DL (2.5-4.9) Magnesium Level 1.3 MG/DL (1.8-2.4) L Total Bilirubin 0.4 MG/DL (0.2-1.0) Aspartate Amino Transf (AST/SGOT) 12 U/L (15-37) L Alanine Aminotransferase (ALT/SGPT) 14 U/L (12-78) Alkaline Phosphatase 105 U/L (46-116) Pro-B-Type Natriuretic Peptide > 28026 pg/mL (0-125) H Total Protein 5.9 G/DL (6.4-8.2) L Albumin 1.8 G/DL (3.4-5.0) L Globulin 4.1 g/dL Albumin/Globulin Ratio 0.4 (1.0-2.7) L Current Medications Medications (Trade) Dose Ordered Sig/Nya Route PRN Reason Start Time Stop Time Status Last Admin Dose Admin Acetaminophen (Tylenol) 650 mg Q4H PRN RECTAL Mild Pain (Pain Scale 1-3) 05/04/18 20:30 06/01/18 00:29 05/05/18 13:02 Albuterol Sulfate (Proventil) 2.5 mg Q6H PRN HHN Shortness of Breath 05/04/18 19:30 05/09/18 19:29 Ceftriaxone Sodium 2 gm/ Dextrose 55 ml @ 110 mls/hr Q24H IVPB 05/05/18 10:00 05/11/18 09:59 05/07/18 09:19 Chlorhexidine Gluconate (Leticia-Hex 2%) 1 applic DAILY@2000 TOPIC 05/04/18 20:00 06/01/18 19:59 05/06/18 21:45 Dextrose (Dextrose 50%) 25 ml Q30M PRN IV Hypoglycemia 05/04/18 19:30 06/01/18 00:00 Dextrose (Dextrose 50%) 50 ml Q30M PRN IV Hypoglycemia 05/04/18 19:30 06/01/18 00:00 Insulin Aspart (NovoLOG) BEFORE MEALS AND HS SUBQ 05/04/18 21:00 06/01/18 06:29 05/07/18 06:12 Metoprolol Tartrate (Lopressor) 12.5 mg Q12HR ORAL 05/06/18 21:00 06/05/18 20:59 05/07/18 09:20 Metronidazole 100 ml @ 100 mls/hr Q8HR IVPB 05/05/18 14:00 05/12/18 13:59 05/07/18 06:11 Micafungin Sodium 100 mg/Sodium Chloride 110 ml @ 110 mls/hr Q24H IVPB 05/05/18 13:00 05/10/18 12:59 05/06/18 12:37 Pantoprazole (Protonix) 40 mg EVERY 12 HOURS IVP 05/04/18 21:00 06/01/18 20:59 05/07/18 09:19 Potassium Chloride 40 meq/ Dextrose 1,020 ml @ 75 mls/hr [id number] IV 05/06/18 10:00 06/05/18 09:59 05/07/18 00:04 Vancomycin HCl (Vanco rx to dose) 1 ea DAILY PRN MISC Per rx protocol 05/06/18 14:45 06/05/18 14:44 Vancomycin/Sodium Chloride 250 ml @ 166.667 mls/hr Q12H IVPB 05/07/18 05:00 05/12/18 04:59 05/07/18 05:00 Reno Samaniego MD May 07, 2018 09:55
[2018-05-07 12:00] VITALS: BP 135/86
--- NOTE | 2018-05-07 12:00 | NUR ---
NURSE NOTES:PLACED A TELEPHONE CALL TO DR ALLEN AND MADE AWARE AND NOTIFIED REGARDING PT MAGNESIUM LEVEL 1.3.RECEIVED A T.O FROM DR MACHUCA TO GIVE MAGNESIUM SULFATE 4 GRAMS IVPB.NEW ORDERS NOTED AND CARRIED OUT.WILL CONT TO MONITOR.
[2018-05-07] MEDS: Micafungin 100 MG in NS 110 ML IVPB SCH (13:41)
--- NOTE | 2018-05-07 15:01 | General Progress Note ---
Assessment/Plan Assessment/Plan Assessment and recs: # Anemia of chronic disease - multifactorial etiology, potentially related to hemodilution as well --> trending down hgb 10.1-->7.5-->7.8-->8.7 --> anemia panel has been reviewed, and inflammatory markers are elevated --> peripheral smear to be reviewed --> defer GI procedures until respiratory status more stable and cleared by cardiac, surg consulted, hida pending # Leukocytosis due to severe sepsis, currently downtrending --> on abx and antifungals as per ID --> cultures are pending/reviewed # Alkaline phosphatase elevation --> as per gi eval # Septic shock off pressor # Respiratory failure on vm --> as per pulm --> with pleural effusions noted # Proteus sepsis # Proteus UTI # Paraplegia # Cholelithiasis Greatly appreciate consultation! Subjective Constitutional: Denies: no symptoms, chills, diaphoresis, fever, malaise, weakness, other HEENT: Denies: no symptoms, eye pain, blurred vision, tearing, double vision, ear pain, ear discharge, nose pain, nose congestion, throat pain, throat swelling, mouth pain, mouth swelling, other Cardiovascular: Denies: no symptoms, chest pain, edema, irregular heart rate, lightheadedness, palpitations, syncope, other Gastrointestinal/Abdominal: Denies: no symptoms, abdomen distended, abdominal pain, black stools, tarry stools, blood in stool, constipated, diarrhea, difficulty swallowing, nausea, poor appetite, poor fluid intake, rectal bleeding , vomiting, other Genitourinary: Denies: no symptoms, burning, discharge, frequency, flank pain, hematuria, incontinence, pain, urgency, other Neurologic/Psychiatric: Denies: no symptoms, anxiety, depressed, emotional problems, headache, numbness, paresthesia, pre-existing deficit, seizure, tingling, tremors, weakness, other Endocrine: Denies: no symptoms, excessive sweating, flushing, intolerance to cold, intolerance to heat, increased hunger, increased thirst, increased urine, unexplained weight gain, unexplained weight loss, other Hematologic/Lymphatic: Denies: no symptoms, anemia, easy bleeding, easy bruising, other Allergies: Coded Allergies: MAGNESIUM SULFATE (Verified Allergy, Unknown, 04/05/18) Subjective 05/05: transferred oyt of the icu, feeling better, on vventuri mask, spansih speaking 05/06: no events, A-O x2, Deleon catheter in place, draining yellow/clear urine 05/07: Denies any pain at this time. On D5W w/ kcl 40meq at 75cc/hr.Deleon cath in placed with yellow urine. Objective Last 24 Hour Vital Signs Date Time Temp Pulse Resp B/P (MAP) Pulse Ox O2 Delivery O2 Flow Rate FiO2 05/07/18 12:00 86 05/07/18 12:00 Venturi Mask 45.0 05/07/18 09:20 85 132/84 05/07/18 08:00 85 05/07/18 08:00 Venturi Mask 45.0 05/07/18 08:00 98.1 89 24 132/84 (100) 100 05/07/18 04:00 Venturi Mask 45.0 05/07/18 04:00 98.4 87 24 140/87 (104) 100 05/07/18 04:00 88 05/07/18 00:00 91 05/07/18 00:00 97.8 88 24 127/85 (99) 100 05/07/18 00:00 Venturi Mask 45.0 05/06/18 21:46 103 126/83 05/06/18 20:00 98.4 92 20 126/83 (97) 100 05/06/18 20:00 Venturi Mask 45.0 05/06/18 20:00 92 05/06/18 16:00 Venturi Mask 45.0 05/06/18 16:00 99.5 101 26 132/94 (107) 100 05/06/18 16:00 97 05/06/18 15:12 94 149/99 Intake and Output 05/06/18 05/07/18 19:00 07:00 Intake Total 1125.000 ml Output Total 600 ml 600 ml Balance -600 ml 525.000 ml Intake Oral 150 ml IV Total 975.000 ml Output Urine Total 600 ml 600 ml # Bowel Movements 4 2 Laboratory Tests 05/07/18 04:30: White Blood Count 7.6, Red Blood Count 3.08L, Hemoglobin 8.7L, Hematocrit 27.9L , Mean Corpuscular Volume 91, Mean Corpuscular Hemoglobin 28.2, Mean Corpuscular Hemoglobin Concent 31.1L, Red Cell Distribution Width 17.4H, Platelet Count 188, Mean Platelet Volume 7.5, Neutrophils (%) (Auto) 57.2, Lymphocytes (%) (Auto) 28.4, Monocytes (%) (Auto) 10.5H, Eosinophils (%) (Auto) 2.5, Basophils (%) (Auto) 1.4, Sodium Level 145, Potassium Level 3.5, Chloride Level 114H, Carbon Dioxide Level 21, Anion Gap 10, Blood Urea Nitrogen 15, Creatinine 0.8, Estimat Glomerular Filtration Rate > 60, Glucose Level 148H, Uric Acid 6.2, Calcium Level 8.3L, Phosphorus Level 2.8, Magnesium Level 1.3L, Total Bilirubin 0.4, Aspartate Amino Transf (AST/SGOT) 12L, Alanine Aminotransferase (ALT/SGPT) 14, Alkaline Phosphatase 105, Pro-B-Type Natriuretic Peptide > 43243E, Total Protein 5.9L, Albumin 1.8L, Globulin 4.1, Albumin/Globulin Ratio 0.4L Height (Feet): 5 Height (Inches): 3.00 Weight (Pounds): 150 General Appearance: lethargic EENT: PERRL/EOMI Cardiovascular: normal peripheral pulses Objective General Appearance: well appearing, obese HEENT: PERRL/EOMI, normal ENT inspection, supple Respiratory: normal breath sounds, no respiratory distress CV: normal rate Gi: normal inspection, non tender, soft, normal bowel sounds, nd Rectal: deferred Genitourinary: no CVA tenderness Musculoskeletal: normal inspection, back normal Neurologic: normal inspection, alert, oriented x3, responsive Psychiatric: normal inspection, judgement/insight normal, memory normal Skin: normal inspection, normal color, no rash, warm/dry, well hydrated Lymphatic: normal inspection, no adenopathy Rahat Villa MD May 07, 2018 15:01
--- NOTE | 2018-05-07 15:12 | NUR ---
CASE MANAGEMENT: REVIEW 05/06/2018 SI: SEVERE SEPSIS . LACTIC ACIDOSIS T 99.5 HR 97 RR 26 B/P 132/94 SATS 100% ON VENTURI MASK 45L NA 153 K 2.8 CL 118 GLU 137 MG 1.7 ALP 123 IS: FLAGYL IV Q8HR MYCAMINE IV Q24HR CEFTRIAXONE IV Q24HR D5 1/2 w/KCl IVF @ 50ML/HR STEP DOWN UNIT STATUS DCP: PATIENT IS FROM [facility] 05/07/2018 SI: SEVERE SEPSIS . LACTIC ACIDOSIS T 98.1 HR 89 RR 24 B/P 132/84 SATS 100% ON VENTURI MASK 45L CL 114 GLU 148 CA 8.3 MG 1.3 AST 12 BNP >35K IS: FLAGYL IV Q8HR MYCAMINE IV Q24HR CEFTRIAXONE IV Q24HR D5 1/2 w/KCl IVF @ 50ML/HR STEP DOWN UNIT STATUS DCP: PATIENT IS FROM [facility] PLAN OF CARE: CT CHEST
--- NOTE | 2018-05-07 15:48 | Nephrology Progress Note ---
Assessment/Plan Problem List: (1) Septic shock (2) Hypokalemia (3) Anemia (4) Urinary tract infection (5) Paraplegia Assessment Presented with septic Shock, now hemodynamically stable Low K and Low mag HypoAlbuminemia and Proteinuria r/o Nephrotic syndrom UTI Anemia severe left lung effusion / opacity obesity ? DMII HTN Paraplegia Plan Anemia walker K and Mag supplement avoid nephrotoxics pulmonary support discussed with RN clear liquids, advance as frannie per orders Subjective ROS Limited/Unobtainable: No Constitutional: Reports: malaise Objective Objective Last 24 Hour Vital Signs Date Time Temp Pulse Resp B/P (MAP) Pulse Ox O2 Delivery O2 Flow Rate FiO2 05/07/18 12:00 86 05/07/18 12:00 98.2 90 28 135/86 (102) 100 05/07/18 12:00 Venturi Mask 45.0 05/07/18 09:20 85 132/84 05/07/18 08:00 85 05/07/18 08:00 Venturi Mask 45.0 05/07/18 08:00 98.1 89 24 132/84 (100) 100 05/07/18 04:00 Venturi Mask 45.0 05/07/18 04:00 98.4 87 24 140/87 (104) 100 05/07/18 04:00 88 05/07/18 00:00 91 05/07/18 00:00 97.8 88 24 127/85 (99) 100 05/07/18 00:00 Venturi Mask 45.0 05/06/18 21:46 103 126/83 05/06/18 20:00 98.4 92 20 126/83 (97) 100 05/06/18 20:00 Venturi Mask 45.0 05/06/18 20:00 92 05/06/18 16:00 Venturi Mask 45.0 05/06/18 16:00 99.5 101 26 132/94 (107) 100 05/06/18 16:00 97 Intake and Output 05/06/18 05/07/18 19:00 07:00 Intake Total 1125.000 ml Output Total 600 ml 600 ml Balance -600 ml 525.000 ml Intake Oral 150 ml IV Total 975.000 ml Output Urine Total 600 ml 600 ml # Bowel Movements 4 2 Laboratory Tests 05/07/18 04:30: White Blood Count 7.6, Red Blood Count 3.08L, Hemoglobin 8.7L, Hematocrit 27.9L , Mean Corpuscular Volume 91, Mean Corpuscular Hemoglobin 28.2, Mean Corpuscular Hemoglobin Concent 31.1L, Red Cell Distribution Width 17.4H, Platelet Count 188, Mean Platelet Volume 7.5, Neutrophils (%) (Auto) 57.2, Lymphocytes (%) (Auto) 28.4, Monocytes (%) (Auto) 10.5H, Eosinophils (%) (Auto) 2.5, Basophils (%) (Auto) 1.4, Sodium Level 145, Potassium Level 3.5, Chloride Level 114H, Carbon Dioxide Level 21, Anion Gap 10, Blood Urea Nitrogen 15, Creatinine 0.8, Estimat Glomerular Filtration Rate > 60, Glucose Level 148H, Uric Acid 6.2, Calcium Level 8.3L, Phosphorus Level 2.8, Magnesium Level 1.3L, Total Bilirubin 0.4, Aspartate Amino Transf (AST/SGOT) 12L, Alanine Aminotransferase (ALT/SGPT) 14, Alkaline Phosphatase 105, Pro-B-Type Natriuretic Peptide > 00306T, Total Protein 5.9L, Albumin 1.8L, Globulin 4.1, Albumin/Globulin Ratio 0.4L Height (Feet): 5 Height (Inches): 3.00 Weight (Pounds): 150 General Appearance: no apparent distress Respiratory/Chest: decreased breath sounds Abdomen: soft Objective no change Richardson Aparicio MD May 07, 2018 15:48
[2018-05-07 16:00] VITALS: BP 137/85
[2018-05-07] MEDS ORDERED: NS 275ml ONE (16:31)
[2018-05-07] MEDS ORDERED: Tubing IV Secondary IV ONE (16:31)
--- NOTE | 2018-05-07 17:54 | Diagnostic Imaging Report ---
EXAM: CT Chest Without Intravenous Contrast CLINICAL HISTORY: INFECT TECHNIQUE: Axial computed tomography images of the chest without intravenous contrast. CTDI is 27 mGy and DLP is 888 mGy-cm. One or more of the following dose reduction techniques were used: automated exposure control, adjustment of the mA and/or kV according to patient size, use of iterative reconstruction technique. COMPARISON: No relevant prior studies available. FINDINGS: Limitations: Limited due to motion. Lungs: Associated left lung atelectasis/infiltrates. Cannot exclude underlying pulmonary lesion, consider followup to ensure resolution. Pleural space: Moderate left pleural effusion with some loculations and pleural thickening, which may be chronic versus infectious/inflammatory. Small right pleural effusion. No pneumothorax. Heart: Cardiomegaly. No significant pericardial effusion. Mediastinum: Small hiatal hernia. Bones/joints: Unremarkable. No acute fracture. Soft tissues: Unremarkable. Vasculature: Unremarkable. Lymph nodes: Unremarkable. No enlarged lymph nodes. Gallbladder and bile ducts: Cholelithiasis. IMPRESSION: 1. Moderate left pleural effusion with some loculations and pleural thickening, which may be chronic versus infectious/inflammatory. 2. Associated left lung atelectasis/infiltrates. Cannot exclude underlying pulmonary lesion, consider followup to ensure resolution. 3. Small right pleural effusion.
--- NOTE | 2018-05-07 18:39 | Pulmonolgy Critical Care Note ---
Critical Care - Asmt/Plan Assessment/Plan: Pulmonary Progress Note Assessment/Plan Assessment/Plan chronic effusion collapse left possible sepsis elevated lactic acid hypotension possible gib hypoxemia PLAN pressors antibiotics respiratory care oxygen resume [facility] med d/w Dr. Tyson impression, plan, and exam edited and reviewed in detail care discussed with hardwood floor sander - Subjective ROS Limited/Unobtainable: Yes Condition: critical VSS noted Labs: Test 05/01/18 18:30 05/01/18 20:15 05/01/18 23:00 05/02/18 01:14 White Blood Count 4.8 K/UL (4.8-10.8) Red Blood Count 3.53 M/UL (4.20-5.40) Hemoglobin 10.1 G/DL (12.0-16.0) Hematocrit 32.6 % (37.0-47.0) Mean Corpuscular Volume 92 FL (80-99) Mean Corpuscular Hemoglobin 28.7 PG (27.0-31.0) Mean Corpuscular Hemoglobin Concent 31.0 G/DL (32.0-36.0) Red Cell Distribution Width 17.1 % (11.6-14.8) Platelet Count 242 K/UL (150-450) Mean Platelet Volume 6.6 FL (6.5-10.1) Neutrophils (%) (Auto) % (45.0-75.0) Lymphocytes (%) (Auto) % (20.0-45.0) Monocytes (%) (Auto) % (1.0-10.0) Eosinophils (%) (Auto) % (0.0-3.0) Basophils (%) (Auto) % (0.0-2.0) Prothrombin Time 11.9 SEC (9.30-11.50) Prothromb Time International Ratio 1.1 (0.9-1.1) Activated Partial Thromboplast Time 25 SEC (23-33) Sodium Level 141 MMOL/L (136-145) Potassium Level 4.5 MMOL/L (3.5-5.1) Chloride Level 103 MMOL/L (98-107) Carbon Dioxide Level 24 MMOL/L (21-32) Anion Gap 14 mmol/L (5-15) Blood Urea Nitrogen 23 mg/dL (7-18) Creatinine 1.2 MG/DL (0.55-1.30) Estimat Glomerular Filtration Rate 46.3 mL/min (>60) Glucose Level 198 MG/DL (74-106) Lactic Acid Level 6.50 mmol/L (0.4-2.0) 4.30 mmol/L (0.66-2.22) Calcium Level 9.6 MG/DL (8.5-10.1) Phosphorus Level 4.5 MG/DL (2.5-4.9) Magnesium Level 1.7 MG/DL (1.8-2.4) Total Bilirubin 0.6 MG/DL (0.2-1.0) Aspartate Amino Transf (AST/SGOT) 30 U/L (15-37) Alanine Aminotransferase (ALT/SGPT) 28 U/L (12-78) Alkaline Phosphatase 160 U/L (46-116) Total Creatine Kinase 96 U/L (26-308) Creatine Kinase MB 1.3 NG/ML (0.0-3.6) Creatine Kinase MB Relative Index 1.3 Troponin I 0.066 ng/mL (0.000-0.056) Pro-B-Type Natriuretic Peptide 8189 pg/mL (0-125) Total Protein 7.3 G/DL (6.4-8.2) Albumin 2.1 G/DL (3.4-5.0) Globulin 5.2 g/dL Albumin/Globulin Ratio 0.4 (1.0-2.7) Urine Color [place] Urine Appearance Very cloudy Urine pH 8 (4.5-8.0) Urine Specific [place] 1.020 (1.005-1.035) Urine Protein 3+ (NEGATIVE) Urine Glucose (UA) Negative (NEGATIVE) Urine Ketones Negative (NEGATIVE) Urine Blood 5+ (NEGATIVE) Urine Nitrite Positive (NEGATIVE) Urine Bilirubin Negative (NEGATIVE) Urine Ictotest Negative (NEGATIVE) Urine Urobilinogen Normal MG/DL (0.0-1.0) Urine Leukocyte Esterase 3+ (NEGATIVE) Urine RBC 15-20 /HPF (0 - 2) Urine WBC 20-30 /HPF (0 - 2) Urine Squamous Epithelial Cells Few /LPF (NONE/OCC) Urine Bacteria Many /HPF (NONE) Urine Mucus Many /LPF (NONE/OCC) Arterial Blood pH 7.408 (7.350-7.450) Arterial Blood Partial Pressure CO2 29.9 mmHg (35.0-45.0) Arterial Blood Partial Pressure O2 76.4 mmHg (75.0-100.0) Arterial Blood HCO3 18.4 mmol/L (22.0-26.0) Arterial Blood Oxygen Saturation 93.6 % (95-100) Arterial Blood Base Excess -5.5 (-2-2) Pablo Test Positive Test 05/02/18 06:05 05/02/18 07:55 05/02/18 10:10 05/02/18 12:20 White Blood Count 30.5 K/UL (4.8-10.8) Red Blood Count 2.68 M/UL (4.20-5.40) Hemoglobin 7.7 G/DL (12.0-16.0) Hematocrit 24.2 % (37.0-47.0) Mean Corpuscular Volume 90 FL (80-99) Mean Corpuscular Hemoglobin 28.8 PG (27.0-31.0) Mean Corpuscular Hemoglobin Concent 31.9 G/DL (32.0-36.0) Red Cell Distribution Width 17.3 % (11.6-14.8) Platelet Count 204 K/UL (150-450) Mean Platelet Volume 8.2 FL (6.5-10.1) Neutrophils (%) (Auto) % (45.0-75.0) Lymphocytes (%) (Auto) % (20.0-45.0) Monocytes (%) (Auto) % (1.0-10.0) Eosinophils (%) (Auto) % (0.0-3.0) Basophils (%) (Auto) % (0.0-2.0) Differential Total Cells Counted 100 Neutrophils % (Manual) 87 % (45-75) Lymphocytes % (Manual) 2 % (20-45) Monocytes % (Manual) 1 % (1-10) Eosinophils % (Manual) 1 % (0-3) Basophils % (Manual) 0 % (0-2) Band Neutrophils 9 % (0-8) Platelet Estimate Adequate Platelet Morphology Normal Hypochromasia 3+ Anisocytosis 1+ Sodium Level 142 MMOL/L (136-145) Potassium Level 2.5 MMOL/L (3.5-5.1) Chloride Level 108 MMOL/L (98-107) Carbon Dioxide Level 21 MMOL/L (21-32) Anion Gap 14 mmol/L (5-15) Blood Urea Nitrogen 24 mg/dL (7-18) Creatinine 1.1 MG/DL (0.55-1.30) Estimat Glomerular Filtration Rate 51.2 mL/min (>60) Glucose Level 170 MG/DL (74-106) Hemoglobin A1c 6.0 % (4.3-6.0) Calcium Level 7.7 MG/DL (8.5-10.1) Total Bilirubin 0.4 MG/DL (0.2-1.0) Aspartate Amino Transf (AST/SGOT) 26 U/L (15-37) Alanine Aminotransferase (ALT/SGPT) 25 U/L (12-78) Alkaline Phosphatase 122 U/L (46-116) Troponin I 0.094 ng/mL (0.000-0.056) Total Protein 5.7 G/DL (6.4-8.2) Albumin 1.5 G/DL (3.4-5.0) Globulin 4.2 g/dL Albumin/Globulin Ratio 0.4 (1.0-2.7) Lactic Acid Level 4.50 mmol/L (0.4-2.0) 2.70 mmol/L (0.4-2.0) Arterial Blood pH 7.438 (7.350-7.450) Arterial Blood Partial Pressure CO2 27.1 mmHg (35.0-45.0) Arterial Blood Partial Pressure O2 60.2 mmHg (75.0-100.0) Arterial Blood HCO3 17.9 mmol/L (22.0-26.0) Arterial Blood Oxygen Saturation 90.7 % (95-100) Arterial Blood Base Excess -5.4 (-2-2) Pablo Test Positive Test 05/02/18 18:05 Lactic Acid Level 2.00 mmol/L (0.4-2.0) Troponin I 0.136 ng/mL (0.000-0.056) Objective: WDWN latered clear breath sounds with reduced left [id number] without MRG NABS nontender no HSM no CC edema paraparesis nonfocal Micro: Microbiology Date/Time Source Procedure Growth Status 05/01/18 18:40 Blood Blood Culture - Preliminary Resulted 05/01/18 18:30 Blood Blood Culture - Preliminary Resulted 05/01/18 18:35 Nasal Nares Influenza Types A,B Antigen (ANNE) - Final Complete Critical Care - Objective Last 24 Hour Vital Signs Date Time Temp Pulse Resp B/P (MAP) Pulse Ox O2 Delivery O2 Flow Rate FiO2 05/07/18 16:00 Venturi Mask 45.0 05/07/18 16:00 98.8 86 22 137/85 (102) 100 05/07/18 16:00 85 05/07/18 12:00 86 05/07/18 12:00 98.2 90 28 135/86 (102) 100 05/07/18 12:00 Venturi Mask 45.0 05/07/18 09:20 85 132/84 05/07/18 08:00 85 05/07/18 08:00 Venturi Mask 45.0 05/07/18 08:00 98.1 89 24 132/84 (100) 100 05/07/18 04:00 Venturi Mask 45.0 05/07/18 04:00 98.4 87 24 140/87 (104) 100 05/07/18 04:00 88 05/07/18 00:00 91 05/07/18 00:00 97.8 88 24 127/85 (99) 100 05/07/18 00:00 Venturi Mask 45.0 05/06/18 21:46 103 126/83 05/06/18 20:00 98.4 92 20 126/83 (97) 100 05/06/18 20:00 Venturi Mask 45.0 05/06/18 20:00 92 Accucheck: 143 Critical Care - Subjective ROS Limited/Unobtainable: No FI02: 45 Vent Support Mode: BiLevel Sputum Amount: None I&O: Intake and Output 05/06/18 05/07/18 19:00 07:00 Intake Total 1125.000 ml Output Total 600 ml 600 ml Balance -600 ml 525.000 ml Intake Oral 150 ml IV Total 975.000 ml Output Urine Total 600 ml 600 ml # Bowel Movements 4 2 Nathen Luo MD May 07, 2018 18:39
--- NOTE | 2018-05-07 19:29 | Progress Note ---
SUBJECTIVE: This is an elderly female, sitting in the bed, comfortable, and her short of breath is improving. She is still on 45% oxygen. OBJECTIVE: VITAL SIGNS: Stable. Blood pressure is stable. CHEST: bilaterally some wheezing. CARDIOVASCULAR: Regular rhythm. Tachycardia is improving. ABDOMEN: Soft. Positive bowel sounds. EXTREMITIES: No edema. ASSESSMENT: 1. Acute respiratory failure. 2. Aspiration pneumonia. 3. Congestive heart failure. 4. Infected sacral decubiti. 5. Encephalopathy. 6. Severe malnutrition. PLAN: 1. We will continue on IV antibiotics. 2. Continue bronchodilator treatments. 3. Continue p.o. feeding. 4. PT and OT. 5. Pulmonary, Cardiology, and Infectious Disease on consult. 6. The patient also had initially hypokalemia, which was resolved. Monroe Tyson M.D. DR: Sabrina JOB#: [id number] CC:
--- NOTE | 2018-05-07 19:30 | NUR ---
HAND-OFF: Report given to .DIAMOND LR
--- NOTE | 2018-05-07 19:40 | NUR ---
NURSE NOTES: Received Pt is resting on the bed and awake and confused. Family at bedside. On Tele monitor with SR. No fever noted. On Deleon cath and in place and patent. LT. IJ triple lumen area dressing is clean and dry. Dressing is clean and dry on wound area. Changed position. Placed fall precaution. Will continue to care plan.
[2018-05-07 20:00] VITALS: BP 132/90
[2018-05-07] MEDS: Dyna-Hex 2% Top Sol 2oz TOPIC SCH (20:19)
[2018-05-08] VITALS (7 sets, daily range): BP systolic 128–150; BP diastolic 56–93
[2018-05-08] MEDS: Vancomycin 750mg/NS 250ml IVPB SCH (05:00)
[2018-05-08] MEDS: NovoLOG Insulin Flexpen SUBQ SCH ×4 (06:23→21:00)
--- NOTE | 2018-05-08 07:28 | NUR ---
HAND-OFF: Report given to ADELINE Chaudhary. Pt is sleeping on the bed and no sign of acute distress noted.
--- NOTE | 2018-05-08 07:29 | NUR ---
NURSE NOTES: Received patient in bed. Asleep, easy to arouse. In no apparent distress. On nasal cannula at 2LPM. Will continue plan of care.
--- NOTE | 2018-05-08 07:50 | Critical Care Progress Note ---
Assessment/Plan Assessment/Plan chronic effusion and collapse left possible sepsis elevated lactic acid hypotension possible gib hypoxemia crypto meningitis PLAN has been seen by thoracic surgery and attempted tap in the past CT chest overall appears dylan patient also evaluated in the past at other outside hospitals not surgical candidate antibiotics antifungals has been on high dose fluconazole and recommended life long respiratory care oxygen will d/w ID impression, plan, and exam edited and reviewed in detail care discussed with wind power project manager - Subjective ROS Limited/Unobtainable: Yes Condition: unchanged EKG Rhythm: Sinus Rhythm I&O: Intake and Output 05/07/18 05/08/18 19:00 07:00 Intake Total 1560 ml 1110 ml Output Total 1050 ml 600 ml Balance 510 ml 510 ml Intake Oral 550 ml 60 ml IV Total 1010 ml 1050 ml Output Urine Total 1050 ml 600 ml # Bowel Movements 1 2 Critical Care - Objective Last 24 Hour Vital Signs Date Time Temp Pulse Resp B/P (MAP) Pulse Ox O2 Delivery O2 Flow Rate FiO2 05/08/18 07:31 Nasal Cannula 2.0 28 05/08/18 07:31 99 Nasal Cannula 2.0 28 05/08/18 04:00 Nasal Cannula 2.0 05/08/18 04:00 98.1 80 22 150/90 (110) 100 05/08/18 04:00 83 05/08/18 00:00 Nasal Cannula 2.0 05/08/18 00:00 92 05/08/18 00:00 97.9 68 22 132/56 (81) 100 05/07/18 22:42 Nasal Cannula 2.0 28 05/07/18 22:42 98 Nasal Cannula 2.0 28 05/07/18 20:56 84 132/90 05/07/18 20:00 Nasal Cannula 2.0 05/07/18 20:00 98.1 84 22 132/90 (104) 100 05/07/18 20:00 87 05/07/18 16:00 Venturi Mask 45.0 05/07/18 16:00 98.8 86 22 137/85 (102) 100 05/07/18 16:00 85 05/07/18 12:00 86 05/07/18 12:00 98.2 90 28 135/86 (102) 100 05/07/18 12:00 Venturi Mask 45.0 05/07/18 09:20 85 132/84 05/07/18 08:00 85 05/07/18 08:00 Venturi Mask 45.0 05/07/18 08:00 98.1 89 24 132/84 (100) 100 Labs: Labs Test 05/06/18 04:30 05/07/18 04:30 05/08/18 04:00 White Blood Count 9.2 K/UL (4.8-10.8) 7.6 K/UL (4.8-10.8) Red Blood Count 3.07 M/UL (4.20-5.40) 3.08 M/UL (4.20-5.40) Hemoglobin 8.9 G/DL (12.0-16.0) 8.7 G/DL (12.0-16.0) Hematocrit 28.0 % (37.0-47.0) 27.9 % (37.0-47.0) Mean Corpuscular Volume 91 FL (80-99) 91 FL (80-99) Mean Corpuscular Hemoglobin 28.9 PG (27.0-31.0) 28.2 PG (27.0-31.0) Mean Corpuscular Hemoglobin Concent 31.7 G/DL (32.0-36.0) 31.1 G/DL (32.0-36.0) Red Cell Distribution Width 17.2 % (11.6-14.8) 17.4 % (11.6-14.8) Platelet Count 180 K/UL (150-450) 188 K/UL (150-450) Mean Platelet Volume 8.0 FL (6.5-10.1) 7.5 FL (6.5-10.1) Neutrophils (%) (Auto) 69.0 % (45.0-75.0) 57.2 % (45.0-75.0) Lymphocytes (%) (Auto) 20.4 % (20.0-45.0) 28.4 % (20.0-45.0) Monocytes (%) (Auto) 8.4 % (1.0-10.0) 10.5 % (1.0-10.0) Eosinophils (%) (Auto) 1.0 % (0.0-3.0) 2.5 % (0.0-3.0) Basophils (%) (Auto) 1.2 % (0.0-2.0) 1.4 % (0.0-2.0) Sodium Level 153 MMOL/L (136-145) 145 MMOL/L (136-145) Potassium Level 2.8 MMOL/L (3.5-5.1) 3.5 MMOL/L (3.5-5.1) Chloride Level 118 MMOL/L (98-107) 114 MMOL/L (98-107) Carbon Dioxide Level 22 MMOL/L (21-32) 21 MMOL/L (21-32) Anion Gap 13 mmol/L (5-15) 10 mmol/L (5-15) Blood Urea Nitrogen 13 mg/dL (7-18) 15 mg/dL (7-18) Creatinine 0.9 MG/DL (0.55-1.30) 0.8 MG/DL (0.55-1.30) Estimat Glomerular Filtration Rate > 60 mL/min (>60) > 60 mL/min (>60) Glucose Level 137 MG/DL (74-106) 148 MG/DL (74-106) Uric Acid 6.1 MG/DL (2.6-7.2) 6.2 MG/DL (2.6-7.2) Calcium Level 9.0 MG/DL (8.5-10.1) 8.3 MG/DL (8.5-10.1) Phosphorus Level 3.2 MG/DL (2.5-4.9) 2.8 MG/DL (2.5-4.9) Magnesium Level 1.7 MG/DL (1.8-2.4) 1.3 MG/DL (1.8-2.4) Total Bilirubin 0.4 MG/DL (0.2-1.0) 0.4 MG/DL (0.2-1.0) Aspartate Amino Transf (AST/SGOT) 16 U/L (15-37) 12 U/L (15-37) Alanine Aminotransferase (ALT/SGPT) 16 U/L (12-78) 14 U/L (12-78) Alkaline Phosphatase 123 U/L (46-116) 105 U/L (46-116) C-Reactive Protein, Quantitative 11.9 mg/dL (0.00-0.90) Total Protein 6.4 G/DL (6.4-8.2) 5.9 G/DL (6.4-8.2) Albumin 1.8 G/DL (3.4-5.0) 1.8 G/DL (3.4-5.0) Globulin 4.6 g/dL 4.1 g/dL Albumin/Globulin Ratio 0.4 (1.0-2.7) 0.4 (1.0-2.7) Pro-B-Type Natriuretic Peptide > 57076 pg/mL (0-125) Vancomycin Level Trough 27.8 ug/mL (5.0-12.0) Objective: WDWN latered clear breath sounds with reduced left [id number] without MRG NABS nontender no HSM no CC edema paraparesis nonfocal Accucheck: 134 Abel Black MD May 08, 2018 07:50
[2018-05-08] MEDS: Metoprolol Tartrate 12.5mg TAB ORAL SCH ×2 (10:04→20:32)
[2018-05-08] MEDS: Pantoprazole Inj IVP SCH ×2 (10:04→20:31)
[2018-05-08] MEDS: cefTRIAXone 2 GM in D5W 55 ML IVPB SCH (10:07)
--- NOTE | 2018-05-08 10:30 | Infectious Diseases Prog Note ---
Assessment/Plan Assessment/Plan A; Septic shock resolved Proteus sepsis Proteus UTI Pleural effusion, Fungal hypha in cytology DM Anemia Paraplegia Hypokalemia Cholelithiasis, ? cholecystitis P: discontinue Micafungin & Rocephin, Vancomycin & Flagyl Start on PO Bactrim & Fluconazole X 7 days Discontinue Central line before discharge Subjective ROS Limited/Unobtainable: Yes Constitutional: Reports: no symptoms Allergies: Coded Allergies: MAGNESIUM SULFATE (Verified Allergy, Unknown, 04/05/18) Objective Vital Signs Last 24 Hour Vital Signs Date Time Temp Pulse Resp B/P (MAP) Pulse Ox O2 Delivery O2 Flow Rate FiO2 05/08/18 10:04 90 134/93 05/08/18 08:00 Nasal Cannula 2.0 05/08/18 08:00 98.2 90 22 134/93 (107) 100 05/08/18 07:47 85 05/08/18 07:31 Nasal Cannula 2.0 28 05/08/18 07:31 99 Nasal Cannula 2.0 28 05/08/18 04:00 Nasal Cannula 2.0 05/08/18 04:00 98.1 80 22 150/90 (110) 100 05/08/18 04:00 83 05/08/18 00:00 Nasal Cannula 2.0 05/08/18 00:00 92 05/08/18 00:00 97.9 68 22 132/56 (81) 100 05/07/18 22:42 Nasal Cannula 2.0 28 05/07/18 22:42 98 Nasal Cannula 2.0 28 05/07/18 20:56 84 132/90 05/07/18 20:00 Nasal Cannula 2.0 05/07/18 20:00 98.1 84 22 132/90 (104) 100 05/07/18 20:00 87 05/07/18 16:00 Venturi Mask 45.0 05/07/18 16:00 98.8 86 22 137/85 (102) 100 05/07/18 16:00 85 05/07/18 12:00 86 05/07/18 12:00 98.2 90 28 135/86 (102) 100 05/07/18 12:00 Venturi Mask 45.0 Height (Feet): 5 Height (Inches): 3.00 Weight (Pounds): 150 General Appearance: no acute distress HEENT: mucous membranes moist Respiratory/Chest: lungs clear Cardiovascular: normal rate, other - left IJ line Abdomen: soft, non tender Extremities: other - dependent edema Neurologic/Psychiatric: other - sleeping Laboratory Tests Test 05/08/18 04:00 Vancomycin Level Trough 27.8 ug/mL (5.0-12.0) H Current Medications Medications (Trade) Dose Ordered Sig/Nya Route PRN Reason Start Time Stop Time Status Last Admin Dose Admin Acetaminophen (Tylenol) 650 mg Q4H PRN RECTAL Mild Pain (Pain Scale 1-3) 05/04/18 20:30 06/01/18 00:29 05/05/18 13:02 Albuterol Sulfate (Proventil) 2.5 mg Q6H PRN HHN Shortness of Breath 05/04/18 19:30 05/09/18 19:29 Ceftriaxone Sodium 2 gm/ Dextrose 55 ml @ 110 mls/hr Q24H IVPB 05/05/18 10:00 05/11/18 09:59 05/08/18 10:07 Chlorhexidine Gluconate (Leticia-Hex 2%) 1 applic DAILY@2000 TOPIC 05/04/18 20:00 06/01/18 19:59 05/07/18 20:19 Dextrose (Dextrose 50%) 25 ml Q30M PRN IV Hypoglycemia 05/04/18 19:30 06/01/18 00:00 Dextrose (Dextrose 50%) 50 ml Q30M PRN IV Hypoglycemia 05/04/18 19:30 06/01/18 00:00 Insulin Aspart (NovoLOG) BEFORE MEALS AND HS SUBQ 05/04/18 21:00 06/01/18 06:29 05/08/18 06:23 Metoprolol Tartrate (Lopressor) 12.5 mg Q12HR ORAL 05/06/18 21:00 06/05/18 20:59 05/08/18 10:04 Metronidazole 100 ml @ 100 mls/hr Q8HR IVPB 05/05/18 14:00 05/12/18 13:59 05/08/18 05:23 Micafungin Sodium 100 mg/Sodium Chloride 110 ml @ 110 mls/hr Q24H IVPB 05/05/18 13:00 05/10/18 12:59 05/07/18 13:41 Pantoprazole (Protonix) 40 mg EVERY 12 HOURS IVP 05/04/18 21:00 06/01/18 20:59 05/08/18 10:04 Potassium Chloride 40 meq/ Dextrose 1,020 ml @ 50 mls/hr [id number] IV 05/07/18 15:50 06/06/18 15:49 05/07/18 15:50 Vancomycin HCl (Vanco rx to dose) 1 ea DAILY PRN MISC Per rx protocol 05/06/18 14:45 06/05/18 14:44 Vancomycin HCl 1 gm/Dextrose 275 ml @ 183.708 mls/hr Q24H IVPB 05/08/18 12:00 05/13/18 11:59 Reno Samaniego MD May 08, 2018 10:30
[2018-05-08] MEDS ORDERED: Fluconazole 100mg tab ORAL SCH (11:30)
[2018-05-08] MEDS ORDERED: Vancomycin 1gm/D5W 275ml IVPB SCH ×2 (12:00)
[2018-05-08] MEDS: Bactrim-DS 1 tab ORAL SCH ×2 (12:02→20:31)
--- NOTE | 2018-05-08 12:07 | Nephrology Progress Note ---
Assessment/Plan Problem List: (1) Septic shock (2) Hypokalemia (3) Anemia (4) Urinary tract infection (5) Paraplegia Assessment Presented with septic Shock, now hemodynamically stable Low K and Low mag HypoAlbuminemia and Proteinuria r/o Nephrotic syndrom UTI Anemia severe left lung effusion / opacity obesity ? DMII HTN Paraplegia Plan Anemia walker K and Mag supplement avoid nephrotoxics pulmonary support discussed with RN clear liquids, advance as frannie per orders Subjective ROS Limited/Unobtainable: No Constitutional: Reports: malaise Objective Objective Last 24 Hour Vital Signs Date Time Temp Pulse Resp B/P (MAP) Pulse Ox O2 Delivery O2 Flow Rate FiO2 05/08/18 10:04 90 134/93 05/08/18 08:00 Nasal Cannula 2.0 05/08/18 08:00 98.2 90 22 134/93 (107) 100 05/08/18 07:47 85 05/08/18 07:31 Nasal Cannula 2.0 28 05/08/18 07:31 99 Nasal Cannula 2.0 28 05/08/18 04:00 Nasal Cannula 2.0 05/08/18 04:00 98.1 80 22 150/90 (110) 100 05/08/18 04:00 83 05/08/18 00:00 Nasal Cannula 2.0 05/08/18 00:00 92 05/08/18 00:00 97.9 68 22 132/56 (81) 100 05/07/18 22:42 Nasal Cannula 2.0 28 05/07/18 22:42 98 Nasal Cannula 2.0 28 05/07/18 20:56 84 132/90 05/07/18 20:00 Nasal Cannula 2.0 05/07/18 20:00 98.1 84 22 132/90 (104) 100 05/07/18 20:00 87 05/07/18 16:00 Venturi Mask 45.0 05/07/18 16:00 98.8 86 22 137/85 (102) 100 05/07/18 16:00 85 Intake and Output 05/07/18 05/08/18 19:00 07:00 Intake Total 1560 ml 1110 ml Output Total 1050 ml 600 ml Balance 510 ml 510 ml Intake Oral 550 ml 60 ml IV Total 1010 ml 1050 ml Output Urine Total 1050 ml 600 ml # Bowel Movements 1 2 Laboratory Tests 05/08/18 04:00: Vancomycin Level Trough 27.8H Height (Feet): 5 Height (Inches): 3.00 Weight (Pounds): 150 General Appearance: no apparent distress Cardiovascular: tachycardia Respiratory/Chest: decreased breath sounds Abdomen: distended Objective no change Richardson Aparicio MD May 08, 2018 12:07
--- NOTE | 2018-05-08 12:10 | GI Progress Note ---
Assessment/Plan Problems: (1) Cholelithiasis ICD Codes: K80.20 - Calculus of gallbladder without cholecystitis without obstruction SNOMED: 177387484 (2) Anemia ICD Codes: D64.9 - Anemia, unspecified SNOMED: 487517827 (3) Pleural effusion ICD Codes: J90 - Pleural effusion, not elsewhere classified SNOMED: 36865622 (4) Severe sepsis ICD Codes: A41.9 - Sepsis, unspecified organism; R65.20 - Severe sepsis without septic shock SNOMED: 84581135 (5) Alkaline phosphatase elevation ICD Codes: R74.8 - Abnormal levels of other serum enzymes SNOMED: 220733131 (6) Respiratory failure ICD Codes: J96.90 - Respiratory failure, unspecified, unspecified whether with hypoxia or hypercapnia SNOMED: 790394259 Status: stable, progressing Status Narrative Discussed with Dr. Quiñones Assessment/Plan abdominal US reviewed noted with cholelithiasis OB stool negative H&H stable on soft diet, tolerating HIDA when stable collect stool studies, cdiff if patient has persistent diarrhea monitor H&H, prn transfusions bowel regime ppi abx fu labs Outpatient GI procedures The patient was seen and examined at bedside and all new and available data was reviewed in the patients chart. I agree with the above findings, impression and plan. (Patient seen earlier today. Signature stamp does not reflect patient encounter time.). - Abe Quiñones MD Subjective Subjective limited Objective Last 24 Hour Vital Signs Date Time Temp Pulse Resp B/P (MAP) Pulse Ox O2 Delivery O2 Flow Rate FiO2 05/08/18 10:04 90 134/93 05/08/18 08:00 Nasal Cannula 2.0 05/08/18 08:00 98.2 90 22 134/93 (107) 100 05/08/18 07:47 85 05/08/18 07:31 Nasal Cannula 2.0 28 05/08/18 07:31 99 Nasal Cannula 2.0 28 05/08/18 04:00 Nasal Cannula 2.0 05/08/18 04:00 98.1 80 22 150/90 (110) 100 05/08/18 04:00 83 05/08/18 00:00 Nasal Cannula 2.0 05/08/18 00:00 92 05/08/18 00:00 97.9 68 22 132/56 (81) 100 05/07/18 22:42 Nasal Cannula 2.0 28 05/07/18 22:42 98 Nasal Cannula 2.0 28 05/07/18 20:56 84 132/90 05/07/18 20:00 Nasal Cannula 2.0 05/07/18 20:00 98.1 84 22 132/90 (104) 100 05/07/18 20:00 87 05/07/18 16:00 Venturi Mask 45.0 05/07/18 16:00 98.8 86 22 137/85 (102) 100 05/07/18 16:00 85 Intake and Output 05/07/18 05/08/18 19:00 07:00 Intake Total 1560 ml 1110 ml Output Total 1050 ml 600 ml Balance 510 ml 510 ml Intake Oral 550 ml 60 ml IV Total 1010 ml 1050 ml Output Urine Total 1050 ml 600 ml # Bowel Movements 1 2 Laboratory Tests Test 05/08/18 04:00 Vancomycin Level Trough 27.8 ug/mL (5.0-12.0) H Height (Feet): 5 Height (Inches): 3.00 Weight (Pounds): 150 General Appearance: no apparent distress Cardiovascular: normal rate Respiratory/Chest: no respiratory distress Abdominal Exam: non tender, soft Extremities: non-tender Amalia Hickman [employer] May 08, 2018 12:10
--- NOTE | 2018-05-08 15:22 | General Progress Note ---
Assessment/Plan Assessment/Plan Assessment and recs: # Anemia of chronic disease - multifactorial etiology, potentially related to hemodilution as well --> trending down hgb 10.1-->7.5-->7.8-->8.7 --> anemia panel has been reviewed, and inflammatory markers are elevated --> peripheral smear to be reviewed --> defer GI procedures until respiratory status more stable and cleared by cardiac, surg consulted, hida pending # Leukocytosis due to severe sepsis, currently downtrending --> on abx and antifungals as per ID --> cultures are pending/reviewed # Alkaline phosphatase elevation --> as per gi eval # Septic shock off pressor # Respiratory failure on vm --> as per pulm --> with pleural effusions noted # Proteus sepsis # Proteus UTI # Paraplegia # Cholelithiasis Greatly appreciate consultation! Subjective Constitutional: Denies: no symptoms, chills, diaphoresis, fever, malaise, weakness, other HEENT: Denies: no symptoms, eye pain, blurred vision, tearing, double vision, ear pain, ear discharge, nose pain, nose congestion, throat pain, throat swelling, mouth pain, mouth swelling, other Cardiovascular: Denies: no symptoms, chest pain, edema, irregular heart rate, lightheadedness, palpitations, syncope, other Respiratory: Denies: no symptoms, cough, orthopnea, shortness of breath, SOB with excertion, SOB at rest, sputum, stridor, wheezing, other Gastrointestinal/Abdominal: Denies: no symptoms, abdomen distended, abdominal pain, black stools, tarry stools, blood in stool, constipated, diarrhea, difficulty swallowing, nausea, poor appetite, poor fluid intake, rectal bleeding , vomiting, other Genitourinary: Denies: no symptoms, burning, discharge, frequency, flank pain, hematuria, incontinence, pain, urgency, other Neurologic/Psychiatric: Denies: no symptoms, anxiety, depressed, emotional problems, headache, numbness, paresthesia, pre-existing deficit, seizure, tingling, tremors, weakness, other Endocrine: Denies: no symptoms, excessive sweating, flushing, intolerance to cold, intolerance to heat, increased hunger, increased thirst, increased urine, unexplained weight gain, unexplained weight loss, other Allergies: Coded Allergies: MAGNESIUM SULFATE (Verified Allergy, Unknown, 04/05/18) Subjective 05/05: transferred oyt of the icu, feeling better, on vventuri mask, spansih speaking 05/06: no events, A-O x2, Deleon catheter in place, draining yellow/clear urine 05/07: Denies any pain at this time. On D5W w/ kcl 40meq at 75cc/hr.Deleon cath in placed with yellow urine. 05/08:awake and comfortable, abdominal US reviewed noted with cholelithiasis ,OB stool negative, H&H stable Objective Last 24 Hour Vital Signs Date Time Temp Pulse Resp B/P (MAP) Pulse Ox O2 Delivery O2 Flow Rate FiO2 05/08/18 12:09 89 05/08/18 12:00 98.4 90 24 133/88 (103) 100 05/08/18 10:04 90 134/93 05/08/18 08:00 Nasal Cannula 2.0 05/08/18 08:00 98.2 90 22 134/93 (107) 100 05/08/18 07:47 85 05/08/18 07:31 Nasal Cannula 2.0 28 05/08/18 07:31 99 Nasal Cannula 2.0 28 05/08/18 04:00 Nasal Cannula 2.0 05/08/18 04:00 98.1 80 22 150/90 (110) 100 05/08/18 04:00 83 05/08/18 00:00 Nasal Cannula 2.0 05/08/18 00:00 92 05/08/18 00:00 97.9 68 22 132/56 (81) 100 05/07/18 22:42 Nasal Cannula 2.0 28 05/07/18 22:42 98 Nasal Cannula 2.0 28 05/07/18 20:56 84 132/90 05/07/18 20:00 Nasal Cannula 2.0 05/07/18 20:00 98.1 84 22 132/90 (104) 100 05/07/18 20:00 87 05/07/18 16:00 Venturi Mask 45.0 05/07/18 16:00 98.8 86 22 137/85 (102) 100 05/07/18 16:00 85 Intake and Output 05/07/18 05/08/18 19:00 07:00 Intake Total 1560 ml 1110 ml Output Total 1050 ml 600 ml Balance 510 ml 510 ml Intake Oral 550 ml 60 ml IV Total 1010 ml 1050 ml Output Urine Total 1050 ml 600 ml # Bowel Movements 1 2 Laboratory Tests 05/08/18 04:00: Vancomycin Level Trough 27.8H Height (Feet): 5 Height (Inches): 3.00 Weight (Pounds): 150 Objective General Appearance: well appearing, obese HEENT: PERRL/EOMI, normal ENT inspection, supple Respiratory: normal breath sounds, no respiratory distress CV: normal rate Gi: normal inspection, non tender, soft, normal bowel sounds, nd Rectal: deferred Genitourinary: no CVA tenderness Musculoskeletal: normal inspection, back normal Neurologic: normal inspection, alert, oriented x3, responsive Psychiatric: normal inspection, judgement/insight normal, memory normal Skin: normal inspection, normal color, no rash, warm/dry, well hydrated Lymphatic: normal inspection, no adenopathy Rahat Villa MD May 08, 2018 15:22
--- NOTE | 2018-05-08 15:30 | Progress Note ---
DATE: 05/08/2018 SUBJECTIVE: This is elderly 58-year-old female who came to the hospital for acute respiratory failure, septic shock, dehydration, . The patient was placed on BiPAP, was in intensive care unit about 5 days and successfully she was extubated, also had Levophed drip and the patient was found to have blood cultures positive. ID consult and Pulmonary consult was obtained. The patient clinically improved. Since then, she has been hospitalized for 7 days. She is improving. Her white counts are normal. Clinically she is on 2 liter oxygen and saturating above 90%. She is in improving phase. OBJECTIVE: VITAL SIGNS: Blood pressure 134/93, pulse 90, temperature 98.2. CHEST: Bilaterally decreased breath sounds. CARDIOVASCULAR: Regular rhythm. No gallop. No murmur. ABDOMEN: Soft. Positive bowel sounds. EXTREMITIES: CCE. NEUROLOGICALLY: Generalized weakness. LABORATORY AND DIAGNOSTIC DATA: White counts are 7.6, hemoglobin 8.7, hematocrit 28, platelets 188. Chemistry panel, sodium 145, potassium 3.5, BUN 15, creatinine 0.8. BNP was [id number] ASSESSMENT AND PLAN: 1. Acute respiratory failure. 2. Aspiration pneumonia. 3. Congestive heart failure. 4. Urinary tract infection. 5. . 6. Congestive heart failure. The patient is clinically improving. We will discharge her to the senior care. Discontinue IV antibiotics. Continue metoprolol. Discontinue Flagyl. Continue sliding scale. Continue PPIs. Continue bronchodilator treatment. A 2 liter oxygen, bedridden, mechanical soft diet. Monroe Tyson M.D. DR: Margaret JOB#: [id number] CC:
[2018-05-08] MEDS ORDERED: NS 275ml ONE (17:06)
--- NOTE | 2018-05-08 17:41 | NUR ---
CASE MANAGEMENT: REVIEW SI: SEVERE SEPSIS . LACTIC ACIDOSIS T 98.4 HR 90 RR 24 BP 134/93 SAT 100% NC/2L IS: BACTRIM DS PO Q12HR LOPRESSOR PO Q12HR KCl IVF @50ML/HR STEP DOWN UNIT STATUS DCP: PATIENT IS FROM [facility]
--- NOTE | 2018-05-08 17:58 | NUR ---
CASE MANAGEMENT: DCPNOTE UPON DISCHARGE PATIENT WILL TRANSFER BACK TO [facility] [phone] SKILL[address] ROOM 37B FAMILY SUSAN GARCIA [phone] CALLED / NO ANSWER FAMILY ROEL HAUSER [phone] IN AGREEMENT WITH PATIENT TRANSFERRING BACK TO THIS FACILITY TRANSPORTATION VIA [facility] [id number] ETA [id number]
--- NOTE | 2018-05-08 18:50 | NUR ---
NURSE NOTES: Telephone report given to ADELINE CURTIS of [facility].
--- NOTE | 2018-05-08 19:25 | NUR ---
HAND-OFF: Report given to Rahat Puente RN.
--- NOTE | 2018-05-08 20:00 | NUR ---
NURSE NOTES: Received Pt is resting on the bed and awake and forgetful. Family at bedside. On Tele monitor with SR. No fever noted. On Deleon cath and in place and patent. LT. IJ triple lumen area dressing is clean and dry and removed central line. No bleeding noted. Dressing is clean and dry on wound area. Changed position. Pt will discharge to [facility] and awaiting ambulance. Report given to longterm by previous nurse, Placed fall precaution. Will continue to care plan.
--- NOTE | 2018-05-08 21:35 | NUR ---
NURSE NOTES: Pt discharged to [facility] by ambulance with 2 staffs. Pt is awake and alert and forgetful no sign of acute distress noted. Given report to Jose Rafael Brantley. No belonging noted. Removed Tele monitor.
--- NOTE | 2018-05-09 15:31 | Cardiology Report ---
APPROVED REPORT EXAM: Two-dimensional and M-mode echocardiogram with Doppler and color Doppler. INDICATION OTHER M-Mode DIMENSIONS IVSd0.9 (0.7-1.1cm)Left Atrium (MM)4.0 (1.6-4.0cm) LVDd4.2 (3.5-5.6cm)Aortic Root3.6 (2.0-3.7cm) PWd0.8 (0.7-1.1cm)Aortic Cusp Exc.2.0 (1.5-2.0cm) IVSs1.2 cm LVDs3.2 (2.5-4.0cm) PWs0.9 cm Normal left ventricular chamber size, systolic function and wall motion .mild hypo of posterior and inferio baxter Left ventricular ejection fraction estimated to be 45-50 %. Mild left ventricular hypertrophy by 2-D. Small pericardial effusion. Left atrial size at upper limits of normal. Right cardiac chamber sizes are within normal limits. Mildly focal aortic valve sclerosis with adequate cusp excursion. Mildly thickened mitral valve leaflets with normal excursion. Mitral annulus and aortic root calcification. Pulmonic valve not well visualized. Normal tricuspid valve structure. IVC at normal size with physiologic collapse . A color flow and spectral Doppler study was performed and revealed: No aortic regurgitation. Trace mitral regurgitation. Mitral diastolic velocities suggest reduced left ventricular relaxation c/w mild LV diastolic dysfunction (Grade I ) Trace tricuspid regurgitation.
--- NOTE | 2018-05-10 08:57 | Discharge Summary ---
Discharge Summary Discharge Summary _ DATE OF ADMISSION: 05/01/2018 DATE OF DISCHARGE: 05/08/2018 DISCHARGED BY: Dr. 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 Patient required placement supplemental oxygen . Patient was hypotensive with lowest blood pressure 77/29. Laboratory workup revealed no leukocytosis, hemoglobin 10.1, hematocrit 32.6. BUN 23 creatinine 1.2. Lactic acid 6.5. Pro BNP 829. Urinalysis revealed evidence of UTI and +3 protein. EKG revealed sinus tachycardia , no acute ischemic changes. Chest x-ray revealed left pleural effusion , likely loculated versus pleural thickening. Parenchymal disease with atelectasis versus pneumonia in the left lung base. In emergency department patient was pancultured , started on IV fluids and empiric antibiotics. Blood pressure did not significantly improved after IV fluid. Central venous catheter was placed. CXR confirmed placement. Patient started on BiPAP and pressors and admitted for further management. CONSULTANTS: pulmonary Dr. Black ID specialist Dr. Perea GI specialist Dr. Quiñones tennis instructor Dr. Aparicio custodial worker/oncologist Dr. Rivera [facility] COURSE: Patient admitted and started on pressors to keep mean arterial pressure above 65. Patient initially was kept n.p.o. and started on IV fluids and empiric antibiotic. Patient was on BiPAP. Settings were titrated based on ABG. Pulmonary toilet provided. Pulmonology closely followed. Follow up chest x-ray revealed slightly improved aeration of the left upper lobe. Patient was able to be weaned down to Venturi mask. Venous duplex bilateral lower extremity revealed no evidence of acute DVT. Echocardiogram revealed ejection fraction 45-50%. Mild hypokinesis of the anterior and inferior baxter. Mild left ventricular hypertrophy. Blood pressure stabilized , and patient was able to be weaned from pressors. Infectious disease specialist closely followed. Blood culture revealed Proteus. Influenza screen test was negative. Urine culture revealed Proteus. Sputum culture revealed MRSA. Cytology report after thoracentesis in March 2018 revealed septate fungal hyphae present. Patient was on multiply antibiotic regimen as per ID specialist recommendations , including micafungin, Rocephin, vancomycin, Flagyl. Upon discharge antibiotics changed to oral Bactrim for 7 days and fluconazole. Central line was discontinued prior to discharge. Patient was seen by thoracic surgeon prior and attempted thoracentesis. CT of the chest revealed moderate left pleural effusion with some loculation and pleural thickening probably chronic versus infectious/inflammatory. Associated left lung atelectasis/infiltrate. Small right pleural effusion. CT finding appeared unchained from previous imaging. Patient was evaluated in the past at outside hospital and deemed to be not a surgical candidate. Lifelong antifungal was recommended. Forensic Structural Engineer closely followed. Blood pressure stable, patient started on low dose of beta ryan for history of HTN and mild cardiomyopathy on ECHO. Renal parameters and electrolytes were closely monitored. Electrolytes corrected as needed. Nephrotoxins were avoided. Prior to discharge stable electrolytes. BUN 15, creatinine 0.8. Blood sugar was managed with sliding scale of insulin. Hemoglobin A1c at goal - 6.0. Hemoglobin and hematocrit were closely monitored with goal to keep hemoglobin above 7. Anemia workup revealed evidence of anemia of chronic disease. No need for transfusion. Stool for occult blood was negative. Prior to discharge hemoglobin 8.7 hematocrit 27.9. GI specialist closely followed. Abdominal ultrasound revealed cholelithiasis with borderline wall thickening , probably artifact. There was also some pericholecystic fluid, raising possibility of acute cholecystitis. Borderline hepatomegaly noted. LFT and bilirubin remained stable. Patient slowly started on diet and was advanced as tolerated . Patient was able to tolerate soft diet. GI specialist recommended to defer GI procedure until respiratory status more stable, given stable hemoglobin and stool for occult blood being negative. GI procedure can be done as outpatient. GI specialist also recommended HIDA scan when stable. GI prophylaxis provided. Bowel regimen instituted. Wound care for sacral decubitus ulcer stage II ,present on admission ,provided as per protocol. Continue wound care at the facility. Patient clinically stabilized and was ready for discharge to long-term facility for continuation of care. 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 DISCHARGE INSTRUCTIONS: Patient was discharged to the long-term facility/ [facility]. Follow up with medical doctor at the facility. I have been assigned to dictate discharge summary for this account. I was not involved in the patient's management. Tabitha Cordova NP May 10, 2018 08:57
== END 2018-05-08 21:30 | DRG 720 ==
LOC: EDBD 18:18 → EMR 19:45 → EDBEDREQ 20:20 → ICU 20:59 → 2W 05-04 20:25
PROC: 05HN33Z Insertion of Infusion Device into Left Internal Jugular Vein, Percutaneous Approach (ICD-10-PCS; principal; 2018-05-01)
DX: A41.59 Other Gram-negative sepsis (principal); J96.01 Acute respiratory failure with hypoxia; J69.0 Pneumonitis due to inhalation of food and vomit; G93.40 Encephalopathy, unspecified; R65.21 Severe sepsis with septic shock; E43 Unspecified severe protein-calorie malnutrition; J15.212 Pneumonia due to Methicillin resistant Staphylococcus aureus; J90 Pleural effusion, not elsewhere classified; L89.153 Pressure ulcer of sacral region, stage 3; I50.9 Heart failure, unspecified; E11.9 Type 2 diabetes mellitus without complications; E86.0 Dehydration; E78.5 Hyperlipidemia, unspecified; N39.0 Urinary tract infection, site not specified; G82.20 Paraplegia, unspecified; K80.20 Calculus of gallbladder without cholecystitis without obstruction; E87.6 Hypokalemia; Z68.26 Body mass index [BMI] 26.0-26.9, adult; E87.0 Hyperosmolality and hypernatremia
CPT/HCPCS: 36415; 36600; 71045; 71250; 76700; 80048; 80053; 80076; 80202; 81003; 82270; 82378; 82550; 82553; 82607; 82728; 82803; 82962; 83020; 83036; 83540; 83550; 83605; 83615; 83735; 83880; 83921; 84100; 84443; 84484; 84550; 85007; 85025; 85044; 85060; 85610; 85660; 85730; 86140; 86710; 87040; 87070; 87081; 87086; 87181; 87205; 93005; 93306; 93970; 94660; 94664; 94760; 96361; 96365; 96367; 99291; J1815